=== PATIENT | female | born 1935 | race African-American/Black ===

== ENCOUNTER → 2016-09-21 | Outpatient (CLI) | payer OTHER ==
[~2016-09-21] MED LIST: ALUMSUS2 PO; APR25 PO; ASPEC81 PO; ASPI81TA28 PO; ATOR-22 PO; ATROVENT INH; CALC-354 PO; CALC500C50 PO; CARB1SOL OPB; CARB1SOL8; CLTP PO; CRAN500C2 PO; CRG125 PO; DIPH25CA37 PO; FLUT0.0529 NAE; FLUT0.15 NAE; FRS/40 PO; GENTEAL GEL OPB; GLC/500 PO; GLC500 PO; GLUC10007 PO; GLUCTAB7 PO; LEVO50TA6 PO; LEVO50TA60 PO; LOSA100T65 PO; LVQ500 PO; MDR4 PO; MONT1TAB5 PO; MULT-506 PO; NAPR220T40 PO; NIFE90TA27 PO; NZRCR TD; OMEGCAP2 PO; POTA-335 PO; PRCSR90 PO; PRLSR20 PO; REFRESH OPB; TERB1CRE TD; [UNRECOGNIZED DRUG - CODE] PO; [UNRECOGNIZED DRUG - CODE] TD
--- NOTE | 2016-09-22 05:50 | PAP/PSG TECHNICIAN REPORT ---
[facility] Industrial Pharmacist Polysomnogram Report Study name: None Report date: 09/22/2016 Study date: 09/21/2016 Referring Physician: DR.CHARLES LOPEZ Name: CANDIDA POWELL Interpreting Physician: Panfilo Drake M.D. Date of : 1935 Industrial Pharmacist: Antoinette Tim PSGT. Sex: Female Age: 81 StudyType: PSG Weight: 213 lbs Height: 81 years, Height 5' 6" Neck Circum:15.5 inches BMI: 34.38 Medications: SEE LIST OF 29 MEDICATIONS IN CHART. Patient History 81 YR. OLD FEMALE PRESENTS TO THE SLEEP LAB FOR A SPIT NIGHT STUDY.PT. STATES THAT SHE HAS INSOMNIA, SHE SNORES AND NAPS DURING THE DAY.PT. HAS A COMPLEX MEDICAL HISTORY INCLUDING PULMONARY HYPERTESION.ESS= 7, NECK = 15.5 INCHES Parameters Monitored NPSG: E1-M2, E2-M1, Fp1-M2, Fp2-M1, F3-M2, F4-M2, F4-M1, C3-M2, C4-M2, C4-M1, O1-M2, O2-M2, O2-M1, T3-M2, T4-M1, P3-M2, P4-M1, CHIN1, CHIN2, HR, EKG, Legs, PFLOW, SNOR, FLOW, CFLOW, Tidal Volume, THOR, ABDO, SpO2, PLTH, CPRESS, ETCO2 Wave, ETCO2, pH Sleep Architecture Sleep Stages Time at Lights Off 11:03:43 PM STAGES Time (min.) TST (%) Time at Lights On 5:09:13 AM Wake 117.0 -- Total Recording Time (TRT) 367.00 min. N1 12.5 5 Total Sleep Period (TSP) 312.0 min. N2 216.5 87 Total Sleep Time (TST) 248.0min. N3 0.0 0 Awake Time 119.0 min. REM 19.0 8 Wake after Sleep Onset 68.0 min. Sleep Efficiency (SE) 68 % Sleep Onset Latency (LATRICE) 49.5 min. Number of Stage 1 Shifts None Awakenings 8 Stage Changes 29 Number of REM periods 1 REM 19.0 8 REM Latency 254.5 min. NREM 229.0 92 Body Position Analysis Supine Right Left Side Prone Vertical Total Sleep Time (min.) 365.0 0.0 0.0 0.00 0.0 0.0 Total Sleep Time (%) 100% 0% 0% 0 0% N/A% Total Sleep Time REM (min.) 19.0 0.0 0.0 None 0.0 0.0 Total Sleep Time NREM (min.) 229.0 0.0 0.0 None 0.0 0.0 Intermittent Wake (min.) 117.0 0.0 0.0 None 0.0 0.0 Total Sleep Period (%) 100% None None None None None Arousals Myoclonus (PLM) * Events Count Index Events Count Index Spontaneous 33 8 Events Awake (PLMW) 2 1.0 Respiratory 15 3.6 Events Asleep w/ Arousal (PLMA) 0 0.0 PLM 0 0 Events Asleep w/o Arousal (PLMS) 18 4.4 Snoring 0 0 Total Asleep 18 4.4 Total 48 12 Total 20 3 Respiratory Analysis * CA OA MA CH H RERA Total Count 0 8 0 0 180 49 188 Index 0.0 1.9 0.0 0 43.5 12 56.6 Mean Duration 0.0 17.3 0.0 0.00 17.5 14.1 16.9 Longest Duration 0.0 21.0 0.0 0.00 0.0 32.1 46.4 Respiratory Event Summary Total Supine ~Supine Right Left Prone REM NREM Apneas Count 8 8 N/A N/A N/A N/A 0 8 Index 1.9 2 N/A N/A N/A N/A 0 2 Hypopneas (4% Desat) Count 180 180 N/A N/A N/A N/A 19 161 Index 43.5 43.5 N/A N/A N/A N/A 60.0 42.2 Apneas & All Hypopneas Count 188 188 N/A N/A N/A N/A 19 169 Index 45.5 45 N/A N/A N/A N/A 60.0 44.3 Respiratory Events (Exterior Work Helper+All Hyp+RERA) Count 188 234 N/A N/A N/A N/A 19 169 Index 56.6 57 N/A N/A N/A N/A 78.9 54.8 Respiratory Related Arousal Count 15 234 N/A N/A N/A N/A 2 13 Index 3.6 4 N/A N/A N/A N/A 6 3 Snoring Analysis Supine Right Left Prone REM NREM Total Snore duration 0.1 min Snores count 7 N/A N/A N/A 0 7 7 Snore mean duration 0.8 Sec Snores index 2 N/A N/A N/A 0.0 1.8 1.7 TST with snoring (%) 0.0% SpO2 Analysis Total REM NREM Awake <50% 0.0 min. 0.0 min. 0.0 min. 0.0 min. 51 - 60% 0.0 min. 0.0 min. 0.0 min. 0.0 min. 61 - 70% 0.0 min. 0.0 min. 0.0 min. 0.0 min. 71 - 80% 4.4 min. 3.8 min. 0.5 min. 0.1 min. 81 - 90% 318.0 min. 14.5 min. 218.3 min. 85.2 min. 91 - 100% 40.2 min. 0.8 min. 10.2 min. 29.3 min. Average 87 84 86 89 Minimum SpO2 74 74 79 80 Desaturation Event Index 37.0 75.8 52.4 1.0 # Desat. Events below 89% 222 24 198 0 Time(%) with Saturation below 89% 76.1 4.7 53.9 17.4 Time(min.) with Saturation below 89% 275.9 17.2 195.5 63.2 Heart Rate Analysis End Tidal CO2 Analysis Min (bpm) Max (bpm) Average (bpm) TSP (mins) % of TSP Awake 59 81 74 Above 55 mmHg 0.0 0.0 NREM 57 78 69 50-55 mmHg 0.0 0.0 REM 59 72 66 45-50 mmHg 0.0 0.0 Overall 57 78 68 40-45 mmHg 1.4 0.6 35-40 mmHg 73.9 29.8 30-35 mmHg 45.1 18.2 Average ETCO2 0.1 Supplemental O2 Values Minimum O2 level: None Value Start Time End Time Industrial Pharmacist Comments PSG Study MS. Powell slept in the supine positions. Cardiac arrhythmia displayed, PLM's noted. No bruxism noted. Snoring was noted and scored as a 1 on a scale of 1 through 5. (0=no snoring, 5=snoring loud enough to be heard through a closed door or down the bhatti way) Ms. Powell awoke to use the restroom one time during the night. Ms. Powell stated, I did not sleep well, I had a lot of leg and hip pain. The final report will be interpreted and signed by a sleep physician. The completed physician report will then be placed in the patient medical record. Pt. had hypoxemia and respiratory events throughout the study. Mild snoring was displayed. Pt. also displayed some PVC'S during the test. See print outs in the chart Therapy (cm H2O) 0 TIB (min.) 365.0 TST (min.) 248.0 Sleep Onset (min.) 49.5 REM Onset From Sleep (min.) 254.5 Sleep Efficiency % 68 Wakefulness (%) 32 Wakefulness (min.) 119.0 NREM 1 (%) 5 NREM 1 (min.) 12.5 NREM 2 (%) 87 NREM 2 (min.) 216.5 NREM 3 (%) 0 NREM 3 (min.) 0.0 REM (%) 8 REM (min.) 19.0 # Arousals 48 Arousal Index 12 # Snore 7 Snore Index 1.7 AHI 45.5 AHI Supine 45 AHI Non-Supine N/A NREM AHI 44.3 REM AHI 60.0 RDI 56.6 # Obstructive Apnea 8 # Central Apnea 0 # Mixed Apnea 0 # Hypopneas 180 RERAs 49 Total Respiratory Events 235 Time Below SpO2 89% (min.) 212.7 Mean NREM SpO2 (%) 86 Mean REM SpO2 (%) 84 Mean Sleep SpO2 (%) 86 Min NREM SpO2 (%) 79 Min REM SpO2 (%) 74 Position Supine (min.) 365.0 Position Non-supine (min.) 0.0 LM Index Sleep 4.4 LM Index NREM 3.9 LM Index REM 9.5 Mean Heart Rate (bpm) 68 Min Heart Rate (bpm) 57
--- NOTE | 2016-09-28 13:58 | POLYSOMNOGRAPH REPORT ---
REFERRING PERSON: Dr. Angelica Drake. VACCINE SPECIALIST: Veronica Tim. Ms. Mora is an 81-year-old female sent for a possible split night sleep study. Her main complaint is insomnia. She does snore and nap during the day. She has a complex medical history including pulmonary hypertension. Her [place] Sleepiness Scale score on the evening of this study is 7. BMI is 34.38. Following the technical and digital specifications of the [place] [employer] (AASM) a standard diagnostic polysomnogram was performed monitoring EEG, EOG, EMG (chin and leg deviations), oxygen saturation, body position, digital video, respiratory effort and airflow.? The sleep Stage and event scoring was based on the AASM Manual for the Scoring of Sleep and Associated Events 2007 edition.? Apneas are defined as a drop in the peak thermal sensor excursion by >90% of baseline for at least 10 seconds.? Hypopneas were scored using the 4% oxygen desaturation rule (4A-Medicare) and a decrease in the nasal pressure excursions by >30% of baseline for at least 10 seconds.? Respiratory effort-related arousal (RERA's) is defined as a sequence of breaths lasting at least 10 seconds characterized by increasing respiratory effort or flattening of the nasal pressure waveform leading to an arousal from sleep when the sequence of breaths does not meet criteria for an apnea or hypopnea.? Apnea Hypopnea index (AHI) is defined as the number of apneas and hypopneas occurring in an hour of sleep.? Respiratory disturbance index (RDI) is defined as the number of apneas, hypopneas, and RERA's occurring in an hour of sleep. Ms. Mora's total sleep period time was 312 minutes. Total sleep time was 248 minutes. Sleep efficiency was 68%. Latency to sleep onset was 49.5 minutes with wake after sleep onset of 68 minutes. Total non-REM sleep time was 229 minutes. She spent 5% of that time in N1 sleep and 87% in N2 sleep. There was no N3 sleep on this test. REM latency was prolonged at 254.5 minutes. Total REM sleep time was 19 minutes or 8% of total sleep time. There were 48 cortical arousals from sleep. Thirty three of these arousals were spontaneous, 15 were due to respiratory events, and there was no time spent. There were 18 periodic limb movements. Limb movement index was 4.4. Limb movement with arousal index was 0. There were no central, 8 obstructive, and no mixed apneas. There were 180 hypopnea and 49 RERA. Apnea-hypopnea index was 45.5, RDI was 56.6. This is consistent with severe sleep apnea. Seven snoring events were recorded. Total sleep time with snoring was negligible. Mean saturation during sleep was low at 87% with desaturations with a respiratory event of 74%. Saturations were less than 89% for 275.9 minutes of recorded time. There was no cardiac ectopy noted on this test. During sleep, this patient's heart rates ranged from a low of 57 beats per minute to a high of 78 beats per minute. IMPRESSION AND PLAN: An 81-year-old female with evidence of severe sleep apnea and significant nocturnal hypoxemia on this study. 1. This patient would benefit from positive airway pressure therapy. She should return to sleep lab for a full night titration and based on those results be started on equipment at home. A download from her machine can be reviewed in 1 month both to check compliance as well as AHI and further pressure adjustments can occur at that time. This patient may need supplemental oxygen as well given the degree of her hypoxemia on this test.
== END | disposition home or self-care (01) ==
LOC: C.NEUR 20:00
PROVIDERS: ATTEND Family Medicine
DX: F51.11 Primary hypersomnia (principal); F51.04 Psychophysiologic insomnia; E66.9 Obesity, unspecified; I10 Essential (primary) hypertension; I27.2 Other secondary pulmonary hypertension

== ENCOUNTER 2016-10-15 05:58 | Observation (INO) | payer OTHER ==
[2016-10-15] VITALS (9 sets, daily range): BP systolic 137–178; BP diastolic 77–98; PULSE 60–70; TEMP 36.4–36.8; O2SAT 94–98; Ht 167.6 cm; Wt 99.4 kg
[~2016-10-15] VITALS: Ht 167.6 cm; Wt 99.4 kg
[~2016-10-15 05:58] MED LIST changes: -ASPI81TA28 PO; -ATROVENT INH; -CALC-354 PO; -CARB1SOL OPB; -FLUT0.15 NAE; -GLC/500 PO; -GLUC10007 PO; -LEVO50TA6 PO; -MONT1TAB5 PO; -NIFE90TA27 PO; -TERB1CRE TD; -[UNRECOGNIZED DRUG - CODE] TD
[2016-10-15] MEDS ORDERED: NITROGLYCERIN 0.4 MG SL PER TAB CHARGE SL STA (06:21)
[2016-10-15] MEDS ORDERED: LEVO50TA6 PO (06:27)
[2016-10-15] MEDS ORDERED: GLC/500 PO (06:28)
[2016-10-15] MEDS ORDERED: FLUT0.15 NAE (06:29)
[2016-10-15] MEDS ORDERED: GLUC10007 PO (06:41)
[2016-10-15] MEDS ORDERED: MONT1TAB5 PO (06:44)
[2016-10-15] MEDS ORDERED: APR25 PO (06:45)
[2016-10-15] MEDS ORDERED: TERB1CRE TD (06:47)
[2016-10-15] MEDS ORDERED: [UNRECOGNIZED DRUG - CODE] TD (06:49)
--- NOTE | 2016-10-15 06:49 | EMERGENCY ROOM VISIT NOTE ---
History Report prepared by Claudio: Pari Tracy Under the Supervision of: Dr. Joan Liu D.O. First contact with patient: 06:04 Chief Complaint: HEADACHE Stated Complaint: HEACACHE History of Present Illness The patient is an 81 year old female who presents to the Emergency Room with complaints of a persistent headache that began last evening but worsened this morning. She currently rates her discomfort as a 7/10 in severity. The patient states that for the past several months she has been experiencing headaches, nausea, and aches in her extremities. She notes that she has been undergoing evaluation sleep studies for her sleep apnea. The patient states that today she woke to go to urinate and after she went she developed diffuse body aches. She states that she had a headache, leg aches, left arm aches, abdominal gas, nausea, and neck pain that radiates into her chest and back. The patient states that she continued to feel weak today so she called EMS. The patient states that she was out a few times yesterday and her daughter reports that she appeared slower and more achy than usual. The patient states that Tuesday she had an EKG done that had an abnormality. She states that she was referred to a security professional on Tuesday, but states she was told that if she developed pain before then to come to the ED. The patient states that she has a history of a pericardial effusion in 2013 noting that she was transferred to [facility]. She states that she was unsure why the effusion developed. The patient denies any history of a previous MT or heart catheterization. Source of History: patient, family (daughter) Onset: last evening Position: head Symptom Intensity: 7/10 Quality: ache Timing: worsening, other (persistent) Associated Symptoms: + chest pain, + nausea, + back pain, + weakness Note: Associated Symptoms: aches in her extremities, abdominal gas Review of Systems See HPI for pertinent positives & negatives. A total of 10 systems reviewed and were otherwise negative. 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 (11) HTN (hypertension) (12) Hypothyroid (13) Osteoarthritis (14) Osteopenia (15) Sicca syndrome Surgical Problems: (1) History of cataract surgery (2) History of hysterectomy (3) History of rotator cuff surgery (4) Hx of excision of lamina of cervical vertebra for decompression of spinal cord (5) Status post pericardiocentesis Family History FH: cancer FH: diabetes mellitus Social History Smoking Status: Never Smoker Alcohol Use: occasionally Drug Use: none Marital Status: Occupation Status: retired Current/Historical Medications Scheduled Aluminum/Magnesium/Simeth (Maalox Max Susp), 1 DOSE PO DIRECTED PRN Aspirin (Aspirin Ec), 81 MG PO DAILY Atorvastatin (Lipitor), 20 MG PO DAILY Calcium Carbonate (Antacid) (Tums), 1,000 MG PO prn Calcium Carbonate-Cholecalcife (Caltrate 600+D), 1 TAB PO BID Carbamide Peroxide (Otic) (Debrox), UD Carboxymethylcellulose Sodium (Refresh), 2 DROP OPB UD Carvedilol (Carvedilol), 12.5 MG PO BID Cranberry (Vaccinium Macrocarp (Cranberry), 1,000 MG PO DAILY Fluticasone Propionate (Nasal) (Flonase Allergy Relief), 2 SPRAY HUONG BID Furosemide (Lasix), 40 MG PO DAILY Glucosamine Sulfate (Glucosamine), 1,000 MG PO BID Hydralazine Hcl (Apresoline), 25 MG PO BID Levothyroxine Sodium (Levothyroxine Sodium), 50 MCG PO DAILY Losartan Potassium (Cozaar), 100 MG PO DAILY Metformin Hcl (Glucophage), 500 MG PO BIDM Montelukast Sodium (Montelukast Sodium), 10 MG PO DAILY Multivitamin (Multivitamin), 1 TAB PO DAILY Nifedipine (Nifedipine Er), 90 MG PO DAILY [place]-3 Fatty Acids (Fish Oil), 1,000 MG PO BID Omeprazole (Prilosec), 20 MG PO QAM Potassium Chloride (Micro-K Ext Rel), 20 MEQ PO DAILY Terbinafine HCl (Topical) (Cvs Athletes Foot), 1 APPLN TD BID Urea (Aqua Care), 1 APPLN TD PRN/UD Scheduled PRN Diphenhydramine Hcl (Benadryl), 25 MG PO Q4 PRN for ALLERGIC REACTION Naproxen Sodium (Aleve), 220 MG PO BID PRN for Pain [Atrovent Hfa 17MCG], 2 PUFFS INH TID PRN for Wheezing Allergies Coded Allergies: Simvastatin (Unverified Allergy, Intermediate, muscle cramps, 02/27/13) Codeine (Unverified Allergy, Mild, HYPERTENSION, 02/27/13) Atropine (Verified Allergy, Unknown, ITCHING, 05/26/14) Doxycycline (Verified Allergy, Unknown, NAUSEA/VOMITING., 05/26/14) Hyoscyamine (Verified Allergy, Unknown, ITCHING, 05/26/14) Lactose (Verified Allergy, Unknown, UNKNOWN, 05/26/14) Minocycline (Verified Allergy, Unknown, NAUSEA AND VOMITING, 05/26/14) Morphine and Related (Verified Allergy, Unknown, UNKNOWN, 05/26/14) Phenobarbital (Verified Allergy, Unknown, RASH, 05/26/14) Scopolamine (Verified Allergy, Unknown, RASH, 05/26/14) Physical Exam Vital Signs Date Time Temp Pulse Resp B/P (MAP) Pulse Ox O2 Delivery O2 Flow Rate FiO2 10/15/16 07:14 68 20 121/71 94 Room Air 10/15/16 06:59 72 20 147/91 94 Room Air 10/15/16 06:50 70 10/15/16 06:39 95 Room Air 10/15/16 06:07 36.7 86 18 173/95 97 Room Air Physical Exam HEENT: Head - normocephalic and atraumatic Pupils are equal, round, and reactive to light. Extraocular eye muscles are intact, and sclera are anicteric. Nose - moist nasal mucosa without discharge. Mouth - moist buccal mucosa. Oropharynx is nonerythematous and there is no tonsillar exudate or edema noted. Neck: Supple; no JVD, nuchal rigidity, cervical lymphadenopathy, or auscultated bruits. Heart: Regular rate and rhythm. There is a normal S1 and S2 with no murmurs, clicks, or gallops appreciated. Lungs: Clear to auscultation bilaterally with no wheezes, rales, or rhonchi. Abdomen: Soft, completely nontender, nondistended, with good bowel sounds. There are no palpable pulsatile masses or hepatosplenomegaly. There is no guarding, rigidity, or rebound noted. Extremities: 2+ pitting edema to the legs. No evidence of cyanosis or clubbing. There are easily palpable peripheral pulses. Skin: warm and dry with good turgor and no rashes. Medical Decision & Procedures ER Provider Diagnostic Interpretation: X-ray results as stated below per interpretation by me and the radiologist: CHEST ONE VIEW PORTABLE CLINICAL HISTORY: chest pain pain COMPARISON STUDY: 05/30/2014 FINDINGS: The bones soft tissues and hemidiaphragms are normal. The cardiomediastinal silhouette is normal. The lungs are clear. The pulmonary vasculature is normal. IMPRESSION: Negative chest. Electronically signed by: Jn Jordan M.D. 10/15/2016 6:58 AM Dictated Date/Time: 10/15/2016 6:58 AM Laboratory Results 10/15/16 06:30 10/15/16 06:30 Test 10/15/16 06:30 Red Blood Count 5.03 M/uL (4.2-5.4) Mean Corpuscular Volume 89.9 fL (80-100) Mean Corpuscular Hemoglobin 29.6 pg (25-34) Mean Corpuscular Hemoglobin Concent 33.0 g/dl (32-36) RDW Standard Deviation 50.1 fL (36.4-46.3) RDW Coefficient of Variation 15.1 % (11.5-14.5) Mean Platelet Volume 9.9 fL (7.4-10.4) Anion Gap 7.0 mmol/L (3-11) Est Creatinine Clear Calc Drug Dose 56.8 ml/min Estimated GFR () 67.2 Estimated GFR (Non- 58.0 BUN/Creatinine Ratio 18.6 (10-20) Calcium Level 9.8 mg/dl (8.5-10.1) Total Bilirubin 0.5 mg/dl (0.2-1) Aspartate Amino Transf (AST/SGOT) 17 U/L (15-37) Alanine Aminotransferase (ALT/SGPT) 22 U/L (12-78) Alkaline Phosphatase 50 U/L (45-117) Total Creatine Kinase 167 U/L (26-192) Creatine Kinase MB 1.2 ng/ml (0.5-3.6) Creatine Kinase MB Ratio 0.7 (0-3.0) Troponin I < 0.015 ng/ml (0-0.045) Total Protein 7.7 gm/dl (6.4-8.2) Albumin 3.9 gm/dl (3.4-5.0) Globulin 3.8 gm/dl (2.5-4.0) Albumin/Globulin Ratio 1.0 (0.9-2) Laboratory results per my review. Medications Administered Medications (Trade) Dose Ordered Sig/Nelly Route Start Time Stop Time Status Last Admin Dose Admin Nitroglycerin (Nitrostat Tab) 0.4 mg Q5M STAT SL 10/15/16 06:21 10/15/16 06:22 DC 10/15/16 06:32 0.4 MG Procedure Medications Administered: Nitroglycerin 0.4 mg SL. ECG Indication: chest pain Rate (beats per minute): 79 Rhythm: normal sinus Findings: PVC, T-wave inversion (lead 1 and AVL) Comparison ECG Date: 10/12/16, 05/27/14 Change: When compared to EKG done on 05/27/14, T wave inversions are new. When compared to EKG done on 10/12/16, it is unchanged. ED Course 0607: Past medical records reviewed. The patient was evaluated in room B7. A complete history and physical exam was performed. A twelve-lead EKG was obtained as described above. A portable chest x-ray was obtained 0621: Ordered Nitroglycerin 0.4 mg SL. 0630: In review of the patient's EMR her echocardiogram interpretation summary is as follows: Normal LV chamber size and wall thickness. Normal LV systolic function without regional wall motion abnormality. Calculated LV ejection Fraction = 60% (bi-plane method of discs). Grade I diastolic dysfunction. Mild mitral regurgitation. Mild tricuspid regurgitation. Pulmonary hypertension is present. 0658: I reevaluated the patient and she states that her pain in her chest, neck , back, and left arm went from a 7/10 to a 2/10 with the nitroglycerin. She will receive another dose of Nitroglycerin. 0715: Per nursing staff, the patient went down to a 1/10 in severity after the second nitro. I discussed the patient's case with Yumiko Crabtree. She is going to evaluate the patient for further treatment. Medical Decision The patient is an 81 year old female who presents to the ED with headache, upper chest discomfort that radiates to the left side of her neck and left shoulder. Differential diagnosis includes NSTEMI, angina, GERD, CHF. I attest that I have personally reviewed the patient's current medication list. Patient was found to have an elevated blood pressure and was referred to their primary doctor for recheck and further treatment. Lab interpretation: normal white count, stable H&H, glucose 131, normal renal function. The patient had a recent EKG which was noted to be abnormal. She was referred to cardiology next week. However, the patient developed some upper chest discomfort that radiated to her left neck and left shoulder this morning. There is no evidence of ST segment elevation to suggest an acute MT. Troponin was negative. However, I am concerned about the patient's upper chest pain that radiates to the left shoulder and neck. This pain was also relieved with nitroglycerin. The patient's blood pressure was initially elevated but came down nicely after 2 sublingual nitros. I discussed the case with the [facility] Hospitalist and they will evaluate for further management. Consults Time Called: 7:36 Consulting Physician: Dr. Clive Calderon Returned Call: 7:37 I discussed the patient's case with Yumiko Crabtree. She is going to evaluate the patient for further treatment. Impression Primary Impression: Radiating chest pain Scribe Attestation The scribe's documentation has been prepared under my direction and personally reviewed by me in its entirety. I confirm that the note above accurately reflects all work, treatment, procedures, and medical decision making performed by me. Departure Information Dispostion Being Evaluated By Hospitalist Referrals Collins Delatorre D.O. (PCP)
[2016-10-15] MEDS ORDERED: NIFE90TA27 PO (06:52)
[2016-10-15] MEDS ORDERED: CALC-354 PO (06:59)
[2016-10-15] MEDS ORDERED: ASPI81TA28 PO (07:00)
--- NOTE | 2016-10-15 07:00 | DIAGNOSTIC IMAGING REPORT ---
CHEST ONE VIEW PORTABLE CLINICAL HISTORY: chest pain pain COMPARISON STUDY: 05/30/2014 FINDINGS: The bones soft tissues and hemidiaphragms are normal. The cardiomediastinal silhouette is normal. The lungs are clear. The pulmonary vasculature is normal. IMPRESSION: Negative chest. Electronically signed by: Jn Jordan M.D. 10/15/2016 6:58 AM Dictated Date/Time: 10/15/2016 6:58 AM
[2016-10-15] MEDS ORDERED: CARB1SOL OPB (07:02)
[2016-10-15 07:03] LABS: HEMATOCRIT 45.2 % (37-47); MEAN CELL VOLUME 89.9 fL (80-100); MEAN CORPUSCULAR HEMOGLOBIN 29.6 pg (25-34); MEAN PLATELET VOLUME 9.9 fL (7.4-10.4); PLATELET COUNT 280 K/uL (130-400); RED BLOOD COUNT 5.03 M/uL (4.2-5.4); WHITE BLOOD COUNT 6.78 K/uL (4.8-10.8)
[2016-10-15] MEDS ORDERED: ALUMSUS2 PO (07:05)
[2016-10-15] MEDS ORDERED: ATROVENT INH (07:12)
[2016-10-15 07:25] LABS: ALT/SGPT 22 U/L (12-78); AST/SGOT 17 U/L (15-37); BLOOD UREA NITROGEN 17 mg/dl (7-18); BUN/CREATININE RATIO 18.6 (10-20); CARBON DIOXIDE 26 mmol/L (21-32); CHLORIDE 106 mmol/L (98-107); CREATININE 0.92 mg/dl (0.60-1.20); GLUCOSE 131 mg/dl (70-99); SODIUM 139 mmol/L (136-145)
[2016-10-15 07:27] LABS: CALCIUM 9.8 mg/dl (8.5-10.1)
[2016-10-15 07:30] LABS: ALKALINE PHOSPHATASE 50 U/L (45-117); CKMB/CK RATIO 0.7 (0-3.0)
[2016-10-15] MEDS ORDERED: ONDANSETRON INJ 2 MG/ML 2 ML VIAL IV PRN (08:30)
[2016-10-15] MEDS ORDERED: IPRATROPIUM BROMIDE HFA INHALER INH PRN (08:30)
[2016-10-15] MEDS ORDERED: NITROGLYCERIN 0.4 MG SL PER TAB CHARGE SL PRN (08:30)
[2016-10-15] MEDS ORDERED: ALUMINUM/MAGNESIUM/SIMETH (MAALOX MAX) 30 ML UDC PO PRN (08:30)
[2016-10-15] MEDS ORDERED: CALCIUM CARBONATE 500 MG CHEWABLE PO PRN (08:30)
--- NOTE | 2016-10-15 08:43 | Progress Note ---
Progress Note Date of Service Oct 15, 2016. Progress Note Generalized aches and pain for the last 2 weeks with fwver,chills,nausea , vomiting and or any urinary symptoms. Worse this morning,Has had left upper chest pain with some chest tightness.No other associated symptoms .Received nitrox2 with relief fo the pain. The patient had a recent EKG which was noted to be abnormal by the PCP . She was referred to cardiology next week. However, the patient developed some upper chest discomfort that radiated to her left neck and left shoulder this morning. There is no evidence of ST segment elevation to suggest an acute NE. Troponin was negative. However, I am concerned about the patient's upper chest pain that radiates to the left shoulder and neck. This pain was also relieved with nitroglycerin. The patient's blood pressure was initially elevated but came down nicely after 2 sublingual nitros. A/P Atypical Chest pain-Non specific T wave changes with low Voltage,H/O pericardial effusion Possible viral syndrome DM -type 2 Telemetry unit,R/O ACS,Cardiology consult Full H&P to follow. Dr Micheline Barbosa
[2016-10-15] MEDS ORDERED: CRANBERRY PO SCH (09:00)
[2016-10-15] MEDS ORDERED: GLUCOSE 10 TABS/TUBE PO PRN (09:45)
[2016-10-15] MEDS ORDERED: GLUCOSE 40% GEL 15 GM TUBE PO PRN (09:45)
[2016-10-15] MEDS ORDERED: GLUCAGON FOR INJ 1 MG VIAL SQ PRN (09:45)
[2016-10-15] MEDS ORDERED: DEXTROSE 50% 50 ML SYR IV PRN (09:45)
[2016-10-15] MEDS ORDERED: NSS + 20MEQ KCL 1000ML 1,000 ML IV SCH (10:00)
[2016-10-15 10:15] LABS: PROTHROMBIN TIME (PATIENT) 10.7 SECONDS (9.0-12.0)
[2016-10-15] MEDS ORDERED: IV FLUIDS COMPLETED PRN (10:30)
--- NOTE | 2016-10-15 10:30 | Cardiology Consultation ---
Cardiology Consultation History of Present Illness Patient is a 81 year old female presented with complaint of chest discomfort. Patient states that she had a meal with significant amount of garlic in it. Approx 1-2 hours later developed chest discomfort. Described it as a burning sensation similar to the sensation of needing to belch but being unable to do so. Her son gave her some otc anti-gas meds and within 30 minutes symptoms resolved. Denied associated sob, diaphoresis or palpitations. Has had similar episodes in the past. History Family History: Mother with pneumonia at 32. Father at 60 from hemorrhage. Brother with an [place] at 61. Sister with colon cancer at 42 Social History: Nonsmoker. No alcohol. No illegal drug use. , May 2015. Son lives with her. Daughter lives five minutes away. 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 Past Medical/Surgical History Problem List: Medical Problems: (1) Adrenal mass (2) Allergic rhinitis (3) Atypical chest pain (4) Degenerative arthritis of cervical spine (5) DM type 2 (diabetes mellitus, type 2) (6) Dyslipidemia (7) History of alopecia areata (8) History of breast cancer (9) History of migraine headaches (10) History of pericardial effusion (11) History of positive PPD (12) HTN (hypertension) (13) Hypothyroid (14) Osteoarthritis (15) Osteopenia (16) Sicca syndrome Surgical Problems: (1) History of cataract surgery (2) History of hysterectomy (3) History of rotator cuff surgery (4) Hx of excision of lamina of cervical vertebra for decompression of spinal cord (5) Status post pericardiocentesis Review Of Systems General: The patient denies weight change, night sweats, fever, chills. Head: The patient denies headache and prior head trauma. Cardiovascular: The patient denies chest pain or chest discomfort, dyspnea on exertion, palpitations, PND, orthopnea, edema, spontaneous shortness of breath, syncope and near syncope. Pulmonary: The patient denies cough, wheeze, pleurisy, hemoptysis, sputum, and excessive snoring. Gastrointestinal: The patient denies nausea, vomiting, diarrhea, constipation, bloating, hematemesis, hematochezia, and abdominal pain. Skin: The patient denies diaphoresis and rash. Musculoskeletal: The patient denies joint pain, joint swelling, myalgia, back pain, neck pain and prior injuries. Neurological: The patient denies prior stroke and seizures Allergies Coded Allergies: Simvastatin (Unverified Allergy, Intermediate, muscle cramps, 02/27/13) Codeine (Unverified Allergy, Mild, HYPERTENSION, 02/27/13) Atropine (Verified Allergy, Unknown, ITCHING, 05/26/14) Doxycycline (Verified Allergy, Unknown, NAUSEA/VOMITING., 05/26/14) Hyoscyamine (Verified Allergy, Unknown, ITCHING, 05/26/14) Lactose (Verified Allergy, Unknown, UNKNOWN, 05/26/14) Minocycline (Verified Allergy, Unknown, NAUSEA AND VOMITING, 05/26/14) Morphine and Related (Verified Allergy, Unknown, UNKNOWN, 05/26/14) Phenobarbital (Verified Allergy, Unknown, RASH, 05/26/14) Pork (Verified Allergy, Unknown, spiritual preference, 10/15/16) Scopolamine (Verified Allergy, Unknown, RASH, 05/26/14) Shellfish (Verified Allergy, Unknown, spiritual preference, 10/15/16) Medications Reported Home Medications Medications Dose Route/Sig Max Daily Dose Days Date Category Dose Instructions [Atrovent a 17MCG] 2 Puffs INH TID PRN 10/15/16 Reported Refresh (Carboxymethylcellulose Sodium) 1 % Manuel 2 Drop OPB UD 10/15/16 Reported Aspirin Ec (Aspirin) 81 Mg Tab 81 Mg PO DAILY 10/15/16 Reported Caltrate 600+D (Calcium Carbonate-Cholecalcife) 1 Tab Tab 1 Tab PO BID 10/15/16 Reported Nifedipine Er (Nifedipine) 90 Mg Tab 90 Mg PO DAILY 10/15/16 Reported Aqua Care (Urea) 10 % Cre 1 Appln TD PRN/UD 10/15/16 Reported [facility] Athletes Foot (Terbinafine HCl (Topical)) 1 % Cre 1 Appln TD BID 10/15/16 Reported Apresoline (Hydralazine Hcl) 25 Mg Tab 25 Mg PO BID 10/15/16 Reported Montelukast Sodium 10 Mg Tab 10 Mg PO DAILY 10/15/16 Reported Glucosamine (Glucosamine Sulfate) 1,000 Mg Tab 1,000 Mg PO BID 10/15/16 Reported Flonase Allergy Relief (Fluticasone Propionate (Nasal)) 50 Mcg/Act Spr 2 Closplint HUONG BID 10/15/16 Reported Glucophage (Metformin Hcl) 500 Mg Tab 500 Mg PO BIDM 10/15/16 Reported Levothyroxine Sodium 50 Mcg Tab 50 Mcg PO DAILY 10/15/16 Reported Debrox (Carbamide Peroxide (Otic)) 6.5 % Matilda UD 05/26/14 Reported Fill ear canal and insert cotton plug. Remove plug after 15 to 30 minutes. Benadryl (Diphenhydramine Hcl) 25 Mg Cap 25 Mg PO Q4 PRN 05/26/14 Reported Tums (Calcium Carbonate (Antacid)) 500 Mg Chw 1,000 Mg PO PRN 05/26/14 Reported Fish Oil ([place]-3 Fatty Acids) 1 Cap Cap 1,000 Mg PO BID 05/26/14 Reported Cranberry (Cranberry (Vaccinium Macrocarp) 500 Mg Cap 1,000 Mg PO DAILY 05/26/14 Reported Aleve (Naproxen Sodium) 220 Mg Tab 220 Mg PO BID PRN 05/26/14 Reported Carvedilol 12.5 Mg Tab 12.5 Mg PO BID 05/26/14 Reported Cozaar (Losartan Potassium) 100 Mg Tab 100 Mg PO DAILY 05/26/14 Reported Prilosec (Omeprazole) 20 Mg Capcr 20 Mg PO QAM 03/28/13 Reported Lipitor (Atorvastatin Calcium) 20 Mg Tab 20 Mg PO DAILY 03/28/13 Reported Maalox Max Susp (Al Hydrox/Mg Hydrox/Simethicone) Susp 1 Dose PO DIRECTED PRN 09/28/10 Reported Micro-K Ext Rel (Potassium Chloride) 20 Meq Cap 20 Meq PO DAILY 09/28/10 Reported Multivitamin (Multivitamins) Tab 1 Tab PO DAILY 09/28/10 Reported Lasix (Furosemide) 40 Mg Tab 40 Mg PO DAILY 08/26/06 Reported Physical Exam Vital Signs (Last 8hrs): Last 8 Hrs Date Time Temp Pulse Resp B/P (MAP) Pulse Ox O2 Delivery O2 Flow Rate FiO2 10/15/16 09:00 74 20 153/82 97 10/15/16 08:25 97 Room Air 10/15/16 08:03 62 22 146/79 97 Room Air 10/15/16 07:14 68 20 121/71 94 Room Air 10/15/16 06:59 72 20 147/91 94 Room Air 10/15/16 06:50 70 10/15/16 06:39 95 Room Air 10/15/16 06:07 36.7 86 18 173/95 97 Room Air General Appearance: Alert and Oriented x3. NAD. Head: Normocephalic Atraumatic. Eyes: PERRLA, EOMI, conjunctiva and sclera clear Neck: Supple. No carotid bruits noted. No JVD. No HJD. Respiratory: Breath sounds clear to auscultation bilaterally. No w/r/r. Cardiovascular: Reg rate and rhythm. S1 and S2 noted. No murmurs, rubs, gallops. PMI non displace. Abdomen: Normal bowel sounds, soft nontender. no abdominal bruits. Extremities: No edema, no clubbing or cyanosis. distal pulses 2/4 bilaterally. Neuro: No focal deficits. Psychiatric: Normal affect. Data Last 24 Hours Test 10/15/16 06:30 White Blood Count 6.78 K/uL Red Blood Count 5.03 M/uL Hemoglobin 14.9 g/dL Hematocrit 45.2 % Mean Corpuscular Volume 89.9 fL Mean Corpuscular Hemoglobin 29.6 pg Mean Corpuscular Hemoglobin Concent 33.0 g/dl RDW Standard Deviation 50.1 fL RDW Coefficient of Variation 15.1 % Platelet Count 280 K/uL Mean Platelet Volume 9.9 fL Prothrombin Time 10.7 SECONDS Prothromb Time International Ratio 1.0 Sodium Level 139 mmol/L Potassium Level 4.0 mmol/L Chloride Level 106 mmol/L Carbon Dioxide Level 26 mmol/L Anion Gap 7.0 mmol/L Blood Urea Nitrogen 17 mg/dl Creatinine 0.92 mg/dl Est Creatinine Clear Calc Drug Dose 56.8 ml/min Estimated GFR () 67.2 Estimated GFR (Non- 58.0 BUN/Creatinine Ratio 18.6 Random Glucose 131 mg/dl Calcium Level 9.8 mg/dl Total Bilirubin 0.5 mg/dl Aspartate Amino Transf (AST/SGOT) 17 U/L Alanine Aminotransferase (ALT/SGPT) 22 U/L Alkaline Phosphatase 50 U/L Total Creatine Kinase 167 U/L Creatine Kinase MB 1.2 ng/ml Creatine Kinase MB Ratio 0.7 Troponin I < 0.015 ng/ml Total Protein 7.7 gm/dl Albumin 3.9 gm/dl Globulin 3.8 gm/dl Albumin/Globulin Ratio 1.0 Imaging: EKG: sinus without ischemic changes Telemetry reviewed: sinus rhythm without arrhythmia or significant ectopy. Assessment & Plan 1. chest discomfort resolved with anti-gas medication occurred after eating large amount of garlic ekg nonischemic trend cardiac enzymes, so far unremarkable repeat echo will start prn simethicone
[2016-10-15] MEDS: ATORVASTATIN 20 MG TAB PO SCH (10:33)
[2016-10-15] MEDS: LOSARTAN POTASSIUM 50 MG TAB PO SCH (10:34)
[2016-10-15] MEDS: MULTIVITAMIN TAB PO SCH (10:35)
[2016-10-15] MEDS: MONTELUKAST SOD 10 MG TAB PO SCH (10:35)
[2016-10-15] MEDS: GLUCOSAMINE SULFATE 500 MG CAP PO SCH ×2 (10:35→20:22)
[2016-10-15] MEDS: PANTOprazole SOD 40 MG TAB PO SCH (10:36)
[2016-10-15] MEDS: LEVOTHYROXINE 50 MCG TAB PO SCH (10:38)
[2016-10-15] MEDS: CALCIUM 600MG + VIT D 400 IU TAB PO SCH ×2 (10:38→16:00)
[2016-10-15] MEDS: ASPIRIN 81 MG ECTAB PO SCH (10:39)
[2016-10-15] MEDS: CARVEDILOL 12.5 MG TAB PO SCH ×2 (10:39→20:22)
[2016-10-15] MEDS: TERBINAFINE CR 30 GM TUBE EXT SCH ×2 (10:40→20:21)
[2016-10-15] MEDS: FLUTICASONE PROPIONATE NA SPR 16 GM BTL NAE SCH ×2 (10:41→20:21)
[2016-10-15] MEDS: NIFEdipine 30 MG CR TAB PO SCH (11:12)
[2016-10-15] MEDS: INSULIN ASPART 100 UNITS/ML 3 ML PEN SC SCH ×3 (12:59→20:22)
[2016-10-15] MEDS: HEPARIN SOD 5000 UNIT/0.5 ML CARP SQ SCH ×2 (13:34→20:25)
--- NOTE | 2016-10-15 13:49 | History and Physical ---
History & Physical Date & Time of Service: Oct 15, 2016 at 13:39 Chief Complaint: Atypical Chest Pain Primary Care Physician: Collins Delatorre D.O. History of Present Illness Source: patient, family Generalized aches and pain for the last 2 weeks with fwver,chills,nausea , vomiting and or any urinary symptoms. Worse this morning,Has had left upper chest pain with some chest tightness.No other associated symptoms .Received nitrox2 with relief fo the pain. The patient had a recent EKG which was noted to be abnormal by the PCP . She was referred to cardiology next week. However, the patient developed some upper chest discomfort that radiated to her left neck and left shoulder this morning. There is no evidence of ST segment elevation to suggest an acute NC. Troponin was negative. However, I am concerned about the patient's upper chest pain that radiates to the left shoulder and neck. This pain was also relieved with nitroglycerin. The patient's blood pressure was initially elevated but came down nicely after 2 sublingual nitros. 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 (11) HTN (hypertension) Status: Chronic (12) Hypothyroid Status: Chronic (13) Osteoarthritis Status: Chronic (14) Osteopenia Status: Chronic (15) Sicca syndrome Status: Chronic Surgical Problems: (1) History of cataract surgery Status: Chronic (2) History of hysterectomy Status: Chronic (3) History of rotator cuff surgery Status: Chronic (4) Hx of excision of lamina of cervical vertebra for decompression of spinal cord Status: Chronic (5) Status post pericardiocentesis Permanent Comment: 2010 [facility] Status: Chronic Family History FH: cancer FH: diabetes mellitus Social History Smoking Status: Never Smoker Drug Use: none Marital Status: Housing status: lives with significant other Occupational Status: retired Immunizations History of Influenza Vaccine: Yes History of Tetanus Vaccine?: Yes History of Pneumococcal: Yes Pneumococcal Date: Jan 22, 2012 History of Hepatitis B Vaccine: No Multi-Drug Resistant Organisms History of MDRO: No Allergies Coded Allergies: Simvastatin (Unverified Allergy, Intermediate, muscle cramps, 02/27/13) Codeine (Unverified Allergy, Mild, HYPERTENSION, 02/27/13) Atropine (Verified Allergy, Unknown, ITCHING, 05/26/14) Doxycycline (Verified Allergy, Unknown, NAUSEA/VOMITING., 05/26/14) Hyoscyamine (Verified Allergy, Unknown, ITCHING, 05/26/14) Lactose (Verified Allergy, Unknown, UNKNOWN, 05/26/14) Minocycline (Verified Allergy, Unknown, NAUSEA AND VOMITING, 05/26/14) Morphine and Related (Verified Allergy, Unknown, UNKNOWN, 05/26/14) Phenobarbital (Verified Allergy, Unknown, RASH, 05/26/14) Pork (Verified Allergy, Unknown, spiritual preference, 10/15/16) Scopolamine (Verified Allergy, Unknown, RASH, 05/26/14) Shellfish (Verified Allergy, Unknown, spiritual preference, 10/15/16) Home Medications Scheduled Aluminum/Magnesium/Simeth (Maalox Max Susp), 1 DOSE PO DIRECTED PRN Aspirin (Aspirin Ec), 81 MG PO DAILY Atorvastatin (Lipitor), 20 MG PO DAILY Calcium Carbonate (Antacid) (Tums), 1,000 MG PO prn Calcium Carbonate-Cholecalcife (Caltrate 600+D), 1 TAB PO BID Carbamide Peroxide (Otic) (Debrox), UD Carboxymethylcellulose Sodium (Refresh), 2 DROP OPB UD Carvedilol (Carvedilol), 12.5 MG PO BID Cranberry (Vaccinium Macrocarp (Cranberry), 1,000 MG PO DAILY Fluticasone Propionate (Nasal) (Flonase Allergy Relief), 2 SPRAY HUONG BID Furosemide (Lasix), 40 MG PO DAILY Glucosamine Sulfate (Glucosamine), 1,000 MG PO BID Hydralazine Hcl (Apresoline), 25 MG PO BID Levothyroxine Sodium (Levothyroxine Sodium), 50 MCG PO DAILY Losartan Potassium (Cozaar), 100 MG PO DAILY Metformin Hcl (Glucophage), 500 MG PO BIDM Montelukast Sodium (Montelukast Sodium), 10 MG PO DAILY Multivitamin (Multivitamin), 1 TAB PO DAILY Nifedipine (Nifedipine Er), 90 MG PO DAILY [place]-3 Fatty Acids (Fish Oil), 1,000 MG PO BID Omeprazole (Prilosec), 20 MG PO QAM Potassium Chloride (Micro-K Ext Rel), 20 MEQ PO DAILY Terbinafine HCl (Topical) ([facility]vs Athletes Foot), 1 APPLN TD BID Urea (Aqua Care), 1 APPLN TD PRN/UD Scheduled PRN Diphenhydramine Hcl (Benadryl), 25 MG PO Q4 PRN for ALLERGIC REACTION Naproxen Sodium (Aleve), 220 MG PO BID PRN for Pain [Atrovent Hfa 17MCG], 2 PUFFS INH TID PRN for Wheezing Review of Systems Cardiovascular: + chest pain (Atypical ) Musculoskeletal: + muscle pain (Generalized) Physical Exam Vital Signs Date Time Temp Pulse Resp B/P (MAP) Pulse Ox O2 Delivery O2 Flow Rate FiO2 10/15/16 12:00 98 Room Air 10/15/16 12:00 98 Room Air 10/15/16 11:25 36.5 65 18 157/77 (103) 97 Nasal Cannula 2.0 10/15/16 10:00 66 16 168/77 (107) 98 Room Air 10/15/16 09:30 36.8 70 18 178/98 (124) 98 Room Air 10/15/16 09:00 74 20 153/82 97 10/15/16 08:25 97 Room Air 10/15/16 08:03 62 22 146/79 97 Room Air 10/15/16 07:14 68 20 121/71 94 Room Air 10/15/16 06:59 72 20 147/91 94 Room Air 10/15/16 06:50 70 10/15/16 06:39 95 Room Air 10/15/16 06:07 36.7 86 18 173/95 97 Room Air General Appearance: no apparent distress Head: normocephalic Eyes: normal inspection ENT: normal ENT inspection Neck: supple Respiratory/Chest: chest non-tender, lungs clear, normal breath sounds Cardiovascular: regular rate, rhythm Abdomen/GI: normal bowel sounds, non tender Back: normal inspection Neurologic/Psych: no motor/sensory deficits Skin: normal color Lymphatic: no adenopathy Diagnostics Laboratory Results Results Past 24 Hours Test 10/15/16 06:30 10/15/16 11:18 Range/Units White Blood Count 6.78 4.8-10.8 K/uL Red Blood Count 5.03 4.2-5.4 M/uL Hemoglobin 14.9 12.0-16.0 g/dL Hematocrit 45.2 37-47 % Mean Corpuscular Volume 89.9 80-100 fL Mean Corpuscular Hemoglobin 29.6 25-34 pg Mean Corpuscular Hemoglobin Concent 33.0 32-36 g/dl RDW Standard Deviation 50.1 36.4-46.3 fL RDW Coefficient of Variation 15.1 11.5-14.5 % Platelet Count 280 130-400 K/uL Mean Platelet Volume 9.9 7.4-10.4 fL Prothrombin Time 10.7 9.0-12.0 SECONDS Prothromb Time International Ratio 1.0 0.9-1.1 Sodium Level 139 136-145 mmol/L Potassium Level 4.0 3.5-5.1 mmol/L Chloride Level 106 98-107 mmol/L Carbon Dioxide Level 26 21-32 mmol/L Anion Gap 7.0 3-11 mmol/L Blood Urea Nitrogen 17 7-18 mg/dl Creatinine 0.92 0.60-1.20 mg/dl Est Creatinine Clear Calc Drug Dose 56.8 ml/min Estimated GFR () 67.2 Estimated GFR (Non- 58.0 BUN/Creatinine Ratio 18.6 10-20 Random Glucose 131 70-99 mg/dl Calcium Level 9.8 8.5-10.1 mg/dl Total Bilirubin 0.5 0.2-1 mg/dl Aspartate Amino Transf (AST/SGOT) 17 15-37 U/L Alanine Aminotransferase (ALT/SGPT) 22 12-78 U/L Alkaline Phosphatase 50 45-117 U/L Total Creatine Kinase 167 26-192 U/L Creatine Kinase MB 1.2 0.5-3.6 ng/ml Creatine Kinase MB Ratio 0.7 0-3.0 Troponin I < 0.015 0-0.045 ng/ml Total Protein 7.7 6.4-8.2 gm/dl Albumin 3.9 3.4-5.0 gm/dl Globulin 3.8 2.5-4.0 gm/dl Albumin/Globulin Ratio 1.0 0.9-2 Bedside Glucose 133 70-90 mg/dl CXR normal other (Non specific t wave changes) Impression Assessment and Plan Atypical Chest Pain Resolved with Nitrox2-with headache H/O Pericardial Effusion Minor T wave changes recently and was referred to cardiology as an OP Serial Aubrey Cardiology evaluation Generalized Aches and Pain May have Viral syndrome Cautious IVF for dehydration Monitor PRP Diabetes Type 2 Hold Metformin SSI Blood sugar ACHS Hypertension Continue current medications Hypothyroidism Continue replacement Sleep Apnea May use her own CPAP GI prophylaxis PPI DVT prophylaxis SQ Heparin Code Status Full In my clinical judgement the beneficiary meets the criteria of [address] in hospital. Dr Micheline Barbosa Level of Care Telemetry Advanced Directives Existing Living Will: No Existing Power of Tobacco Conditioner: No Resuscitation Status FULL RESUSCITATION VTE Prophylaxis VTE Risk Assessment Done? Y/N: Yes Risk Level: Moderate Given or contraindicated: Unfractionated heparin SQ
[2016-10-15] MEDS ORDERED: SIMETHICONE 80 MG CHEW PO ONE (15:17)
[2016-10-15] MEDS ORDERED: SIMETHICONE 80 MG CHEW PO PRN (15:30)
[2016-10-15 15:46] LABS: CKMB/CK RATIO 0.5 (0-3.0)
[2016-10-15 20:50] LABS: CKMB/CK RATIO 0.8 (0-3.0)
[2016-10-16] VITALS (7 sets, daily range): BP systolic 115–175; BP diastolic 61–96; PULSE 52–68; TEMP 36.5–36.6; O2SAT 94–97
[2016-10-16 03:20] LABS: CKMB/CK RATIO 1.1 (0-3.0)
[2016-10-16] MEDS: ACETAMINOPHEN 325 MG TAB PO PRN ×2 (04:06→20:48)
[2016-10-16] MEDS: LEVOTHYROXINE 50 MCG TAB PO SCH (05:36)
[2016-10-16] MEDS: HEPARIN SOD 5000 UNIT/0.5 ML CARP SQ SCH ×3 (05:37→23:08)
[2016-10-16 05:48] LABS: CHOLESTEROL/HDL RATIO 2.5
[2016-10-16] MEDS: ASPIRIN 81 MG ECTAB PO SCH (07:51)
[2016-10-16] MEDS: PANTOprazole SOD 40 MG TAB PO SCH (07:51)
[2016-10-16] MEDS: MULTIVITAMIN TAB PO SCH (07:51)
[2016-10-16] MEDS: INSULIN ASPART 100 UNITS/ML 3 ML PEN SC SCH ×4 (07:51→20:53)
[2016-10-16] MEDS: MONTELUKAST SOD 10 MG TAB PO SCH (07:51)
[2016-10-16] MEDS: CALCIUM 600MG + VIT D 400 IU TAB PO SCH ×2 (07:52→17:32)
[2016-10-16] MEDS: ATORVASTATIN 20 MG TAB PO SCH (07:52)
[2016-10-16] MEDS: GLUCOSAMINE SULFATE 500 MG CAP PO SCH ×2 (07:53→20:52)
[2016-10-16] MEDS: CARVEDILOL 12.5 MG TAB PO SCH ×2 (07:53→20:52)
[2016-10-16] MEDS: NIFEdipine 30 MG CR TAB PO SCH (07:53)
[2016-10-16] MEDS: LOSARTAN POTASSIUM 50 MG TAB PO SCH (07:54)
[2016-10-16] MEDS: TERBINAFINE CR 30 GM TUBE EXT SCH ×2 (07:55→20:51)
[2016-10-16] MEDS: FLUTICASONE PROPIONATE NA SPR 16 GM BTL NAE SCH ×2 (07:55→20:51)
[2016-10-16 09:39] LABS: CKMB/CK RATIO 0.9 (0-3.0)
--- NOTE | 2016-10-16 10:29 | Progress Note ---
Internal Med Progress Note Date of Service: Oct 16, 2016. Provider Documentation: SUBJECTIVE: The patient was seen and examined No more chest pain Complains of headache and Some generalized body ache OBJECTIVE: Vital Signs-as noted below Exam: General-No distress at rest Eyes-normal ENT-normal Neck-supple Lungs-clear to auscultate bilaterally Heart-Regular,no murmur Abdomen-Benign,no masses,bowel sound present Extremities-No edema Neuro-AAOx3 No focal neuro deficit Lab data as noted below. ASSESSMENT & PLAN: Atypical Chest Pain Resolved with Nitrox2-with headache H/O Pericardial Effusion Minor T wave changes recently and was referred to cardiology as an OP Serial Aubrey negative for any ACS Cardiology evaluation-appreciate input ECHO-pending Pain may be from Dyspepsia Simethicone added Clinically better Generalized Aches and Pain May have Viral syndrome Cautious IVF for dehydration Monitor PRP A little better today PT/OT Diabetes Type 2 Hold Metformin SSI Blood sugar ACHS Hypertension Continue current medications Hypothyroidism Continue replacement Sleep Apnea May use her own CPAP GI prophylaxis PPI DVT prophylaxis SQ Heparin Code Status Full likely discharge today following ECHO and PT Vital Signs: Date Time Temp Pulse Resp B/P (MAP) Pulse Ox O2 Delivery O2 Flow Rate FiO2 10/16/16 07:11 36.6 56 17 144/76 (98) 95 Room Air 10/16/16 04:09 Room Air 10/16/16 03:53 36.5 53 18 115/61 (79) 95 Room Air 10/16/16 00:00 Room Air 10/15/16 23:20 36.6 64 18 137/78 (97) 95 Room Air 10/15/16 20:05 36.4 69 20 149/78 (101) 94 Room Air 10/15/16 20:00 Room Air 10/15/16 15:21 36.5 60 16 144/81 (102) 98 Room Air 10/15/16 15:12 97 Room Air 10/15/16 12:00 98 Room Air 10/15/16 12:00 98 Room Air 10/15/16 11:25 36.5 65 18 157/77 (103) 97 Nasal Cannula 2.0 Lab Results: Results Past 24 Hours Test 10/15/16 11:18 10/15/16 14:11 10/15/16 16:37 10/15/16 20:12 Range/Units Bedside Glucose 133 98 107 70-90 mg/dl Total Creatine Kinase 151 26-192 U/L Creatine Kinase MB 0.8 0.5-3.6 ng/ml Creatine Kinase MB Ratio 0.5 0-3.0 Troponin I < 0.015 0-0.045 ng/ml Chemistry Specimen Hemolysis Test 10/15/16 20:20 10/16/16 02:30 10/16/16 04:57 10/16/16 06:38 Range/Units Total Creatine Kinase 159 123 26-192 U/L Creatine Kinase MB 1.2 1.4 0.5-3.6 ng/ml Creatine Kinase MB Ratio 0.8 1.1 0-3.0 Troponin I < 0.015 < 0.015 0-0.045 ng/ml Triglycerides Level 166 0-150 mg/dl Cholesterol Level 163 0-200 mg/dl HDL Cholesterol 66 mg/dl LDL Cholesterol, Calculated 64 mg/dl VLDL Cholesterol, Calculated 33 mg/dl Cholesterol/HDL Ratio 2.5 Bedside Glucose 99 70-90 mg/dl Test 10/16/16 08:38 10/16/16 10:19 Range/Units Total Creatine Kinase 127 26-192 U/L Creatine Kinase MB 1.1 0.5-3.6 ng/ml Creatine Kinase MB Ratio 0.9 0-3.0 Troponin I < 0.015 0-0.045 ng/ml
[2016-10-16 10:49] LABS: HEMATOCRIT 43.7 % (37-47); MEAN CELL VOLUME 90.7 fL (80-100); MEAN CORPUSCULAR HEMOGLOBIN 30.1 pg (25-34); MEAN CORPUSCULAR HGB CONC 33.2 g/dl (32-36); MEAN PLATELET VOLUME 9.4 fL (7.4-10.4); PLATELET COUNT 299 K/uL (130-400); RED BLOOD COUNT 4.82 M/uL (4.2-5.4); WHITE BLOOD COUNT 6.04 K/uL (4.8-10.8)
[2016-10-16] MEDS ORDERED: NURSING VERBAL MED ORDER ONE (11:00)
[2016-10-16 11:18] LABS: BUN/CREATININE RATIO 14.8 (10-20); CALCIUM 9.5 mg/dl (8.5-10.1); CREATININE 0.93 mg/dl (0.60-1.20); MAGNESIUM 2.4 mg/dl (1.8-2.4); POTASSIUM 3.9 mmol/L (3.5-5.1)
[2016-10-16] MEDS ORDERED: PERFLUTREN LIPID MICROSPHERE (DEFINITY) IV ONE (15:24)
[2016-10-16] MEDS ORDERED: ATORVASTATIN 20 MG TAB PO SCH (21:00)
[2016-10-17 03:05] VITALS: BP 134/82; PULSE 56; TEMP 36.5; O2SAT 96
[2016-10-17] MEDS: LEVOTHYROXINE 50 MCG TAB PO SCH (05:34)
[2016-10-17] MEDS: HEPARIN SOD 5000 UNIT/0.5 ML CARP SQ SCH ×2 (05:41→13:32)
[2016-10-17 07:29] VITALS: BP 136/80; PULSE 58; TEMP 36.5; O2SAT 96
[2016-10-17] MEDS: INSULIN ASPART 100 UNITS/ML 3 ML PEN SC SCH ×2 (07:54→12:15)
[2016-10-17] MEDS: ASPIRIN 81 MG ECTAB PO SCH (07:55)
[2016-10-17] MEDS: FLUTICASONE PROPIONATE NA SPR 16 GM BTL NAE SCH (07:55)
[2016-10-17] MEDS: PANTOprazole SOD 40 MG TAB PO SCH (07:55)
[2016-10-17] MEDS: CALCIUM 600MG + VIT D 400 IU TAB PO SCH (07:55)
[2016-10-17] MEDS: MULTIVITAMIN TAB PO SCH (07:55)
[2016-10-17] MEDS: MONTELUKAST SOD 10 MG TAB PO SCH (07:56)
[2016-10-17] MEDS: CARVEDILOL 12.5 MG TAB PO SCH (07:56)
[2016-10-17] MEDS: GLUCOSAMINE SULFATE 500 MG CAP PO SCH (07:56)
[2016-10-17] MEDS: LOSARTAN POTASSIUM 50 MG TAB PO SCH (07:57)
[2016-10-17] MEDS: TERBINAFINE CR 30 GM TUBE EXT SCH (07:57)
[2016-10-17] MEDS: NIFEdipine 30 MG CR TAB PO SCH (07:57)
--- NOTE | 2016-10-17 09:02 | ECHOCARDIOGRAM REPORT ---
*NOTICE TO RECEIVING [employer]Y This information is strictly Confidential and protected under [place] law. [place] law prohibits you from making any further disclosure of this information unless further disclosure is expressly permitted by the written consent of the person to whom it pertains or is authorized by law. A general authorization for the release of medical or other information is not sufficient for this purpose. Hospital accepts no responsibility if the information is made available to any other person, INCLUDING THE PATIENT. Interpretation Summary * Name: CANDIDA POWELL Study Date: 10/16/2016 03:06 PM BP: 157/77 mmHg * Patient Location: C.2T\S\S230\S\2 HR: 76 * : 1935 (M/d/yyyy) Gender: Female Height: 66 in * Age: 81 yrs Ethnicity: AA Weight: 224 lb * Ordering Physician: Natalia Barbosa * Referring Physician: Self, Referred * Performed By: Dnenis Marie RDCS * * Reason For Study: Chest pain * BSA: 2.1 m2 * The study was technically limited. * Grossly normal valvular structure and function. * -- Conclusions -- * The study was technically limited. * There is moderate concentric left ventricular hypertrophy. * The left ventricular ejection fraction is grossly normal. * Ejection Fraction = 55-60%. * The right ventricular systolic function is normal. * Grossly normal valvular structure and function. Procedure Details * A complete two-dimensional transthoracic echocardiogram was performed (2D, M-mode, Doppler and color flow Doppler). * The study was technically difficult. * There were technical limitations due to patient'sbody habitus * A contrast injection of Definity was performed to improve assessment of LV function. * Contrast was injected into an intravenous site in the left arm. * One vial of Definity ultrasound contrast was diluted in normal saline to a total volume of 10 ml. A total of '3' ml of solution was administered during imaging. * Lot # [id number] of Definity utilized for procedure. * Expiration date . * The attending nurse who injected the contrast agent was JASEN Mcgrath. Left Ventricle * The left ventricle is grossly normal size. * There is moderate concentric left ventricular hypertrophy. * The left ventricular ejection fraction is grossly normal. * Ejection Fraction = 55-60%. Right Ventricle * The right ventricle is grossly normal size. * The right ventricular systolic function is normal. Atria * The left atrium is not well visualized. * Right atrium not well visualized. Mitral Valve * The mitral valve is grossly normal. * Significant mitral regurgitation is absent. Tricuspid Valve * The tricuspid valve is not well visualized, but is grossly normal. * Significant tricuspid regurgitation is absent. Aortic Valve * The aortic valve is normal in structure and function. Great Vessels * The aortic root and proximal ascending aorta are normal sized. MMode 2D Measurements and Calculations IVSd 0.91 cm IVSs 1.5 cm LVIDd 4.5 cm LVIDs 2.7 cm LVPWd 0.85 cm LVPWs 1.6 cm IVS/LVPW 1.1 FS 40.6 % EDV(Teich) 91.4 ml ESV(Teich) 26.1 ml EF(Teich) 71.5 % EDV(cubed) 89.8 ml ESV(cubed) 18.8 ml EF(cubed) 79.0 % % IVS thick 60.3 % % LVPW thick 93.5 % LV mass(C)d 128.1 grams LV mass(C)dI 61.0 grams/m\S\2 LV mass(C)s 144.6 grams LV mass(C)sI 68.9 grams/m\S\2 SV(Teich) 65.3 ml SI(Teich) 31.1 ml/m\S\2 SV(cubed) 71.0 ml SI(cubed) 33.8 ml/m\S\2 Ao root diam 3.0 cm Ao root area 6.9 cm\S\2 ACS 2.1 cm LA dimension 4.2 cm asc Aorta Diam 3.4 cm LA/Ao 1.4 LVOT diam 1.9 cm LVOT area 2.8 cm\S\2 LVAd ap4 28.6 cm\S\2 LVLd ap4 7.8 cm EDV(MOD-sp4) 85.0 ml LVAs ap4 16.5 cm\S\2 LVLs ap4 6.5 cm ESV(MOD-sp4) 34.0 ml EF(MOD-sp4) 60.0 % LVAd ap2 22.7 cm\S\2 LVLd ap2 7.5 cm EDV(MOD-sp2) 59.0 ml LVAs ap2 12.5 cm\S\2 LVLs ap2 5.7 cm ESV(MOD-sp2) 25.0 ml EF(MOD-sp2) 57.6 % SV(MOD-sp4) 51.0 ml SI(MOD-sp4) 24.3 ml/m\S\2 SV(MOD-sp2) 34.0 ml SI(MOD-sp2) 16.2 ml/m\S\2 Doppler Measurements and Calculations MV E max dillon 124.5 cm/sec MV A max dillon 89.9 cm/sec MV E/A 1.4 MV dec time 0.17 sec Ao V2 max 105.9 cm/sec Ao max PG 4.5 mmHg Ao max PG (full) 2.1 mmHg SHELLY(V,A) 2.0 cm\S\2 SHELLY(V,D) 2.0 cm\S\2 LV V1 max PG 2.4 mmHg LV V1 max 76.8 cm/sec PA V2 max 68.0 cm/sec PA max PG 1.9 mmHg PA acc slope 533.0 cm/sec\S\2 PA acc time 0.13 sec TR max dillon 357.8 cm/sec PA pr(Accel) 22.0 mmHg
--- NOTE | 2016-10-17 11:43 | Progress Note ---
Internal Med Progress Note Date of Service: Oct 17, 2016. Provider Documentation: SUBJECTIVE: The patient was seen and examined No more chest pain Complains of headache and Some generalized body ache -improve now Ambulating well and wants to go home OBJECTIVE: Vital Signs-as noted below Exam: General-No distress at rest Eyes-normal ENT-normal Neck-supple Lungs-clear to auscultate bilaterally Heart-Regular,no murmur Abdomen-Benign,no masses,bowel sound present Extremities-No edema Neuro-AAOx3 No focal neuro deficit Lab data as noted below. ASSESSMENT & PLAN: Atypical Chest Pain-resolved Resolved with Nitrox2-with headache H/O Pericardial Effusion Minor T wave changes recently and was referred to cardiology as an OP Serial Aubrey negative for any ACS Cardiology evaluation-appreciate input ECHO:: * The study was technically limited. * There is moderate concentric left ventricular hypertrophy. * The left ventricular ejection fraction is grossly normal. * Ejection Fraction = 55-60%. * The right ventricular systolic function is normal. * Grossly normal valvular structure and function. Pain may be from Dyspepsia Simethicone added Clinically much better Will discharge today Generalized Aches and Pain May have Viral syndrome Cautious IVF for dehydration Monitor PRP Much better today PT/OT-ambulating well without any difficulty Diabetes Type 2 Hold Metformin SSI Blood sugar ACHS Hypertension Continue current medications Hypothyroidism Continue replacement Sleep Apnea May use her own CPAP GI prophylaxis PPI DVT prophylaxis SQ Heparin Code Status Full Discharge today Vital Signs: Date Time Temp Pulse Resp B/P (MAP) Pulse Ox O2 Delivery O2 Flow Rate FiO2 10/17/16 08:00 Room Air 10/17/16 07:29 36.5 58 18 136/80 (98) 96 Room Air 10/17/16 04:00 Room Air 10/17/16 03:05 36.5 56 18 134/82 (99) 96 Room Air 10/16/16 23:59 Room Air 10/16/16 23:23 36.5 62 20 131/75 (93) 94 Room Air 10/16/16 20:20 36.5 62 18 154/80 (104) 97 Room Air 10/16/16 20:00 Room Air 10/16/16 16:00 94 Room Air 10/16/16 15:51 36.6 68 18 175/96 (122) 94 Room Air 10/16/16 12:00 Room Air Lab Results: Results Past 24 Hours Test 10/16/16 16:18 10/16/16 20:47 10/17/16 06:44 10/17/16 11:19 Range/Units Bedside Glucose 105 109 92 111 70-90 mg/dl
[2016-10-17 11:47] VITALS: BP 135/80; PULSE 55; TEMP 36.5; O2SAT 97
--- NOTE | 2016-10-17 13:05 | Discharge Instructions ---
Discharge Instructions Date of Service Oct 17, 2016. Admission Reason for Admission: Atypical Chest Pain Discharge Discharge Diagnosis / Problem: Atypical Chest pain,Generalised weakness Discharge Goals Goal(s): Prevent Disease Progression Activity Recommendations Activity Limitations: resume your previous activity . Instructions / Follow-Up Instructions / Follow-Up Dr Delatorre on 10/27/16 at 11:05 AM Current Hospital Diet Patient's current hospital diet: Diabetes Type 2 Diet, Low Sodium Diet (2gm Na) Discharge Diet Recommended Diet: AHA Diet (Heart Healthy), Low Sodium Diet (2gm Na), Diabetes Type 2 Diet Pending Studies Studies pending at discharge: no Laboratory Results Lipid Panel Test 10/16/16 04:57 Range/Units Triglycerides Level 166 H 0-150 mg/dl Cholesterol Level 163 0-200 mg/dl HDL Cholesterol 66 mg/dl Cholesterol/HDL Ratio 2.5 LDL Cholesterol, Calculated 64 mg/dl Medical Emergencies . Who to Call and When: Medical Emergencies: If at any time you feel your situation is an emergency, please call 911 immediately. . Non-Emergent Contact Non-Emergency issues call your: Primary Care Provider . Past History Medical & Surgical History: (1) Atypical chest pain (2) Hypothyroid (3) Weakness (4) History of pericardial effusion (5) HTN (hypertension) (6) History of hysterectomy (7) Hx of excision of lamina of cervical vertebra for decompression of spinal cord (8) History of rotator cuff surgery (9) History of cataract surgery (10) Status post pericardiocentesis . "Provider Documentation" section prepared by Natalia Barbosa. . VTE Core Measure Inpt VTE Proph given/why not?: Unfractionated heparin SQ
[2016-10-17 13:39] VITALS: BP 135/80; PULSE 55; TEMP 36.5; O2SAT 97
--- NOTE | 2016-10-18 07:25 | Discharge Summary ---
Discharge Summary Date of Service Oct 18, 2016. Discharge Summary Admission Date: Oct 15, 2016 at 09:36 Discharge Date: Oct 17, 2016 Discharge Disposition: Home Principal Diagnosis: Atypical Chest pain,Generalized weakness Secondary Diagnoses/Problems: PLease see H&P and Hospital Progress note Consultations: Cardiology Medication Reconciliation Continued Medications: Aluminum/Magnesium/Simeth (Maalox Max Susp) Susp 1 DOSE PO DIRECTED PRN Aspirin (Aspirin Ec) 81 Mg Tab 81 MG PO DAILY Atorvastatin (Lipitor) 20 Mg Tab 20 MG PO DAILY, TAB Calcium Carbonate (Antacid) (Tums) 500 Mg Chw 1000 MG PO prn Calcium Carbonate-Cholecalcife (Caltrate 600+D) 1 Tab Tab 1 TAB PO BID Carbamide Peroxide (Otic) (Debrox) 6.5 % Matilda UD Fill ear canal and insert cotton plug. Remove plug after 15 to 30 minutes. Carboxymethylcellulose Sodium (Refresh) 1 % Manuel 2 DROP OPB UD Carvedilol (Carvedilol) 12.5 Mg Tab 12.5 MG PO BID Cranberry (Vaccinium Macrocarp (Cranberry) 500 Mg Cap 1000 MG PO DAILY Diphenhydramine Hcl (Benadryl) 25 Mg Cap 25 MG PO Q4 PRN for ALLERGIC REACTION Fluticasone Propionate (Nasal) (Flonase Allergy Relief) 50 Mcg/Act Spr 2 SPRAY HUONG BID Furosemide (Lasix) 40 Mg Tab 40 MG PO DAILY, 0 Refills Glucosamine Sulfate (Glucosamine) 1,000 Mg Tab 1000 MG PO BID, TAB Hydralazine Hcl (Apresoline) 25 Mg Tab 25 MG PO BID, TAB Levothyroxine Sodium (Levothyroxine Sodium) 50 Mcg Tab 50 MCG PO DAILY, TAB Losartan Potassium (Cozaar) 100 Mg Tab 100 MG PO DAILY Metformin Hcl (Glucophage) 500 Mg Tab 500 MG PO BIDM, TAB Montelukast Sodium (Montelukast Sodium) 10 Mg Tab 10 MG PO DAILY, TAB Multivitamin (Multivitamin) Tab 1 TAB PO DAILY, 0 Refills Naproxen Sodium (Aleve) 220 Mg Tab 220 MG PO BID PRN for Pain, TAB Nifedipine (Nifedipine Er) 90 Mg Tab 90 MG PO DAILY Milo-3 Fatty Acids (Fish Oil) 1 Cap Cap 1000 MG PO BID Omeprazole (Prilosec) 20 Mg Capcr 20 MG PO QAM, CAP Potassium Chloride (Micro-K Ext Rel) 20 Meq Cap 20 MEQ PO DAILY, 0 Refills Terbinafine HCl (Topical) (Cvs Athletes Foot) 1 % Cre 1 APPLN TD BID Urea (Aqua Care) 10 % Cre 1 APPLN TD PRN/UD [Atrovent Hfa 17MCG] () 2 PUFFS INH TID PRN for Wheezing Admission Information HPI (per Admitting provider): Generalized aches and pain for the last 2 weeks with fwver,chills,nausea , vomiting and or any urinary symptoms. Worse this morning,Has had left upper chest pain with some chest tightness.No other associated symptoms .Received nitrox2 with relief fo the pain. The patient had a recent EKG which was noted to be abnormal by the PCP . She was referred to cardiology next week. However, the patient developed some upper chest discomfort that radiated to her left neck and left shoulder this morning. There is no evidence of ST segment elevation to suggest an acute IL. Troponin was negative. However, I am concerned about the patient's upper chest pain that radiates to the left shoulder and neck. This pain was also relieved with nitroglycerin. The patient's blood pressure was initially elevated but came down nicely after 2 sublingual nitros. 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 (11) HTN (hypertension) Status: Chronic (12) Hypothyroid Status: Chronic (13) Osteoarthritis Status: Chronic (14) Osteopenia Status: Chronic (15) Sicca syndrome Status: Chronic Surgical Problems: (1) History of cataract surgery Status: Chronic (2) History of hysterectomy Status: Chronic (3) History of rotator cuff surgery Status: Chronic (4) Hx of excision of lamina of cervical vertebra for decompression of spinal cord Status: Chronic (5) Status post pericardiocentesis [place] Comment[place] [facility] [place]: [place] Family History FH: cancer FH: diabetes mellitus Social History Smoking Status: Never Smoker Drug Use: none Marital Status: Housing status: lives with significant other Occupational Status: retired Immunizations History of Influenza Vaccine: Yes History of Tetanus Vaccine?: Yes History of Pneumococcal: Yes Pneumococcal Date: Jan 22, 2012 History of Hepatitis B Vaccine: No Multi-Drug Resistant Organisms History of MDRO: No Allergies Coded Allergies: Simvastatin (Unverified Allergy, Intermediate, muscle cramps, 02/27/13) Codeine (Unverified Allergy, Mild, HYPERTENSION, 02/27/13) Atropine (Verified Allergy, Unknown, ITCHING, 05/26/14) Doxycycline (Verified Allergy, Unknown, NAUSEA/VOMITING., 05/26/14) Hyoscyamine (Verified Allergy, Unknown, ITCHING, 05/26/14) Lactose (Verified Allergy, Unknown, UNKNOWN, 05/26/14) Minocycline (Verified Allergy, Unknown, NAUSEA AND VOMITING, 05/26/14) Morphine and Related (Verified Allergy, Unknown, UNKNOWN, 05/26/14) Phenobarbital (Verified Allergy, Unknown, RASH, 05/26/14) Pork (Verified Allergy, Unknown, spiritual preference, 10/15/16) Scopolamine (Verified Allergy, Unknown, RASH, 05/26/14) Shellfish (Verified Allergy, Unknown, spiritual preference, 10/15/16) Home Medications Scheduled Aluminum/Magnesium/Simeth (Maalox Max Susp), 1 DOSE PO DIRECTED PRN Aspirin (Aspirin Ec), 81 MG PO DAILY Atorvastatin (Lipitor), 20 MG PO DAILY Calcium Carbonate (Antacid) (Tums), 1,000 MG PO prn Calcium Carbonate-Cholecalcife (Caltrate 600+D), 1 TAB PO BID Carbamide Peroxide (Otic) (Debrox), UD Carboxymethylcellulose Sodium (Refresh), 2 DROP OPB UD Carvedilol (Carvedilol), 12.5 MG PO BID Cranberry (Vaccinium Macrocarp (Cranberry), 1,000 MG PO DAILY Fluticasone Propionate (Nasal) (Flonase Allergy Relief), 2 SPRAY HUONG BID Furosemide (Lasix), 40 MG PO DAILY Glucosamine Sulfate (Glucosamine), 1,000 MG PO BID Hydralazine Hcl (Apresoline), 25 MG PO BID Levothyroxine Sodium (Levothyroxine Sodium), 50 MCG PO DAILY Losartan Potassium (Cozaar), 100 MG PO DAILY Metformin Hcl (Glucophage), 500 MG PO BIDM Montelukast Sodium (Montelukast Sodium), 10 MG PO DAILY Multivitamin (Multivitamin), 1 TAB PO DAILY Nifedipine (Nifedipine Er), 90 MG PO DAILY Milo-3 Fatty Acids (Fish Oil), 1,000 MG PO BID Omeprazole (Prilosec), 20 MG PO QAM Potassium Chloride (Micro-K Ext Rel), 20 MEQ PO DAILY Terbinafine HCl (Topical) (Cvs Athletes Foot), 1 APPLN TD BID Urea (Aqua Care), 1 APPLN TD PRN/UD Scheduled PRN Diphenhydramine Hcl (Benadryl), 25 MG PO Q4 PRN for ALLERGIC REACTION Naproxen Sodium (Aleve), 220 MG PO BID PRN for Pain [Atrovent Hfa 17MCG], 2 PUFFS INH TID PRN for Wheezing Review of Systems Cardiovascular: + chest pain (Atypical ) Musculoskeletal: + muscle pain (Generalized) Physical Ex - H&P Physical Exam Vital Signs Date Time Temp Pulse Resp B/P (MAP) Pulse Ox O2 Delivery O2 Flow Rate FiO2 10/15/16 12:00 98 Room Air 10/15/16 12:00 98 Room Air 10/15/16 11:25 36.5 65 18 157/77 (103) 97 Nasal Cannula 2.0 10/15/16 10:00 66 16 168/77 (107) 98 Room Air 10/15/16 09:30 36.8 70 18 178/98 (124) 98 Room Air 10/15/16 09:00 74 20 153/82 97 10/15/16 08:25 97 Room Air 10/15/16 08:03 62 22 146/79 97 Room Air 10/15/16 07:14 68 20 121/71 94 Room Air 10/15/16 06:59 72 20 147/91 94 Room Air 10/15/16 06:50 70 10/15/16 06:39 95 Room Air 10/15/16 06:07 36.7 86 18 173/95 97 Room Air General Appearance: no apparent distress Head: normocephalic Eyes: normal inspection ENT: normal ENT inspection Neck: supple Respiratory/Chest: chest non-tender, lungs clear, normal breath sounds Cardiovascular: regular rate, rhythm Abdomen/GI: normal bowel sounds, non tender Back: normal inspection Neurologic/Psych: no motor/sensory deficits Skin: normal color Lymphatic: no adenopathy Diagnostics - H&P Diagnostics Laboratory Results Results Past 24 Hours Test 10/15/16 06:30 10/15/16 11:18 Range/Units White Blood Count 6.78 4.8-10.8 K/uL Red Blood Count 5.03 4.2-5.4 M/uL Hemoglobin 14.9 12.0-16.0 g/dL Hematocrit 45.2 37-47 % Mean Corpuscular Volume 89.9 80-100 fL Mean Corpuscular Hemoglobin 29.6 25-34 pg Mean Corpuscular Hemoglobin Concent 33.0 32-36 g/dl RDW Standard Deviation 50.1 36.4-46.3 fL RDW Coefficient of Variation 15.1 11.5-14.5 % Platelet Count 280 130-400 K/uL Mean Platelet Volume 9.9 7.4-10.4 fL Prothrombin Time 10.7 9.0-12.0 SECONDS Prothromb Time International Ratio 1.0 0.9-1.1 Sodium Level 139 136-145 mmol/L Potassium Level 4.0 3.5-5.1 mmol/L Chloride Level 106 98-107 mmol/L Carbon Dioxide Level 26 21-32 mmol/L Anion Gap 7.0 3-11 mmol/L Blood Urea Nitrogen 17 7-18 mg/dl Creatinine 0.92 0.60-1.20 mg/dl Est Creatinine Clear Calc Drug Dose 56.8 ml/min Estimated GFR () 67.2 Estimated GFR (Non- 58.0 BUN/Creatinine Ratio 18.6 10-20 Random Glucose 131 70-99 mg/dl Calcium Level 9.8 8.5-10.1 mg/dl Total Bilirubin 0.5 0.2-1 mg/dl Aspartate Amino Transf (AST/SGOT) 17 15-37 U/L Alanine Aminotransferase (ALT/SGPT) 22 12-78 U/L Alkaline Phosphatase 50 45-117 U/L Total Creatine Kinase 167 26-192 U/L Creatine Kinase MB 1.2 0.5-3.6 ng/ml Creatine Kinase MB Ratio 0.7 0-3.0 Troponin I < 0.015 0-0.045 ng/ml Total Protein 7.7 6.4-8.2 gm/dl Albumin 3.9 3.4-5.0 gm/dl Globulin 3.8 2.5-4.0 gm/dl Albumin/Globulin Ratio 1.0 0.9-2 Bedside Glucose 133 70-90 mg/dl CXR normal other (Non specific t wave changes) Impression - H&P Impression Assessment and Plan Atypical Chest Pain Resolved with Nitrox2-with headache H/O Pericardial Effusion Minor T wave changes recently and was referred to cardiology as an OP Serial Aubrey Cardiology evaluation Generalized Aches and Pain May have Viral syndrome Cautious IVF for dehydration Monitor PRP Diabetes Type 2 Hold Metformin SSI Blood sugar ACHS Hypertension Continue current medications Hypothyroidism Continue replacement Sleep Apnea May use her own CPAP GI prophylaxis PPI DVT prophylaxis SQ Heparin Code Status Full In my clinical judgement the beneficiary meets the criteria of 2 Mid[address] in hospital. Dr Micheline Barbosa Level of Care Telemetry Advanced Directives Existing Living Will: No Existing Power of Calendar Control Clerk Blood Bank: No Resuscitation Status FULL RESUSCITATION VTE Prophylaxis VTE Risk Assessment Done? Y/N: Yes Risk Level: Moderate Given or contraindicated: Unfractionated heparin SQ Physical Exam (per Admitting): General Appearance: no apparent distress Head: normocephalic Eyes: normal inspection ENT: normal ENT inspection Neck: supple Respiratory/Chest: chest non-tender, lungs clear, normal breath sounds Cardiovascular: regular rate, rhythm Abdomen/GI: normal bowel sounds, non tender Back: normal inspection Neurologic/Psych: no motor/sensory deficits Skin: normal color Lymphatic: no adenopathy Hospital Course Atypical Chest Pain-resolved Resolved with Nitrox2-with headache H/O Pericardial Effusion Minor T wave changes recently and was referred to cardiology as an OP Serial Aubrey negative for any ACS Cardiology evaluation-appreciate input ECHO:: * The study was technically limited. * There is moderate concentric left ventricular hypertrophy. * The left ventricular ejection fraction is grossly normal. * Ejection Fraction = 55-60%. * The right ventricular systolic function is normal. * Grossly normal valvular structure and function. Pain may be from Dyspepsia Simethicone added Clinically much better Will discharge today Generalized Aches and Pain May have Viral syndrome Cautious IVF for dehydration Monitor PRP Much better today PT/OT-ambulating well without any difficulty Diabetes Type 2 Hold Metformin SSI Blood sugar ACHS Hypertension Continue current medications Hypothyroidism Continue replacement Sleep Apnea May use her own CPAP GI prophylaxis PPI DVT prophylaxis SQ Heparin Code Status Full Discharge today Total time spent on discharge = 35 minutes This includes examination of the patient, discharge planning, medication reconciliation, and communication with other providers. Discharge Instructions Date of Service Oct 17, 2016. Admission Reason for Admission: Atypical Chest Pain Discharge Discharge Diagnosis / Problem: Atypical Chest pain,Generalised weakness Discharge Goals Goal(s): Prevent Disease Progression Activity Recommendations Activity Limitations: resume your previous activity . Instructions / Follow-Up Instructions / Follow-Up Dr Delatorre on 10/27/16 at 11:05 AM Current Hospital Diet Patient's current hospital diet: Diabetes Type 2 Diet, Low Sodium Diet (2gm Na) Discharge Diet Recommended Diet: AHA Diet (Heart Healthy), Low Sodium Diet (2gm Na), Diabetes Type 2 Diet Pending Studies Studies pending at discharge: no Laboratory Results Lipid Panel Test 10/16/16 04:57 Range/Units Triglycerides Level 166 H 0-150 mg/dl Cholesterol Level 163 0-200 mg/dl HDL Cholesterol 66 mg/dl Cholesterol/HDL Ratio 2.5 LDL Cholesterol, Calculated 64 mg/dl Medical Emergencies . Who to Call and When: Medical Emergencies: If at any time you feel your situation is an emergency, please call 911 immediately. . Non-Emergent Contact Non-Emergency issues call your: Primary Care Provider . Past History Medical & Surgical History: (1) Atypical chest pain (2) Hypothyroid (3) Weakness (4) History of pericardial effusion (5) HTN (hypertension) (6) History of hysterectomy (7) Hx of excision of lamina of cervical vertebra for decompression of spinal cord (8) History of rotator cuff surgery (9) History of cataract surgery (10) Status post pericardiocentesis . "Provider Documentation" section prepared by Natalia Barbosa. . VTE Core Measure Inpt VTE Proph given/why not?: Unfractionated heparin SQ <Electronically signed by Natalia Barbosa M.D.> Signed: 10/17/16 [id number] Signed: Additional Copies To Collins Delatorre D.O.
== END 2016-10-17 14:20 | disposition home or self-care (01) ==
LOC: EDBD 05:58 → C.EDB 05:58 → ENRESERV 08:44 → CANRESERV 08:44 → ENRESERV 08:47 → C.2T 09:36
PROVIDERS: ADMIT Internal Medicine; ATTEND Internal Medicine
DX: R07.89 Other chest pain (principal); R53.1 Weakness; I10 Essential (primary) hypertension; E78.5 Hyperlipidemia, unspecified; E11.9 Type 2 diabetes mellitus without complications; E27.9 Disorder of adrenal gland, unspecified; E03.9 Hypothyroidism, unspecified; G47.30 Sleep apnea, unspecified; G43.909 Migraine, unspecified, not intractable, without status migrainosus; M35.00 Sjogren syndrome, unspecified; M47.812 Spondylosis without myelopathy or radiculopathy, cervical region; M85.80 Other specified disorders of bone density and structure, unspecified site; J30.9 Allergic rhinitis, unspecified; Z85.3 Personal history of malignant neoplasm of breast; Z79.82 Long term (current) use of aspirin; Z79.84 Long term (current) use of oral hypoglycemic drugs; Z79.899 Other long term (current) drug therapy; Z82.49 Family history of ischemic heart disease and other diseases of the circulatory system

== ENCOUNTER → 2016-11-06 | Outpatient (CLI) | payer OTHER ==
[~2016-11-06] MED LIST changes: -ASPEC81 PO; +ASPI81TA28 PO; +ATROVENT INH; +CALC-354 PO; +CARB1SOL OPB; -CLTP PO; -FLUT0.0529 NAE; +FLUT0.15 NAE; -GENTEAL GEL OPB; +GLC/500 PO; -GLC500 PO; +GLUC10007 PO; -GLUCTAB7 PO; +LEVO50TA6 PO; -LEVO50TA60 PO; -LVQ500 PO; -MDR4 PO; +MONT1TAB5 PO; +NIFE90TA27 PO; -NZRCR TD; -PRCSR90 PO; -REFRESH OPB; +TERB1CRE TD; -[UNRECOGNIZED DRUG - CODE] PO; +[UNRECOGNIZED DRUG - CODE] TD
--- NOTE | 2016-11-07 06:31 | PAP/PSG TECHNICIAN REPORT ---
[facility] Counterintelligence Agent Polysomnogram Report Study name: None Report date: 11/07/2016 Study date: 11/06/2016 Referring Physician: Junito DRAKE M.D. Name: CANDIDA POWELL Interpreting Physician: Panfilo Drake M.D. Date of : 1935 Counterintelligence Agent: Haydee Mattson RPSGT. Sex: Female Age: 81 Study Type: PSG PAP Weight: 213 lbs 15.5 in Height: 81 years, Height 5' 6" Neck Circum: BMI: 34.38 Medications: GLUCOSAMINE 1000 MG, FUROSEMIDE 40 MG, LOSARTAN 100 MG, LEVOTHYROXINE 50 MCG, CARVEDILOL 12.5 MG, MONTELUKAST 10 MG, HYDRALAZINE 25 MG, LAMISIL 1& CREAM, UREA 10% CREAM, ATORVASTATIN 20 MG, POTASSIUM CHLORIDE 20 MEQ, NIFEDIPINE OSMOTIC RELEASE 90 MG, METFORMIN 500 MG, TUSSIN DM 10-100 MG/5 ML, ATROVENT HFA 17 MCG/ACT, OMEPRAZOLE 20 MG, FLONASE, BENTYL 10 MG, DEBROX 6.5% OT SOLN, CALCIUM+D 600-200 MG-UNIT, ALEVE 220 MG, ASPIRIN 81 MG, CRANBERRY 500 MG, FISH OIL, Patient History 81 yr-old female here for a new CPAP treatment study. She was found to be positive for SARAN with an AHI of 46. Her diagnostic study was on 09/21/16. She chose a Mirage FX Soft edge nasal mask size wide from [employer]. She has the head of the bed slightly elevated. This is how she sleeps at home as well. The test was started on room air and 4 CMH2O. She could not get used to CPAP or breathe comfortably on it. She was then switched to BiPAP at 8/4 CMH2O. Room 7 Parameters Monitored NPSG: E1-M2, E2-M1, Fp1-M2, Fp2-M1, F3-M2, F4-M2, F4-M1, C3-M2, C4-M2, C4-M1, O1-M2, O2-M2, O2-M1, T3-M2, T4-M1, P3-M2, P4-M1, CHIN1, CHIN2, HR, EKG, Legs, PFLOW, SNOR, FLOW, CFLOW, Tidal Volume, THOR, ABDO, SpO2, PLTH, CPRESS, ETCO2 Wave, ETCO2, pH Sleep Architecture Sleep Stages Time at Lights Off 11:15:24 PM STAGES Time (min.) TST (%) Time at Lights On 5:58:54 AM Wake 58.5 -- Total Recording Time (TRT) 403.50 min. N1 26.0 8 Total Sleep Period (TSP) 365.5 min. N2 230.0 67 Total Sleep Time (TST) 345.0min. N3 0.0 0 Awake Time 58.5 min. REM 89.0 26 Wake after Sleep Onset 38.0 min. Sleep Efficiency (SE) 86 % Sleep Onset Latency (LATRICE) 20.5 min. Number of Stage 1 Shifts None Awakenings 16 Stage Changes 80 Number of REM periods 6 REM 89.0 26 REM Latency 66.5 min. NREM 256.0 74 Body Position Analysis Supine Right Left Side Prone Vertical Total Sleep Time (min.) 403.5 0.0 0.0 0.00 0.0 0.0 Total Sleep Time (%) 100% 0% 0% 0 0% N/A% Total Sleep Time REM (min.) 89.0 0.0 0.0 None 0.0 0.0 Total Sleep Time NREM (min.) 256.0 0.0 0.0 None 0.0 0.0 Intermittent Wake (min.) 58.5 0.0 0.0 None 0.0 0.0 Total Sleep Period (%) 100% None None None None None Arousals Myoclonus (PLM) * Events Count Index Events Count Index Spontaneous 29 5 Events Awake (PLMW) 26 26.7 Respiratory 3 0.5 Events Asleep w/ Arousal (PLMA) 7 1.2 PLM 7 1 Events Asleep w/o Arousal (PLMS) 126 21.9 Snoring 1 0 Total Asleep 133 23.1 Total 40 7 Total 159 24 Respiratory Analysis * CA OA MA CH H RERA Total Count 1 0 0 0 29 1 30 Index 0.2 0.0 0.0 0 5.0 0 5.4 Mean Duration 11.9 0.0 0.0 0.00 17.4 16.4 17.2 Longest Duration 11.9 0.0 0.0 0.00 0.0 16.4 23.0 Respiratory Event Summary Total Supine ~Supine Right Left Prone REM NREM Apneas Count 1 1 N/A N/A N/A N/A 0 1 Index 0.2 0 N/A N/A N/A N/A 0 0 Hypopneas (4% Desat) Count 29 29 N/A N/A N/A N/A 11 18 Index 5.0 5.0 N/A N/A N/A N/A 7.4 4.2 Apneas & All Hypopneas Count 30 30 N/A N/A N/A N/A 11 19 Index 5.2 5 N/A N/A N/A N/A 7.4 4.5 Respiratory Events (Transportation Supervisor+All Hyp+RERA) Count 30 31 N/A N/A N/A N/A 11 19 Index 5.4 5 N/A N/A N/A N/A 8.1 4.5 Respiratory Related Arousal Count 3 31 N/A N/A N/A N/A 1 2 Index 0.5 1 N/A N/A N/A N/A 1 0 Snoring Analysis Supine Right Left Prone REM NREM Total Snore duration 0.6 min Snores count 36 N/A N/A N/A 8 28 36 Snore mean duration 1.0 Sec Snores index 6 N/A N/A N/A 5.4 6.6 6.3 TST with snoring (%) 0.2% Desaturation Event Summary: Minimum %SpO2 Event Count Mean/Min/Max Duration(sec.) Desaturation Index % Time In Bed > 90 55 22.9 / 11.3 / 56.0 85.1 10.0 86 - 90 54 23.9 / 11.3 / 58.3 10.2 82.3 81 - 85 5 24.5 / 4.5 / 39.5 10.1 7.6 76 - 80 0 N/A 0.0 0.0 71 - 75 0 N/A 0.0 0.0 66 - 70 0 N/A 0.0 0.0 61 - 65 0 N/A 0.0 0.0 56 - 60 0 N/A 0.0 0.0 51 - 55 0 N/A 0.0 0.0 < 50 0 N/A 0.0 0.0 Total REM NREM Awake <50% 0.0 min. 0.0 min. 0.0 min. 0.0 min. 51 - 60% 0.0 min. 0.0 min. 0.0 min. 0.0 min. 61 - 70% 0.0 min. 0.0 min. 0.0 min. 0.0 min. 71 - 80% 0.1 min. 0.1 min. 0.0 min. 0.0 min. 81 - 90% 348.7 min. 86.4 min. 243.1 min. 19.2 min. 91 - 100% 38.8 min. 2.4 min. 12.9 min. 23.4 min. Average 88 87 88 91 Minimum SpO2 80 80 85 84 Desaturation Event Index 11.7 16.2 10.3 12.3 # Desat. Events below 89% 70 23 40 7 Time(%) with Saturation below 89% 75.9 20.1 53.5 2.3 Time(min.) with Saturation below 89% 294.1 77.8 207.5 8.7 Time (mins) REM (mins) NREM (mins) % of TST SpO2 Below 90% 67 24 N43 91.3 SpO2 Below 88% 24 0 0 59 Heart Rate Analysis Min (bpm) Max (bpm) Average (bpm) Awake 54 77 64 NREM 54 69 58 REM 53 67 57 Overall 53 69 58 Supplemental O2 Values Minimum O2 level: None Value Start Time End Time Counterintelligence Agent Comments Ms. Powell slept only in the supine position with the head of the bed slightly elevated. No cardiac arrhythmias were noted. PLMs were noted. No bruxism noted. CPAP was initiated at +4 CMH2O. She was uncomfortable with CPAP from the beginning. She was then switched to BiPAP due to discomfort from CPAP. BiPAP was started at +8/4 CMH2O and up-titrated to a level of +12/5 CMH2O BiFlex 3. A Mirage FX Soft edge nasal mask size wide from [employer] was used during titration. She did not wake up to use the restroom during the night. Ms. Powell stated that she slept a little better than usual. The final report will be interpreted and signed by a sleep physician. The completed physician report will then be placed in the patient medical record. Therapy Event: Therapy (cm H20) 4 8/4 9/4 10/4 /03/22 Total Time at Pressure (min.) 0.3 119.0 60.0 86.0 84.9 53.3 TST at Pressure (min.) 0.0 93.8 58.0 79.5 79.4 34.3 # Periods 1 1 1 1 1 1 Sleep Onset (min.) N/A 20.2 0.0 0.0 0.0 0.0 REM Onset (min.) N/A 86.7 0.0 28.1 79.7 0.0 Sleep Efficiency % 0 78 96 92 93 64 Wakefulness (%) 100.0 21.2 3.3 7.6 6.5 35.7 Wakefulness (min.) 0.3 25.2 2.0 6.5 5.5 19.0 NREM 1 (%) 0.0 4.6 4.2 3.5 13.0 7.5 NREM 1 (min.) 0.0 5.5 2.5 3.0 11.0 4.0 NREM 2 (%) 0.0 61.3 86.4 41.8 74.4 11.3 NREM 2 (min.) 0.0 73.0 51.9 36.0 63.2 6.0 NREM 3 (%) 0.0 0.0 0.0 0.0 0.0 0.0 NREM 3 (min.) 0.0 0.0 0.0 0.0 0.0 0.0 REM (%) 0.0 12.9 6.1 47.1 6.1 45.6 REM (min.) 0.0 15.3 3.7 40.5 5.2 24.3 # Arousals N/A 6 5 9 16 4 Arousal Index N/A 3.8 5.2 6.8 12.1 7.0 # Snore N/A 0 0 1 28 7 Snore Index N/A 0.0 0.0 0.8 21.2 12.3 AHI N/A 5.1 5.2 5.3 6.0 3.5 AHI Supine N/A 5.1 5.2 5.3 6.0 3.5 AHI Non-Supine N/A N/A N/A N/A N/A N/A NREM AHI N/A 3.1 4.4 6.2 4.9 6.0 REM AHI N/A 15.7 16.3 4.4 23.0 2.5 RDI N/A 5.1 5.2 5.3 6.0 5.3 # Obstructive N/A 0 0 0 0 0 # Central Ap N/A 0 0 0 1 0 # Mixed N/A 0 0 0 0 0 # Hypopneas N/A 8 5 7 7 2 RERAS N/A 0 0 0 0 1 Total Respiratory Events N/A 8 5 7 8 3 Time Below SpO2 89.00% (min.) 0.0 79.7 46.9 74.2 55.5 29.0 Mean NREM SpO2 (%) N/A 88 88 87 88 88 Mean REM SpO2 (%) N/A 87 90 86 88 87 Mean Sleep SpO2 (%) N/A 88 88 86 88 87 Min NREM SpO2 (%) N/A 86 86 85 85 85 Min REM SpO2 (%) N/A 83 85 80 84 84 Position Supine (min.) 0.0 93.8 58.0 79.5 79.4 34.3 Position Non-supine (min.) 0.0 0.0 0.0 0.0 0.0 0.0 LM Index Sleep N/A 3.8 80.6 32.5 2.3 5.3 LM Index NREM N/A 0.8 85.0 53.9 0.8 0.0 LM Index REM N/A 19.6 16.3 11.9 23.0 7.4 Mean Heart Rate (bpm) N/A 62 57 56 56 58 Min Heart Rate (bpm) N/A 55 55 53 54 54 CPAP REPORT Therapy Detail Time / Page # Comment CPAP 4 cm H2O Nasal Mask Flex Pressure Relief Humidifier on 11:13:37 PM / pg. 262 BiLevel 8/4 cm H2O Nasal Mask Flex Pressure Relief Humidifier on 11:15:41 PM / pg. 266 AFTER TRYING CPAP FOR AWHILE BEFORE BED, SHE COULD NOT GET USED TO BREATHING WITH IT. BIPAP WAS INTRODUCED, AND SHE STATED THAT IT WAS BETTER THAN CPAP. CHANGING PRESSURE OVER TO BIPAP FOR CPAP DISCOMFORT BiLevel 9/4 cm H2O Nasal Mask Flex Pressure Relief Humidifier on 1:14:43 AM / pg. 504 INCREASED IPAP FOR SOME HYPOPNEAS BiLevel 10/4 cm H2O Nasal Mask Flex Pressure Relief Humidifier on 2:14:46 AM / pg. 624 INCREASED IPAP FOR MORE HYPOPNEAS BiLevel 11/5 cm H2O Nasal Mask Flex Pressure Relief Humidifier on 3:40:44 AM / pg. 796 INCREASED IPAP FOR MORE HYPOPNEAS IN REM AND INCREASED EPAP TO KEEP THE PRESSURE DIFFERENTIAL AT 6 BiLevel 12/5 cm H2O Nasal Mask Flex Pressure Relief Humidifier on 5:05:37 AM / pg. 966 INCREASED IPAP FOR YET MORE HYPOPNEAS
--- NOTE | 2016-11-23 17:06 | POLYSOMNOGRAPH REPORT ---
REFERRING PERSON: Dr. Angelica Drake. SMALL BUSINESS CONSULTANT: Haydee Mattson. Ms. Mora is an 81-year-old female sent for a CPAP titration study. She recently had a baseline sleep study, which showed an AHI of 46. She has chosen wide Mirage FX nasal mask for her titration. Gilman sleepiness scale score on the evening of this study was not recorded. BMI is 34.38. Following the technical and digital specifications of the [employer] [employer] (AASM) a standard diagnostic polysomnogram was performed monitoring EEG, EOG, EMG (chin and leg deviations), oxygen saturation, body position, digital video, respiratory effort and airflow. The sleep Stage and event scoring was based on the AASM Manual for the Scoring of Sleep and Associated Events 2007 edition. Apneas are defined as a drop in the peak thermal sensor excursion by >90% of baseline for at least 10 seconds. Hypopneas were scored using the 4% oxygen desaturation rule ([employer]A-[employer]) and a decrease in the nasal pressure excursions by >30% of baseline for at least 10 seconds. Respiratory effort-related arousal (RERA's) is defined as a sequence of breaths lasting at least 10 seconds characterized by increasing respiratory effort or flattening of the nasal pressure waveform leading to an arousal from sleep when the sequence of breaths does not meet criteria for an apnea or hypopnea. Apnea Hypopnea index (AHI) is defined as the number of apneas and hypopneas occurring in an hour of sleep. Respiratory disturbance index (RDI) is defined as the number of apneas, hypopneas, and RERA's occurring in an hour of sleep. Ms. Mora's total sleep period time was 365.5 minutes. Total sleep time was 345 minutes. Sleep efficiency was 86%. Latency to sleep onset was 20.5 minutes. Wake after sleep onset was 38 minutes. Total non-REM sleep time was 256 minutes. She spent 8% of that time in N1 sleep, 67% in N2 sleep and no time in N3 sleep. REM latency was 66.5 minutes. Total REM sleep time was 89 minutes or 26% of total sleep time. There were 40 cortical arousals from sleep. 29 of these arousals were spontaneous, 3 were due to respiratory events, 7 due to periodic limb movements of sleep and 1 was due to snoring. There were 133 periodic limb movements noted on this test. Limb movement index was 23.1; however, limb movement with arousal index was 1.2. There was 1 central, no obstructive, and no mixed apneas on this test. There were 29 hypopneas and 1 RERA. Apnea-hypopnea index was marginally elevated at 5.2 on this titration. Thirty-six snoring events were recorded. Total sleep time with snoring was 0.2%. Mean saturation was low at 88% with desaturations to 80%. Saturations remained below 89% for 294.1 minutes of recorded time on this titration. There was no cardiac ectopy noted on this study. Heart rates ranged from a low of 53 beats per minute to a high of 69 beats per minute. As stated above, this was a titration study. She was started on CPAP at 4, but could not tolerate this and was quickly changed to bilevel therapy. She was titrated on bilevel therapy from 8/4 to 12/5 over the remainder of the night. Increasing pressures were needed to prevent apneas, hypopneas as well as arousals. She was observed on a pressure of 12/4 for 34.3 minutes of recorded time. She did have some 24.3 minutes of supine REM sleep on this pressure. AHI on this pressure was 3.5 with an RDI of 5.3. However, her saturations remained low with saturations less than 89 for 29 minutes of recorded time on this pressure. IMPRESSION AND PLAN: Suboptimal titration in this patient with known severe sleep apnea. It appears that she does fairly well on bilevel therapy at 12/5; however, she continues to have nocturnal hypoxemia. I would recommend, if her insurance allow, that she be started on bilevel therapy and 1 liter of oxygen. An NPO can then be performed to ensure her hypoxemia resolves with oxygen therapy. Should her insurance not allow this, she may require another titration of oxygen in the sleep lab. SOHAIL
== END | disposition home or self-care (01) ==
LOC: C.NEUR 21:00
PROVIDERS: ATTEND Family Medicine
DX: G47.33 Obstructive sleep apnea (adult) (pediatric) (principal); G47.34 Idiopathic sleep related nonobstructive alveolar hypoventilation; I27.2 Other secondary pulmonary hypertension

== ENCOUNTER 2022-03-31 16:54 | Inpatient (IN) ==
[2022-03-31] MEDS ORDERED: SODIUM CHLORIDE 0.9% 500 ML IV ONE (17:09)
--- NOTE | 2022-03-31 17:14 | Emergency Department Note ---
Impression & Plan Acute pyelonephritis, HTN (hypertension), COVID-19, Fall ED Provider Note NAME: CANDIDA POWELL AGE: 86 SEX: F : 1935 ARRIVES VIA: Ambulance INFORMANT: Patient ED PROVIDER(S): Tuan Whitt DO CHIEF COMPLAINT: fall out of bed HPI: Patient is an 86-year-old female who presents the ER following falling out of bed. She believes it occurred somewhere around 11-12 o'clock this morning. She is nonambulatory. She notes she fell onto her arms and shoulder. She has no arm or shoulder pain. She has no head or neck pain. Denies any pain in the chest or belly from the fall. She admits to periumbilical abdominal pain which has been present for the past week. Denies any nausea or vomiting. No dysuria, urgency, or frequency. She does have some diarrhea which started today. No neck pain. She does admit to a cough and congestion which has been present for the past week. ROS: See above HPI for pertinent positives & negatives. A total of 10 systems reviewed and were otherwise negative. PAST MEDICAL HISTORY:See Below PAST SURGICAL HISTORY:See Below FAMILY HISTORY:See Below SOCIAL HISTORY:See Below HOME MEDICATIONS:See Below ALLERGIES:See Below VITALS:See Below PHYSICAL EXAMINATION: GENERAL: alert, well appearing, well nourished, no distress, non-toxic HEAD: normal cephalic, atraumatic EYE EXAM: normal conjunctiva, PERRL and EOM's grossly intact OROPHARYNX: no exudate, no erythema, lips, buccal mucosa, and tongue normal and mucous membranes are moist NECK: supple, no nuchal rigidity, no adenopathy, non-tender CHEST: stable to compression anteriorly and posteriorly LUNGS: clear to auscultation. Normal chest wall mechanics HEART: no murmurs, S1 normal and S2 normal ABDOMEN: abdomen soft, non-tender, normo-active bowel sounds, no masses, no rebound or guarding. PELVIS: stable to compression anteriorly and posteriorly BACK: Back is symmetrical on inspection and there is no deformity, no midline tenderness, no CVA tenderness. UPPER EXTREMITIES: full active and passive range of motion of all joints without tenderness to palpation LOWER EXTREMITIES: Bilateral legs are held in flexion without any tenderness on palpation bilateral femurs tib-fib's or feet. Mild pitting edema. NEURO EXAM: Normal sensorium, cranial nerves II-XII grossly intact, normal speech, no gross weakness of arms. GCS: 15. MEDICAL DECISION MAKING: Patient is a very pleasant 86-year-old female who presents ER for above-stated complaint. IV was established blood work was obtained. Labs show no significant leukocytosis or anemia. BMP along with LFTs bilirubin normal. Troponin was negative. UA did have nitrites although only 1-5 whites. Did have +4 bacteria but was contaminated with epithelial cells. She is COVID-positive with her upper respiratory symptoms. Chest x-ray was clean. CT head and cervical spine as well as abdomen pelvis was unremarkable with the exception of a questionable pyelonephritis. She was given IV Rocephin. She is updated bedside. She was discussed with the hospitalist with systolic pressures in the 200s and CT showing Joe with an indeterminate urine although in light of only 1-5 whites favor that this likely not infected. Discussed with Dr. Antonio carpenter for further evaluation Triage Nursing notes reviewed. Limited review of prior medical records performed Vital Signs: reviewed and remarkable for HTN Differential diagnosis: Differential diagnoses include major intracranial, cervical, spinal, thoracic, abdominal, pelvic and neurologic injury. Fracture, contusion, sprain, strain, laceration, abrasions included as well. ER treatment provided: See below Diagnostics interpreted by me: ECG: Sinus rhythm rate of 66 Poor baseline Normal axis QTC 417 Cardiac Monitoring: An order was placed for continuous cardiac monitoring. The monitor shows a rate of 70 with sinus rhythm. Laboratory studies: As stated above and show below. Imaging studies: See below Consultation(s): Discussed with Dr. Ray for further evaluation Procedures: none Critical Care: None Past Med/Surg History Social History Smoking Status: Never smoker Preferred Language: Bahamian Feels Safe at Home: Yes Allergies Allergies Allergy/AdvReac Type Severity Reaction Status Date / Time phenobarbital Allergy Intermediate ITCHY RASH Verified 03/31/22 21:32 scopolamine Allergy Intermediate RASH Verified 03/31/22 21:32 simvastatin Allergy Intermediate muscle Verified 03/31/22 21:32 cramps aspirin AdvReac Intermediate Abdominal Verified 03/31/22 21:32 Pain atropine AdvReac Intermediate ITCHING Verified 03/31/22 21:32 codeine AdvReac Intermediate HYPERTENSIO Verified 03/31/22 21:32 N doxycycline AdvReac Intermediate NAUSEA/VOMI Verified 03/31/22 21:32 TING. hyoscyamine AdvReac Intermediate ITCHING Verified 03/31/22 21:32 lactose AdvReac Intermediate Gastrointestinal Verified 03/31/22 21:32 Upset minocycline AdvReac Intermediate NAUSEA AND Verified 03/31/22 21:32 VOMITING morphine AdvReac Intermediate NAUSEA/VOMI Verified 03/31/22 21:32 TING shellfish derived AdvReac Unknown spiritual Verified 03/31/22 21:32 preference Pork AdvReac Unknown spiritual Uncoded 03/31/22 21:32 preference Home Meds Home Medications Medication Instructions Recorded Confirmed Collagen Ultra 1 cap PO DAILY 03/31/22 03/31/22 acetaminophen 500 mg tablet 500 mg PO TID 03/31/22 03/31/22 (Tylenol Extra Strength) aluminum-mag hydroxide-simethicone 15 ml PO DAILY PRN 03/31/22 03/31/22 400 mg-400 mg-40 mg/5 mL oral susp INDIGESTION/UPSET STOMACH ascorbic acid (vitamin C) 500 mg 500 mg PO DAILY 03/31/22 03/31/22 tablet (Vitamin C) aspirin 81 mg tablet,delayed 81 mg PO DAILY 03/31/22 03/31/22 release baclofen 5 mg tablet 5 mg PO BID PRN MUSCLE SPASMS 03/31/22 03/31/22 calcium carbonate 500 mg calcium 1,000 mg PO DIRECTED PRN 03/31/22 03/31/22 (1,250 mg) chewable tablet INDIGESTION/HEARTBURN/UPSET STOMACH carbamide peroxide 6.5 % ear drops 0 drp otic (ear) DIRECTED PRN 03/31/22 03/31/22 (Debrox) WAX BUILD UP carboxymethylcellulose sodium 1 % 2 drp ophthalmic (eye) DIRECTED 03/31/22 03/31/22 eye liquid gel drops (Refresh PRN Dry Eyes Liquigel) carvedilol 25 mg tablet 25 mg PO BID 03/31/22 03/31/22 cholecalciferol (vitamin D3) 25 25 mcg PO DAILY 03/31/22 03/31/22 mcg (1,000 unit) capsule (Vitamin D3) diphenhydramine HCl 25 mg capsule 25 mg PO BID PRN Itching 03/31/22 03/31/22 (Benadryl) duloxetine 20 mg capsule,delayed 40 mg PO QAM 03/31/22 03/31/22 release (Cymbalta) fluocinonide 0.05 % topical 1 applic topical BID PRN Skin 03/31/22 03/31/22 ointment Irritation fluticasone propionate 50 2 spray intranasal BID 03/31/22 03/31/22 mcg/actuation nasal spray,suspension furosemide 40 mg tablet (Lasix) 40 mg PO QAM 03/31/22 03/31/22 glucosamine sulfate 1,000 mg tablet 1,000 mg PO BID 03/31/22 03/31/22 ipratropium bromide 17 2 puff inhalation TID PRN Wheezing 03/31/22 03/31/22 mcg/actuation HFA aerosol inhaler (Atrovent HFA) levothyroxine 75 mcg tablet 75 mcg PO DAILYBB 03/31/22 03/31/22 lidocaine HCl 4 % topical liquid 1 ea topical TID PRN Pain 03/31/22 03/31/22 roll-on (Aspercreme (lidocaine HCl)) losartan 100 mg tablet 100 mg PO DAILY 03/31/22 03/31/22 magnesium oxide 500 mg tablet 500 mg PO DAILY 03/31/22 03/31/22 metformin 500 mg tablet 500 mg PO BID 03/31/22 03/31/22 multivitamin 1 tab PO DAILY 03/31/22 03/31/22 nifedipine 30 mg tablet,extended 30 mg PO DAILYBB 03/31/22 03/31/22 release 24 hr omega-3 fatty acids 1,000 mg 1,000 mg PO BID 03/31/22 03/31/22 capsule potassium chloride 20 mEq 20 meq PO DAILY 03/31/22 03/31/22 tablet,extended release(part/cryst) pumpkin seed extract-soy germ 300 1 cap PO BID 03/31/22 03/31/22 mg capsule (Azo Bladder Control) rosuvastatin 20 mg tablet 20 mg PO DAILY 03/31/22 03/31/22 vitamin E 268 mg (400 unit) capsule 536 mg PO DAILY 03/31/22 03/31/22 Results & Data (ED) Vital Signs Vital Signs - 24 hr 03/31/22 16:54 03/31/22 18:17 03/31/22 17:09 Temperature 36.4 C L Temperature Source Oral Pulse Rate 66 73 Pulse Rate from SpO2 Sensor Respiratory Rate 18 18 Respiratory Effort / Characteristics Non-Labored Respiratory Depth Normal Respiratory Pattern Regular Blood Pressure 161/71 H 189/84 H Blood Pressure Mean 101 119 Pulse Oximetry 96 95 95 Oxygen Delivery Method Room Air Room Air Room Air Sepsis Recent Fever Within 48 Hours No Sepsis New/Unexplained Change in Mental Status N/A Sepsis Action Taken by Nursing No Action Required 03/31/22 18:30 Temperature Temperature Source Pulse Rate 72 Pulse Rate from SpO2 Sensor 73 Respiratory Rate 22 Respiratory Effort / Characteristics Respiratory Depth Respiratory Pattern Blood Pressure 193/86 H Blood Pressure Mean 121 Pulse Oximetry 95 Oxygen Delivery Method Sepsis Recent Fever Within 48 Hours Sepsis New/Unexplained Change in Mental Status Sepsis Action Taken by Nursing Laboratory Data Result diagrams: 03/31/22 17:40 03/31/22 18:39 Lab Results 03/31/22 03/31/22 03/31/22 Range/Units 17:30 17:40 17:40 WBC 7.86 (4.8-10.8) K/ul RBC 4.28 (3.93-5.22) M/uL Hgb 12.4 (12.0-16.0) g/dl Hct 38.3 (34.1-44.9) % MCV 89.5 (80.0-100.0) fL MCH 29.0 (25.0-34.0) pg MCHC 32.4 (32.0-36.0) g/dL RDW Std Deviation 50.8 H (36.4-46.3) fL RDW Coeff of Sergio 15.6 H (11.5-14.5) % Plt Count 374 (130-400) K/uL MPV 9.4 (9.4-12.3) fL Immature Gran % (Auto) 0.5 % Neut % (Auto) 62.5 % Lymph % (Auto) 23.0 % Larue % (Auto) 12.5 % Eos % (Auto) 0.5 % Baso % (Auto) 1.0 % Neut # (Auto) 4.91 (1.4-6.5) K/uL Lymph # (Auto) 1.81 (1.2-3.4) K/uL Larue # (Auto) 0.98 H (0.24-0.82) K/uL Eos # (Auto) 0.04 (0-0.50) K/uL Baso # (Auto) 0.08 (0-0.2) K/uL Immature Gran # (Auto) 0.04 H (0.00-0.02) K/uL Sodium 134 L (136-145) mmol/L Potassium TNP Chloride 98 (98-107) mmol/L Carbon Dioxide 25 (21-32) mmol/L Anion Gap 11 (3-11) BUN 19 (6-23) mg/dl Creatinine 0.90 (0.6-1.2) mg/dl Est Cr Clr Drug Dosing 53.3 ml/min Est GFR ( Amer) 66.6 ml/min Est GFR (Non-Af Amer) 57.5 ml/min BUN/Creatinine Ratio 21.1 H (10-20) Glucose 129 H (70-99(Fasting)) mg/dl Calcium 9.4 (8.5-10.1) mg/dl Total Bilirubin 0.5 (0.2-1.0) mg/dl AST TNP ALT 14 (7-52) U/L Alkaline Phosphatase 44 (34-104) U/L Total Creatine Kinase 166 (26-192) U/L Troponin I High Sens 7.6 (0-14) pg/ml Total Protein 7.6 (6.0-8.3) gm/dl Albumin 4.2 (3.4-5.0) gm/dl Globulin 3.4 (2.5-4.0) gm/dl Albumin/Globulin Ratio 1.2 (0.9-2) Urine Color Urine Appearance (Clear) Urine pH (4.5-7.5) Ur Specific [place] (1.000-1.030) Urine Protein (Negative) Urine Glucose (UA) (Negative) Urine Ketones (Negative) Urine Blood (Negative) Urine Nitrite (Negative) Urine Bilirubin (Negative) Urine Urobilinogen (Negative) Ur Leukocyte Esterase (Negative) Urine WBC (Auto) (0-5) /hpf Urine RBC (Auto) (0-4) /hpf U Hyaline Cast (Auto) (0-5) /lpf U Epithel Cells (Auto) (0-5) /lpf Urine Bacteria (Auto) (Negative) SARS-CoV-2 (PCR) POSITIVE A* (Negative) Influenza Type A (PCR) Negative (Neg) Influenza Type B (PCR) Negative (Neg) RSV (RT-PCR) Negative (Neg) 03/31/22 03/31/22 Range/Units 18:39 18:45 WBC (4.8-10.8) K/ul RBC (3.93-5.22) M/uL Hgb (12.0-16.0) g/dl Hct (34.1-44.9) % MCV (80.0-100.0) fL MCH (25.0-34.0) pg MCHC (32.0-36.0) g/dL RDW Std Deviation (36.4-46.3) fL RDW Coeff of Sergio (11.5-14.5) % Plt Count (130-400) K/uL MPV (9.4-12.3) fL Immature Gran % (Auto) % Neut % (Auto) % Lymph % (Auto) % Larue % (Auto) % Eos % (Auto) % Baso % (Auto) % Neut # (Auto) (1.4-6.5) K/uL Lymph # (Auto) (1.2-3.4) K/uL Larue # (Auto) (0.24-0.82) K/uL Eos # (Auto) (0-0.50) K/uL Baso # (Auto) (0-0.2) K/uL Immature Gran # (Auto) (0.00-0.02) K/uL Sodium (136-145) mmol/L Potassium 4.4 Chloride (98-107) mmol/L Carbon Dioxide (21-32) mmol/L Anion Gap (3-11) BUN (6-23) mg/dl Creatinine (0.6-1.2) mg/dl Est Cr Clr Drug Dosing ml/min Est GFR ( Amer) ml/min Est GFR (Non-Af Amer) ml/min BUN/Creatinine Ratio (10-20) Glucose (70-99(Fasting)) mg/dl Calcium (8.5-10.1) mg/dl Total Bilirubin (0.2-1.0) mg/dl AST 22 ALT (7-52) U/L Alkaline Phosphatase (34-104) U/L Total Creatine Kinase (26-192) U/L Troponin I High Sens (0-14) pg/ml Total Protein (6.0-8.3) gm/dl Albumin (3.4-5.0) gm/dl Globulin (2.5-4.0) gm/dl Albumin/Globulin Ratio (0.9-2) Urine Color Yellow Urine Appearance Clear (Clear) Urine pH 6.0 (4.5-7.5) Ur Specific [place] 1.009 (1.000-1.030) Urine Protein Trace H (Negative) Urine Glucose (UA) Negative (Negative) Urine Ketones Negative (Negative) Urine Blood Trace H (Negative) Urine Nitrite Positive A (Negative) Urine Bilirubin Negative (Negative) Urine Urobilinogen Negative (Negative) Ur Leukocyte Esterase Trace H (Negative) Urine WBC (Auto) 1-5 (0-5) /hpf Urine RBC (Auto) 0-4 (0-4) /hpf U Hyaline Cast (Auto) 5-10 H (0-5) /lpf U Epithel Cells (Auto) 10-20 H (0-5) /lpf Urine Bacteria (Auto) 4+ H (Negative) SARS-CoV-2 (PCR) (Negative) Influenza Type A (PCR) (Neg) Influenza Type B (PCR) (Neg) RSV (RT-PCR) (Neg) Administered Medications Discontinued Medications Hydralazine HCl (Hydralazine Hcl 25 Mg Tab) 25 mg PO NOW STA Stop: 03/31/22 21:19 Last Admin: 03/31/22 21:34 Dose: 25 mg Documented By: PHILOMENA Hydromorphone HCl (Hydromorphone Inj 0.5 Mg/0.5 Ml Syr) 0.25 mg IV NOW STA Stop: 03/31/22 19:22 Last Admin: 03/31/22 19:59 Dose: 0.25 mg Documented By: TALIA Sodium Chloride (Nss) 500 mls @ 999 mls/hr IV .Q31M ONE Stop: 03/31/22 17:39 Last Infusion: 03/31/22 21:52 Dose: 0 mls/hr Documented By: Admin: 03/31/22 17:47 Dose: 999 mls/hr Documented By: [place]ON Ceftriaxone Sodium (Rocephin) 2,000 mg in 70 mls @ 140 mls/hr IV NOW STA Stop: 03/31/22 21:47 Last Infusion: 03/31/22 21:52 Dose: 0 mls/hr Documented By: Admin: 03/31/22 21:34 Dose: 140 mls/hr Documented By: PHILOMENA Ioversol (Optiray 350 100ml) 85 ml IV ONCE ONE Stop: 03/31/22 19:41 Last Admin: 03/31/22 19:40 Dose: 85 ml Documented By: EMORY Ondansetron HCl (Ondansetron Inj 2 Mg/Ml 2 Ml Vial) 4 mg IV NOW STA Stop: 03/31/22 19:22 Last Admin: 03/31/22 19:59 Dose: 4 mg Documented By: [facility] Imaging Data Radiologist's Impression: Chest X-Ray 03/31/22 17:09 XR chest 1V portable HISTORY: cough COMPARISON: Chest 05/12/2021. FINDINGS: No pneumothorax. No pleural effusions. There are low lung volumes. The cardiac silhouette remains borderline enlarged. There is mild interstitial thickening, unchanged. No new focal lung consolidations to suggest a pneumonia. No evidence for pulmonary edema. IMPRESSION: No significant change compared to the prior study. No acute process. ACT 112: Negative or not required by law. Electronically signed by: Michael Ireland M.D. 03/31/2022 9:01 PM Femur X-Ray 03/31/22 17:09 XR femur RT 2V routine CLINICAL HISTORY: Right hip pain. Fall. COMPARISON STUDY: None. FINDINGS: Severe osteoarthritis within the right hip with [id number] articulation. No fracture or dislocation within the right femur. The visualized pelvic bones are intact. Soft tissues are unremarkable. Advanced degenerative changes also noted within the right knee. No significant knee effusion. IMPRESSION: 1. No acute fracture or dislocation within the right femur. 2. Severe degenerative changes within the right hip and right knee. ACT 112: Negative or not required by law. Electronically signed by: Michael Ireland M.D. 03/31/2022 8:57 PM Abdomen/Pelvis CT 03/31/22 17:[address] WITH IV CONTRAST CT DOSE: 2665.14 mGy.cm HISTORY: Trauma TECHNIQUE: Multiaxial CT images of the abdomen and pelvis were performed following the use of intravenous contrast. A dose lowering technique was utilized adhering to the principles of ALARA. COMPARISON STUDY: Abdomen and pelvis CT 12/16/2008. FINDINGS: The lung bases are clear. No pneumoperitoneum. No pneumatosis. Severe right and moderate left hip osteoarthritis. No acute fractures identified. There is a small hiatus hernia. The liver, gallbladder, pancreas, spleen, and right adrenal gland are unremarkable. There is a 1 cm left adrenal gland nodule, unchanged. This favors a benign adenoma. Normal left kidney. A 1 cm cyst within the upper pole the right kidney. A small fat-containing lesion within the lower pole of the right kidney consistent with a small angiomyolipoma. Subtle het erogeneous enhancement within the right kidney. This could be chronic or represent a mild chronic nephritis. No associated perinephric fat stranding. Normal caliber abdominal aorta with moderate calcified plaque. No retroperitoneal lymphadenopathy. No pelvic lymphadenopathy. Mild pelvic floor collapse. The bladder is unremarkable. Prior hysterectomy. Trace pelvic free fluid. No bowel wall thickening or obstruction. Colonic diverticulosis. No evidence for acute diverticulitis. Nondilated fluid-filled large bowel. This suggests a diarrheal illness. Normal appendix. IMPRESSION: 1. Nondilated fluid-filled colon suggestive of a diarrheal illness. 2. Mild heterogeneous enhancement within the right kidney. This could be chronic or represent a mild pyelonephritis. Recommend correlation with urinalysis. 3. No evidence for bowel obstruction. 4. Colonic diverticulosis. No evidence for acute diverticulitis. 5. Normal appendix. 6. Additional findings as described above. ACT 112: Negative or not required by law. Electronically signed by: Michael Ireland M.D. 03/31/2022 8:[address] 03/31/22 17:[address] DOSE: HISTORY: Trauma TECHNIQUE: Multiaxial CT images of the cervical spine were performed and reformatted in the sagittal and coronal plane without the use of contrast. A dose lowering technique was utilized adhering to the principles of ALARA. COMPARISON: Cervical spine CT 05/12/2021. FINDINGS: No fractures. No subluxation. Prevertebral soft tissues and the C1-C2 interval are intact. No pneumothorax. Degenerative changes again noted. The C5- C6 vertebral bodies are fused. IMPRESSION: No fractures within the cervical spine. ACT 112: Negative or not required by law. Electronically signed by: Michael Ireland M.D. 03/31/2022 8:[address] 03/31/22 17:[address] DOSE: HISTORY: Trauma TECHNIQUE: Multiaxial CT images of the head were performed without the use of intravenous contrast. Automated exposure control was utilized for this study. A dose lowering technique was utilized adhering to the principles of ALARA. Comparison: Head CT 05/12/2021. Findings: Hyperdense secretions within the left maxillary sinus, unchanged. The mastoid air cells are clear. The calvarium and skull base are intact. There is no mass, hematoma, midline shift, acute infarct. White matter hypodensity is nonspecific but suggestive of microvascular ischemic change. The ventricles and sulci demonstrate mild age-related involutional changes. Questionable small right frontal extra-axial hyperdensity on image 17 is likely artifact. Impression: No significant change compared to the prior study. No acute intracranial abnormality. ACT 112: Negative or not required by law. Electronically signed by: Michael Ireland M.D. 03/31/2022 8:08 PM Discharge Plan Visit Data Chief Complaint: Fall Stated Complaint: FALL ED Provider: Tuan Whitt Discharge Problem: Acute pyelonephritis, HTN (hypertension), COVID-19, Fall Forms Stand Alone Forms: [facility] Prescriptions Prescriptions: No Action multivitamin Tablet 1 tab PO DAILY nifedipine 30 mg Tablet Extended Release 24hr 30 mg PO DAILYBB furosemide [Lasix] 40 mg Tablet 40 mg PO QAM metformin 500 mg Tablet 500 mg PO BID carvedilol 25 mg Tablet 25 mg PO BID Rx Instructions: must administer with a meal/food omega-3 fatty acids 1,000 mg Capsule 1,000 mg PO BID fluocinonide 0.05 % Ointment 1 applic TOPICAL BID PRN (Reason: Skin Irritation) aspirin 81 mg Tablet,Delayed Release (Dr/Ec) 81 mg PO DAILY acetaminophen [Tylenol Extra Strength] 500 mg Tablet 500 mg PO TID levothyroxine 75 mcg Tablet 75 mcg PO DAILYBB potassium chloride 20 mEq Tablet,Er Particles/Crystals 20 meq PO DAILY ascorbic acid (vitamin C) [Vitamin C] 500 mg Tablet 500 mg PO DAILY diphenhydramine HCl [Benadryl] 25 mg Capsule 25 mg PO BID PRN (Reason: Itching) magnesium oxide 500 mg Tablet 500 mg PO DAILY Debrox 6.5 % Drops 0 drp otic (ear) DIRECTED PRN (Reason: WAX BUILD UP) Rx Instructions: FILL EAR CANAL, PLUG WITH COTTON BALL, REMOVE AFTER 15-20 MINS. calcium carbonate [Tums 500] 500 mg calcium (1,250 mg) Tablet,Chewable 1,000 mg PO DIRECTED PRN (Reason: INDIGESTION/HEARTBURN/UPSET STOMACH) losartan 100 mg Tablet 100 mg PO DAILY fluticasone propionate [Flonase] 50 mcg/actuation Central,Suspension 2 spray INTRANASAL BID Rx Instructions: administer into each nostril vitamin E 268 mg (400 unit) Capsule 536 mg PO DAILY alum-mag hydroxide-simeth [Maalox Plus Extra Strength] 400-400-40 mg/5 mL Suspension 15 ml PO DAILY PRN (Reason: INDIGESTION/UPSET STOMACH) carboxymethylcellulose sodium [Refresh Liquigel] 1 % Drops, Liquid Gel 2 drp OPHTHALMIC (EYE) DIRECTED PRN (Reason: Dry Eyes) cholecalciferol (vitamin D3) [Vitamin D3] 25 mcg (1,000 unit) Capsule 25 mcg PO DAILY rosuvastatin 20 mg Tablet 20 mg PO DAILY duloxetine [Cymbalta] 20 mg Capsule,Delayed Release(Dr/Ec) 40 mg PO QAM Atrovent HFA 17 mcg/actuation Hfa Aerosol Inhaler 2 puff INHALATION TID PRN (Reason: Wheezing) Azo Bladder Control 300 mg Capsule 1 cap PO BID baclofen 5 mg Tablet 5 mg PO BID PRN (Reason: MUSCLE SPASMS) Aspercreme (lidocaine HCl) 4 % Liquid Roll-On 1 ea TOPICAL TID PRN (Reason: Pain) glucosamine sulfate 1,000 mg Tablet 1,000 mg PO BID Rx Instructions: administer with meals Collagen Ultra 1 cap PO DAILY Referrals Referrals: Collins Delatorre DO [Primary Care Provider] -
[2022-03-31 18:03] LABS: Basophils # (auto) 0.08 K/uL (0-0.2); Eosinophils # (auto) 0.04 K/uL (0-0.50); Eosinophils % (auto) 0.5 %; Hematocrit (blood only) 38.3 % (34.1-44.9); Hemoglobin 12.4 g/dl (12.0-16.0); Immature Granulocytes # (auto) 0.04 K/uL (0.00-0.02); Immature Granulocytes % (auto) 0.5 %; Lymphocytes # (auto) 1.81 K/uL (1.2-3.4); Mean Corpuscular Hgb Conc 32.4 g/dL (32.0-36.0); Mean Corpuscular Volume 89.5 fL (80.0-100.0); Mean Platelet Volume 9.4 fL (9.4-12.3); Monocytes # (auto) 0.98 K/uL (0.24-0.82); Monocytes % (auto) 12.5 %; Neutrophils # (auto) 4.91 K/uL (1.4-6.5); Neutrophils % (auto) 62.5 %; Platelet Count 374 K/uL (130-400); RDW Coefficient of Variation 15.6 % (11.5-14.5); RDW Standard Deviation 50.8 fL (36.4-46.3); Red Blood Count 4.28 M/uL (3.93-5.22); White Blood Count 7.86 K/ul (4.8-10.8)
[2022-03-31 18:16] LABS: Influenza A virus by PCR Negative (Neg); Influenza B virus by PCR Negative (Neg); RSV by PCR Negative (Neg)
[2022-03-31 18:21] LABS: SARS CoV2 RNA(COVID-19) Ceph POSITIVE (Negative)
[2022-03-31 18:32] LABS: Alanine Aminotransferase 14 U/L (7-52); Albumin Globulin Ratio 1.2 (0.9-2); Albumin Level 4.2 gm/dl (3.4-5.0); Alkaline Phosphatase 44 U/L (34-104); Anion Gap 11 (3-11); BUN Creatinine Ratio 21.1 (10-20); Bilirubin,Total 0.5 mg/dl (0.2-1.0); Blood Urea Nitrogen 19 mg/dl (6-23); Calcium 9.4 mg/dl (8.5-10.1); Carbon Dioxide 25 mmol/L (21-32); Chloride 98 mmol/L (98-107); Creatine Kinase 166 U/L (26-192); Creatinine Clr Calc Pharmacy 53.3 ml/min; Est GFR (African American) 66.6 ml/min; Est GFR (Non-African American) 57.5 ml/min; Globulin 3.4 gm/dl (2.5-4.0); Glucose 129 mg/dl (70-99(Fasting)); Sodium 134 mmol/L (136-145); Total Protein 7.6 gm/dl (6.0-8.3); Troponin I High Sensitivity 7.6 pg/ml (0-14)
[2022-03-31 19:17] LABS: Potassium 4.4 mmol/L (3.5-5.1)
[2022-03-31] MEDS ORDERED: HYDROmorphone INJ 0.5 MG/0.5 ML SYR IV STA (19:21)
[2022-03-31] MEDS ORDERED: ONDANSETRON INJ 2 MG/ML 2 ML VIAL IV STA (19:21)
[2022-03-31 19:25] LABS: Appearance Urine Clear (Clear); Bacteria Urine Automated 4+ (Negative); Bilirubin Urine Negative (Negative); Blood Urine Trace (Negative); Color Urine Yellow; Glucose Urine UA Negative (Negative); Ketones Urine Negative (Negative); Leukocyte Esterase Urine Trace (Negative); Nitrite Urine Positive (Negative); Protein Urine Trace (Negative); RBC Urine Automated 0-4 /hpf (0-4); Specific Gravity Urine 1.009 (1.000-1.030); Urobilinogen Urine Negative (Negative)
[2022-03-31] MEDS ORDERED: OPTIRAY 350 100ml IV ONE (19:40)
--- NOTE | 2022-03-31 20:10 | CT Scan Report ---
HEAD CT NONCONTRAST CT DOSE: HISTORY: Trauma TECHNIQUE: Multiaxial CT images of the head were performed without the use of intravenous contrast. A utomated exposure control was utilized for this study. A dose lowering technique was utilized adheri ng to the principles of ALARA. Comparison: Head CT 05/12/2021. Findings: Hyperdense secretions within the left maxillary sinus, unchanged. The mastoid air cells are clear. The calvarium and skull base are intact. There is no mass, hematoma, midline shift, acute inf arct. White matter hypodensity is nonspecific but suggestive of microvascular ischemic change. The ve ntricles and sulci demonstrate mild age-related involutional changes. Questionable small right fronta l extra-axial hyperdensity on image 17 is likely artifact. Impression: No significant change compared to the prior study. No acute intracranial abnormality. ACT 112: Negative or not required by law. Electronically signed by: Michael Ireland M.D. 03/31/2022 8:08 PM
--- NOTE | 2022-03-31 20:16 | CT Scan Report ---
CERVICAL SPINE CT CT DOSE: HISTORY: Trauma TECHNIQUE: Multiaxial CT images of the cervical spine were performed and reformatted in the sagittal and coronal plane without the use of contrast. A dose lowering technique was utilized adhering to th e principles of ALARA. COMPARISON: Cervical spine CT 05/12/2021. FINDINGS: No fractures. No subluxation. Prevertebral soft tissues and the C1-C2 interval are intact. No pneumothorax. Degenerative changes again noted. The C5-C6 vertebral bodies are fused. IMPRESSION: No fractures within the cervical spine. ACT 112: Negative or not required by law. Electronically signed by: Michael Ireland M.D. 03/31/2022 8:13 PM
--- NOTE | 2022-03-31 20:28 | CT Scan Report ---
ABDOMEN AND PELVIS CT WITH IV CONTRAST CT DOSE: 2665.14 mGy.cm HISTORY: Trauma TECHNIQUE: Multiaxial CT images of the abdomen and pelvis were performed following the use of intrave nous contrast. A dose lowering technique was utilized adhering to the principles of ALARA. COMPARISON STUDY: Abdomen and pelvis CT 12/16/2008. FINDINGS: The lung bases are clear. No pneumoperitoneum. No pneumatosis. Severe right and moderate le ft hip osteoarthritis. No acute fractures identified. There is a small hiatus hernia. The liver, gall bladder, pancreas, spleen, and right adrenal gland are unremarkable. There is a 1 cm left adrenal gla nd nodule, unchanged. This favors a benign adenoma. Normal left kidney. A 1 cm cyst within the upper pole the right kidney. A small fat-containing lesion within the lower pole of the right kidney consis tent with a small angiomyolipoma. Subtle heterogeneous enhancement within the right kidney. This coul d be chronic or represent a mild chronic nephritis. No associated perinephric fat stranding. Normal c aliber abdominal aorta with moderate calcified plaque. No retroperitoneal lymphadenopathy. No pelvic lymphadenopathy. Mild pelvic floor collapse. The bladder is unremarkable. Prior hysterectomy. Trace p elvic free fluid. No bowel wall thickening or obstruction. Colonic diverticulosis. No evidence for ac mendez diverticulitis. Nondilated fluid-filled large bowel. This suggests a diarrheal illness. Normal ap pendix. IMPRESSION: 1. Nondilated fluid-filled colon suggestive of a diarrheal illness. 2. Mild heterogeneous enhancement within the right kidney. This could be chronic or represent a mild pyelonephritis. Recommend correlation with urinalysis. 3. No evidence for bowel obstruction. 4. Colonic diverticulosis. No evidence for acute diverticulitis. 5. Normal appendix. 6. Additional findings as described above. ACT 112: Negative or not required by law. Electronically signed by: Michael Ireland M.D. 03/31/2022 8:26 PM
--- NOTE | 2022-03-31 20:58 | XRay Report ---
XR femur RT 2V routine CLINICAL HISTORY: Right hip pain. Fall. COMPARISON STUDY: None. FINDINGS: Severe osteoarthritis within the right hip with [id number] articulation. No fracture or d islocation within the right femur. The visualized pelvic bones are intact. Soft tissues are unremarka ble. Advanced degenerative changes also noted within the right knee. No significant knee effusion. IMPRESSION: 1. No acute fracture or dislocation within the right femur. 2. Severe degenerative changes within the right hip and right knee. ACT 112: Negative or not required by law. Electronically signed by: Michael Ireland M.D. 03/31/2022 8:57 PM
--- NOTE | 2022-03-31 21:03 | XRay Report ---
XR chest 1V portable HISTORY: cough COMPARISON: Chest 05/12/2021. FINDINGS: No pneumothorax. No pleural effusions. There are low lung volumes. The cardiac silhouette r emains borderline enlarged. There is mild interstitial thickening, unchanged. No new focal lung conso lidations to suggest a pneumonia. No evidence for pulmonary edema. IMPRESSION: No significant change compared to the prior study. No acute process. ACT 112: Negative or not required by law. Electronically signed by: Michael Ireland M.D. 03/31/2022 9:01 PM
[2022-03-31] MEDS ORDERED: hydrALAZINE HCL 25 MG TAB PO STA (21:18)
[2022-03-31] MEDS ORDERED: cefTRIAXone SODIUM 2,000 MG/70 ML BAG IV STA (21:18)
--- NOTE | 2022-04-01 02:54 | History and Physical Report ---
DATE OF ADMISSION: 03/31/2022 CHIEF COMPLAINT: Fall. HISTORY OF PRESENT ILLNESS: This is an 86-year-old female with past medical history significant for type 2 diabetes, hypothyroidism, hyperlipidemia, obstructive sleep apnea, pulmonary hypertension, chronic diastolic CHF, venous insufficiency, diverticulosis of colon, sicca syndrome, lichen planus, spasm of the muscle , leg swelling, migraines, history of breast cancer, physical deconditioning, currently nonambulatory status since April. She lives with her son. She says she was sleeping in the afternoon when she fell oj her oxygen tank. She uses CPAP with oxygen. When she rolled over, she fell on her oxygen tank and she could not get up. This is the reason she was brought to the hospital. Since last 1 week, she is also having cough. Today, while she was sleeping, she vomited once, and she had one episode of diarrhea. Denies any fevers. No shortness of breath, no chest pain. She is having severe headache. No blurred visions, no earache, no runny nose. She has some sore throat. She has no difficulty swallowing. Appetite is okay. Some abdominal discomfort. Complains of tenderness in the lower extremities. ALLERGIES: PHENOBARBITAL, SCOPOLAMINE, SIMVASTATIN, ASPIRIN, ATROPINE, CODEINE, DOXYCYCLINE, HYOSCYAMINE, LACTOSE, MINOCYCLINE, MORPHINE, AND SHELLFISH. PAST MEDICAL HISTORY: As mentioned above. PAST SURGICAL HISTORY: Colonoscopy, EGD, injection to lumbosacral spine, cataract surgery, cervical laminectomy, rotator cuff repair, total abdominal hysterectomy with removal of tubes. MEDICATIONS: The patient is on Tylenol 500 mg p.o. t.i.d., Maalox 15 mL p.o. p.r.n., vitamin C 500 mg p.o. daily, aspirin 81 mg p.o. daily, baclofen 5 mg p.o. b.i.d. p.r.n., calcium carbonate 1000 mg p.o.vitamin d 25mcg daily,, Coreg 25 mg p.o. b.i.d., vitamin D 25 mcg p.o. daily, Benadryl 25 mg p.o. b.i.d. p.r.n., Cymbalta 40 mg p.o. a.m., fluocinonide topical b.i.d. p.r.n., Flonase 2 sprays intranasal b.i.d., Lasix 40 mg p.o. daily, glucosamine 1000 mg p.o. b.i.d., Atrovent HFA 2 puffs inhalation t.i.d. p.r.n., levothyroxine 75 mcg p.o. daily, losartan 100 mg p.o. daily, magnesium oxide 500 mg p.o. daily, metformin 500 mg p.o. b.i.d., multivitamin 1 tablet p.o. daily, nifedipine 30 mg p.o. daily, fish oil 1000 mg p.o. b.i.d., potassium chloride 20 mEq p.o. daily, lovastatin 20 mg p.o. daily. FAMILY HISTORY: Significant for sister has allergies, asthma, colon cancer, diabetes, hypertension, lung cancer. Brother has diabetes, heart disorder. Father has hypertension. Mother has pneumonia. SOCIAL HISTORY: , currently lives with her son. No smoking, no alcohol, no drug use. REVIEW OF SYSTEMS: As per HPI. Rest of the review of systems is negative. PHYSICAL EXAMINATION: GENERAL: The patient is of moderate build, not in acute distress. VITAL SIGNS: Temperature 36.4, pulse 76, respiratory rate 24, blood pressure 119/85, oxygen 94% on room air. HEENT: Pupils equal, round and reactive to light. Oral mucosa moist. NECK: No JVD, no neck masses. CARDIOVASCULAR: S1 and S2 heard. Regular rate and rhythm. No murmur, no gallop. RESPIRATORY SYSTEM: Normal AP diameter. No accessory muscle use. No wheezing, no crackles. ABDOMEN: Soft, bowel sounds present. Mild discomfort. No guarding, no rigidity. CENTRAL NERVOUS SYSTEM: Alert and oriented. Speech is clear. No facial droop. Obeys simple commands. Moves extremities. EXTREMITIES: Bilateral lower extremity chronic skin changes and edema. Some mild erythematous changes in the left lower extremity around the foot and trujillo region, tender to palpation on both lower extremities. LABORATORY DATA: WBC 7.8, hemoglobin 12.4, hematocrit 38.3, platelets 374. Sodium 134, potassium 4.4, chloride 98, bicarbonate 25, BUN 19, creatinine 0.9, serum glucose 129, calcium 9.4, total bilirubin 0.5, AST 22, ALT 14, alkaline phosphatase 44, total creatine kinase is 166. Troponin I high sensitivity 7.6. Urinalysis: Urine nitrite positive, leukocyte esterase positive, urine bacteria +4. SARS-CoV-2 PCR positive. Influenza A and B PCR are negative. RSV PCR negative. IMAGING DATA: CT of the head without contrast, no acute findings. Cervical spine CT, no fractures within the cervical spine. CT abdomen and pelvis with IV contrast, nondilated fluid-filled colon suggestive of diarrheal illness. Mild heterogeneous enhancement within the right kidney. This could be chronic or represented a mild pyelonephritis. No evidence of bowel obstruction, colonic diverticulosis, no evidence of acute diverticulitis. Normal appendix. Right femur x-ray, no fractures. Chest x-ray, no acute process. EKG: Normal sinus rhythm at a rate of 66, no significant change was found. ASSESSMENT AND PLAN: This is an 86-year-old female, who lives with her son, who is bedbound, presents with a fall while turning over on her oxygen cylinder and CPAP machine and brought in here and found to be COVID positive and having pyelonephritis and urinary tract infection. 1. Fall. The patient is mostly nonambulatory. She fell from the bed. We will monitor. 2. COVID. The patient is COVID vaccinated and boosted but did not take her recent booster. She is saturating okay on room air. Chest x-ray looks okay. We will monitor. 3. Right pyelonephritis and urinary tract infection. Received Rocephin in the ER. We will follow the cultures. Continue Rocephin. Monitor the response. 4. Hypertension: Blood pressure is elevated. Continue home medications of nifedipine, losartan, Coreg. We will place her on IV hydralazine p.r.n. Monitor the blood pressure. 5. Type 2 diabetes. Metformin will be hold. Placed on sliding scale insulin. Will follow the blood sugars. 6. History of obstructive sleep apnea, on CPAP at bedtime with oxygen. 7. Hypothyroidism. On Synthroid. 8. Depression. On Cymbalta. 9. Hyperlipidemia. On statin. 10. Deep venous thrombosis prophylaxis: Lovenox. DISPOSITION: Closely monitor in the med tele. PT/OT prior to discharge. Social service to help with discharge planning. Job ID: [id number] [facility]
[2022-04-01] MEDS ORDERED: BACLOFEN 10 MG TAB PO PRN (03:19)
[2022-04-01] MEDS ORDERED: DEXTROSE 50% 50 ML SYRINGE IV PRN (03:19)
[2022-04-01] MEDS ORDERED: NITROGLYCERIN SL 0.4 MG/TAB TAB SL PRN (03:19)
[2022-04-01] MEDS ORDERED: FLUOCINONIDE 0.05% OINT 15 GM TUBE EXT PRN (03:19)
[2022-04-01] MEDS ORDERED: hydrALAZINE HCL 20 MG/ML VIAL IV PRN (03:19)
[2022-04-01] MEDS ORDERED: diphenhydrAMINE Capsule 25 MG CAP PO PRN (03:19)
[2022-04-01] MEDS ORDERED: GLUCAGON FOR INJ 1 MG VIAL SQ PRN (03:19)
[2022-04-01] MEDS ORDERED: GLUCOSE 10 TAB/TUBE PO PRN (03:19)
[2022-04-01] MEDS ORDERED: CARBOHYDRATES FOR HYPOGLYCEMIA PO PRN (03:19)
[2022-04-01] MEDS ORDERED: GLUCOSE 40% GEL 15 GM TUBE PO PRN (03:19)
[2022-04-01] MEDS ORDERED: ONDANSETRON INJ 2 MG/ML 2 ML VIAL IV PRN (03:19)
[2022-04-01] MEDS ORDERED: IPRATROPIUM BROMIDE HFA INHALER INH PRN (03:19)
[2022-04-01] MEDS ORDERED: [UNRECOGNIZED DRUG - OTHER] TOP PRN (03:19)
[2022-04-01] MEDS ORDERED: LIDOCAINE HCL TOP PRN (03:19)
[2022-04-01] MEDS ORDERED: ALUMINUM/MAGNESIUM/SIMETH (MAALOX MAX) 30 ML UDC PO PRN (03:19)
[2022-04-01] MEDS ORDERED: CALCIUM CARBONATE 500 MG CHEWABLE TAB PO PRN (03:46)
[2022-04-01] MEDS ORDERED: ARTIFICIAL TEARS OP PRN (03:48)
[2022-04-01] MEDS: ACETAMINOPHEN 325 MG TAB PO PRN (04:45)
[2022-04-01] MEDS: LEVOTHYROXINE SODIUM 75 MCG TABLET PO SCH (04:47)
[2022-04-01] MEDS: carvediloL 25 MG TAB PO SCH ×3 (04:48→20:16)
[2022-04-01] MEDS ORDERED: NIFEdipine EXTENDED REL 30 MG TABCR PO SCH ×2 (06:30→07:45)
--- NOTE | 2022-04-01 06:33 | Ultrasound Report ---
ULTRASOUND BILATERAL LOWER EXTREMITY VENOUS CLINICAL HISTORY: Lower extremity edema. Covid. COMPARISON STUDY: Right lower extremity venous ultrasound dated 10/27/2017. TECHNIQUE: Portable real-time, grayscale, and color Doppler sonography of the deep veins of the right and left lower extremity was performed from the inguinal crease to the calf. Compression and augment ation were utilized. FINDINGS: There is no sonographic evidence of deep venous thrombosis identified in the right or left lower extremity. The common femoral, superficial femoral, and popliteal veins are patent and normally compressible bilaterally. The greater saphenous vein and the profunda femoris vein at the junction w ith the common femoral vein are clear in both legs. The visualized calf veins are patent bilaterally. IMPRESSION: There is no sonographic evidence of deep venous thrombosis identified in the right or lef t lower extremity. ACT 112: Negative or not required by law. Electronically signed by: Jose Enrique Cates M.D. 04/01/2022 6:32 AM
[2022-04-01 06:59] LABS: Basophils # (auto) 0.05 K/uL (0-0.2); Basophils % (auto) 0.9 %; Eosinophils # (auto) 0.01 K/uL (0-0.50); Eosinophils % (auto) 0.2 %; Hematocrit (blood only) 33.8 % (34.1-44.9); Hemoglobin 10.8 g/dl (12.0-16.0); Immature Granulocytes # (auto) 0.01 K/uL (0.00-0.02); Immature Granulocytes % (auto) 0.2 %; Lymphocytes # (auto) 1.65 K/uL (1.2-3.4); Lymphocytes % (auto) 29.4 %; Mean Corpuscular Hemoglobin 28.3 pg (25.0-34.0); Mean Corpuscular Volume 88.5 fL (80.0-100.0); Mean Platelet Volume 9.1 fL (9.4-12.3); Monocytes # (auto) 0.98 K/uL (0.24-0.82); Monocytes % (auto) 17.4 %; Neutrophils # (auto) 2.92 K/uL (1.4-6.5); Neutrophils % (auto) 51.9 %; Platelet Count 326 K/uL (130-400); RDW Coefficient of Variation 15.2 % (11.5-14.5); RDW Standard Deviation 48.9 fL (36.4-46.3); Red Blood Count 3.82 M/uL (3.93-5.22); White Blood Count 5.62 K/ul (4.8-10.8)
[2022-04-01 07:18] LABS: Estimated Average Glucose 163 mg/dl; Hemoglobin A1C 7.3 % (4.5-5.6)
[2022-04-01 07:32] LABS: BUN Creatinine Ratio 22.1 (10-20); Calcium 8.5 mg/dl (8.5-10.1); Creatinine Clr Calc Pharmacy 60.4 ml/min; Est GFR (African American) 80.5 ml/min; Est GFR (Non-African American) 69.4 ml/min; Magnesium 1.8 mg/dl (1.7-2.4); Potassium 3.7 mmol/L (3.5-5.1)
[2022-04-01] MEDS ORDERED: NIFEdipine EXTENDED REL 30 MG TABCR PO ONE (07:45)
[2022-04-01] MEDS: INSULIN ASPART PER UNIT SC SCH ×4 (09:07→20:20)
[2022-04-01] MEDS: MAGNESIUM OXIDE 400 MG TAB PO SCH (09:09)
[2022-04-01] MEDS: LOSARTAN POTASSIUM 50 MG TAB PO SCH (09:09)
[2022-04-01] MEDS: ACETAMINOPHEN 500 MG TAB PO SCH ×3 (09:09→20:17)
[2022-04-01] MEDS: ROSUVASTATIN CALCIUM 20 MG TAB PO SCH (09:09)
[2022-04-01] MEDS: FUROSEMIDE 40 MG TAB PO SCH (09:09)
[2022-04-01] MEDS: MULTIVITAMIN TAB PO SCH (09:09)
[2022-04-01] MEDS: ASCORBIC ACID 500 MG TAB PO SCH (09:10)
[2022-04-01] MEDS: GLUCOSAMINE SULFATE 500 MG CAP PO SCH ×2 (09:10→20:17)
[2022-04-01] MEDS: POTASSIUM CHLORIDE CRTAB 20 MEQ TABCR PO SCH (09:10)
[2022-04-01] MEDS: ASPIRIN 81 MG ECTAB PO SCH (09:10)
[2022-04-01] MEDS: CHOLECALCIFEROL 1,000 UNITS 25 MCG TAB PO SCH (09:11)
[2022-04-01] MEDS: DULoxetine HCL 20 MG CAP PO SCH (09:11)
[2022-04-01] MEDS: ENOXAPARIN INJ 40 MG/0.4 ML SYR SQ SCH (09:11)
[2022-04-01] MEDS: FLUTICASONE PROPIONATE NA SPR 16 GM BTL SCH ×2 (09:12→20:15)
--- NOTE | 2022-04-01 10:21 | Hospitalist Progress Note ---
Date of Service April 01, 2022 Assessment & Plan (1) Fall: (2) COVID-19: Plan: Patient had a mechanical fall at home. She fell down from her bed while turning over to her oxygen cylinder. Patient reports that she has been bedbound since April due to bilateral lower extremity weakness ( more on right side) Reports receiving physical therapy in the past but did not make progress. Found to have COVID-19 infection; vaccinated in the state. Saturating well on room air Chest x-rayno pneumonia Monitor for hypoxia for now; dexamethasone and remdesivir not indicated at the moment. (3) Urinary tract infection: Plan: Urinalysis shows signs of infection. CT abdomen concerning for right-sided pyelonephritis. Patient denies any pain or discomfort in suprapubic region or in the back. Urine culture positive for gram-negative bacilli Continue on ceftriaxone for now (4) HTN (hypertension): Plan: Hypertensive on presentation. At home Coreg 25 mg twice daily, Lasix 40 mg once daily and nifedipine 30 mg once daily. Nifedipine increased to 60 mg once daily. Will monitor blood pressure. (5) DM type 2 (diabetes mellitus, type 2): Plan: HbA1c7.3% HOld home metformin Continue on insulin sliding scale (6) SARAN (obstructive sleep apnea): Plan: On CPAP (7) Hypothyroid: Plan: Continue on home dose of Synthyroid (8) Depression: Plan: On Cymbalta (9) Dyslipidemia: Plan: Continue home dose of statin Plan Full code DVT Lovenox DispositionPT OT evaluation. Patient lives at home with her son. She is interested in placement in [facility]. Admission and Anticipated Discharge Date Admission Date: March 31, 2022 Subjective Patient seen and examined at bedside. She is lying in the bed comfortably; not in distress. She is alert, oriented x3. She denies any fever, chills, chest pain or shortness of breath. Review of Systems Review of Systems: All systems reviewed & are unremarkable except as noted in Subjective Physical Exam Physical Exam: Constitutional: Awake, alert orient x3. Lying in the bed; not in any distress. Respiratory: normal respiratory effort, lungs clear to auscultation, no wheeze, rales, rhonchi. Normal insp/exp effort, no accessory muscle use Cardiovascular: RRR, no murmur, no edema Vessels: no JVD or carotid bruit Chest: normal inspection of chest Abdomen: normal bowel sounds, soft, nontender, no hepatosplenomegaly Musculoskeletal: no cyanosis or clubbing, extremities motor strength 5/5 Skin: Both feet show chronic ischemic changes with erythema and edema. Neurologic: PERRLA, cranial nerve II to XII intact, strength in bilateral lower 3/5 which is chronic. Psychiatric: A+Ox3, euthymic affect Lymphatic: no cervical or axillary lymphadenopathy : deferred Results & Data Results & Data ([facility]) Vital Signs (Past 12 Hours) Vital Signs Temp Pulse Pulse Resp BP BP Pulse Ox 04/01/22 08:18 36.6 C 79 20 118/65 95 04/01/22 03:00 04/01/22 03:00 36.9 C 79 18 187/92 H 95 04/01/22 03:10 82 04/01/22 02:57 78 22 175/83 H 96 03/31/22 23:30 76 24 03/31/22 23:30 192/85 H 03/31/22 23:00 87 22 94 03/31/22 23:00 178/82 H 03/31/22 22:50 74 20 93 03/31/22 22:40 78 18 95 03/31/22 22:30 80 16 93 03/31/22 22:30 198/85 H 03/31/22 22:20 70 15 93 03/31/22 22:10 78 24 96 O2 Del Method 04/01/22 08:18 Room Air 04/01/22 03:00 Room Air 04/01/22 03:00 Room Air 04/01/22 03:10 04/01/22 02:57 Room Air 03/31/22 23:30 03/31/22 23:30 03/31/22 23:00 03/31/22 23:00 03/31/22 22:50 03/31/22 22:40 03/31/22 22:30 03/31/22 22:30 03/31/22 22:20 03/31/22 22:10 Laboratory Results Laboratory Results WBC 5.62 K/ul (4.8-10.8) 04/01/22 06:37 RBC 3.82 M/uL (3.93-5.22) L 04/01/22 06:37 Hgb 10.8 g/dl (12.0-16.0) L 04/01/22 06:37 Hct 33.8 % (34.1-44.9) L 04/01/22 06:37 MCV 88.5 fL (80.0-100.0) 04/01/22 06:37 MCH 28.3 pg (25.0-34.0) 04/01/22 06:37 MCHC 32.0 g/dL (32.0-36.0) 04/01/22 06:37 RDW Std Deviation 48.9 fL (36.4-46.3) H 04/01/22 06:37 RDW Coeff of Sergio 15.2 % (11.5-14.5) H 04/01/22 06:37 Plt Count 326 K/uL (130-400) 04/01/22 06:37 MPV 9.1 fL (9.4-12.3) L 04/01/22 06:37 Immature Gran % (Auto) 0.2 % 04/01/22 06:37 Neut % (Auto) 51.9 % 04/01/22 06:37 Lymph % (Auto) 29.4 % 04/01/22 06:37 Merrick % (Auto) 17.4 % 04/01/22 06:37 Eos % (Auto) 0.2 % 04/01/22 06:37 Baso % (Auto) 0.9 % 04/01/22 06:37 Neut # (Auto) 2.92 K/uL (1.4-6.5) 04/01/22 06:37 Lymph # (Auto) 1.65 K/uL (1.2-3.4) 04/01/22 06:37 Merrick # (Auto) 0.98 K/uL (0.24-0.82) H 04/01/22 06:37 Eos # (Auto) 0.01 K/uL (0-0.50) 04/01/22 06:37 Baso # (Auto) 0.05 K/uL (0-0.2) 04/01/22 06:37 Immature Gran # (Auto) 0.01 K/uL (0.00-0.02) 04/01/22 06:37 Sodium 136 mmol/L (136-145) 04/01/22 06:37 Potassium 3.7 mmol/L (3.5-5.1) 04/01/22 06:37 Chloride 100 mmol/L (98-107) 04/01/22 06:37 Carbon Dioxide 26 mmol/L (21-32) 04/01/22 06:37 Anion Gap 10 (3-11) 04/01/22 06:37 BUN 17 mg/dl (6-23) 04/01/22 06:37 Creatinine 0.77 mg/dl (0.6-1.2) 04/01/22 06:37 Est Cr Clr Drug Dosing 60.4 ml/min 04/01/22 06:37 Est GFR ( Amer) 80.5 ml/min 04/01/22 06:37 Est GFR (Non-Af Amer) 69.4 ml/min 04/01/22 06:37 BUN/Creatinine Ratio 22.1 (10-20) H 04/01/22 06:37 Glucose 96 mg/dl (70-99(Fasting)) 04/01/22 06:37 POC Glucose 95 mg/dl (70-99) 04/01/22 08:14 Estimat Average Glucose 163 mg/dl 04/01/22 06:37 Hemoglobin A1c 7.3 % (4.5-5.6) H 04/01/22 06:37 Calcium 8.5 mg/dl (8.5-10.1) 04/01/22 06:37 Magnesium 1.8 mg/dl (1.7-2.4) 04/01/22 06:37 Total Bilirubin 0.5 mg/dl (0.2-1.0) 03/31/22 17:40 AST 22 U/L (13-39) 03/31/22 18:39 ALT 14 U/L (7-52) 03/31/22 17:40 Alkaline Phosphatase 44 U/L (34-104) 03/31/22 17:40 Total Creatine Kinase 166 U/L (26-192) 03/31/22 17:40 Troponin I High Sens 7.6 pg/ml (0-14) 03/31/22 17:40 Total Protein 7.6 gm/dl (6.0-8.3) 03/31/22 17:40 Albumin 4.2 gm/dl (3.4-5.0) 03/31/22 17:40 Globulin 3.4 gm/dl (2.5-4.0) 03/31/22 17:40 Albumin/Globulin Ratio 1.2 (0.9-2) 03/31/22 17:40 Urine Color Yellow 03/31/22 18:45 Urine Appearance Clear (Clear) 03/31/22 18:45 Urine pH 6.0 (4.5-7.5) 03/31/22 18:45 Ur Specific [place] 1.009 (1.000-1.030) 03/31/22 18:45 Urine Protein Trace (Negative) H 03/31/22 18:45 Urine Glucose (UA) Negative (Negative) 03/31/22 18:45 Urine Ketones Negative (Negative) 03/31/22 18:45 Urine Blood Trace (Negative) H 03/31/22 18:45 Urine Nitrite Positive (Negative) A 03/31/22 18:45 Urine Bilirubin Negative (Negative) 03/31/22 18:45 Urine Urobilinogen Negative (Negative) 03/31/22 18:45 Ur Leukocyte Esterase Trace (Negative) H 03/31/22 18:45 Urine WBC (Auto) 1-5 /hpf (0-5) 03/31/22 18:45 Urine RBC (Auto) 0-4 /hpf (0-4) 03/31/22 18:45 U Hyaline Cast (Auto) 5-10 /lpf (0-5) H 03/31/22 18:45 U Epithel Cells (Auto) 10-20 /lpf (0-5) H 03/31/22 18:45 Urine Bacteria (Auto) 4+ (Negative) H 03/31/22 18:45 SARS-CoV-2 (PCR) POSITIVE (Negative) A* 03/31/22 17:30 Influenza Type A (PCR) Negative (Neg) 03/31/22 17:30 Influenza Type B (PCR) Negative (Neg) 03/31/22 17:30 RSV (RT-PCR) Negative (Neg) 03/31/22 17:30 Impressions Chest X-Ray 03/31/22 17:09 XR chest 1V portable HISTORY: cough COMPARISON: Chest 05/12/2021. FINDINGS: No pneumothorax. No pleural effusions. There are low lung volumes. The cardiac silhouette remains borderline enlarged. There is mild interstitial thickening, unchanged. No new focal lung consolidations to suggest a pneumonia. No evidence for pulmonary edema. IMPRESSION: No significant change compared to the prior study. No acute process. ACT 112: Negative or not required by law. Electronically signed by: Michael Ireland M.D. 03/31/2022 9:01 PM Femur X-Ray 03/31/22 17:09 XR femur RT 2V routine CLINICAL HISTORY: Right hip pain. Fall. COMPARISON STUDY: None. FINDINGS: Severe osteoarthritis within the right hip with [id number] articulation. No fracture or dislocation within the right femur. The visualized pelvic bones are intact. Soft tissues are unremarkable. Advanced degenerative changes also noted within the right knee. No significant knee effusion. IMPRESSION: 1. No acute fracture or dislocation within the right femur. 2. Severe degenerative changes within the right hip and right knee. ACT 112: Negative or not required by law. Electronically signed by: Michael Ireland M.D. 03/31/2022 8:57 PM Abdomen/Pelvis CT 03/31/22 17:[address] WITH IV CONTRAST CT DOSE: 2665.14 mGy.cm HISTORY: Trauma TECHNIQUE: Multiaxial CT images of the abdomen and pelvis were performed following the use of intravenous contrast. A dose lowering technique was utilized adhering to the principles of ALARA. COMPARISON STUDY: Abdomen and pelvis CT 12/16/2008. FINDINGS: The lung bases are clear. No pneumoperitoneum. No pneumatosis. Severe right and moderate left hip osteoarthritis. No acute fractures identified. There is a small hiatus hernia. The liver, gallbladder, pancreas, spleen, and right adrenal gland are unremarkable. There is a 1 cm left adrenal gland nodule, unchanged. This favors a benign adenoma. Normal left kidney. A 1 cm cyst within the upper pole the right kidney. A small fat-containing lesion within the lower pole of the right kidney consistent with a small angiomyolipoma. Subtle heterogeneous enhancement within the right kidney. This could be chronic or represent a mild chronic nephritis. No associated perinephric fat stranding. Normal caliber abdominal aorta with moderate calcified plaque. No retroperitoneal lymphadenopathy. No pelvic lymphadenopathy. Mild pelvic floor collapse. The bladder is unremarkable. Prior hysterectomy. Trace pelvic free fluid. No bowel wall thickening or obstruction. Colonic diverticulosis. No evidence for acute diverticulitis. Nondilated fluid-filled large bowel. This suggests a diarrheal illness. Normal appendix. IMPRESSION: 1. Nondilated fluid-filled colon suggestive of a diarrheal illness. 2. Mild heterogeneous enhancement within the right kidney. This could be chronic or represent a mild pyelonephritis. Recommend correlation with urinalysis. 3. No evidence for bowel obstruction. 4. Colonic diverticulosis. No evidence for acute diverticulitis. 5. Normal appendix. 6. Additional findings as described above. ACT 112: Negative or not required by law. Electronically signed by: Michael Ireland M.D. 03/31/2022 8:[address] 03/31/22 17:[address] DOSE: HISTORY: Trauma TECHNIQUE: Multiaxial CT images of the cervical spine were performed and reformatted in the sagittal and coronal plane without the use of contrast. A dose lowering technique was utilized adhering to the principles of ALARA. COMPARISON: Cervical spine CT 05/12/2021. FINDINGS: No fractures. No subluxation. Prevertebral soft tissues and the C1-C2 interval are intact. No pneumothorax. Degenerative changes again noted. The C5- C6 vertebral bodies are fused. IMPRESSION: No fractures within the cervical spine. ACT 112: Negative or not required by law. Electronically signed by: Michael Ireland M.D. 03/31/2022 8:[address] 03/31/22 17:[address] DOSE: HISTORY: Trauma TECHNIQUE: Multiaxial CT images of the head were performed without the use of intravenous contrast. Automated exposure control was utilized for this study. A dose lowering technique was utilized adhering to the principles of ALARA. Comparison: Head CT 05/12/2021. Findings: Hyperdense secretions within the left maxillary sinus, unchanged. The mastoid air cells are clear. The calvarium and skull base are intact. There is no mass, hematoma, midline shift, acute infarct. White matter hypodensity is nonspecific but suggestive of microvascular ischemic change. The ventricles and sulci demonstrate mild age-related involutional changes. Questionable small right frontal extra-axial hyperdensity on image 17 is likely artifact. Impression: No significant change compared to the prior study. No acute intracranial abnormality. ACT 112: Negative or not required by law. Electronically signed by: Michael Ireland M.D. 03/31/2022 8:08 PM Venous Doppler Study 04/01/22 03:19 ULTRASOUND BILATERAL LOWER EXTREMITY VENOUS CLINICAL HISTORY: Lower extremity edema. Covid. COMPARISON STUDY: Right lower extremity venous ultrasound dated 10/27/2017. TECHNIQUE: Portable real-time, grayscale, and color Doppler sonography of the deep veins of the right and left lower extremity was performed from the inguinal crease to the calf. Compression and augmentation were utilized. FINDINGS: There is no sonographic evidence of deep venous thrombosis identified in the right or left lower extremity. The common femoral, superficial femoral, and popliteal veins are patent and normally compressible bilaterally. The greater saphenous vein and the profunda femoris vein at the junction with the common femoral vein are clear in both legs. The visualized calf veins are patent bilaterally. IMPRESSION: There is no sonographic evidence of deep venous thrombosis ident ified in the right or left lower extremity. ACT 112: Negative or not required by law. Electronically signed by: Jose Enrique Cates M.D. 04/01/2022 6:32 AM
--- NOTE | 2022-04-01 13:26 | XRay Report ---
RIGHT KNEE 2 VIEWS CLINICAL HISTORY: Right knee pain. FINDINGS: AP and crosstable lateral views of the right knee are obtained. No prior studies are availa ble for comparison at the time of dictation. The skeletal structures are osteopenic. There is advance d tricompartmental degenerative joint space narrowing with ventriculostomy lateral joint spaces. Ther e is bony sclerosis and a subchondral irregularity along the articular surfaces. There are large christianne inal osteophytes. There is bony overgrowth around the distal femur and the proximal tibia. A small chase int effusion is noted. The overlying soft tissues are within normal limits. There is atherosclerotic calcification of the distal femoral/popliteal artery. IMPRESSION: 1. Small joint effusion with no acute bony abnormality identified. 2. Osteopenia and advanced arthritic change as above. Electronically signed by: Jose Enrique Cates M.D. 04/01/2022 1:24 PM
--- NOTE | 2022-04-01 15:03 | Electrocardiogram Report ---
Test Reason : Blood Pressure : / mmHG Vent. Rate : 066 BPM Atrial Rate : 066 BPM P-R Int : 144 ms QRS Dur : 070 ms QT Int : 398 ms P-R-T Axes : 033 -02 099 degrees QTc Int : 417 ms Poor data quality, interpretation may be adversely affected Normal sinus rhythm Minimal voltage criteria for LVH, may be normal variant Poor R wave progression, consider anterior [place] vs. lead placement vs. LVH Abnormal ECG When compared with ECG of 12-MAY-2021 13:34, No significant change was found Confirmed by Elvis Taveras ([id number]) on 04/01/2022 3:03:00 PM Referred By: REFERRED SELF Confirmed By:Elvis Taveras
[2022-04-01] MEDS: HYDROCODONE/ACETAMOPHEN 5/325MG TAB PO PRN (18:15)
[2022-04-01] MEDS: cefTRIAXone SODIUM 2,000 MG in DEXTROSE 5% 50 ML IV SCH (20:17)
[2022-04-02] MEDS: DICLOFENAC SOD 1% GEL 100 GM TUBE EXT PRN ×2 (00:12→08:49)
[2022-04-02] MEDS: HYDROCODONE/ACETAMOPHEN 5/325MG TAB PO PRN ×3 (03:34→21:55)
[2022-04-02] MEDS: LEVOTHYROXINE SODIUM 75 MCG TABLET PO SCH (05:33)
[2022-04-02] MEDS: NIFEdipine EXTENDED REL 30 MG TABCR PO SCH ×2 (05:33→08:37)
[2022-04-02 08:03] LABS: Basophils # (auto) 0.05 K/uL (0-0.2); Eosinophils # (auto) 0.03 K/uL (0-0.50); Eosinophils % (auto) 0.6 %; Hematocrit (blood only) 32.4 % (34.1-44.9); Hemoglobin 10.5 g/dl (12.0-16.0); Lymphocytes # (auto) 2.19 K/uL (1.2-3.4); Lymphocytes % (auto) 43.3 %; Mean Corpuscular Hemoglobin 28.2 pg (25.0-34.0); Mean Corpuscular Hgb Conc 32.4 g/dL (32.0-36.0); Mean Corpuscular Volume 86.9 fL (80.0-100.0); Mean Platelet Volume 9.5 fL (9.4-12.3); Monocytes # (auto) 0.64 K/uL (0.24-0.82); Monocytes % (auto) 12.6 %; Neutrophils # (auto) 2.15 K/uL (1.4-6.5); Neutrophils % (auto) 42.5 %; Platelet Count 340 K/uL (130-400); RDW Standard Deviation 48.2 fL (36.4-46.3); Red Blood Count 3.73 M/uL (3.93-5.22); White Blood Count 5.06 K/ul (4.8-10.8)
[2022-04-02 08:30] LABS: BUN Creatinine Ratio 22.7 (10-20); Calcium 8.1 mg/dl (8.5-10.1); Creatinine Clr Calc Pharmacy 62.4 ml/min; Est GFR (African American) 83.1 ml/min; Est GFR (Non-African American) 71.7 ml/min
[2022-04-02] MEDS: ACETAMINOPHEN 500 MG TAB PO SCH ×3 (08:35→21:46)
[2022-04-02] MEDS: MULTIVITAMIN TAB PO SCH (08:37)
[2022-04-02] MEDS: MAGNESIUM OXIDE 400 MG TAB PO SCH (08:39)
[2022-04-02] MEDS: POTASSIUM CHLORIDE CRTAB 20 MEQ TABCR PO SCH (08:39)
[2022-04-02] MEDS: CHOLECALCIFEROL 1,000 UNITS 25 MCG TAB PO SCH (08:39)
[2022-04-02] MEDS: ASCORBIC ACID 500 MG TAB PO SCH (08:40)
[2022-04-02] MEDS: LOSARTAN POTASSIUM 50 MG TAB PO SCH (08:41)
[2022-04-02] MEDS: DULoxetine HCL 20 MG CAP PO SCH (08:41)
[2022-04-02] MEDS: FUROSEMIDE 40 MG TAB PO SCH (08:42)
[2022-04-02] MEDS: ASPIRIN 81 MG ECTAB PO SCH (08:42)
[2022-04-02] MEDS: GLUCOSAMINE SULFATE 500 MG CAP PO SCH ×2 (08:43→21:45)
[2022-04-02] MEDS: carvediloL 25 MG TAB PO SCH ×2 (08:43→21:46)
[2022-04-02] MEDS: ENOXAPARIN INJ 40 MG/0.4 ML SYR SQ SCH (08:44)
[2022-04-02] MEDS: FLUTICASONE PROPIONATE NA SPR 16 GM BTL SCH ×2 (08:44→21:57)
[2022-04-02] MEDS: ROSUVASTATIN CALCIUM 20 MG TAB PO SCH (08:46)
[2022-04-02] MEDS: INSULIN ASPART PER UNIT SC SCH ×4 (09:44→21:48)
--- NOTE | 2022-04-02 14:03 | Hospitalist Progress Note ---
Date of Service April 02, 2022 Assessment & Plan (1) Fall: Plan: Presented after sustaining a mechanical fall home. Patient has been bedbound since April due to bilateral lower extremity weakness R> L Fall precautions PT/OT (2) COVID-19: Plan: COVID-19 infection Vaccinated for COVID -CXR:No significant change compared to the prior study. No acute process. Saturating well on room air Nebs PRN Conservative management (3) Urinary tract infection: Plan: Acute pyelonephritis --CT ABD:Nondilated fluid-filled colon suggestive of a diarrheal illness. Mild heterogeneous enhancement within the right kidney. This could be chronic or represent a mild pyelonephritis. Recommend correlation with urinalysis. No evidence for bowel obstruction. Colonic diverticulosis. No evidence for acute diverticulitis. Normal appendix. -- Urine culture growing pansensitive E. coli -- Continue Rocephin (4) HTN (hypertension): Plan: Continue losartan, nifedipine, Coreg Nifedipine increased to 60 mg daily Monitor BP (5) DM type 2 (diabetes mellitus, type 2): Plan: HbA1c7.3% Hold home metformin Continue on insulin sliding scale per protocol (6) SARAN (obstructive sleep apnea): Plan: On CPAP (7) Hypothyroid: Plan: Continue levothyroxine (8) Depression: Plan: On Cymbalta (9) Dyslipidemia: Plan: Continue statin Plan DVT Px Lovenox SQ CODE STATUS Full code Admission and Anticipated Discharge Date Admission Date: March 31, 2022 Subjective Patient is seen and examined at bedside States having cough with intermittent expectoration Also reports bilateral leg pain Denies any chest pain, dyspnea, dizziness, nausea, abdominal pain Offers no other complaints Review of Systems Review of Systems: All systems reviewed & are unremarkable except as noted in Subjective Physical Exam Physical Exam: Physical Exam: Vitals signs as noted above General Appearance:Obese, no apparent distress Head: normocephalic, Atraumatic Eyes: normal inspection, EOMI Neck: supple, Trachea midline Respiratory/Chest: Normal breath sounds, CTA, No accessory muscle use Cardiovascular: S1, S2, No murmur Abdomen/GI:Soft, Non tender, Bowel sounds present Extremities/Musculoskeletal:normal inspection, Chronic venous stasis Neurologic/Psych:AAOX3, grossly no focal neurological deficits Skin: normal color, warm Results & Data Results & Data ([facility]) Vital Signs (Past 12 Hours) Vital Signs Temp Pulse Resp BP Pulse Ox O2 Del Method 04/02/22 11:23 36.4 C L 69 18 108/62 95 Room Air 04/02/22 07:49 36.6 C 66 20 115/63 92 Room Air 04/02/22 03:10 36.7 C 67 16 148/70 H 95 Laboratory Results Short CBC 04/02/22 Range/Units 07:27 WBC 5.06 (4.8-10.8) K/ul Hgb 10.5 L (12.0-16.0) g/dl Hct 32.4 L (34.1-44.9) % Plt Count 340 (130-400) K/uL BMP 04/02/22 07:27 Sodium 136 Potassium 4.0 Chloride 101 Carbon Dioxide 26 BUN 17 Creatinine 0.75 Glucose 101 H Calcium 8.1 L
[2022-04-02] MEDS: cefTRIAXone SODIUM 2,000 MG in DEXTROSE 5% 50 ML IV SCH (21:49)
[2022-04-03] MEDS: ACETAMINOPHEN 325 MG TAB PO PRN (00:31)
[2022-04-03] MEDS: DICLOFENAC SOD 1% GEL 100 GM TUBE EXT PRN ×3 (00:32→22:53)
[2022-04-03] MEDS: LEVOTHYROXINE SODIUM 75 MCG TABLET PO SCH (05:32)
[2022-04-03] MEDS: INSULIN ASPART PER UNIT SC SCH ×4 (08:53→20:05)
[2022-04-03] MEDS: HYDROCODONE/ACETAMOPHEN 5/325MG TAB PO PRN ×2 (09:04→17:32)
[2022-04-03] MEDS: NIFEdipine EXTENDED REL 30 MG TABCR PO SCH (09:05)
[2022-04-03] MEDS: carvediloL 25 MG TAB PO SCH ×2 (09:05→20:04)
[2022-04-03] MEDS: MULTIVITAMIN TAB PO SCH (09:06)
[2022-04-03] MEDS: GLUCOSAMINE SULFATE 500 MG CAP PO SCH ×2 (09:06→20:05)
[2022-04-03] MEDS: ASCORBIC ACID 500 MG TAB PO SCH (09:06)
[2022-04-03] MEDS: ENOXAPARIN INJ 40 MG/0.4 ML SYR SQ SCH (09:06)
[2022-04-03] MEDS: FLUTICASONE PROPIONATE NA SPR 16 GM BTL SCH ×2 (09:08→20:05)
[2022-04-03] MEDS: CHOLECALCIFEROL 1,000 UNITS 25 MCG TAB PO SCH (09:08)
[2022-04-03] MEDS: FUROSEMIDE 40 MG TAB PO SCH (09:08)
[2022-04-03] MEDS: ACETAMINOPHEN 500 MG TAB PO SCH ×3 (09:08→20:04)
[2022-04-03] MEDS: DULoxetine HCL 20 MG CAP PO SCH (09:08)
[2022-04-03] MEDS: LOSARTAN POTASSIUM 50 MG TAB PO SCH (09:09)
[2022-04-03] MEDS: POTASSIUM CHLORIDE CRTAB 20 MEQ TABCR PO SCH (09:09)
[2022-04-03] MEDS: MAGNESIUM OXIDE 400 MG TAB PO SCH (09:09)
[2022-04-03] MEDS: ASPIRIN 81 MG ECTAB PO SCH (09:09)
[2022-04-03] MEDS: ROSUVASTATIN CALCIUM 20 MG TAB PO SCH (09:09)
--- NOTE | 2022-04-03 16:26 | Hospitalist Progress Note ---
Date of Service April 03, 2022 Assessment & Plan (1) Fall: Plan: Presented after sustaining a mechanical fall home. Patient has been bedbound since April due to bilateral lower extremity weakness R> L Fall precautions PT/OT (2) COVID-19: Plan: COVID-19 infection Vaccinated for COVID -CXR:No significant change compared to the prior study. No acute process. Nebs PRN Conservative management Saturating low 90s on room air (3) Urinary tract infection: Plan: Acute pyelonephritis --CT ABD:Nondilated fluid-filled colon suggestive of a diarrheal illness. Mild heterogeneous enhancement within the right kidney. This could be chronic or represent a mild pyelonephritis. Recommend correlation with urinalysis. No evidence for bowel obstruction. Colonic diverticulosis. No evidence for acute diverticulitis. Normal appendix. -- Urine culture growing pansensitive E. coli -- Continue Rocephin Plan to transition to p.o. antibiotics as able (4) HTN (hypertension): Plan: Continue losartan, nifedipine, Coreg Nifedipine increased to 60 mg daily Monitor BP (5) DM type 2 (diabetes mellitus, type 2): Plan: HbA1c7.3% Hold home metformin Continue on insulin sliding scale per protocol (6) SARAN (obstructive sleep apnea): Plan: On CPAP (7) Hypothyroid: Plan: Continue levothyroxine (8) Depression: Plan: On Cymbalta (9) Dyslipidemia: Plan: Continue statin Plan DVT Px Lovenox SQ CODE STATUS Full code Admission and Anticipated Discharge Date Admission Date: March 31, 2022 Subjective Patient is seen and examined at bedside Neck pain is better today Still has cough with expectoration No new complaints Denies any chest pain, dyspnea, dizziness, nausea, abdominal pain Review of Systems Review of Systems: All systems reviewed & are unremarkable except as noted in Subjective Physical Exam Physical Exam: Physical Exam: Vitals signs as noted above General Appearance:Obese, no apparent distress Head: normocephalic, Atraumatic Eyes: normal inspection, EOMI Neck: supple, Trachea midline Respiratory/Chest: Normal breath sounds, CTA, No accessory muscle use Cardiovascular: S1, S2, No murmur Abdomen/GI:Soft, Non tender, Bowel sounds present Extremities/Musculoskeletal:normal inspection, Chronic venous stasis Neurologic/Psych:AAOX3, grossly no focal neurological deficits Skin: normal color, warm Results & Data Results & Data ([facility]) Vital Signs (Past 12 Hours) Vital Signs Temp Pulse Pulse Resp BP Pulse Ox O2 Del Method 04/03/22 12:53 Room Air 04/03/22 07:37 36.5 C 64 18 122/60 91 Room Air 04/03/22 07:04 58 L
[2022-04-03] MEDS ORDERED: COUGH DROP (SUGAR FREE) LOZ 24 LOZ/1 BOX BUCCAL STA (19:53)
[2022-04-03] MEDS ORDERED: COUGH DROP (SUGAR FREE) LOZ 24 LOZ/1 BOX BUCCAL ONE (19:55)
[2022-04-03] MEDS: cefTRIAXone SODIUM 2,000 MG in DEXTROSE 5% 50 ML IV SCH (20:12)
[2022-04-04] MEDS: NIFEdipine EXTENDED REL 30 MG TABCR PO SCH (06:16)
[2022-04-04] MEDS: LEVOTHYROXINE SODIUM 75 MCG TABLET PO SCH (06:16)
[2022-04-04] MEDS: INSULIN ASPART PER UNIT SC SCH ×4 (08:17→20:18)
[2022-04-04 08:46] LABS: BUN Creatinine Ratio 25.4 (10-20); Calcium 8.8 mg/dl (8.5-10.1); Creatinine Clr Calc Pharmacy 69.6 ml/min; Est GFR (African American) 91.6 ml/min; Magnesium 2.1 mg/dl (1.7-2.4); Potassium 4.5 mmol/L (3.5-5.1)
[2022-04-04] MEDS: DICLOFENAC SOD 1% GEL 100 GM TUBE EXT PRN ×2 (08:56→21:06)
[2022-04-04] MEDS: HYDROCODONE/ACETAMOPHEN 5/325MG TAB PO PRN ×2 (08:56→21:00)
[2022-04-04] MEDS: MAGNESIUM OXIDE 400 MG TAB PO SCH (08:57)
[2022-04-04] MEDS: ROSUVASTATIN CALCIUM 20 MG TAB PO SCH (08:57)
[2022-04-04] MEDS: POTASSIUM CHLORIDE CRTAB 20 MEQ TABCR PO SCH (08:57)
[2022-04-04] MEDS: ASCORBIC ACID 500 MG TAB PO SCH (08:57)
[2022-04-04] MEDS: LOSARTAN POTASSIUM 50 MG TAB PO SCH (08:57)
[2022-04-04] MEDS: DULoxetine HCL 20 MG CAP PO SCH (08:57)
[2022-04-04] MEDS: ASPIRIN 81 MG ECTAB PO SCH (08:57)
[2022-04-04] MEDS: FUROSEMIDE 40 MG TAB PO SCH (08:57)
[2022-04-04] MEDS: MULTIVITAMIN TAB PO SCH (08:57)
[2022-04-04] MEDS: ENOXAPARIN INJ 40 MG/0.4 ML SYR SQ SCH (08:58)
[2022-04-04] MEDS: carvediloL 25 MG TAB PO SCH ×2 (08:58→20:51)
[2022-04-04] MEDS: FLUTICASONE PROPIONATE NA SPR 16 GM BTL SCH ×2 (08:58→21:02)
[2022-04-04] MEDS: ACETAMINOPHEN 500 MG TAB PO SCH ×3 (08:58→21:00)
[2022-04-04] MEDS: GLUCOSAMINE SULFATE 500 MG CAP PO SCH ×2 (08:58→21:00)
[2022-04-04] MEDS: CHOLECALCIFEROL 1,000 UNITS 25 MCG TAB PO SCH (08:58)
--- NOTE | 2022-04-04 15:29 | Hospitalist Progress Note ---
Date of Service April 04, 2022 Assessment & Plan (1) Fall: Plan: Presented after sustaining a mechanical fall at home. Patient has been bedbound since April due to bilateral lower extremity weakness R> L Fall precautions Continue PT/OT (2) COVID-19: Plan: COVID-19 infection Vaccinated for COVID -CXR:No significant change compared to the prior study. No acute process. Nebs PRN Saturating well on room air Continue conservative management (3) Urinary tract infection: Plan: Acute pyelonephritis --CT ABD:Nondilated fluid-filled colon suggestive of a diarrheal illness. Mild heterogeneous enhancement within the right kidney. This could be chronic or represent a mild pyelonephritis. Recommend correlation with urinalysis. No evidence for bowel obstruction. Colonic diverticulosis. No evidence for acute diverticulitis. Normal appendix. -- Urine culture growing pansensitive E. coli -- Continue Rocephin Plan to transition to p.o. antibiotics tomorrow (4) HTN (hypertension): Plan: Continue losartan, nifedipine, Coreg Monitor BP Adjust meds as needed (5) DM type 2 (diabetes mellitus, type 2): Plan: HbA1c7.3% Hold home metformin Continue on insulin sliding scale per protocol (6) SARAN (obstructive sleep apnea): Plan: On CPAP (7) Hypothyroid: Plan: Continue levothyroxine (8) Depression: Plan: On Cymbalta (9) Dyslipidemia: Plan: Continue statin Plan DVT Px Lovenox SQ CODE STATUS Full code Admission and Anticipated Discharge Date Admission Date: March 31, 2022 Subjective Patient is seen and examined at bedside Reports minimal cough States having some right knee pain/stiffness No new complaints Denies any chest pain, dyspnea, dizziness, nausea, abdominal pain Review of Systems Review of Systems: All systems reviewed & are unremarkable except as noted in Subjective Physical Exam Physical Exam: Physical Exam: Vitals signs as noted above General Appearance:Obese, no apparent distress Head: normocephalic, Atraumatic Eyes: normal inspection, EOMI Neck: supple, Trachea midline Respiratory/Chest: Normal breath sounds, CTA, No accessory muscle use Cardiovascular: S1, S2, No murmur Abdomen/GI:Soft, Non tender, Bowel sounds present Extremities/Musculoskeletal:normal inspection, Chronic venous stasis Neurologic/Psych:AAOX3, grossly no focal neurological deficits Skin: normal color, warm Results & Data Results & Data ([facility]) Vital Signs (Past 12 Hours) Vital Signs Temp Pulse Pulse Resp BP Pulse Ox O2 Del Method 04/04/22 15:22 46 L 04/04/22 12:21 36.3 C L 60 18 103/58 L 94 Room Air 04/04/22 11:03 Room Air 04/04/22 08:33 36.5 C 64 18 137/69 94 Room Air 04/04/22 06:47 60 04/04/22 04:00 36.4 C L 64 18 125/67 95 Room Air Laboratory Results [facility] 04/04/22 06:49 Sodium 137 Potassium 4.5 Chloride 101 Carbon Dioxide 29 BUN 17 Creatinine 0.67 Glucose 98 Calcium 8.8
[2022-04-04] MEDS: cefTRIAXone SODIUM 2,000 MG in DEXTROSE 5% 50 ML IV SCH (21:01)
[2022-04-05] MEDS: HYDROCODONE/ACETAMOPHEN 5/325MG TAB PO PRN ×4 (03:10→23:11)
[2022-04-05] MEDS: LEVOTHYROXINE SODIUM 75 MCG TABLET PO SCH (05:20)
[2022-04-05] MEDS: NIFEdipine EXTENDED REL 30 MG TABCR PO SCH ×2 (05:20→21:57)
[2022-04-05] MEDS: INSULIN ASPART PER UNIT SC SCH ×4 (08:06→20:31)
[2022-04-05] MEDS: carvediloL 25 MG TAB PO SCH (08:13)
[2022-04-05] MEDS: CEFDINIR 300 MG CAP PO SCH ×2 (09:49→19:54)
[2022-04-05] MEDS: FLUTICASONE PROPIONATE NA SPR 16 GM BTL SCH ×2 (09:50→19:54)
[2022-04-05] MEDS: GLUCOSAMINE SULFATE 500 MG CAP PO SCH ×2 (09:50→19:54)
[2022-04-05] MEDS: ACETAMINOPHEN 500 MG TAB PO SCH ×3 (09:51→19:53)
[2022-04-05] MEDS: DULoxetine HCL 20 MG CAP PO SCH (09:52)
[2022-04-05] MEDS: MAGNESIUM OXIDE 400 MG TAB PO SCH (09:52)
[2022-04-05] MEDS: ASCORBIC ACID 500 MG TAB PO SCH (09:53)
[2022-04-05] MEDS: POTASSIUM CHLORIDE CRTAB 20 MEQ TABCR PO SCH (09:53)
[2022-04-05] MEDS: FUROSEMIDE 40 MG TAB PO SCH (09:54)
[2022-04-05] MEDS: CHOLECALCIFEROL 1,000 UNITS 25 MCG TAB PO SCH (09:54)
[2022-04-05] MEDS: ASPIRIN 81 MG ECTAB PO SCH (09:54)
[2022-04-05] MEDS: ROSUVASTATIN CALCIUM 20 MG TAB PO SCH (09:55)
[2022-04-05] MEDS: LOSARTAN POTASSIUM 50 MG TAB PO SCH (09:55)
[2022-04-05] MEDS: MULTIVITAMIN TAB PO SCH (09:55)
[2022-04-05] MEDS: DICLOFENAC SOD 1% GEL 100 GM TUBE EXT PRN ×2 (09:56→20:30)
[2022-04-05] MEDS: ENOXAPARIN INJ 40 MG/0.4 ML SYR SQ SCH (09:57)
[2022-04-05] MEDS ORDERED: POLYETHYLENE (MIRALAX) 17 GM PACK PO PRN (12:00)
[2022-04-05] MEDS ORDERED: POLYETHYLENE (MIRALAX) 17 GM PACK PO ONE (12:01)
[2022-04-05] MEDS: DOCUSATE SODIUM 100 MG CAP PO SCH ×2 (12:39→19:54)
--- NOTE | 2022-04-05 13:52 | Hospitalist Progress Note ---
Date of Service April 05, 2022 Assessment & Plan (1) Fall: Plan: Presented after sustaining a mechanical fall at home. Patient has been bedbound since April due to bilateral lower extremity weakness R> L Fall precautions Continue PT/OT eval complete Right Knee Pain Likely due to arthritis, fall Minimal joint effusion on x-ray Started on low-dose prednisone (2) COVID-19: Plan: COVID-19 infection Vaccinated for COVID -CXR:No significant change compared to the prior study. No acute process. Nebs PRN Saturating well on room air Continue conservative management (3) Urinary tract infection: Plan: Acute pyelonephritis --CT ABD:Nondilated fluid-filled colon suggestive of a diarrheal illness. Mild heterogeneous enhancement within the right kidney. This could be chronic or represent a mild pyelonephritis. Recommend correlation with urinalysis. No evidence for bowel obstruction. Colonic diverticulosis. No evidence for acute diverticulitis. Normal appendix. -- Urine culture growing pansensitive E. coli -- Continue Rocephin>>transitioned to Cefdinir to complete the course (4) HTN (hypertension): Plan: Continue losartan, nifedipine, Coreg Monitor BP Adjust meds as needed Carvedilol dose decreased to 12.5 mg twice a day due to bradycardia (5) DM type 2 (diabetes mellitus, type 2): Plan: HbA1c7.3% Hold home metformin Continue on insulin sliding scale per protocol (6) SARAN (obstructive sleep apnea): Plan: On CPAP (7) Hypothyroid: Plan: Continue levothyroxine (8) Depression: Plan: On Cymbalta (9) Dyslipidemia: Plan: Continue statin Plan DVT Px Lovenox SQ CODE STATUS Full code Disposition Home with home health Admission and Anticipated Discharge Date Admission Date: March 31, 2022 Subjective Patient is seen and examined at bedside Doing well No new complaints Right knee pain is controlled Denies any chest pain, dyspnea, dizziness, nausea, abdominal pain Cough resolved Saturating well on room air Review of Systems Review of Systems: All systems reviewed & are unremarkable except as noted in Subjective Physical Exam Physical Exam: Physical Exam: Vitals signs as noted above General Appearance:Obese, no apparent distress Head: normocephalic, Atraumatic Eyes: normal inspection, EOMI Neck: supple, Trachea midline Respiratory/Chest: Normal breath sounds, CTA, No accessory muscle use Cardiovascular: S1, S2, No murmur Abdomen/GI:Soft, Non tender, Bowel sounds present Extremities/Musculoskeletal:normal inspection, Chronic venous stasis Neurologic/Psych:AAOX3, grossly no focal neurological deficits Skin: normal color, warm Results & Data Results & Data ([facility]) Vital Signs (Past 12 Hours) Vital Signs Temp Pulse Pulse Resp BP Pulse Ox O2 Del Method 04/05/22 10:00 Room Air 04/05/22 11:51 58 L 98 Room Air 04/05/22 11:50 36.4 C L 63 18 107/66 93 Room Air 04/05/22 07:56 36.5 C 57 L 18 139/74 98 Room Air 04/05/22 07:29 52 L 04/05/22 07:25 93 H 04/05/22 03:19 36.5 C 57 L 18 100/64 96 Room Air
--- NOTE | 2022-04-05 14:12 | Discharge Summary ---
Date of Service April 05, 2022 Admission HPI Per Admitting Provider CHIEF COMPLAINT: Fall. HISTORY OF PRESENT ILLNESS: This is an 86-year-old female with past medical history significant for type 2 diabetes, hypothyroidism, hyperlipidemia, obstructive sleep apnea, pulmonary hypertension, chronic diastolic CHF, venous insufficiency, diverticulosis of colon, sicca syndrome, lichen planus, spasm of the muscle , leg swelling, migraines, history of breast cancer, physical deconditioning, currently nonambulatory status since April. She lives with her son. She says she was sleeping in the afternoon when she fell oj her oxygen tank. She uses CPAP with oxygen. When she rolled over, she fell on her oxygen tank and she could not get up. This is the reason she was brought to the hospital. Since last 1 week, she is also having cough. Today, while she was sleeping, she vomited once, and she had one episode of diarrhea. Denies any fevers. No shortness of breath, no chest pain. She is having severe headache. No blurred visions, no earache, no runny nose. She has some sore throat. She has no difficulty swallowing. Appetite is okay. Some abdominal discomfort. Complains of tenderness in the lower extremities. Admission Exam Per Admitting Provider PHYSICAL EXAMINATION: GENERAL: The patient is of moderate build, not in acute distress. VITAL SIGNS: Temperature 36.4, pulse 76, respiratory rate 24, blood pressure 119/85, oxygen 94% on room air. HEENT: Pupils equal, round and reactive to light. Oral mucosa moist. NECK: No JVD, no neck masses. CARDIOVASCULAR: S1 and S2 heard. Regular rate and rhythm. No murmur, no gallop. RESPIRATORY SYSTEM: Normal AP diameter. No accessory muscle use. No wheezing, no crackles. ABDOMEN: Soft, bowel sounds present. Mild discomfort. No guarding, no rigidity. CENTRAL NERVOUS SYSTEM: Alert and oriented. Speech is clear. No facial droop. Obeys simple commands. Moves extremities. EXTREMITIES: Bilateral lower extremity chronic skin changes and edema. Some mild erythematous changes in the left lower extremity around the foot and trujillo region, tender to palpation on both lower extremities. Principal Diagnosis COVID-19 infection Urinary tract infection Mechanical fall Right Knee Arthritis Discharge Data Allergies Allergy/AdvReac Type Severity Reaction Status Date / Time phenobarbital Allergy Intermediate ITCHY RASH Verified 03/31/22 21:32 scopolamine Allergy Intermediate RASH Verified 03/31/22 21:32 simvastatin Allergy Intermediate muscle Verified 03/31/22 21:32 cramps aspirin AdvReac Intermediate Abdominal Verified 03/31/22 21:32 Pain atropine AdvReac Intermediate ITCHING Verified 03/31/22 21:32 codeine AdvReac Intermediate HYPERTENSIO Verified 03/31/22 21:32 N doxycycline AdvReac Intermediate NAUSEA/VOMI Verified 03/31/22 21:32 TING. hyoscyamine AdvReac Intermediate ITCHING Verified 03/31/22 21:32 lactose AdvReac Intermediate Gastrointestinal Verified 03/31/22 21:32 Upset minocycline AdvReac Intermediate NAUSEA AND Verified 03/31/22 21:32 VOMITING morphine AdvReac Intermediate NAUSEA/VOMI Verified 03/31/22 21:32 TING Pork/Porcine Containing AdvReac Unknown spiritual Verified 04/01/22 04:49 Products preference shellfish derived AdvReac Unknown spiritual Verified 03/31/22 21:32 preference Consultations 03/31/22 21:29 ED Decision to Admit Stat Procedures Performed Laboratory Results WBC 5.06 K/ul (4.8-10.8) 04/02/22 07:27 RBC 3.73 M/uL (3.93-5.22) L 04/02/22 07:27 Hgb 10.5 g/dl (12.0-16.0) L 04/02/22 07:27 Hct 32.4 % (34.1-44.9) L 04/02/22 07:27 MCV 86.9 fL (80.0-100.0) 04/02/22 07:27 MCH 28.2 pg (25.0-34.0) 04/02/22 07:27 MCHC 32.4 g/dL (32.0-36.0) 04/02/22 07:27 RDW Std Deviation 48.2 fL (36.4-46.3) H 04/02/22 07:27 RDW Coeff of Sergio 15.0 % (11.5-14.5) H 04/02/22 07:27 Plt Count 340 K/uL (130-400) 04/02/22 07:27 MPV 9.5 fL (9.4-12.3) 04/02/22 07:27 Immature Gran % (Auto) 0.0 % 04/02/22 07:27 Neut % (Auto) 42.5 % 04/02/22 07:27 Lymph % (Auto) 43.3 % 04/02/22 07:27 [place]cal[place] % (Auto) 12.6 % 04/02/22 07:27 Eos % (Auto) 0.6 % 04/02/22 07:27 Baso % (Auto) 1.0 % 04/02/22 07:27 Neut # (Auto) 2.15 K/uL (1.4-6.5) 04/02/22 07:27 Lymph # (Auto) 2.19 K/uL (1.2-3.4) 04/02/22 07:27 [place]calfe # (Auto) 0.64 K/uL (0.24-0.82) 04/02/22 07:27 Eos # (Auto) 0.03 K/uL (0-0.50) 04/02/22 07:27 Baso # (Auto) 0.05 K/uL (0-0.2) 04/02/22 07:27 Immature Gran # (Auto) 0.00 K/uL (0.00-0.02) 04/02/22 07:27 Sodium 137 mmol/L (136-145) 04/04/22 06:49 Potassium 4.5 mmol/L (3.5-5.1) 04/04/22 06:49 Chloride 101 mmol/L (98-107) 04/04/22 06:49 Carbon Dioxide 29 mmol/L (21-32) 04/04/22 06:49 Anion Gap 7 (3-11) 04/04/22 06:49 BUN 17 mg/dl (6-23) 04/04/22 06:49 Creatinine 0.67 mg/dl (0.6-1.2) 04/04/22 06:49 Est Cr Clr Drug Dosing 69.6 ml/min 04/04/22 06:49 Est GFR ( Amer) 91.6 ml/min 04/04/22 06:49 Est GFR (Non-Af Amer) 79.0 ml/min 04/04/22 06:49 BUN/Creatinine Ratio 25.4 (10-20) H 04/04/22 06:49 Glucose 98 mg/dl (70-99(Fasting)) 04/04/22 06:49 POC Glucose 109 mg/dl (70-99) H 04/05/22 11:53 Estimat Average Glucose 163 mg/dl 04/01/22 06:37 Hemoglobin A1c 7.3 % (4.5-5.6) H 04/01/22 06:37 Calcium 8.8 mg/dl (8.5-10.1) 04/04/22 06:49 Magnesium 2.1 mg/dl (1.7-2.4) 04/04/22 06:49 Total Bilirubin 0.5 mg/dl (0.2-1.0) 03/31/22 17:40 AST 22 U/L (13-39) 03/31/22 18:39 ALT 14 U/L (7-52) 03/31/22 17:40 Alkaline Phosphatase 44 U/L (34-104) 03/31/22 17:40 Total Creatine Kinase 166 U/L (26-192) 03/31/22 17:40 Troponin I High Sens 7.6 pg/ml (0-14) 03/31/22 17:40 Total Protein 7.6 gm/dl (6.0-8.3) 03/31/22 17:40 Albumin 4.2 gm/dl (3.4-5.0) 03/31/22 17:40 Globulin 3.4 gm/dl (2.5-4.0) 03/31/22 17:40 Albumin/Globulin Ratio 1.2 (0.9-2) 03/31/22 17:40 Urine Color Yellow 03/31/22 18:45 Urine Appearance Clear (Clear) 03/31/22 18:45 Urine pH 6.0 (4.5-7.5) 03/31/22 18:45 Ur Specific [place] 1.009 (1.000-1.030) 03/31/22 18:45 Urine Protein Trace (Negative) H 03/31/22 18:45 Urine Glucose (UA) Negative (Negative) 03/31/22 18:45 Urine Ketones Negative (Negative) 03/31/22 18:45 Urine Blood Trace (Negative) H 03/31/22 18:45 Urine Nitrite Positive (Negative) A 03/31/22 18:45 Urine Bilirubin Negative (Negative) 03/31/22 18:45 Urine Urobilinogen Negative (Negative) 03/31/22 18:45 Ur Leukocyte Esterase Trace (Negative) H 03/31/22 18:45 Urine WBC (Auto) 1-5 /hpf (0-5) 03/31/22 18:45 Urine RBC (Auto) 0-4 /hpf (0-4) 03/31/22 18:45 U Hyaline Cast (Auto) 5-10 /lpf (0-5) H 03/31/22 18:45 U Epithel Cells (Auto) 10-20 /lpf (0-5) H 03/31/22 18:45 Urine Bacteria (Auto) 4+ (Negative) H 03/31/22 18:45 SARS-CoV-2 (PCR) POSITIVE (Negative) A* 03/31/22 17:30 Influenza Type A (PCR) Negative (Neg) 03/31/22 17:30 Influenza Type B (PCR) Negative (Neg) 03/31/22 17:30 RSV (RT-PCR) Negative (Neg) 03/31/22 17:30 Impressions Chest X-Ray 03/31/22 17:09 XR chest 1V portable HISTORY: cough COMPARISON: Chest 05/12/2021. FINDINGS: No pneumothorax. No pleural effusions. There are low lung volumes. The cardiac silhouette remains borderline enlarged. There is mild interstitial thickening, unchanged. No new focal lung consolidations to suggest a pneumonia. No evidence for pulmonary edema. IMPRESSION: No significant change compared to the prior study. No acute process. ACT 112: Negative or not required by law. Electronically signed by: Michael Ireland M.D. 03/31/2022 9:01 PM Femur X-Ray 03/31/22 17:09 XR femur RT 2V routine CLINICAL HISTORY: Right hip pain. Fall. COMPARISON STUDY: None. FINDINGS: Severe osteoarthritis within the right hip with [id number] articulation. No fracture or dislocation within the right femur. The visualized pelvic bones are intact. Soft tissues are unremarkable. Advanced degenerative changes also noted within the right knee. No significant knee effusion. IMPRESSION: 1. No acute fracture or dislocation within the right femur. 2. Severe degenerative changes within the right hip and right knee. ACT 112: Negative or not required by law. Electronically signed by: Michael Ireland M.D. 03/31/2022 8:57 PM Abdomen/Pelvis CT 03/31/22 17:[address] WITH IV CONTRAST CT DOSE: 2665.14 mGy.cm HISTORY: Trauma TECHNIQUE: Multiaxial CT images of the abdomen and pelvis were performed following the use of intravenous contrast. A dose lowering technique was utilized adhering to the principles of ALARA. COMPARISON STUDY: Abdomen and pelvis CT 12/16/2008. FINDINGS: The lung bases are clear. No pneumoperitoneum. No pneumatosis. Severe right and moderate left hip osteoarthritis. No acute fractures identified. There is a small hiatus hernia. The liver, gallbladder, pancreas, spleen, and right adrenal gland are unremarkable. There is a 1 cm left adrenal gland nodule, unchanged. This favors a benign adenoma. Normal left kidney. A 1 cm cyst within the upper pole the right kidney. A small fat-containing lesion within the lower pole of the right kidney consistent with a small angiomyolipoma. Subtle heterogeneous enhancement within the right kidney. This could be chronic or represent a mild chronic nephritis. No associated perinephric fat stranding. Normal caliber abdominal aorta with moderate calcified plaque. No retroperitoneal lymphadenopathy. No pelvic lymphadenopathy. Mild pelvic floor collapse. The bladder is unremarkable. Prior hysterectomy. Trace pelvic free fluid. No bowel wall thickening or obstruction. Colonic diverticulosis. No evidence for acute diverticulitis. Nondilated fluid-filled large bowel. This suggests a diarrheal illness. Normal appendix. IMPRESSION: 1. Nondilated fluid-filled colon suggestive of a diarrheal illness. 2. Mild heterogeneous enhancement within the right kidney. This could be chronic or represent a mild pyelonephritis. Recommend correlation with urinalysis. 3. No evidence for bowel obstruction. 4. Colonic diverticulosis. No evidence for acute diverticulitis. 5. Normal appendix. 6. Additional findings as described above. ACT 112: Negative or not required by law. Electronically signed by: Michael Ireland M.D. 03/31/2022 8:[address] 03/31/22 17:[address] DOSE: HISTORY: Trauma TECHNIQUE: Multiaxial CT images of the cervical spine were performed and reformatted in the sagittal and coronal plane without the use of contrast. A dose lowering technique was utilized adhering to the principles of ALARA. COMPARISON: Cervical spine CT 05/12/2021. FINDINGS: No fractures. No subluxation. Prevertebral soft tissues and the C1-C2 interval are intact. No pneumothorax. Degenerative changes again noted. The C5- C6 vertebral bodies are fused. IMPRESSION: No fractures within the cervical spine. ACT 112: Negative or not required by law. Electronically signed by: Michael Ireland M.D. 03/31/2022 8:[address] 03/31/22 17:[address] DOSE: HISTORY: Trauma TECHNIQUE: Multiaxial CT images of the head were performed without the use of intravenous contrast. Automated exposure control was utilized for this study. A dose lowering technique was utilized adhering to the principles of ALARA. Comparison: Head CT 05/12/2021. Findings: Hyperdense secretions within the left maxillary sinus, unchanged. The mastoid air cells are clear. The calvarium and skull base are intact. There is no mass, hematoma, midline shift, acute infarct. White matter hypodensity is nonspecific but suggestive of microvascular ischemic change. The ventricles and sulci demonstrate mild age-related involutional changes. Questionable small right frontal extra-axial hyperdensity on image 17 is likely artifact. Impression: No significant change compared to the prior study. No acute intracranial abnormality. ACT 112: Negative or not required by law. Electronically signed by: Michael Ireland M.D. 03/31/2022 8:08 PM Venous Doppler Study 04/01/22 03:19 ULTRASOUND BILATERAL LOWER EXTREMITY VENOUS CLINICAL HISTORY: Lower extremity edema. Covid. COMPARISON STUDY: Right lower extremity venous ultrasound dated 10/27/2017. TECHNIQUE: Portable real-time, grayscale, and color Doppler sonography of the deep veins of the right and left lower extremity was performed from the inguinal crease to the calf. Compression and augmentation were utilized. FINDINGS: There is no sonographic evidence of deep venous thrombosis identified in the right or left lower extremity. The common femoral, superficial femoral, and popliteal veins are patent and normally compressible bilaterally. The greater saphenous vein and the profunda femoris vein at the junction with the common femoral vein are clear in both legs. The visualized calf veins are patent bilaterally. IMPRESSION: There is no sonographic evidence of deep venous thrombosis identified in the right or left lower extremity. ACT 112: Negative or not required by law. Electronically signed by: Jose Enrique Cates M.D. 04/01/2022 6:32 AM Knee X-Ray 04/01/22 12:50 RIGHT KNEE 2 VIEWS CLINICAL HISTORY: Right knee pain. FINDINGS: AP and crosstable lateral views of the right knee are obtained. No prior studies are available for comparison at the time of dictation. The skeletal structures are osteopenic. There is advanced tricompartmental degenerative joint space narrowing with ventriculostomy lateral joint spaces. There is bony sclerosis and a subchondral irregularity along the articular surfaces. There are large marginal osteophytes. There is bony overgrowth around the distal femur and the proximal tibia. A small joint effusion is noted. The overlying soft tissues are within normal limits. There is atherosclerotic calcification of the distal femoral/popliteal artery. IMPRESSION: 1. Small joint effusion with no acute bony abnormality identified. 2. Osteopenia and advanced arthritic change as above. Electronically signed by: Jose Enrique Cates M.D. 04/01/2022 1:24 PM Ordered Studies 03/31/22 17:10 CT abd pelvis IV con only Stat CT cervical spine wo con Stat CT head/brain wo con Stat 04/01/22 03:19 US venous doppler [facility] Urgent Hospital Course (1) Fall: Presented after sustaining a mechanical fall at home. Patient has been bedbound since April due to bilateral lower extremity weakness R> L Fall precautions Continue PT/OT eval complete Right Knee Pain Likely due to arthritis, fall Minimal joint effusion on x-ray Started on low-dose prednisone (2) COVID-19: COVID-19 infection Vaccinated for COVID -CXR:No significant change compared to the prior study. No acute process. Nebs PRN Saturating well on room air Continue conservative management (3) Urinary tract infection: Acute pyelonephritis --CT ABD:Nondilated fluid-filled colon suggestive of a diarrheal illness. Mild heterogeneous enhancement within the right kidney. This could be chronic or represent a mild pyelonephritis. Recommend correlation with urinalysis. No evidence for bowel obstruction. Colonic diverticulosis. No evidence for acute diverticulitis. Normal appendix. -- Urine culture growing pansensitive E. coli -- Continue Rocephin>>transitioned to Cefdinir to complete the course (4) HTN (hypertension): Continue losartan, nifedipine, Coreg Monitor BP Adjust meds as needed Carvedilol dose decreased to 12.5 mg twice a day due to bradycardia (5) DM type 2 (diabetes mellitus, type 2): HbA1c7.3% Hold home metformin Continue on insulin sliding scale per protocol (6) SARAN (obstructive sleep apnea): On CPAP (7) Hypothyroid: Continue levothyroxine (8) Depression: On Cymbalta (9) Dyslipidemia: Continue statin Plan DVT Px Lovenox SQ CODE STATUS Full code Disposition Home with home health Total Time Total Time Spent Total Time Spent (In Minutes): 50 minutes Discharge Plan Discharge Items Patient Disposition: Home - Home Health Services Reason For Visit: FALL, COVID Discharge Diagnosis: COVID-19 infection Urinary tract infection Mechanical fall Right Knee Arthritis Activity: Per Instructions section Exercise/Sports: Gradually increase as tolerated Non-emergency contact: Primary Care Provider Call non-emergency contact if: you have any medication questions, your symptoms worsen and your pain is concerning for you Follow-up/Referrals: Collins Delatorre DO [Primary Care Provider] - (Date & Time 04/08/2022 10:00 AM Provider Collins Delatorre DO Department Family Practice [address], [place] ) Diet: Carb Consistent or DM2 and Heart Healthy Addtl Attending Provider Instructions: Follow-up with your primary care physician on 04/08/2022 10:00 AM Medication Changes: 1)--Complete antibiotic course-cefdinir 300 mg twice a day as prescribed for urinary tract infection. 2)-- Complete the prednisone course 5mg daily as prescribed for right knee pain. 3)--Your Carvedilol dose is decreased to 12.5 mg twice a day as you are noted to have low heart rate while you are hospitalized. Follow-up with your physician for further recommendations to adjust medications as needed. 4)Can use Colace, MiraLAX as needed for constipation. Seek immediate medical attention if your symptoms reoccur or worsen Please take all medications as instructed on discharge list below. Please call if you have any questions or problems. You can reach a [facility] hospitalist on duty at [facility] 24 hours a day by calling [phone] Pending Studies at Discharge: No Stand-Alone Forms: My [facility], Smoking Cessation Medications and DC Order Prescriptions: New cefdinir 300 mg Capsule 300 mg PO BID Qty: 9 0RF diclofenac sodium [Voltaren Arthritis Pain] 1 % Gel 2 g EXT QID PRN (Reason: pain) Qty: 100 0RF hydrocodone-acetaminophen 5-325 mg Tablet 1 tab PO Q12H PRN (Reason: pain) Qty: 10 0RF docusate sodium 100 mg Capsule 100 mg PO BID PRN (Reason: constipation) Qty: 30 0RF polyethylene glycol 3350 [Miralax] 17 gram Powder In Packet 17 g PO DAILY PRN (Reason: constipation) Qty: 30 0RF prednisone 5 mg Tablet 5 mg PO DAILY Qty: 6 0RF Continued multivitamin Tablet 1 tab PO DAILY nifedipine 30 mg Tablet Extended Release 24hr 30 mg PO DAILYBB furosemide [Lasix] 40 mg Tablet 40 mg PO QAM metformin 500 mg Tablet 500 mg PO BID omega-3 fatty acids 1,000 mg Capsule 1,000 mg PO BID fluocinonide 0.05 % Ointment 1 applic TOPICAL BID PRN (Reason: Skin Irritation) aspirin 81 mg Tablet,Delayed Release (Dr/Ec) 81 mg PO DAILY acetaminophen [Tylenol Extra Strength] 500 mg Tablet 500 mg PO TID levothyroxine 75 mcg Tablet 75 mcg PO DAILYBB potassium chloride 20 mEq Tablet,Er Particles/Crystals 20 meq PO DAILY ascorbic acid (vitamin C) [Vitamin C] 500 mg Tablet 500 mg PO DAILY diphenhydramine HCl [Benadryl] 25 mg Capsule 25 mg PO BID PRN (Reason: Itching) magnesium oxide 500 mg Tablet 500 mg PO DAILY Debrox 6.5 % Drops 0 drp otic (ear) DIRECTED PRN (Reason: WAX BUILD UP) Rx Instructions: FILL EAR CANAL, PLUG WITH COTTON BALL, REMOVE AFTER 15-20 MINS. calcium carbonate [Tums 500] 500 mg calcium (1,250 mg) Tablet,Chewable 1,000 mg PO DIRECTED PRN (Reason: INDIGESTION/HEARTBURN/UPSET STOMACH) losartan 100 mg Tablet 100 mg PO DAILY fluticasone propionate [Flonase] 50 mcg/actuation [place],Suspension 2 spray INTRANASAL BID Rx Instructions: administer into each nostril vitamin E 268 mg (400 unit) Capsule 536 mg PO DAILY alum-mag hydroxide-simeth [Maalox Plus Extra Strength] 400-400-40 mg/5 mL Suspension 15 ml PO DAILY PRN (Reason: INDIGESTION/UPSET STOMACH) carboxymethylcellulose sodium [Refresh Liquigel] 1 % Drops, Liquid Gel 2 drp OPHTHALMIC (EYE) DIRECTED PRN (Reason: Dry Eyes) cholecalciferol (vitamin D3) [Vitamin D3] 25 mcg (1,000 unit) Capsule 25 mcg PO DAILY rosuvastatin 20 mg Tablet 20 mg PO DAILY duloxetine [Cymbalta] 20 mg Capsule,Delayed Release(Dr/Ec) 40 mg PO QAM Atrovent HFA 17 mcg/actuation Hfa Aerosol Inhaler 2 puff INHALATION TID PRN (Reason: Wheezing) Azo Bladder Control 300 mg Capsule 1 cap PO BID baclofen 5 mg Tablet 5 mg PO BID PRN (Reason: MUSCLE SPASMS) Aspercreme (lidocaine HCl) 4 % Liquid Roll-On 1 ea TOPICAL TID PRN (Reason: Pain) glucosamine sulfate 1,000 mg Tablet 1,000 mg PO BID Rx Instructions: administer with meals Collagen Ultra 1 cap PO DAILY Changed carvedilol 25 mg Tablet 12.5 mg PO BID Qty: 30 0RF Rx Instructions: must administer with a meal/food Discharge Orders: Discharge Order (Routine); Ordered 04/05/22 Ordered By: Luke Kang/Other Patient Handouts: Managing Type 2 Diabetes, Special Foot Care for Diabetes Admission Data Admit Date/Time: 03/31/22 23:58 Attending Provider: Luke Parra Admit Provider: Narayan White Primary Care Provider: Collins Delatorre Other Providers: Narayan White ; [facility] ; [facility]
[2022-04-05] MEDS: predniSONE 5 MG TAB PO SCH (15:30)
[2022-04-05] MEDS ORDERED: SODIUM CHLORIDE 0.9% 1000ML 500 ML IV ONE (18:22)
[2022-04-05] MEDS ORDERED: carvediloL 12.5 MG TAB PO SCH (21:00)
[2022-04-06] MEDS: LEVOTHYROXINE SODIUM 75 MCG TABLET PO SCH (05:46)
[2022-04-06] MEDS: CHOLECALCIFEROL 1,000 UNITS 25 MCG TAB PO SCH (08:16)
[2022-04-06] MEDS: predniSONE 5 MG TAB PO SCH (08:16)
[2022-04-06] MEDS: MAGNESIUM OXIDE 400 MG TAB PO SCH (08:16)
[2022-04-06] MEDS: FUROSEMIDE 40 MG TAB PO SCH (08:17)
[2022-04-06] MEDS: DULoxetine HCL 20 MG CAP PO SCH (08:17)
[2022-04-06] MEDS: ASCORBIC ACID 500 MG TAB PO SCH (08:17)
[2022-04-06] MEDS: ASPIRIN 81 MG ECTAB PO SCH (08:17)
[2022-04-06] MEDS: MULTIVITAMIN TAB PO SCH (08:17)
[2022-04-06] MEDS: ROSUVASTATIN CALCIUM 20 MG TAB PO SCH (08:17)
[2022-04-06] MEDS: POTASSIUM CHLORIDE CRTAB 20 MEQ TABCR PO SCH (08:18)
[2022-04-06] MEDS: INSULIN ASPART PER UNIT SC SCH ×4 (08:19→20:57)
[2022-04-06] MEDS: ACETAMINOPHEN 500 MG TAB PO SCH ×3 (08:19→21:13)
[2022-04-06] MEDS: DOCUSATE SODIUM 100 MG CAP PO SCH ×2 (08:20→21:13)
[2022-04-06] MEDS: FLUTICASONE PROPIONATE NA SPR 16 GM BTL SCH ×2 (08:20→21:14)
[2022-04-06] MEDS: CEFDINIR 300 MG CAP PO SCH ×2 (08:20→21:13)
[2022-04-06] MEDS: GLUCOSAMINE SULFATE 500 MG CAP PO SCH ×2 (08:21→21:13)
[2022-04-06] MEDS: ENOXAPARIN INJ 40 MG/0.4 ML SYR SQ SCH (08:22)
[2022-04-06] MEDS: DICLOFENAC SOD 1% GEL 100 GM TUBE EXT PRN (08:23)
[2022-04-06 08:30] LABS: BUN Creatinine Ratio 24.2 (10-20); Calcium 8.3 mg/dl (8.5-10.1); Creatinine Clr Calc Pharmacy 75.2 ml/min; Est GFR (Non-African American) 81.1 ml/min; Potassium 4.5 mmol/L (3.5-5.1)
--- NOTE | 2022-04-06 08:38 | XRay Report ---
XR chest 1V portable CLINICAL HISTORY: Covid. COMPARISON STUDY: Chest radiograph March 31, 2022. FINDINGS: Low lung volumes with elevation the right hemidiaphragm remains unchanged. There is no pneu mothorax or pleural effusion. The cardiomediastinal silhouette is stable. There is no evidence for pu lmonary edema. No consolidation to suggest pneumonia. IMPRESSION: No acute cardiopulmonary findings. No change in appearance of the chest. ACT 112: Negative or not required by law. Electronically signed by: Shaheen Duque M.D. 04/06/2022 8:36 AM
[2022-04-06 08:49] LABS: Basophils # (auto) 0.02 K/uL (0-0.2); Basophils % (auto) 0.4 %; Eosinophils # (auto) 0.09 K/uL (0-0.50); Hematocrit (blood only) 35.8 % (34.1-44.9); Hemoglobin 11.1 g/dl (12.0-16.0); Immature Granulocytes # (auto) 0.01 K/uL (0.00-0.02); Immature Granulocytes % (auto) 0.2 %; Lymphocytes # (auto) 1.66 K/uL (1.2-3.4); Lymphocytes % (auto) 36.6 %; Mean Corpuscular Hemoglobin 27.4 pg (25.0-34.0); Mean Corpuscular Volume 88.4 fL (80.0-100.0); Mean Platelet Volume 9.5 fL (9.4-12.3); Monocytes # (auto) 0.43 K/uL (0.24-0.82); Monocytes % (auto) 9.5 %; Neutrophils # (auto) 2.33 K/uL (1.4-6.5); Neutrophils % (auto) 51.3 %; Platelet Count 348 K/uL (130-400); RDW Coefficient of Variation 15.2 % (11.5-14.5); RDW Standard Deviation 49.1 fL (36.4-46.3); Red Blood Count 4.05 M/uL (3.93-5.22); White Blood Count 4.54 K/ul (4.8-10.8)
--- NOTE | 2022-04-06 11:29 | XRay Report ---
XR knee RT 1 or 2V routine CLINICAL HISTORY: Right knee pain. COMPARISON: Right knee radiographs April 01, 2022. Right knee radiographs May 02, 2006. FINDINGS: Exam is compromised patient's inability to extend the right knee. A moderate joint effusion has developed. No fracture is identified. Marked osteoarthritis of the right knee is noted with nathen re tricompartmental joint space narrowing and osteophytosis. No fracture is identified. IMPRESSION: 1. Severe right knee osteoarthritis. 2. No acute fracture identified. 3. Interval development of a moderate right knee joint effusion. ACT 112: Negative or not required by law. Electronically signed by: Shaheen Duque M.D. 04/06/2022 11:28 AM
--- NOTE | 2022-04-06 11:47 | Hospitalist Progress Note ---
Date of Service April 06, 2022 Assessment & Plan (1) Fall: Plan: Presented after sustaining a mechanical fall at home. Patient has been bedbound since April due to bilateral lower extremity weakness R> L Fall precautions Continue PT/OT eval complete Right Knee Pain Likely due to arthritis, fall Minimal joint effusion on x-ray Started on low-dose prednisone (2) COVID-19: Plan: COVID-19 infection Vaccinated for COVID -CXR:No significant change compared to the prior study. No acute process. Nebs PRN Saturating well on room air Continue conservative management (3) Urinary tract infection: Plan: Acute pyelonephritis --CT ABD:Nondilated fluid-filled colon suggestive of a diarrheal illness. Mild heterogeneous enhancement within the right kidney. This could be chronic or represent a mild pyelonephritis. Recommend correlation with urinalysis. No evidence for bowel obstruction. Colonic diverticulosis. No evidence for acute diverticulitis. Normal appendix. -- Urine culture growing pansensitive E. coli -- Continue Rocephin>>transitioned to Cefdinir to complete the course (4) HTN (hypertension): Plan: Continue losartan, nifedipine, Coreg Monitor BP Adjust meds as needed Carvedilol dose decreased to 12.5 mg twice a day due to bradycardia (5) DM type 2 (diabetes mellitus, type 2): Plan: HbA1c7.3% Hold home metformin Continue on insulin sliding scale per protocol (6) SARAN (obstructive sleep apnea): Plan: On CPAP (7) Hypothyroid: Plan: Continue levothyroxine (8) Depression: Plan: On Cymbalta (9) Dyslipidemia: Plan: Continue statin Plan DVT Px Lovenox SQ CODE STATUS Full code Disposition Home with home health Admission and Anticipated Discharge Date Admission Date: March 31, 2022 Physical Exam Physical Exam: Physical Exam: Vitals signs as noted above General Appearance:Obese, no apparent distress Head: normocephalic, Atraumatic Eyes: normal inspection, EOMI Neck: supple, Trachea midline Respiratory/Chest: Normal breath sounds, CTA, No accessory muscle use Cardiovascular: S1, S2, No murmur Abdomen/GI:Soft, Non tender, Bowel sounds present Extremities/Musculoskeletal:normal inspection, Chronic venous stasis Neurologic/Psych:AAOX3, grossly no focal neurological deficits Skin: normal color, warm Results & Data Results & Data ([facility]) Vital Signs (Past 12 Hours) Vital Signs Temp Pulse Pulse Resp BP Pulse Ox O2 Del Method 04/06/22 11:09 Room Air 04/06/22 08:00 53 L 04/06/22 08:20 36.4 C L 60 18 110/64 97 Room Air 04/06/22 04:22 36.3 C L 57 L 18 92/55 L 99 Room Air
--- NOTE | 2022-04-06 14:02 | Orthopedic Consultation ---
Date of Consultation April 06, 2022 Assessment & Plan (1) Right knee DJD: Patient was evaluated in her room. Appropriate COVID PPE precautions, including full gown and face shield, were used. She is afebrile. There is no white count. She has no warmth or redness to the knee. While there is any effusion, it is not worse than any knee effusion she has had in the past, according to the patient. It is close to her baseline. Her overall leg pain has increased over the last several days, but is not limited to her knee. It does follow in L4 and L5 distribution. Patient does have a known history of chronic back pain. Exacerbation of her chronic back condition may contribute to her current symptom s. She is also gone 12 months since her last orthopedic evaluation. Possibility that viscosupplementation injection may improve her symptoms was also discussed with her. Given her diabetes, she does not an ideal candidate for intra-articular cortisone injection. She is not an ambulator, and surgical invention for her hip or knee is not something that she wants to consider. She may continue with oral pain medication management for her symptoms, using Tylenol, low-dose oral prednisone, Coker 2 NSAIDs, or additional viscosupplementation. She may follow-up with her orthopedist at [facility] upon discharge. She may also contact our office for further evaluation on an outpatient basis if she desires. I would be happy to see her in follow-up if she chooses. Care plan was discussed with Dr. Rodríguez. Dr. Parra was informed of the knee findings by [facility] [employer]. Supervising Physician Co-Signing Physician Notes I, Dr. Rodríguez, saw and examined the patient and discussed the management with my PA. I reviewed my PAs note and agree with the documented findings and the plan of care I developed. History of Present Illness Reason for Consultation: Right knee and hip pain Attending Physician: Luke Parra MD History of Present Illness This 86-year-old female with a history of depression, sleep apnea, pyelonephritis, hypertension, hypothyroidism, bronchitis, breast cancer, osteoarthritis, elevated lipids, alopecia, type 2 diabetes, migraine headaches, sicca syndrome, pneumonia, and current COVID-19 infection, is seen today in consultation for right hip and knee pain. She states they are longstanding issue. She has had pain in both for years. She previously saw [facility] for her knee and hip pain. She states she has not seen them since April. She previously had a series of 3 injections roughly every 6 months which helped her pain. She is not sure what they were for. They do sound like viscosupplementation to the knee. She states she has not had cortisone injections as far as she is aware, due to her diabetes. She is currently using Tylenol without improvement. She has also used extensive topical creams including Aspercreme, Bengay, Voltaren gel, and Salonpas with intermittent relief. She does not think that she use lidocaine patches in the past. She does not think her knee is more swollen than it has been in the past. She notes that the pain is along the groin, lateral hip, medial and lateral knee, and lateral lower leg. She states she does not ambulate, and only does transfers from bed to bedside toilet. She has been this way since April. She denies any fevers or chills. She denies any redness at the knee. No other complaints. Allergies Allergy/AdvReac Type Severity Reaction Status Date / Time phenobarbital Allergy Intermediate ITCHY RASH Verified 03/31/22 21:32 scopolamine Allergy Intermediate RASH Verified 03/31/22 21:32 simvastatin Allergy Intermediate muscle Verified 03/31/22 21:32 cramps aspirin AdvReac Intermediate Abdominal Verified 03/31/22 21:32 Pain atropine AdvReac Intermediate ITCHING Verified 03/31/22 21:32 codeine AdvReac Intermediate HYPERTENSIO Verified 03/31/22 21:32 N doxycycline AdvReac Intermediate NAUSEA/VOMI Verified 03/31/22 21:32 TING. hyoscyamine AdvReac Intermediate ITCHING Verified 03/31/22 21:32 lactose AdvReac Intermediate Gastrointestinal Verified 03/31/22 21:32 Upset minocycline AdvReac Intermediate NAUSEA AND Verified 03/31/22 21:32 VOMITING morphine AdvReac Intermediate NAUSEA/VOMI Verified 03/31/22 21:32 TING Pork/Porcine Containing AdvReac Unknown spiritual Verified 04/01/22 04:49 Products preference shellfish derived AdvReac Unknown spiritual Verified 03/31/22 21:32 preference Home Medications Medication Instructions Recorded Confirmed Type Collagen Ultra 1 cap PO DAILY 03/31/22 03/31/22 History acetaminophen 500 mg tablet 500 mg PO TID 03/31/22 03/31/22 History (Tylenol Extra Strength) aluminum-mag hydroxide-simethicone 15 ml PO DAILY PRN 03/31/22 03/31/22 History 400 mg-400 mg-40 mg/5 mL oral susp INDIGESTION/UPSET STOMACH ascorbic acid (vitamin C) 500 mg 500 mg PO DAILY 03/31/22 03/31/22 History tablet (Vitamin C) aspirin 81 mg tablet,delayed 81 mg PO DAILY 03/31/22 03/31/22 History release baclofen 5 mg tablet 5 mg PO BID PRN MUSCLE SPASMS 03/31/22 03/31/22 History calcium carbonate 500 mg calcium 1,000 mg PO DIRECTED PRN 03/31/22 03/31/22 History (1,250 mg) chewable tablet INDIGESTION/HEARTBURN/UPSET STOMACH carbamide peroxide 6.5 % ear drops 0 drp otic (ear) DIRECTED PRN 03/31/22 03/31/22 History (Debrox) WAX BUILD UP carboxymethylcellulose sodium 1 % 2 drp ophthalmic (eye) DIRECTED 03/31/22 03/31/22 History eye liquid gel drops (Refresh PRN Dry Eyes Liquigel) cholecalciferol (vitamin D3) 25 25 mcg PO DAILY 03/31/22 03/31/22 History mcg (1,000 unit) capsule (Vitamin D3) diphenhydramine HCl 25 mg capsule 25 mg PO BID PRN Itching 03/31/22 03/31/22 History (Benadryl) duloxetine 20 mg capsule,delayed 40 mg PO QAM 03/31/22 03/31/22 History release (Cymbalta) fluocinonide 0.05 % topical 1 applic topical BID PRN Skin 03/31/22 03/31/22 History ointment Irritation fluticasone propionate 50 2 spray intranasal BID 03/31/22 03/31/22 History mcg/actuation nasal spray,suspension furosemide 40 mg tablet (Lasix) 40 mg PO QAM 03/31/22 03/31/22 History glucosamine sulfate 1,000 mg tablet 1,000 mg PO BID 03/31/22 03/31/22 History ipratropium bromide 17 2 puff inhalation TID PRN Wheezing 03/31/22 03/31/22 History mcg/actuation HFA aerosol inhaler (Atrovent HFA) levothyroxine 75 mcg tablet 75 mcg PO DAILYBB 03/31/22 03/31/22 History lidocaine HCl 4 % topical liquid 1 ea topical TID PRN Pain 03/31/22 03/31/22 History roll-on (Aspercreme (lidocaine HCl)) losartan 100 mg tablet 100 mg PO DAILY 03/31/22 03/31/22 History magnesium oxide 500 mg tablet 500 mg PO DAILY 03/31/22 03/31/22 History metformin 500 mg tablet 500 mg PO BID 03/31/22 03/31/22 History multivitamin 1 tab PO DAILY 03/31/22 03/31/22 History nifedipine 30 mg tablet,extended 30 mg PO DAILYBB 03/31/22 03/31/22 History release 24 hr omega-3 fatty acids 1,000 mg 1,000 mg PO BID 03/31/22 03/31/22 History capsule potassium chloride 20 mEq 20 meq PO DAILY 03/31/22 03/31/22 History tablet,extended release(part/cryst) pumpkin seed extract-soy germ 300 1 cap PO BID 03/31/22 03/31/22 History mg capsule (Azo Bladder Control) rosuvastatin 20 mg tablet 20 mg PO DAILY 03/31/22 03/31/22 History vitamin E 268 mg (400 unit) capsule 536 mg PO DAILY 03/31/22 03/31/22 History carvedilol 25 mg tablet 12.5 mg PO BID #30 tabs 04/05/22 03/31/22 Rx cefdinir 300 mg capsule 300 mg PO BID #9 caps 04/05/22 Rx diclofenac sodium 1 % topical gel 2 g EXT QID PRN pain #100 grams 04/05/22 Rx (Voltaren Arthritis Pain) docusate sodium 100 mg capsule 100 mg PO BID PRN constipation #30 04/05/22 Rx caps hydrocodone 5 mg-acetaminophen 325 1 tab PO Q12H PRN pain #10 tabs 04/05/22 Rx mg tablet polyethylene glycol 3350 17 gram 17 g PO DAILY PRN constipation #30 04/05/22 Rx oral powder packet (Miralax) ea prednisone 5 mg tablet 5 mg PO DAILY #6 tabs 04/05/22 Rx Patient History Medical History (Updated 04/06/22 @ 17:18 by Guy Poon PA-C) Breast cancer Depression Diabetes mellitus Hypertension Hypothyroidism Migraine headache Sleep apnea Surgical History (Updated 04/06/22 @ 17:12 by Guy Poon PA-C) H/O rotator cuff surgery H/O: hysterectomy History of lumpectomy of left breast Hx of cataract surgery Family History (Updated 04/06/22 @ 14:01 by Guy Poon PA-C) Other No pertinent family history Social History Smoking Status: Never smoker Hx Alcohol Use: No Hx Substance Use: No Preferred Language: Trinidadian [employer] Required: No Beliefs That Will Affect Care: Catholic Current Living Situation: Family Other Information That Helps Us Care for You: No Feels Safe at Home: Yes Safety Concerns: Feels Safe At This Time Assistive Devices: CPAP and Oxygen - at Night Review of Systems Review of Systems: All systems reviewed & are unremarkable except as noted in HPI & below A total of 10 systems were reviewed. Physical Exam Physical Exam: General: Well-developed, well-nourished, elderly female, in no acute distress. Laying in bed. Alert and conversive. Skin: Warm and dry with fair turgor. No rashes. No ecchymosis or erythema. There is no warmth at the right knee. She does have a mild to moderate intra-articular effusion. Venous stasis changes are present on her lower extremities. There is no skin breakdown. Musculoskeletal: Patient has intact passive and active motion at her right hip, though motion is limited secondary to pain. Hip flexion to around 80 degrees, contracture is noted and extension is lacking by about 20 degrees. She has groin pain with internal and external rotation. She is able to AB duct and adductor. There is focal discomfort palpation of the anterior flexion crease. There is also pain over her greater trochanter and IT band. Right knee evaluation reveals the above-stated effusion. She has flexion to 90 degrees and lacks about 30 degrees of extension. Range of motion between 45 and 80 is supple and relatively pain-free. She does have crepitus palpable with motion. Stable collateral ligaments. No defect in the patellar tendon or quadriceps tendon. There is no warmth to the knee and I do not suspect septic joint. Right ankle evaluation reveals intact active and passive motion. She has no discomfort with palpation over the forefoot or midfoot. There is pain with palpation over her calcaneus, worst on the plantar pad. No sign of skin breakdown. Left leg evaluation reveals supple motion of her left hip. She has improved motion of the knee with flexion to around 100 degrees and a lack of about 20 degrees of extension. She also has intact active and passive motion at the ankle. There is also heel sensitivity over the plantar pad. No pain over the midfoot or forefoot. Neurologic: Gross sensation is intact across both lower extremities by soft to uch. Peripheral pulses are 1+. Results & Data ([facility]) Vital Signs (Past 12 Hours) Vital Signs Temp Pulse Pulse Resp BP Pulse Ox O2 Del Method 04/06/22 11:09 Room Air 04/06/22 08:00 53 L 04/06/22 08:20 36.4 C L 60 18 110/64 97 Room Air 04/06/22 04:22 36.3 C L 57 L 18 92/55 L 99 Room Air Diagnostic Findings Radiographic imaging previously obtained of the knee and hip was reviewed by me and read by radiology. Knee films show severe right knee osteoarthritis. She is [id number] in all 3 compartments. Periarticular osteophytes and subchondral sclerosis are evident. There is subsidence of the medial tibial plateau. She does have tibial subluxation present. No evidence of fracture. Right hip films obtained today show severe osteoarthritis within the femoral acetabular joint. She has [id number] articulation. No fracture or dislocation.
--- NOTE | 2022-04-06 16:04 | Hospitalist Progress Note ---
Date of Service April 06, 2022 Assessment & Plan (1) Fall: Plan: Presented after sustaining a mechanical fall at home. Patient has been bedbound since April due to bilateral lower extremity weakness R> L Fall precautions Continue PT/OT eval complete Right Knee Pain Likely due to arthritis, fall Repeat x-ray showed increased right knee joint effusion Continue low-dose prednisone Orthopedics consulted (2) COVID-19: Plan: COVID-19 infection Vaccinated for COVID -CXR:No significant change compared to the prior study. No acute process. Nebs PRN Saturating well on room air Continue conservative management (3) Urinary tract infection: Plan: Acute pyelonephritis --CT ABD:Nondilated fluid-filled colon suggestive of a diarrheal illness. Mild heterogeneous enhancement within the right kidney. This could be chronic or represent a mild pyelonephritis. Recommend correlation with urinalysis. No evidence for bowel obstruction. Colonic diverticulosis. No evidence for acute diverticulitis. Normal appendix. -- Urine culture growing pansensitive E. coli -- Continue Rocephin>>transitioned to Cefdinir to complete the course (4) HTN (hypertension): Plan: Currently hypotensive Held losartan, nifedipine, Coreg Monitor BP Normal lactate, procalcitonin Normal Cortisol level Blood cultures pending CXR today showed No acute cardiopulmonary findings. No change in appearance of the chest. (5) DM type 2 (diabetes mellitus, type 2): Plan: HbA1c7.3% Hold home metformin Continue on insulin sliding scale per protocol (6) SARAN (obstructive sleep apnea): Plan: On CPAP (7) Hypothyroid: Plan: Continue levothyroxine (8) Depression: Plan: On Cymbalta (9) Dyslipidemia: Plan: Continue statin Plan DVT Px Lovenox SQ CODE STATUS Full code Disposition Home with home health Admission and Anticipated Discharge Date Admission Date: March 31, 2022 Subjective Patient is seen and examined at bedside Patient relatively low despite holding antihypertensives Patient is asymptomatic with low BP Only has minimal intermittent cough Right knee pain is persistent Denies any chest pain, dyspnea, dizziness, nausea, abdominal pain Right knee x-ray shows increased Jt effusion Review of Systems Review of Systems: All systems reviewed & are unremarkable except as noted in Subjective Physical Exam Physical Exam: Physical Exam: Vitals signs as noted above General Appearance:Obese, no apparent distress Head: normocephalic, Atraumatic Eyes: normal inspection, EOMI Neck: supple, Trachea midline Respiratory/Chest: Normal breath sounds, CTA, No accessory muscle use Cardiovascular: S1, S2, No murmur Abdomen/GI:Soft, Non tender, Bowel sounds present Extremities/Musculoskeletal:normal inspection, Chronic venous stasis Neurologic/Psych:AAOX3, grossly no focal neurological deficits Skin: normal color, warm Results & Data Results & Data ([facility]) Vital Signs (Past 12 Hours) Vital Signs Temp Pulse Pulse Pulse Resp BP Pulse Ox 04/06/22 15:53 36.5 C 61 17 105/57 L 95 04/06/22 11:09 04/06/22 08:00 53 L 04/06/22 08:20 36.4 C L 60 18 110/64 97 04/06/22 04:22 36.3 C L 57 L 18 92/55 L 99 O2 Del Method 04/06/22 15:53 Room Air 04/06/22 11:09 Room Air 04/06/22 08:00 04/06/22 08:20 Room Air 04/06/22 04:22 Room Air Laboratory Results Short CBC 04/06/22 Range/Units 07:12 WBC 4.54 L (4.8-10.8) K/ul Hgb 11.1 L (12.0-16.0) g/dl Hct 35.8 (34.1-44.9) % Plt Count 348 (130-400) K/uL BMP 04/06/22 07:11 Sodium 136 Potassium 4.5 Chloride 103 Carbon Dioxide 25 BUN 15 Creatinine 0.62 Glucose 78 Calcium 8.3 L
[2022-04-07] MEDS: LEVOTHYROXINE SODIUM 75 MCG TABLET PO SCH (05:15)
[2022-04-07] MEDS: HYDROCODONE/ACETAMOPHEN 5/325MG TAB PO PRN (05:28)
[2022-04-07] MEDS: GLUCOSAMINE SULFATE 500 MG CAP PO SCH (08:34)
[2022-04-07] MEDS: POTASSIUM CHLORIDE CRTAB 20 MEQ TABCR PO SCH (08:34)
[2022-04-07] MEDS: DOCUSATE SODIUM 100 MG CAP PO SCH (08:34)
[2022-04-07] MEDS: ENOXAPARIN INJ 40 MG/0.4 ML SYR SQ SCH (08:34)
[2022-04-07] MEDS: CEFDINIR 300 MG CAP PO SCH (08:35)
[2022-04-07] MEDS: ASPIRIN 81 MG ECTAB PO SCH (08:35)
[2022-04-07] MEDS: ACETAMINOPHEN 500 MG TAB PO SCH (08:35)
[2022-04-07] MEDS: FUROSEMIDE 40 MG TAB PO SCH (08:35)
[2022-04-07] MEDS: MAGNESIUM OXIDE 400 MG TAB PO SCH (08:35)
[2022-04-07] MEDS: DULoxetine HCL 20 MG CAP PO SCH (08:36)
[2022-04-07] MEDS: ASCORBIC ACID 500 MG TAB PO SCH (08:36)
[2022-04-07] MEDS: MULTIVITAMIN TAB PO SCH (08:36)
[2022-04-07] MEDS: ROSUVASTATIN CALCIUM 20 MG TAB PO SCH (08:36)
[2022-04-07] MEDS: CHOLECALCIFEROL 1,000 UNITS 25 MCG TAB PO SCH (08:36)
[2022-04-07] MEDS: predniSONE 5 MG TAB PO SCH (08:36)
[2022-04-07] MEDS: FLUTICASONE PROPIONATE NA SPR 16 GM BTL SCH (08:45)
[2022-04-07] MEDS: DICLOFENAC SOD 1% GEL 100 GM TUBE EXT PRN (08:46)
[2022-04-07] MEDS: INSULIN ASPART PER UNIT SC SCH ×2 (08:54→12:31)
--- NOTE | 2022-04-07 12:37 | Hospitalist Progress Note ---
Date of Service April 07, 2022 Assessment & Plan (1) Fall: (2) COVID-19: (3) Urinary tract infection: (4) HTN (hypertension): (5) DM type 2 (diabetes mellitus, type 2): (6) SARAN (obstructive sleep apnea): (7) Hypothyroid: (8) Depression: (9) Dyslipidemia: Plan Fall: Presented after sustaining a mechanical fall at home. Patient has been bedbound since April due to bilateral lower extremity weakness R> L Fall precautions Continue PT/OT Right Knee Pain Likely due to arthritis, fall Repeat x-ray showed increased right knee joint effusion Continue low-dose prednisone [facility] Input COVID-19 infection Vaccinated for COVID -CXR:No significant change compared to the prior study. No acute process. Nebs PRN Saturating well on room air Continue conservative management Acute pyelonephritis --CT ABD:Nondilated fluid-filled colon suggestive of a diarrheal illness. Mild heterogeneous enhancement within the right kidney. This could be chronic or represent a mild pyelonephritis. Recommend correlation with urinalysis. No evidence for bowel obstruction. Colonic diverticulosis. No evidence for acute diverticulitis. Normal appendix. -- Urine culture growing pansensitive E. coli -- Continue Rocephin>>transitioned to Cefdinir to complete the course HTN (hypertension): Blood pressure has been variable during hospitalization Coreg decreased to 6.25 mg secondary to bradycardia Losartan dose decreased to 50 mg daily Continue nifedipine Advised to monitor blood pressure closely at home and discuss with physician for further adjustment of medications as needed DM type 2 (diabetes mellitus, type 2): HbA1c7.3% Hold home metformin Continue on insulin sliding scale per protocol SARAN (obstructive sleep apnea): On CPAP Hypothyroid: Continue levothyroxine Depression: On Cymbalta Dyslipidemia: Continue statin DVT Px Lovenox SQ CODE STATUS Full code Disposition Home with home health Admission and Anticipated Discharge Date Admission Date: March 31, 2022 Subjective Patient is seen and examined at bedside Has cough intermittently Knee pain is controlled BP better today Denies any chest pain, dyspnea, dizziness, nausea, abdominal pain Review of Systems Review of Systems: All systems reviewed & are unremarkable except as noted in Subjective Physical Exam Physical Exam: Physical Exam: Vitals signs as noted above General Appearance:Obese, no apparent distress Head: normocephalic, Atraumatic Eyes: normal inspection, EOMI Neck: supple, Trachea midline Respiratory/Chest: Normal breath sounds, CTA, No accessory muscle use Cardiovascular: S1, S2, No murmur Abdomen/GI:Soft, Non tender, Bowel sounds present Extremities/Musculoskeletal:normal inspection, Chronic venous stasis Neurologic/Psych:AAOX3, grossly no focal neurological deficits Skin: normal color, warm Results & Data Results & Data ([facility]) Vital Signs (Past 12 Hours) Vital Signs Temp Pulse Pulse Resp BP Pulse Ox O2 Del Method 04/07/22 11:19 36.7 C 67 18 158/75 H 100 Room Air 04/07/22 10:02 Room Air 04/07/22 08:00 58 L 04/07/22 07:00 36.6 C 61 20 123/65 95 Room Air
--- NOTE | 2022-04-07 12:50 | Discharge Summary ---
Date of Service April 07, 2022 Admission HPI Per Admitting Provider CHIEF COMPLAINT: Fall. HISTORY OF PRESENT ILLNESS: This is an 86-year-old female with past medical history significant for type 2 diabetes, hypothyroidism, hyperlipidemia, obstructive sleep apnea, pulmonary hypertension, chronic diastolic CHF, venous insufficiency, diverticulosis of colon, sicca syndrome, lichen planus, spasm of the muscle , leg swelling, migraines, history of breast cancer, physical deconditioning, currently nonambulatory status since April. She lives with her son. She says she was sleeping in the afternoon when she fell oj her oxygen tank. She uses CPAP with oxygen. When she rolled over, she fell on her oxygen tank and she could not get up. This is the reason she was brought to the hospital. Since last 1 week, she is also having cough. Today, while she was sleeping, she vomited once, and she had one episode of diarrhea. Denies any fevers. No shortness of breath, no chest pain. She is having severe headache. No blurred visions, no earache, no runny nose. She has some sore throat. She has no difficulty swallowing. Appetite is okay. Some abdominal discomfort. Complains of tenderness in the lower extremities. Admission Exam Per Admitting Provider PHYSICAL EXAMINATION: GENERAL: The patient is of moderate build, not in acute distress. VITAL SIGNS: Temperature 36.4, pulse 76, respiratory rate 24, blood pressure 119/85, oxygen 94% on room air. HEENT: Pupils equal, round and reactive to light. Oral mucosa moist. NECK: No JVD, no neck masses. CARDIOVASCULAR: S1 and S2 heard. Regular rate and rhythm. No murmur, no gallop. RESPIRATORY SYSTEM: Normal AP diameter. No accessory muscle use. No wheezing, no crackles. ABDOMEN: Soft, bowel sounds present. Mild discomfort. No guarding, no rigidity. CENTRAL NERVOUS SYSTEM: Alert and oriented. Speech is clear. No facial droop. Obeys simple commands. Moves extremities. EXTREMITIES: Bilateral lower extremity chronic skin changes and edema. Some mild erythematous changes in the left lower extremity around the foot and trujillo region, tender to palpation on both lower extremities. Principal Diagnosis COVID-19 infection Urinary tract infection Mechanical fall Right Knee Arthritis Discharge Data Allergies Allergy/AdvReac Type Severity Reaction Status Date / Time phenobarbital Allergy Intermediate ITCHY RASH Verified 03/31/22 21:32 scopolamine Allergy Intermediate RASH Verified 03/31/22 21:32 simvastatin Allergy Intermediate muscle Verified 03/31/22 21:32 cramps aspirin AdvReac Intermediate Abdominal Verified 03/31/22 21:32 Pain atropine AdvReac Intermediate ITCHING Verified 03/31/22 21:32 codeine AdvReac Intermediate HYPERTENSIO Verified 03/31/22 21:32 N doxycycline AdvReac Intermediate NAUSEA/VOMI Verified 03/31/22 21:32 TING. hyoscyamine AdvReac Intermediate ITCHING Verified 03/31/22 21:32 lactose AdvReac Intermediate Gastrointestinal Verified 03/31/22 21:32 Upset minocycline AdvReac Intermediate NAUSEA AND Verified 03/31/22 21:32 VOMITING morphine AdvReac Intermediate NAUSEA/VOMI Verified 03/31/22 21:32 TING Pork/Porcine Containing AdvReac Unknown spiritual Verified 04/01/22 04:49 Products preference shellfish derived AdvReac Unknown spiritual Verified 03/31/22 21:32 preference Consultations 03/31/22 21:29 ED Decision to Admit Stat 04/06/22 11:46 Consult Orthopedic Surgery Routine Procedures Performed Laboratory Results WBC 4.54 K/ul (4.8-10.8) L 04/06/22 07:12 RBC 4.05 M/uL (3.93-5.22) 04/06/22 07:12 Hgb 11.1 g/dl (12.0-16.0) L 04/06/22 07:12 Hct 35.8 % (34.1-44.9) 04/06/22 07:12 MCV 88.4 fL (80.0-100.0) 04/06/22 07:12 MCH 27.4 pg (25.0-34.0) 04/06/22 07:12 MCHC 31.0 g/dL (32.0-36.0) L 04/06/22 07:12 RDW Std Deviation 49.1 fL (36.4-46.3) H 04/06/22 07:12 RDW Coeff of Sergio 15.2 % (11.5-14.5) H 04/06/22 07:12 Plt Count 348 K/uL (130-400) 04/06/22 07:12 MPV 9.5 fL (9.4-12.3) 04/06/22 07:12 Immature Gran % (Auto) 0.2 % 04/06/22 07:12 Neut % (Auto) 51.3 % 04/06/22 07:12 Lymph % (Auto) 36.6 % 04/06/22 07:12 [place] % (Auto) 9.5 % 04/06/22 07:12 Eos % (Auto) 2.0 % 04/06/22 07:12 Baso % (Auto) 0.4 % 04/06/22 07:12 Neut # (Auto) 2.33 K/uL (1.4-6.5) 04/06/22 07:12 Lymph # (Auto) 1.66 K/uL (1.2-3.4) 04/06/22 07:12 [place] # (Auto) 0.43 K/uL (0.24-0.82) 04/06/22 07:12 Eos # (Auto) 0.09 K/uL (0-0.50) 04/06/22 07:12 Baso # (Auto) 0.02 K/uL (0-0.2) 04/06/22 07:12 Immature Gran # (Auto) 0.01 K/uL (0.00-0.02) 04/06/22 07:12 Sodium 136 mmol/L (136-145) 04/06/22 07:11 Potassium 4.5 mmol/L (3.5-5.1) 04/06/22 07:11 Chloride 103 mmol/L (98-107) 04/06/22 07:11 Carbon Dioxide 25 mmol/L (21-32) 04/06/22 07:11 Anion Gap 8 (3-11) 04/06/22 07:11 BUN 15 mg/dl (6-23) 04/06/22 07:11 Creatinine 0.62 mg/dl (0.6-1.2) 04/06/22 07:11 Est Cr Clr Drug Dosing 75.2 ml/min 04/06/22 07:11 Est GFR ( Amer) 94.0 ml/min 04/06/22 07:11 Est GFR (Non-Af Amer) 81.1 ml/min 04/06/22 07:11 BUN/Creatinine Ratio 24.2 (10-20) H 04/06/22 07:11 Glucose 78 mg/dl (70-99(Fasting)) 04/06/22 07:11 POC Glucose 112 mg/dl (70-99) H 04/07/22 11:41 Estimat Average Glucose 163 mg/dl 04/01/22 06:37 Hemoglobin A1c 7.3 % (4.5-5.6) H 04/01/22 06:37 Lactate 1.0 mmol/L (0.4-2.0) 04/06/22 08:47 Calcium 8.3 mg/dl (8.5-10.1) L 04/06/22 07:11 Magnesium 2.1 mg/dl (1.7-2.4) 04/04/22 06:49 Total Bilirubin 0.5 mg/dl (0.2-1.0) 03/31/22 17:40 AST 22 U/L (13-39) 03/31/22 18:39 ALT 14 U/L (7-52) 03/31/22 17:40 Alkaline Phosphatase 44 U/L (34-104) 03/31/22 17:40 Total Creatine Kinase 166 U/L (26-192) 03/31/22 17:40 Troponin I High Sens 7.6 pg/ml (0-14) 03/31/22 17:40 Total Protein 7.6 gm/dl (6.0-8.3) 03/31/22 17:40 Albumin 4.2 gm/dl (3.4-5.0) 03/31/22 17:40 Globulin 3.4 gm/dl (2.5-4.0) 03/31/22 17:40 Albumin/Globulin Ratio 1.2 (0.9-2) 03/31/22 17:40 Procalcitonin < 0.05 ng/ml (0-0.5) 04/06/22 08:59 Random Cortisol 15.62 mcg/dl 04/06/22 08:59 Urine Color Yellow 03/31/22 18:45 Urine Appearance Clear (Clear) 03/31/22 18:45 Urine pH 6.0 (4.5-7.5) 03/31/22 18:45 Ur Specific [place] 1.009 (1.000-1.030) 03/31/22 18:45 Urine Protein Trace (Negative) H 03/31/22 18:45 Urine Glucose (UA) Negative (Negative) 03/31/22 18:45 Urine Ketones Negative (Negative) 03/31/22 18:45 Urine Blood Trace (Negative) H 03/31/22 18:45 Urine Nitrite Positive (Negative) A 03/31/22 18:45 Urine Bilirubin Negative (Negative) 03/31/22 18:45 Urine Urobilinogen Negative (Negative) 03/31/22 18:45 Ur Leukocyte Esterase Trace (Negative) H 03/31/22 18:45 Urine WBC (Auto) 1-5 /hpf (0-5) 03/31/22 18:45 Urine RBC (Auto) 0-4 /hpf (0-4) 03/31/22 18:45 U Hyaline Cast (Auto) 5-10 /lpf (0-5) H 03/31/22 18:45 U Epithel Cells (Auto) 10-20 /lpf (0-5) H 03/31/22 18:45 Urine Bacteria (Auto) 4+ (Negative) H 03/31/22 18:45 SARS-CoV-2 (PCR) POSITIVE (Negative) A* 03/31/22 17:30 Influenza Type A (PCR) Negative (Neg) 03/31/22 17:30 Influenza Type B (PCR) Negative (Neg) 03/31/22 17:30 RSV (RT-PCR) Negative (Neg) 03/31/22 17:30 Impressions Femur X-Ray 03/31/22 17:09 XR femur RT 2V routine CLINICAL HISTORY: Right hip pain. Fall. COMPARISON STUDY: None. FINDINGS: Severe osteoarthritis within the right hip with [id number] articulation. No fracture or dislocation within the right femur. The visualized pelvic bones are intact. Soft tissues are unremarkable. Advanced degenerative changes also noted within the right knee. No significant knee effusion. IMPRESSION: 1. No acute fracture or dislocation within the right femur. 2. Severe degenerative changes within the right hip and right knee. ACT 112: Negative or not required by law. Electronically signed by: Michael Ireland M.D. 03/31/2022 8:57 PM Abdomen/Pelvis CT 03/31/22 17:[address] WITH IV CONTRAST CT DOSE: 2665.14 mGy.cm HISTORY: Trauma TECHNIQUE: Multiaxial CT images of the abdomen and pelvis were performed following the use of intravenous contrast. A dose lowering technique was utilized adhering to the principles of ALARA. COMPARISON STUDY: Abdomen and pelvis CT 12/16/2008. FINDINGS: The lung bases are clear. No pneumoperitoneum. No pneumatosis. Severe right and moderate left hip osteoarthritis. No acute fractures identified. There is a small hiatus hernia. The liver, gallbladder, pancreas, spleen, and right adrenal gland are unremarkable. There is a 1 cm left adrenal gland nodule, unchanged. This favors a benign adenoma. Normal left kidney. A 1 cm cyst within the upper pole the right kidney. A small fat-containing lesion within the lower pole of the right kidney consistent with a small angiomyolipoma. Subtle heterogeneous enhancement within the right kidney. This could be chronic or represent a mild chronic nephritis. No associated perinephric fat stranding. Normal caliber abdominal aorta with moderate calcified plaque. No retroperitoneal lymphadenopathy. No pelvic lymphadenopathy. Mild pelvic floor collapse. The bladder is unremarkable. Prior hysterectomy. Trace pelvic free fluid. No bowel wall thickening or obstruction. Colonic diverticulosis. No evidence for acute diverticulitis. Nondilated fluid-filled large bowel. This suggests a diarrheal illness. Normal appendix. IMPRESSION: 1. Nondilated fluid-filled colon suggestive of a diarrheal illness. 2. Mild heterogeneous enhancement within the right kidney. This could be chronic or represent a mild pyelonephritis. Recommend correlation with urinalysis. 3. No evidence for bowel obstruction. 4. Colonic diverticulosis. No evidence for acute diverticulitis. 5. Normal appendix. 6. Additional findings as described above. ACT 112: Negative or not required by law. Electronically signed by: Michael Ireland M.D. 03/31/2022 8:[address] 03/31/22 17:[address] DOSE: HISTORY: Trauma TECHNIQUE: Multiaxial CT images of the cervical spine were performed and reformatted in the sagittal and coronal plane without the use of contrast. A dose lowering technique was utilized adhering to the principles of ALARA. COMPARISON: Cervical spine CT 05/12/2021. FINDINGS: No fractures. No subluxation. Prevertebral soft tissues and the C1-C2 interval are intact. No pneumothorax. Degenerative changes again noted. The C5- C6 vertebral bodies are fused. IMPRESSION: No fractures within the cervical spine. ACT 112: Negative or not required by law. Electronically signed by: Michael Ireland M.D. 03/31/2022 8:[address] 03/31/22 17:[address] DOSE: HISTORY: Trauma TECHNIQUE: Multiaxial CT images of the head were performed without the use of intravenous contrast. Automated exposure control was utilized for this study. A dose lowering technique was utilized adhering to the principles of ALARA. Comparison: Head CT 05/12/2021. Findings: Hyperdense secretions within the left maxillary sinus, unchanged. The mastoid air cells are clear. The calvarium and skull base are intact. There is no mass, hematoma, midline shift, acute infarct. White matter hypodensity is nonspecific but suggestive of microvascular ischemic change. The ventricles and sulci demonstrate mild age-related involutional changes. Questionable small right frontal extra-axial hyperdensity on image 17 is likely artifact. Impression: No significant change compared to the prior study. No acute intracranial abnormality. ACT 112: Negative or not required by law. Electronically signed by: Michael Ireland M.D. 03/31/2022 8:08 PM Venous Doppler Study 04/01/22 03:19 ULTRASOUND BILATERAL LOWER EXTREMITY VENOUS CLINICAL HISTORY: Lower extremity edema. Covid. COMPARISON STUDY: Right lower extremity venous ultrasound dated 10/27/2017. TECHNIQUE: Portable real-time, grayscale, and color Doppler sonography of the deep veins of the right and left lower extremity was performed from the inguinal crease to the calf. Compression and augmentation were utilized. FINDINGS: There is no sonographic evidence of deep venous thrombosis identified in the right or left lower extremity. The common femoral, superficial femoral, and popliteal veins are patent and normally compressible bilaterally. The greater saphenous vein and the profunda femoris vein at the junction with the common femoral vein are clear in both legs. The visualized calf veins are patent bilaterally. IMPRESSION: There is no sonographic evidence of deep venous thrombosis identified in the right or left lower extremity. ACT 112: Negative or not required by law. Electronically signed by: Jose Enrique Cates M.D. 04/01/2022 6:32 AM Chest X-Ray 04/06/22 07:46 XR chest 1V portable CLINICAL HISTORY: Covid. COMPARISON STUDY: Chest radiograph March 31, 2022. FINDINGS: Low lung volumes with elevation the right hemidiaphragm remains unchanged. There is no pneumothorax or pleural effusion. The cardiomediastinal silhouette is stable. There is no evidence for pulmonary edema. No consolidation to suggest pneumonia. IMPRESSION: No acute cardiopulmonary findings. No change in appearance of the chest. ACT 112: Negative or not required by law. Electronically signed by: Shaheen Duque M.D. 04/06/2022 8:36 AM Knee X-Ray 04/06/22 07:46 XR knee RT 1 or 2V routine CLINICAL HISTORY: Right knee pain. COMPARISON: Right knee radiographs April 01, 2022. Right knee radiographs May 02, 2006. FINDINGS: Exam is compromised patient's inability to extend the right knee. A moderate joint effusion has developed. No fracture is identified. Marked osteoarthritis of the right knee is noted with severe tricompartmental joint space narrowing and osteophytosis. No fracture is identified. IMPRESSION: 1. Severe right knee osteoarthritis. 2. No acute fracture identified. 3. Interval development of a moderate right knee joint effusion. ACT 112: Negative or not required by law. Electronically signed by: Shaheen Duque M.D. 04/06/2022 11:28 AM Ordered Studies 03/31/22 17:10 CT abd pelvis IV con only Stat CT cervical spine wo con Stat CT head/brain wo con Stat 04/01/22 03:19 US venous doppler [facility] Urgent Hospital Course (1) Fall: (2) COVID-19: (3) Urinary tract infection: (4) HTN (hypertension): (5) DM type 2 (diabetes mellitus, type 2): (6) SARAN (obstructive sleep apnea): (7) Hypothyroid: (8) Depression: (9) Dyslipidemia: Plan Fall: Presented after sustaining a mechanical fall at home. Patient has been bedbound since April due to bilateral lower extremity weakness R> L Fall precautions Continue PT/OT Right Knee Pain Likely due to arthritis, fall Repeat x-ray showed increased right knee joint effusion Continue low-dose prednisone [facility] Input COVID-19 infection Vaccinated for COVID -CXR:No significant change compared to the prior study. No acute process. Nebs PRN Saturating well on room air Continue conservative management Acute pyelonephritis --CT ABD:Nondilated fluid-filled colon suggestive of a diarrheal illness. Mild heterogeneous enhancement within the right kidney. This could be chronic or represent a mild pyelonephritis. Recommend correlation with urinalysis. No evidence for bowel obstruction. Colonic diverticulosis. No evidence for acute diverticulitis. Normal appendix. -- Urine culture growing pansensitive E. coli -- Continue Rocephin>>transitioned to Cefdinir to complete the course HTN (hypertension): Blood pressure has been variable during hospitalization Coreg decreased to 6.25 mg secondary to bradycardia Losartan dose decreased to 50 mg daily Continue nifedipine Advised to monitor blood pressure closely at home and discuss with physician for further adjustment of medications as needed DM type 2 (diabetes mellitus, type 2): HbA1c7.3% Hold home metformin Continue on insulin sliding scale per protocol SARAN (obstructive sleep apnea): On CPAP Hypothyroid: Continue levothyroxine Depression: On Cymbalta Dyslipidemia: Continue statin DVT Px Lovenox SQ CODE STATUS Full code Disposition Home with home health Total Time Total Time Spent Total Time Spent (In Minutes): 50 minutes Discharge Plan Discharge Items Patient Disposition: Home - Home Health Services Reason For Visit: FALL, COVID Discharge Diagnosis: COVID-19 infection Urinary tract infection Mechanical fall Right Knee Arthritis Activity: Per Instructions section Exercise/Sports: Gradually increase as tolerated Non-emergency contact: Primary Care Provider Call non-emergency contact if: you have any medication questions, your symptoms worsen and your pain is concerning for you Follow-up/Referrals: Collins Delatorre DO [Primary Care Provider] - (Date & Time 04/08/2022 10:00 AM Provider Collins Delatorre DO Department Family Practice [address] [employer] ) Diet: Carb Consistent or DM2 and Heart Healthy Addtl Attending Provider Instructions: Follow-up with your primary care physician on 04/08/2022 10:00 AM Follow-up with your orthopedic surgeon if you have persistent knee pain as advised. Medication Changes: 1)--Complete antibiotic course-cefdinir 300 mg twice a day as prescribed for urinary tract infection. 2)-- Complete the prednisone course 5mg daily as prescribed for right knee pain. 3)--Your Carvedilol dose is decreased to 6.25 mg twice a day as you are noted to have low heart rate while you are hospitalized. -- Losartan was decreased to 50 mg daily as your blood pressure has been low intermittently Follow-up with your physician for further recommendations to adjust medications as needed. 4)Can use Colace, MiraLAX as needed for constipation. Seek immediate medical attention if your symptoms reoccur or worsen Please take all medications as instructed on discharge list below. Please call if you have any questions or problems. You can reach a [place] hospitalist on duty at [facility] 24 hours a day by calling [phone] Home Isolation COVID-19 Instructions The following information about Home Isolation is from the CDC Website: https://www.cdc.gov/coronavirus/2019-ncov/hcp/wgoxpaib-hlzkzbh-cullbi.html Stay home except to get medical care People who are mildly ill with COVID-19 are able to isolate at home during their illness. You should restrict activities outside your home, except for getting medical care. Do not go to work, school, or public areas. Avoid using public transportation, ride-sharing, or taxis. Separate yourself from other people and animals in your home People: As much as possible, you should stay in a specific room and away from other people in your home. Also, you should use a separate bathroom, if available. Animals: You should restrict contact with pets and other animals while you are sick with COVID-19, just like you would around other people. Although there have not been reports of pets or other animals becoming sick with COVID-19, it is still recommended that people sick with COVID-19 limit contact with animals until more information is known about the virus. When possible, have another member of your household care for your animals while you are sick. If you are sick with COVID-19, avoid contact with your pet, including petting, snuggling, being kissed or licked, and sharing food. If you must care for your pet or be around animals while you are sick, wash your hands before and after you interact with pets and wear a face mask. Call ahead before visiting your doctor If you have a medical appointment, call the healthcare provider and tell them that you have or may have COVID-19. This will help the healthcare providers office take steps to keep other people from getting infected or exposed. Wear a face mask You should wear a face mask when you are around other people (e.g., sharing a room or vehicle) or pets and before you enter a healthcare providers office. If you are not able to wear a face mask (for example, because it causes trouble breathing), then people who live with you should not stay in the same room with you, or they should wear a face mask if they enter your room. Cover your coughs and sneezes Cover your mouth and nose with a tissue when you cough or sneeze. Throw used tissues in a lined trash can. Immediately wash your hands with soap and water for at least 20 seconds or, if soap and water are not available, clean your hands with an alcohol-based hand hoisting laborer that contains at least 60% alcohol. Clean your hands often Wash your hands often with soap and water for at least 20 seconds, especially after blowing your nose, coughing, or sneezing; going to the bathroom; and before eating or preparing food. If soap and water are not readily available, use an alcohol-based hand hoisting laborer with at least 60% alcohol, covering all surfaces of your hands and rubbing them together until they feel dry. Soap and water are the best option if hands are visibly dirty. Avoid touching your eyes, nose, and mouth with unwashed hands. Avoid sharing personal household items You should not share dishes, drinking glasses, cups, eating utensils, towels, or bedding with other people or pets in your home. After using these items, they should be washed thoroughly with soap and water. Clean all high-touch surfaces everyday High touch surfaces include counters, tabletops, doorknobs, bathroom fixtures, toilets, phones, keyboards, tablets, and bedside tables. Also, clean any surfaces that may have blood, stool, or body fluids on them. Use a household cleaning spray or wipe, according to the label instructions. Labels contain instructions for safe and effective use of the cleaning product including precautions you should take when applying the product, such as wearing gloves and making sure you have good ventilation during use of the product. Monitor your symptoms Seek prompt medical attention if your illness is worsening (e.g., difficulty breathing).Beforeseeking care, call your healthcare provider and tell them that you have, or are being evaluated for, COVID-19. Put on a face mask before you enter the facility. These steps will help the healthcare providers office to keep other people in the office or waiting room from getting infected or exposed. Ask your healthcare provider to call the local or state health department. Persons who are placed under active monitoring or facilitated self- monitoring should follow instructions provided by their local health department or occupational health professionals, as appropriate. When working with your local health department check their available hours. If you have a medical emergency and need to call 911, notify the dispatch personnel that you have, or are being evaluated for COVID-19. If possible, put on a face mask before emergency medical services arrive. Discontinuing home isolation Patients with confirmed COVID-19 should remain under home isolation precautions until the risk of secondary transmission to others is thought to be low. The decision to discontinue home isolation precautions should be made on a auxm-ot-nnls basis, in consultation with healthcare providers and state and [facility] health departments. Coronavirus disease 2019 (COVID-19) is a virus that causes a respiratory illness. It is caused by a coronavirus called 2019 novel coronavirus (2019- nCoV). There are many types of coronavirus. Coronaviruses are a very common cause of bronchitis. They may sometimes cause lung infection(pneumonia). Symptoms can range from mild to severe respiratory illness. These viruses are also foundin some animals. COVID-19 was first found in people in [facility], in late 2019. In 2020, several cases of COVID-19 have been confirmed in the [place] Public health officials are working to find the source. How the virus spreads is not yet fully known. It may be spread through droplets of fluid that a person coughs or sneezes into the air. It may be spread if you touch a surface with virus on it, such as a handle or object, and then touch your mouth. What are the symptoms of COVID-19? Some people have no symptoms or mild symptoms. Symptoms may appear 2 to 14 days after contact with the virus. Symptoms can include: Fever Coughing Trouble breathing What are possible complications from COVID-19? In many cases, this virus can cause infection (pneumonia) in both lungs. In some cases, this can cause . How is COVID-19 diagnosed? Your healthcare provider will ask about your symptoms. He or she will also ask about your recent travel and contact with sick people. Testing for the virus is only done through the CDC. If yourhealthcare provider thinks you may have COVID- 19, he or she will work with your local health department and the CDC on testing. Follow all instructions from your healthcare provider. COVID-19 is diagnosed by: Nasal and throat swab. A cotton-tipped swab is wiped inside your nose or throat. This is done to check for viruses in your nasal mucus. Sputum culture. A small sample of mucus coughed from your lungs (sputum) is collected if you have a cough. It is checked for the virus. How is COVID-19 treated? There is currently no medicine to treat the virus. Treatment is done to help your body while it fights the virus. This is known as supportive care. Supportive care may include: Pain medicine. These include acetaminophen and ibuprofen. They are used to help ease pain and reduce fever. Bed rest. This helps your body fight the illness. For severe illness, you may need to stay in the hospital. Care during severe illness may include: IV (intravenous) fluids.These are given through a vein to help keep your body hydrated. Oxygen. Supplemental oxygen or ventilation with a breathing machine (ventilator) may be given. This is done to keep enough oxygen in your body. Are you at risk for COVID-19? If youve been to a place where people have been sick with this virus, you are at risk for infection. You are at risk if you: Recently traveled to an affected area Had contact with a sick person who recently traveled to this area Had contact with a person who was diagnosed with COVID-19 How can COVID-19 be prevented? There is no vaccine yet. The best prevention is to not have contact with the virus. The CDC advises that people should not travel to areas where there are COVID-19 outbreaks right now for any reason that is not urgent. To help prevent spreading the infection, wash your hands often, or use an alco hol-basedhand hoisting laborer. If you are in an area with COVID-19: Wash your hands often. Or use an alcohol-based hand hoisting laborer often. Only touch your eyes, nose, or mouth with clean hands. Dont have contact with people who are sick. Follow local instructions about being in public. For example, you may be told to not use public transport for a period of time. Stay away from markets that have live or animals. Wash your hands after touching any animals. Don't touch animals that may be sick. Dont share eating or drinking tools with sick people. Dont kiss someone who is sick. Clean surfaces often with disinfectant. If you were in an area with COVID-19 in the last 14 days: Call your healthcare provider. He or she can talk with local health staff to see what action may be needed. Follow all instructions from your provider. Take your temperature every morning and evening for at least 14 days. This is to check for fever. Keep a record of the readings. Keep watch for symptoms of the virus. Tell your provider right away if you have symptoms. If you were in an area with COVID-19 and have a fever or other symptoms: Dont panic. Keep in mind that other illnesses can cause similar symptoms. Stay away from work, school, and public places. Limit physical contact with family members. Don't kiss anyone or share eating or drinking utensils. Clean surfaces you touch with disinfectant. This is to help prevent the virus from spreading. Call your healthcare provider. Explain that you have been exposed to COVID-19 and have symptoms. Do this before going to any hospital. Wait for instructions. Keep in mind that healthcare staff may wear protective equipment such as masks, gowns, gloves, and eye protection. You may be put in a separate room. This is to prevent the possible virus from spreading. Tell the healthcare staff about recent travel. This includes local travel on public transport. Staff may need to find other people you have been in contact with. Follow all instructions the healthcare staff give you. If you have been diagnosed with COVID-19 Follow all instructions from your healthcare provider. Dont leave your home, except to get medical care. Call your healthcare providers office before going. They can prepare and give you instructions. This will help prevent the virus from spreading. Dont go to work, school, or public areas. Dont use public transport or taxis. Stay away from other people in your home. Have them wear face masks around you. Dont share household items or food. Wear a face mask if you can. This includes at home or in a medical facility. Cover your face with a tissue when you cough or sneeze. Throw the tissue away. Wash your hands. Wash your hands often. Caregivers should: Follow all instructions from healthcare staff. Wear a face mask and protective clothing as advised. Wash hands often. Keep track of the sick persons symptoms. Clean surfaces, fabrics, and laundry thoroughly. Keep other people away from the sick person. When to call your healthcare provider Call your healthcare provider: If youve recently traveled and have symptoms If you have been diagnosed with COVID-19 and your symptoms are worse To learn more To find out more about COVID-19, visit the CDC website at www.cdc.gov/coronavirus/2019-ncov/index.html. 7507[address] [employer] [place] [address]. All rights reserved. This information is not intended as a substitute for professional medical care. Always follow your healthcare professional's instructions. This information has been adapted from [employer] Pending Studies at Discharge: No Stand-Alone Forms: [employer] Wearables, Smoking Cessation Medications and DC Order Prescriptions: New cefdinir 300 mg Capsule 300 mg PO BID Qty: 9 0RF diclofenac sodium [Voltaren Arthritis Pain] 1 % Gel 2 g EXT QID PRN (Reason: pain) Qty: 100 0RF hydrocodone-acetaminophen 5-325 mg Tablet 1 tab PO Q12H PRN (Reason: pain) Qty: 10 0RF docusate sodium 100 mg Capsule 100 mg PO BID PRN (Reason: constipation) Qty: 30 0RF polyethylene glycol 3350 [Miralax] 17 gram Powder In Packet 17 g PO DAILY PRN (Reason: constipation) Qty: 30 0RF prednisone 5 mg Tablet 5 mg PO DAILY Qty: 6 0RF losartan 50 mg tablet 50 mg PO DAILY Qty: 30 0RF Continued multivitamin Tablet 1 tab PO DAILY nifedipine 30 mg Tablet Extended Release 24hr 30 mg PO DAILYBB furosemide [Lasix] 40 mg Tablet 40 mg PO QAM metformin 500 mg Tablet 500 mg PO BID omega-3 fatty acids 1,000 mg Capsule 1,000 mg PO BID fluocinonide 0.05 % Ointment 1 applic TOPICAL BID PRN (Reason: Skin Irritation) aspirin 81 mg Tablet,Delayed Release (Dr/Ec) 81 mg PO DAILY acetaminophen [Tylenol Extra Strength] 500 mg Tablet 500 mg PO TID levothyroxine 75 mcg Tablet 75 mcg PO DAILYBB potassium chloride 20 mEq Tablet,Er Particles/Crystals 20 meq PO DAILY ascorbic acid (vitamin C) [Vitamin C] 500 mg Tablet 500 mg PO DAILY diphenhydramine HCl [Benadryl] 25 mg Capsule 25 mg PO BID PRN (Reason: Itching) magnesium oxide 500 mg Tablet 500 mg PO DAILY Debrox 6.5 % Drops 0 drp otic (ear) DIRECTED PRN (Reason: WAX BUILD UP) Rx Instructions: FILL EAR CANAL, PLUG WITH COTTON BALL, REMOVE AFTER 15-20 MINS. calcium carbonate 500 mg calcium (1,250 mg) Tablet,Chewable 1,000 mg PO DIRECTED PRN (Reason: INDIGESTION/HEARTBURN/UPSET STOMACH) fluticasone propionate 50 mcg/actuation [place],Suspension 2 spray INTRANASAL BID Rx Instructions: administer into each nostril vitamin E 268 mg (400 unit) Capsule 536 mg PO DAILY alum-mag hydroxide-simeth 400-400-40 mg/5 mL Suspension 15 ml PO DAILY PRN (Reason: INDIGESTION/UPSET STOMACH) carboxymethylcellulose sodium [Refresh Liquigel] 1 % Drops, Liquid Gel 2 drp OPHTHALMIC (EYE) DIRECTED PRN (Reason: Dry Eyes) cholecalciferol (vitamin D3) [Vitamin D3] 25 mcg (1,000 unit) Capsule 25 mcg PO DAILY rosuvastatin 20 mg Tablet 20 mg PO DAILY duloxetine [Cymbalta] 20 mg Capsule,Delayed Release(Dr/Ec) 40 mg PO QAM Atrovent HFA 17 mcg/actuation Hfa Aerosol Inhaler 2 puff INHALATION TID PRN (Reason: Wheezing) Azo Bladder Control 300 mg Capsule 1 cap PO BID baclofen 5 mg Tablet 5 mg PO BID PRN (Reason: MUSCLE SPASMS) Aspercreme (lidocaine HCl) 4 % Liquid Roll-On 1 ea TOPICAL TID PRN (Reason: Pain) glucosamine sulfate 1,000 mg Tablet 1,000 mg PO BID Rx Instructions: administer with meals Collagen Ultra 1 cap PO DAILY Changed carvedilol 25 mg Tablet 6.25 mg PO BID Qty: 30 0RF Rx Instructions: must administer with a meal/food Discontinued losartan 100 mg Tablet 100 mg PO DAILY Discharge Orders: Discharge Order (Routine); Ordered 04/07/22 Ordered By: Luke Kang/Other Patient Handouts: Managing Type 2 Diabetes, [facility] for Diabetes Admission Data Admit Date/Time: 03/31/22 23:58 Attending Provider: Luke Parra Admit Provider: Narayan White Primary Care Provider: Collins Delatorre Other Providers: Narayan White ; [facility] ; [facility]erral [facility] ; Garry Salazar
== END 2022-04-07 13:24 | disposition home health service (06) | DRG 178 ==
LOC: ED 16:54 → 2N 23:58 → SUATTDRO 23:58 → 2N 04-01 02:57

== ENCOUNTER 2022-08-01 16:56 | Inpatient (IN) ==
[2022-08-01] MEDS ORDERED: fentaNYL citrate PF 100 MCG/2 ML VIAL IV STA (17:16)
--- NOTE | 2022-08-01 17:18 | Emergency Department Note ---
Impression & Plan Chronic pain of right hip, HTN (hypertension) ED Provider Note Provider: Harlan Coburn MD DATE OF SERVICE: 08/01/2022 CHIEF COMPLAINT: Right hip pain HISTORY OF PRESENT ILLNESS: Patient is a 87-year-old female past medical history including hypertension, type 2 diabetes, right knee arthritis presenting here today via ambulance from her home. Patient unfortunately predominantly bedbound occasionally transfers to bedside commode. Son lives with her and provides majority of her care. Patient evidently today has been experiencing increased pain in the right hip to thigh region. Has been present over the last 3 to 4 days she states. Today when trying to transfer the pain was bad enough that she was unable to assist and slid to the ground. Did not fall. Did not hit her head. Some spasms in the legs at times a little bit of swelling of the feet. Denies significant pain in the calves or knees at this point. Denies significant issue with the upper extremities. States occasionally a little bit of back discomfort. Denies significant chest pain or shortness of breath. Has been using Tylenol regularly by her report. Does report home nursing visits several times a month and did not last week that she seemed to have an irregular bradycardic heart rate. Patient again denies any chest pain. They instructed her to hold her carvedilol which she is has done. PAST MEDICAL HISTORY: As noted above MEDICATIONS: Reviewed home medication list SOCIAL HISTORY: Lives at home with son PHYSICAL EXAM: GENERAL: alert and oriented in no acute distress on stretcher Head: normocephalic and atraumatic EYES: No injection, discharge or icterus. NECK: Trachea midline. ENT: Mucous membranes pink and moist. LUNGS: Airway patent. No retractions. Breath sounds clear HEART: Regular rate and rhythm. ABDOMEN: Soft and non-tender, without guarding or rebound. BACK: No midline tenderness, no SI joint tenderness. SKIN: Acyanotic, warm, dry EXTREMITIES: Lower extremities with 1-2+ edema of the feet bilaterally with barely palpable bilateral DP pulses. Calves are not significantly swollen or tender. Mild swelling of the right knee with minimal tenderness. No significant tenderness of the right thigh. Pain of the right hip to right greater trochanteric area. NEUROLOGICAL: No focal deficits. No aphasia. No facial droop or slurred speech. EK bpm normal sinus rhythm. No PVC or PAC. No acute ST segment elevation or depression with a QTc of 436. CONTINUOUS CARDIAC MONITORING: was ordered and showed a heart rate of 70s bpm in normal sinus rhythm Patient's laboratory studies and imaging reviewed. Differential includes DVT, musculoskeletal, infection, joint effusion, trauma, lymphedema, idiopathic, CHF, cardiac arrhythmia, thyroid dysfunction as well as other pathologies. IMPRESSION/MEDICAL DECISION MAKING: Patient predominantly here due to right hip pain issues and transfer issues. Son cares for significantly at home. Did slide again today but no significant trauma. Pain for the last several days in the right hip region. Did previously have injections by Dr. Phipps by her report. Secondarily reports that she had a bradycardic irregular heart rate last week and that home nursing instructed her to stop her carvedilol. Not bradycardic here. Basic labs, TSH, troponin, and EKG obtained. X-ray of the right hip obtained. Given a small mount of fentanyl. Did review recent admission from April and seen by orthopedics that time were related to some swelling and arthritic changes in the right knee causing pain. Seems to have had some chronic nature to this but not worsening. No fevers or again significant trauma reported I doubt infectious nature. Benign abdomen otherwise. Blood work here with slight anemia 1.9 without significant leukocytosis. No significant electrolyte abnormality or signs of renal dysfunction. No evidence of hepatitis. Doubt given her symptoms and location of pain this represents pancreatitis. EKG completed without significant abnormality at this time for arrhythmia or bradycardia. Troponin normal. Again benign abdomen otherwise. Seems musculoskeletal or bony related. X-ray report and review of films show severe arthritic change. Given her continued pain a CT was completed to exclude any significant fluid collections. Again low suspicion for infection. Discussed with patient. Given some baclofen for muscle spasm component. Do not see any acute cardiac issue. Blood pressure is significantly elevated but in discussion with the patient she states she is too busy this morning and did not take her home blood pressure medicines. Given a dose of her home losartan. Given her age and pain complaints as well as difficulty with transferring at home discussed options at this point. Was home with a small amount of [place] after her last stay several months ago. Discussed with her options. She is concerned given her ability to transfer to [facility] to care for self at home. Discussed with the hospitalist further observation here for pain control and possible additional assistance at home. DIAGNOSIS: Right hip pain, hypertension DISPOSITION: Hospitalist will evaluate Patient was agreeable with this plan. Past Med/Surg History Medical History (Updated 08/01/22 @ 19:20 by Harlan oCburn M.D.) Breast cancer Depression Diabetes mellitus Hypertension Hypothyroidism Migraine headache Sleep apnea Surgical History (Updated 04/06/22 @ 17:12 by Guy Poon PA-C) H/O rotator cuff surgery H/O: hysterectomy History of lumpectomy of left breast Hx of cataract surgery Family History (Updated 04/06/22 @ 14:01 by Guy Poon PA-C) Other No pertinent family history Social History Smoking Status: Never smoker Hx Alcohol Use: No Hx Substance Use: No Preferred Language: Setswana [employer] Required: No Beliefs That Will Affect Care: Denominational Current Living Situation: Family Feels Safe at Home: Yes Assistive Devices: CPAP and Oxygen - at Night Allergies Allergies Allergy/AdvReac Type Severity Reaction Status Date / Time phenobarbital Allergy Intermediate ITCHY RASH Verified 03/31/22 21:32 scopolamine Allergy Intermediate RASH Verified 03/31/22 21:32 simvastatin Allergy Intermediate muscle Verified 03/31/22 21:32 cramps aspirin AdvReac Intermediate Abdominal Verified 03/31/22 21:32 Pain atropine AdvReac Intermediate ITCHING Verified 03/31/22 21:32 codeine AdvReac Intermediate HYPERTENSIO Verified 03/31/22 21:32 N doxycycline AdvReac Intermediate NAUSEA/VOMI Verified 03/31/22 21:32 TING. hyoscyamine AdvReac Intermediate ITCHING Verified 03/31/22 21:32 lactose AdvReac Intermediate Gastrointestinal Verified 03/31/22 21:32 Upset minocycline AdvReac Intermediate NAUSEA AND Verified 03/31/22 21:32 VOMITING morphine AdvReac Intermediate NAUSEA/VOMI Verified 03/31/22 21:32 TING Pork/Porcine Containing AdvReac Unknown spiritual Verified 04/01/22 04:49 Products preference shellfish derived AdvReac Unknown spiritual Verified 03/31/22 21:32 preference Home Meds Home Medications Medication Instructions Recorded Confirmed Collagen Ultra 1 cap PO DAILY 03/31/22 08/01/22 acetaminophen 500 mg tablet 500 mg PO TID 03/31/22 08/01/22 (Tylenol Extra Strength) aluminum-mag hydroxide-simethicone 15 ml PO DAILY PRN 03/31/22 08/01/22 400 mg-400 mg-40 mg/5 mL oral susp INDIGESTION/UPSET STOMACH ascorbic acid (vitamin C) 500 mg 500 mg PO DAILY 03/31/22 08/01/22 tablet (Vitamin C) aspirin 81 mg tablet,delayed 81 mg PO DAILY 03/31/22 08/01/22 release baclofen 5 mg tablet 5 mg PO BID PRN MUSCLE SPASMS 03/31/22 08/01/22 calcium carbonate 500 mg calcium 1,000 mg PO DIRECTED PRN 03/31/22 08/01/22 (1,250 mg) chewable tablet INDIGESTION/HEARTBURN/UPSET STOMACH carbamide peroxide 6.5 % ear drops 0 drp otic (ear) DIRECTED PRN 03/31/22 08/01/22 (Debrox) WAX BUILD UP carboxymethylcellulose sodium 1 % 2 drp ophthalmic (eye) DIRECTED 03/31/22 08/01/22 eye liquid gel drops (Refresh PRN Dry Eyes Liquigel) cholecalciferol (vitamin D3) 25 25 mcg PO DAILY 03/31/22 08/01/22 mcg (1,000 unit) capsule (Vitamin D3) duloxetine 20 mg capsule,delayed 40 mg PO QAM 03/31/22 08/01/22 release (Cymbalta) fluticasone propionate 50 2 spray intranasal BID 03/31/22 08/01/22 mcg/actuation nasal spray,suspension furosemide 40 mg tablet (Lasix) 40 mg PO QAM 03/31/22 08/01/22 glucosamine sulfate 1,000 mg tablet 1,000 mg PO BID 03/31/22 08/01/22 ipratropium bromide 17 2 puff inhalation TID PRN Wheezing 03/31/22 08/01/22 mcg/actuation HFA aerosol inhaler (Atrovent HFA) levothyroxine 75 mcg tablet 75 mcg PO DAILYBB 03/31/22 08/01/22 lidocaine HCl 4 % topical liquid 1 ea topical TID PRN Pain 03/31/22 08/01/22 roll-on (Aspercreme (lidocaine HCl)) magnesium oxide 500 mg tablet 500 mg PO BID 03/31/22 08/01/22 metformin 500 mg tablet 500 mg PO BID 03/31/22 08/01/22 multivitamin 1 tab PO DAILY 03/31/22 08/01/22 nifedipine 30 mg tablet,extended 30 mg PO DAILYBB 03/31/22 08/01/22 release 24 hr omega-3 fatty acids 1,000 mg 1,000 mg PO DAILY 03/31/22 08/01/22 capsule potassium chloride 20 mEq 20 meq PO DAILY 03/31/22 08/01/22 tablet,extended release(part/cryst) pumpkin seed extract-soy germ 300 1 cap PO BID 03/31/22 08/01/22 mg capsule (Azo Bladder Control) rosuvastatin 20 mg tablet 20 mg PO DAILY 03/31/22 08/01/22 vitamin E 268 mg (400 unit) capsule 536 mg PO DAILY 03/31/22 08/01/22 carvedilol 25 mg tablet 0 mg PO BID 08/01/22 08/01/22 Previous Rx's Medication Instructions Recorded losartan 50 mg tablet 50 mg PO DAILY #30 tabs 04/07/22 Results & Data (ED) Vital Signs Vital Signs - 24 hr 08/01/22 17:03 08/01/22 18:00 Temperature 36.7 C Temperature Source Oral Pulse Rate 70 Pulse Rate [Radial] 70 Pulse Rhythm Regular Pulse Rhythm [Radial] Regular Pulse Strength [Radial] Normal Respiratory Rate 20 20 Respiratory Effort / Characteristics Non-Labored Non-Labored Spontaneous Respiratory Depth Normal Normal Respiratory Pattern Regular Blood Pressure 174/74 H Blood Pressure [Left Arm] 181/89 H Blood Pressure Mean 107 Blood Pressure Mean [Left Arm] 119 Blood Pressure Position [Left Arm] Lying Pulse Oximetry 97 96 Oxygen Delivery Method Room Air Room Air Sepsis Recent Fever Within 48 Hours No Sepsis New/Unexplained Change in Mental Status N/A Sepsis Action Taken by Nursing No Action Required Laboratory Data 08/01/22 17:23 08/01/22 17:23 Lab Results 08/01/22 08/01/22 08/01/22 Range/Units 17:23 17:23 17: WBC 6.40 (4.8-10.8) K/ul RBC 4.33 (4.20-5.40) M/uL Hgb 11.9 L (12.0-16.0) g/dl Hct 38.4 (37.0-47.0) % MCV 88.7 (80.0-100.0) fL MCH 27.5 (25.0-34.0) pg MCHC 31.0 L (32.0-36.0) g/dL RDW Std Deviation 49.3 H (36.4-46.3) fL RDW Coeff of Sergio 15.1 H (11.5-14.5) % Plt Count 397 (130-400) K/uL MPV 9.1 L (9.4-12.4) fL Immature Gran % (Auto) 0.2 % Neut % (Auto) 56.8 % Lymph % (Auto) 28.8 % [place] % (Auto) 8.6 % Eos % (Auto) 4.5 % Baso % (Auto) 1.1 % Neut # (Auto) 3.64 (1.40-6.50) K/uL Lymph # (Auto) 1.84 (1.2-3.4) K/uL [place] # (Auto) 0.55 (0.11-0.59) K/uL Eos # (Auto) 0.29 (0-0.50) K/uL Baso # (Auto) 0.07 (0-0.2) K/uL Immature Gran # (Auto) 0.01 (0.01-0.20) K/uL Sodium 138 (136-145) mmol/L Potassium 4.1 (3.5-5.1) mmol/L Chloride 103 (98-107) mmol/L Carbon Dioxide 27 (21-32) mmol/L Anion Gap 8 (3-11) BUN 11 (6-23) mg/dl Creatinine 0.61 (0.6-1.2) mg/dl Est Cr Clr Drug Dosing 75.6 ml/min Est GFR ( Amer) 93.8 ml/min Est GFR (Non-Af Amer) 80.9 ml/min BUN/Creatinine Ratio 18.0 (10-20) Glucose 119 H (70-99(Fasting)) mg/dl Calcium 9.9 (8.6-10.3) mg/dl Magnesium 1.9 (1.7-2.4) mg/dl Total Bilirubin 0.5 (0.2-1.0) mg/dl AST 16 (13-39) U/L ALT 9 (7-52) U/L Alkaline Phosphatase 39 (34-104) U/L Troponin I High Sens 6.7 (0-14) pg/ml Total Protein 7.6 (6.0-8.3) gm/dl Albumin 4.0 (3.4-5.0) gm/dl Globulin 3.6 (2.5-4.0) gm/dl Albumin/Globulin Ratio 1.1 (0.9-2) TSH 6.026 H (0.300-4.500) uIu/ml Free T4 0.82 (0.61-1.60) ng/dl SARS-CoV-2, RNA, NAAT (NEGATIVE) 08/01/22 Range/Units 18:20 WBC (4.8-10.8) K/ul RBC (4.20-5.40) M/uL Hgb (12.0-16.0) g/dl Hct (37.0-47.0) % MCV (80.0-100.0) fL MCH (25.0-34.0) pg MCHC (32.0-36.0) g/dL RDW Std Deviation (36.4-46.3) fL RDW Coeff of Sergio (11.5-14.5) % Plt Count (130-400) K/uL MPV (9.4-12.4) fL Immature Gran % (Auto) % Neut % (Auto) % Lymph % (Auto) % [place] % (Auto) % Eos % (Auto) % Baso % (Auto) % Neut # (Auto) (1.40-6.50) K/uL Lymph # (Auto) (1.2-3.4) K/uL [place] # (Auto) (0.11-0.59) K/uL Eos # (Auto) (0-0.50) K/uL Baso # (Auto) (0-0.2) K/uL Immature Gran # (Auto) (0.01-0.20) K/uL Sodium (136-145) mmol/L Potassium (3.5-5.1) mmol/L Chloride (98-107) mmol/L Carbon Dioxide (21-32) mmol/L Anion Gap (3-11) BUN (6-23) mg/dl Creatinine (0.6-1.2) mg/dl Est Cr Clr Drug Dosing ml/min Est GFR ( Amer) ml/min Est GFR (Non-Af Amer) ml/min BUN/Creatinine Ratio (10-20) Glucose (70-99(Fasting)) mg/dl Calcium (8.6-10.3) mg/dl Magnesium (1.7-2.4) mg/dl Total Bilirubin (0.2-1.0) mg/dl AST (13-39) U/L ALT (7-52) U/L Alkaline Phosphatase (34-104) U/L Troponin I High Sens (0-14) pg/ml Total Protein (6.0-8.3) gm/dl Albumin (3.4-5.0) gm/dl Globulin (2.5-4.0) gm/dl Albumin/Globulin Ratio (0.9-2) TSH (0.300-4.500) uIu/ml Free T4 (0.61-1.60) ng/dl SARS-CoV-2, RNA, NAAT NEGATIVE (NEGATIVE) Administered Medications Discontinued Medications Fentanyl Citrate (Fentanyl Citrate Pf 100 Mcg/2 Ml Vial) 25 mcg IV NOW STA Stop: 08/01/22 17:17 Last Admin: 08/01/22 17:59 Dose: 25 mcg Documented By: BEZ Imaging Data Radiologist's Impression: Femur X-Ray 08/01/22 17:13 RIGHT FEMUR 2 VIEWS CLINICAL HISTORY: Right leg pain. FINDINGS: AP and crosstable lateral views of the right femur are compared to study dated 03/31/2022. The skeletal structures are osteopenic. There is no radiographic evidence of right femoral fracture. Severe arthritic changes again seen in the right hip with near-complete loss of the joint space, bony sclerosis, and subchondral cyst formation. The visualized right hemipelvis appears intact. The right knee joint is grossly maintained noting advanced arthritis. The overlying soft tissues are within normal limits. IMPRESSION: 1. There is no radiographic evidence of right femoral fracture. 2. Severe arthritic change of the right hip is similar to previous. Electronically signed by: Jose Enrique Cates M.D. 08/01/2022 6:28 PM Discharge Plan Visit Data Chief Complaint: Hip Pain Stated Complaint: LEG PAIN ED Provider: Harlan Coburn Discharge Problem: Chronic pain of right hip, HTN (hypertension) Patient Disposition: Being Evaluated by Hospitalist Forms Stand Alone Forms: [employer] Prescriptions Prescriptions: No Action carvedilol 25 mg tablet 0 mg PO BID Rx Instructions: pt hasn't taken in two weeks due to low heart rate; normal dose 6.25 mg bid multivitamin Tablet 1 tab PO DAILY nifedipine 30 mg Tablet Extended Release 24hr 30 mg PO DAILYBB furosemide [Lasix] 40 mg Tablet 40 mg PO QAM metformin 500 mg Tablet 500 mg PO BID omega-3 fatty acids 1,000 mg Capsule 1,000 mg PO DAILY aspirin 81 mg Tablet,Delayed Release (Dr/Ec) 81 mg PO DAILY acetaminophen [Tylenol Extra Strength] 500 mg Tablet 500 mg PO TID levothyroxine 75 mcg Tablet 75 mcg PO DAILYBB potassium chloride 20 mEq Tablet,Er Particles/Crystals 20 meq PO DAILY ascorbic acid (vitamin C) [Vitamin C] 500 mg Tablet 500 mg PO DAILY magnesium oxide 500 mg Tablet 500 mg PO BID Debrox 6.5 % Drops 0 drp otic (ear) DIRECTED PRN (Reason: WAX BUILD UP) Rx Instructions: FILL EAR CANAL, PLUG WITH COTTON BALL, REMOVE AFTER 15-20 MINS. calcium carbonate 500 mg calcium (1,250 mg) Tablet,Chewable 1,000 mg PO DIRECTED PRN (Reason: INDIGESTION/HEARTBURN/UPSET STOMACH) fluticasone propionate 50 mcg/actuation [place],Suspension 2 spray INTRANASAL BID Rx Instructions: administer into each nostril vitamin E 268 mg (400 unit) Capsule 536 mg PO DAILY alum-mag hydroxide-simeth 400-400-40 mg/5 mL Suspension 15 ml PO DAILY PRN (Reason: INDIGESTION/UPSET STOMACH) carboxymethylcellulose sodium [Refresh Liquigel] 1 % Drops, Liquid Gel 2 drp OPHTHALMIC (EYE) DIRECTED PRN (Reason: Dry Eyes) cholecalciferol (vitamin D3) [Vitamin D3] 25 mcg (1,000 unit) Capsule 25 mcg PO DAILY rosuvastatin 20 mg Tablet 20 mg PO DAILY duloxetine [Cymbalta] 20 mg Capsule,Delayed Release(Dr/Ec) 40 mg PO QAM Atrovent HFA 17 mcg/actuation Hfa Aerosol Inhaler 2 puff INHALATION TID PRN (Reason: Wheezing) Azo Bladder Control 300 mg Capsule 1 cap PO BID baclofen 5 mg Tablet 5 mg PO BID PRN (Reason: MUSCLE SPASMS) lidocaine HCl [Aspercreme (lidocaine HCl)] 4 % Liquid Roll-On 1 ea TOPICAL TID PRN (Reason: Pain) glucosamine sulfate 1,000 mg Tablet 1,000 mg PO BID Rx Instructions: administer with meals Collagen Ultra 1 cap PO DAILY losartan 50 mg tablet 50 mg PO DAILY Qty: 30 0RF Referrals Referrals: Collins Delatorre DO [Primary Care Provider] -
[2022-08-01 17:48] LABS: Basophils # (auto) 0.07 K/uL (0-0.2); Basophils % (auto) 1.1 %; Eosinophils # (auto) 0.29 K/uL (0-0.50); Eosinophils % (auto) 4.5 %; Hematocrit (blood only) 38.4 % (37.0-47.0); Hemoglobin 11.9 g/dl (12.0-16.0); Immature Granulocytes # (auto) 0.01 K/uL (0.01-0.20); Immature Granulocytes % (auto) 0.2 %; Lymphocytes # (auto) 1.84 K/uL (1.2-3.4); Lymphocytes % (auto) 28.8 %; Mean Corpuscular Hemoglobin 27.5 pg (25.0-34.0); Mean Corpuscular Volume 88.7 fL (80.0-100.0); Mean Platelet Volume 9.1 fL (9.4-12.4); Monocytes # (auto) 0.55 K/uL (0.11-0.59); Monocytes % (auto) 8.6 %; Neutrophils # (auto) 3.64 K/uL (1.40-6.50); Neutrophils % (auto) 56.8 %; Platelet Count 397 K/uL (130-400); RDW Coefficient of Variation 15.1 % (11.5-14.5); RDW Standard Deviation 49.3 fL (36.4-46.3); Red Blood Count 4.33 M/uL (4.20-5.40)
[2022-08-01 18:00] LABS: Albumin Globulin Ratio 1.1 (0.9-2); Bilirubin,Total 0.5 mg/dl (0.2-1.0); Calcium 9.9 mg/dl (8.6-10.3); Creatinine Clr Calc Pharmacy 75.6 ml/min; Est GFR (African American) 93.8 ml/min; Est GFR (Non-African American) 80.9 ml/min; Globulin 3.6 gm/dl (2.5-4.0); Magnesium 1.9 mg/dl (1.7-2.4); Potassium 4.1 mmol/L (3.5-5.1); Total Protein 7.6 gm/dl (6.0-8.3)
[2022-08-01 18:07] LABS: Troponin I High Sensitivity 6.7 pg/ml (0-14)
[2022-08-01 18:18] LABS: Thyroid Stimulating Hormone 6.026 uIu/ml (0.300-4.500)
--- NOTE | 2022-08-01 18:29 | XRay Report ---
RIGHT FEMUR 2 VIEWS CLINICAL HISTORY: Right leg pain. FINDINGS: AP and crosstable lateral views of the right femur are compared to study dated 03/31/2022. The skeletal structures are osteopenic. There is no radiographic evidence of right femoral fracture. Severe arthritic changes again seen in the right hip with near-complete loss of the joint space, bony sclerosis, and subchondral cyst formation. The visualized right hemipelvis appears intact. The right knee joint is grossly maintained noting advanced arthritis. The overlying soft tissues are within no rmal limits. IMPRESSION: 1. There is no radiographic evidence of right femoral fracture. 2. Severe arthritic change of the right hip is similar to previous. Electronically signed by: Jose Enrique Cates M.D. 08/01/2022 6:28 PM
[2022-08-01 19:01] LABS: T4 Free Thyroxine 0.82 ng/dl (0.61-1.60)
[2022-08-01] MEDS ORDERED: BACLOFEN 10 MG TAB PO ONE (19:09)
[2022-08-01] MEDS ORDERED: LOSARTAN POTASSIUM 50 MG TAB PO ONE (19:17)
--- NOTE | 2022-08-01 20:43 | CT Scan Report ---
CT SCAN OF THE RIGHT HIP WITHOUT IV CONTRAST CLINICAL HISTORY: Atraumatic right hip pain. COMPARISON STUDY: Pelvic CT dated 03/31/2022. Radiographs of the right femur dated 08/01/2022 and . TECHNIQUE: CT scan of the right hip is performed in the bony pelvis to the femoral shaft. Images are reviewed in the axial, sagittal, and coronal planes. IV contrast was not administered for this exami nation. A dose lowering technique was utilized adhering to the principles of ALARA. CT DOSE: 870.43 mGy.cm FINDINGS: The skeletal structures are osteopenic. There is no evidence of acute fracture involving th e right hip or the visualized right hemipelvis. Severe arthritic change an mild deformity is again se en in the right hip with a loss of joint space, bony sclerosis, subchondral cyst formation, and overg rowth/spurring. There is likely a small joint effusion of the right hip. Moderate arthritic change is noted in the partially imaged left hip. No lytic or blastic lesion is seen. 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 Degenerative change is noted in the sacroiliac joints. There i s generalized atrophy of the regional musculature. The bladder is distended but otherwise normal in a ppearance. The uterus is surgically absent. No adnexal lesion is seen. There is diverticulosis of lef t colon without CT evidence of acute diverticulitis. No right pelvic sidewall or inguinal lymphadenop athy seen. IMPRESSION: 1. There is no evidence of acute fracture involving the right hip or the visualized right hemipelvis. 2. Severe arthritic change of the right hip as above. This has not appreciably changed as compared to the 03/31/2022 examination. 3. Additional findings as above. ACT 112: Negative or not required by law. Electronically signed by: Jose Enrique Cates M.D. 08/01/2022 8:42 PM
--- NOTE | 2022-08-02 00:28 | History and Physical Report ---
DATE OF ADMISSION: 08/01/2022. CHIEF COMPLAINT: Severe right hip pain. HISTORY OF PRESENT ILLNESS: This is an 87-year-old female with past medical history significant for type 2 diabetes, hypothyroidism, hyperlipidemia, obstructive sleep apnea, on CPAP at bedtime with 2 liters oxygen, pulmonary hypertension, chronic diastolic congestive heart failure, venous insufficiency, hypertension, diverticulosis of colon, cervical spinal degenerative arthritis, lichen planus, spasm of the muscles, leg swelling, osteoarthritis of both knees, physical deconditioning, urinary frequency, history of breast cancer, status post right lumpectomy in 2012, sicca syndrome, migraine headaches. The patient lives with her son, mostly bed bound, can transfer to the commode and back to the bed. Comes with severe right hip pain. Son says that he was trying to clean her up, and when he was pulling her up, she had severe pain in the right hip and she slid down to the floor, that is the reason she was brought in here. Imaging studies showed arthritis, no fractures. Currently, after pain medications, she is feeling better. Denies any other complaints. She has some on and off runny nose, on and off cough, on and off sore throat. Denies any fevers, no headache, no blurred visions, no earaches, no chest pain, no shortness of breath. Appetite is okay. No nausea, no abdominal pain. Normal bowel and bladder movements. She says micturates a lot. Recently also her home health nurse noticed her heart rate was lowest in 30s. So they stopped the Coreg, which she was taking at 6.5 mg b.i.d. Next at home checked the EKG after stopping the Coreg, her EKG looked okay as per son. She is currently off of the Coreg. ALLERGIES: PHENOBARBITAL, SCOPOLAMINE, SIMVASTATIN, ASPIRIN, ATROPINE, CODEINE, DOXYCYCLINE, HYOSCYAMINE, LACTOSE, MINOCYCLINE, MORPHINE, PORK AND PROCRINE CONTAINING PRODUCTS, SHELLFISH DERIVED. PAST MEDICAL HISTORY: As mentioned above. PAST SURGICAL HISTORY: Colonoscopy, EGD, lumbosacral spinal injections, right partial mastectomy, pericardiocentesis, cataract surgery, cervical laminectomy, repair of right rotator cuff, total abdominal hysterectomy with removal of tubes. MEDICATIONS: The patient is currently on Tylenol Extra Strength 500 mg p.o. t.i.d., Maalox 15 mL p.o. q. 6 hours p.r.n., vitamin C 500 mg p.o. daily, aspirin 81 mg p.o. daily, Atrovent HFA 2 puffs inhalation t.i.d. p.r.n., baclofen 5 mg p.o. b.i.d. p.r.n., calcium carbonate 1000 mg p.o. p.r.n., Refresh 2 drops ophthalmic for dry eyes, vitamin D 25 mcg p.o. daily, duloxetine 40 mg p.o. a.m., Flonase 2 sprays intranasal b.i.d., Lasix 40 mg p.o. daily, glucosamine 1000 mg p.o. b.i.d., levothyroxine 75 mcg p.o. daily, losartan 50 mg p.o. daily, magnesium oxide 500 mg p.o. b.i.d., metformin 500 mg p.o. b.i.d., multivitamin 1 tablet p.o. daily, nifedipine 30 mg p.o. daily, omega fish oil 1 gram p.o. daily, potassium chloride 20 mEq p.o. daily, rosuvastatin 20 mg p.o. daily. FAMILY HISTORY: Significant for father has hypertension; mother has pneumonia; sister has arthritis, asthma, colon cancer; brother has diabetes; sister has lung cancer. SOCIAL HISTORY: . No smoking, no alcohol, no drug use. Lives with her son. REVIEW OF SYSTEMS: As per HPI. Rest of review of systems is negative. PHYSICAL EXAMINATION: GENERAL: The patient is of moderate build, not in acute distress. VITAL SIGNS: Temperature 36.7, pulse 86, respiratory rate 18, blood pressure 170/99, oxygen 97% on room air. HEENT: Pupils equal, round, and reactive to light. Oral mucosa moist. NECK: No JVD, no neck masses. CARDIOVASCULAR: S1 and S2 heard. Regular rate and rhythm. No murmur, no gallop. RESPIRATORY SYSTEM: Normal AP diameter. No accessory muscle use. No wheezing, no crackles. ABDOMEN: Soft, bowel sounds present, nontender, no distention. CENTRAL NERVOUS SYSTEM: Alert and oriented. Speech is clear. No facial droop. Obeys simple commands. Moves extremities. EXTREMITIES: No edema, no erythema seen. LABORATORY DATA: WBC 6.4, hemoglobin 11.9, hematocrit 38.4, platelets 397. Sodium 138, potassium 4.1, chloride 103, bicarbonate 27, BUN 11, creatinine 0.6, serum glucose 119, calcium 9.9, magnesium 1.9, total bilirubin 0.5, AST 16, ALT 9, alkaline phosphatase 39. TSH 6.026, free T4 of 0.8. SARS-CoV-2 rapid test negative. IMAGING DATA: CT of the right hip, no evidence of acute fracture involving the right hip or visualized right hemipelvis, severe arthritic change of the right hip. No appreciable change from previous examination. Femur x-ray of the right side, no acute findings. Severe arthritic change. ELECTROCARDIOGRAM: Normal sinus rhythm, rate of 77, no significant change was found. ASSESSMENT AND PLAN: This is an 87-year-old female who is bed bound, transfers to the [facility] and back, comes with severe right hip pain. 1. Severe right hip pain: Severe arthritic changes on the imaging studies. Pain control. PT, OT. Observe in the hospital. 2. Hypertension: Recently Coreg was stopped because of bradycardia at home, she is on nifedipine, losartan, and Lasix. We will place on IV hydralazine PRN and monitor the blood pressure. Monitor in med tele. If any concern, will consult cardiology. 3. History of sleep apnea and nocturnal hypoxia with CPAP at night with oxygen. 4. Diabetes: Hold metformin. Placed on insulin sliding scale. Will follow the blood sugar. 5. Hyperlipidemia: On statin. 6. Chronic diastolic congestive heart failure: Continue her home Lasix. 7. Hypothyroidism: On Synthroid. 8. Depression: On Cymbalta. 9. Deep venous thrombosis prophylaxis: Placed her on Lovenox. DISPOSITION: Closely monitor in the med tele. PT/OT prior to discharge. Social service to help with discharge planning. Level 1 full code as per my discussion with the son. Job ID: [id number] [facility]
[2022-08-02] MEDS ORDERED: ACETAMINOPHEN 325 MG TAB PO PRN (00:31)
[2022-08-02] MEDS ORDERED: ONDANSETRON INJ 2 MG/ML 2 ML VIAL IV PRN (00:31)
[2022-08-02] MEDS ORDERED: hydrALAZINE HCL 20 MG/ML VIAL IV PRN (00:31)
[2022-08-02] MEDS ORDERED: POLYETHYLENE (MIRALAX) 17 GM PACK PO PRN (00:31)
[2022-08-02] MEDS ORDERED: CARBOHYDRATES FOR HYPOGLYCEMIA PO PRN (00:31)
[2022-08-02] MEDS ORDERED: GLUCOSE 40% GEL 15 GM TUBE PO PRN (00:31)
[2022-08-02] MEDS ORDERED: DEXTROSE 50% 50 ML SYRINGE IV PRN (00:31)
[2022-08-02] MEDS ORDERED: ALUMINUM/MAGNESIUM/SIMETH (MAALOX MAX) 30 ML UDC PO PRN (00:31)
[2022-08-02] MEDS ORDERED: CARBAMIDE PEROXIDE 6.5% 15 ML BTL OT PRN (00:31)
[2022-08-02] MEDS ORDERED: IPRATROPIUM BROMIDE HFA INHALER INH PRN (00:31)
[2022-08-02] MEDS ORDERED: GLUCAGON FOR INJ 1 MG VIAL SQ PRN (00:31)
[2022-08-02] MEDS ORDERED: GLUCOSE 10 TAB/TUBE PO PRN (00:31)
[2022-08-02] MEDS ORDERED: HYDROmorphone INJ 0.5 MG/0.5 ML SYR IV PRN (00:31)
[2022-08-02] MEDS ORDERED: CALCIUM CARBONATE 500 MG CHEWABLE TAB PO PRN (01:01)
[2022-08-02] MEDS ORDERED: ARTIFICIAL TEARS OP PRN (01:11)
[2022-08-02] MEDS: oxyCODONE HCL IR 5 MG TAB (IMMEDIATE RELEASE) PO PRN ×3 (01:20→21:51)
[2022-08-02] MEDS: ENOXAPARIN INJ 40 MG/0.4 ML SYR SQ SCH ×2 (01:25→20:24)
[2022-08-02] MEDS: LIDOCAINE 4% CREAM 15 GM TUBE EXT PRN (01:27)
[2022-08-02 05:50] LABS: Basophils # (auto) 0.09 K/uL (0-0.2); Basophils % (auto) 1.3 %; Eosinophils # (auto) 0.37 K/uL (0-0.50); Eosinophils % (auto) 5.5 %; Hemoglobin 11.2 g/dl (12.0-16.0); Immature Granulocytes # (auto) 0.01 K/uL (0.01-0.20); Immature Granulocytes % (auto) 0.1 %; Lymphocytes # (auto) 1.99 K/uL (1.2-3.4); Lymphocytes % (auto) 29.7 %; Mean Corpuscular Hemoglobin 27.7 pg (25.0-34.0); Mean Corpuscular Hgb Conc 31.1 g/dL (32.0-36.0); Mean Corpuscular Volume 88.9 fL (80.0-100.0); Monocytes # (auto) 0.81 K/uL (0.11-0.59); Monocytes % (auto) 12.1 %; Neutrophils # (auto) 3.44 K/uL (1.40-6.50); Neutrophils % (auto) 51.3 %; Platelet Count 355 K/uL (130-400); RDW Coefficient of Variation 15.2 % (11.5-14.5); RDW Standard Deviation 49.2 fL (36.4-46.3); Red Blood Count 4.05 M/uL (4.20-5.40); White Blood Count 6.71 K/ul (4.8-10.8)
[2022-08-02] MEDS: LEVOTHYROXINE SODIUM 75 MCG TABLET PO SCH (05:56)
[2022-08-02] MEDS: NIFEdipine EXTENDED REL 30 MG TABCR PO SCH (05:56)
[2022-08-02 06:10] LABS: BUN Creatinine Ratio 16.9 (10-20); Calcium 9.2 mg/dl (8.6-10.3); Creatinine Clr Calc Pharmacy 69.1 ml/min; Est GFR (African American) 91.9 ml/min; Est GFR (Non-African American) 79.3 ml/min; Magnesium 1.8 mg/dl (1.7-2.4)
[2022-08-02 08:01] LABS: Estimated Average Glucose 143 mg/dl; Hemoglobin A1C 6.6 % (4.5-5.6)
[2022-08-02] MEDS ORDERED: NON-FORMULARY MEDICATION (Pumpkin Seed Extract-Soy Germ [Azo Bladder Control] 300 mg Capsu PO SCH (09:00)
[2022-08-02] MEDS ORDERED: COLLAGEN ULTRA PO SCH (09:00)
[2022-08-02] MEDS ORDERED: ACETAMINOPHEN 500 MG TAB PO SCH (09:00)
[2022-08-02] MEDS: INSULIN ASPART PER UNIT CHARGE SC SCH ×4 (09:49→20:31)
[2022-08-02] MEDS ORDERED: CYCLOBENZAPRINE HCL 5 MG TAB PO SCH (10:15)
[2022-08-02] MEDS: LIDOCAINE 5% 1 PATCH TD SCH (10:42)
[2022-08-02] MEDS: LOSARTAN POTASSIUM 50 MG TAB PO SCH (10:43)
[2022-08-02] MEDS: DULoxetine HCL 20 MG CAP PO SCH (10:43)
[2022-08-02] MEDS: ASCORBIC ACID 500 MG TAB PO SCH (10:43)
[2022-08-02] MEDS: FUROSEMIDE 40 MG TAB PO SCH (10:43)
[2022-08-02] MEDS: ASPIRIN 81 MG ECTAB PO SCH (10:43)
[2022-08-02] MEDS: FLUTICASONE PROPIONATE NA SPR 16 GM BTL SCH ×2 (10:44→20:24)
[2022-08-02] MEDS: MAGNESIUM OXIDE 400 MG TAB PO SCH ×2 (10:44→20:24)
[2022-08-02] MEDS: CHOLECALCIFEROL 1,000 UNITS 25 MCG TAB PO SCH (10:44)
[2022-08-02] MEDS: ROSUVASTATIN CALCIUM 20 MG TAB PO SCH (10:44)
[2022-08-02] MEDS: POTASSIUM CHLORIDE CRTAB 20 MEQ TABCR PO SCH (10:44)
[2022-08-02] MEDS: MULTIVITAMIN TAB PO SCH (10:44)
[2022-08-02] MEDS: GLUCOSAMINE SULFATE 500 MG CAP PO SCH ×2 (10:44→17:27)
--- NOTE | 2022-08-02 11:03 | Hospitalist Progress Note ---
Date of Service August 02, 2022 Assessment & Plan (1) Chronic pain of right hip: Plan: Hip hip CT femoral x-ray did not show any acute fractures but noted severe arthritic change of the right hip Optimize pain control Continue baclofen twice daily as needed Increase tylenol 975mg TID Lidocaine patch Continue duloxetin PT/OT Patient needs to follow up with her pain mgt dr outpatient. PCP to arrange for motorized wheel chair for her (2) HTN (hypertension): Plan: BP is controlled Continue losartan Per H/P, report of coreg discontinued due to bradycardia (3) SARAN (obstructive sleep apnea): Plan: Continue CPAP HS (4) DM type 2 (diabetes mellitus, type 2): Plan: HbA1c is 6.6 Hold metformin while inpatient ISS per protocol (5) Hypothyroid: Plan: Continue levothyroxine To follow up PCP for monitoring and management DVT ppx - lovenox sq I spent a total of 45 minutes coordinating, documenting and providing care for this patient excluding time spent in performance of separately billed services Admission and Anticipated Discharge Date Admission Date: August 01, 2022 Subjective Patient seen and examined Reports chronic low back and Lower extremity pain with spasms Had slid down yesterday while being cleaned by family and was brought in for worsening pain Reports occasional cough, sore throat and rhinorrhea Reports she is bedbound Reports chronic urinary incontinence for over 1 year. Denied dysuria, hematuria. Denied other symptoms on ROS Physical Exam Constitutional: + well hydrated; no acute distress Eyes: PERRL, conjunctivae normal, anicteric sclerae ENMT: external ear and nose normal, oropharynx normal Respiratory: normal respiratory effort, lungs clear to auscultation Cardiovascular: Rate/Rhythm: regular rate and regular rhythm S1 S2 Gastrointestinal (Abdomen): normal bowel sounds, soft, nontender, no hepatosplenomegaly Musculoskeletal: Patient had spasms in right quadriceps during exam Neurologic: PERRL, EOMI, accommodation nl, no face palsy, no dysarthria Psychiatric: A+Ox3, euthymic affect Results & Data Results & Data Vital Signs (Past 12 Hours) Vital Signs Temp Pulse Pulse Resp BP BP Pulse Ox 08/02/22 07:45 36.8 C 68 18 152/60 H 100 08/02/22 07:29 65 08/02/22 02:51 36.8 C 71 20 171/72 H 97 08/02/22 00:30 78 08/02/22 00:34 36.9 C 81 18 193/81 H 95 08/02/22 00:03 36.9 C 81 18 193/81 H 95 O2 Del Method O2 Flow Rate 08/02/22 07:45 Nasal Cannula 2 08/02/22 07:29 08/02/22 02:51 Nasal Cannula 2 08/02/22 00:30 08/02/22 00:34 Room Air 08/02/22 00:03 Room Air Laboratory Results Abnormal lab results 08/01/22 08/01/22 08/01/22 Range/Units 17:23 17:23 17:23 RBC (4.20-5.40) M/uL Hgb 11.9 L (12.0-16.0) g/dl Hct (37.0-47.0) % MCHC 31.0 L (32.0-36.0) g/dL RDW Std Deviation 49.3 H (36.4-46.3) fL RDW Coeff of Sergio 15.1 H (11.5-14.5) % MPV 9.1 L (9.4-12.4) fL [place] # (Auto) (0.11-0.59) K/uL Glucose 119 H (70-99(Fasting)) mg/dl POC Glucose (70-99) mg/dl Hemoglobin A1c (4.5-5.6) % TSH 6.026 H (0.300-4.500) uIu/ml 08/02/22 08/02/22 08/02/22 Range/Units 00:11 05:20 05:20 RBC 4.05 L (4.20-5.40) M/uL Hgb 11.2 L (12.0-16.0) g/dl Hct 36.0 L (37.0-47.0) % MCHC 31.1 L (32.0-36.0) g/dL RDW Std Deviation 49.2 H (36.4-46.3) fL RDW Coeff of Sergio 15.2 H (11.5-14.5) % MPV 9.0 L (9.4-12.4) fL [place] # (Auto) 0.81 H (0.11-0.59) K/uL Glucose (70-99(Fasting)) mg/dl POC Glucose 119 H (70-99) mg/dl Hemoglobin A1c 6.6 H (4.5-5.6) % TSH (0.300-4.500) uIu/ml
[2022-08-02] MEDS: ACETAMINOPHEN 325 MG TAB PO SCH ×2 (13:52→20:23)
--- NOTE | 2022-08-02 17:38 | Electrocardiogram Report ---
Test Reason : Blood Pressure : / mmHG Vent. Rate : 077 BPM Atrial Rate : 077 BPM P-R Int : 140 ms QRS Dur : 068 ms QT Int : 386 ms P-R-T Axes : 045 003 080 degrees QTc Int : 436 ms Poor data quality, interpretation may be adversely affected Normal sinus rhythm Nonspecific ST abnormality When compared with ECG of 31-MAR-2022 17:19, No significant change was found Confirmed by Codey Carballo ([id number]) on 08/02/2022 5:38:22 PM Referred By: REFERRED SELF Confirmed By:Georgi Carballo
[2022-08-03] MEDS: NIFEdipine EXTENDED REL 30 MG TABCR PO SCH (06:17)
[2022-08-03] MEDS: LEVOTHYROXINE SODIUM 75 MCG TABLET PO SCH (06:17)
[2022-08-03 06:23] LABS: Hemoglobin 11.1 g/dl (12.0-16.0); Mean Corpuscular Hemoglobin 27.9 pg (25.0-34.0); Mean Corpuscular Hgb Conc 31.7 g/dL (32.0-36.0); Mean Corpuscular Volume 87.9 fL (80.0-100.0); Mean Platelet Volume 9.2 fL (9.4-12.4); Platelet Count 352 K/uL (130-400); RDW Coefficient of Variation 14.8 % (11.5-14.5); RDW Standard Deviation 47.8 fL (36.4-46.3); Red Blood Count 3.98 M/uL (4.20-5.40)
[2022-08-03 06:41] LABS: BUN Creatinine Ratio 17.9 (10-20); Calcium 9.1 mg/dl (8.6-10.3); Creatinine Clr Calc Pharmacy 81.9 ml/min; Est GFR (African American) 96.5 ml/min; Est GFR (Non-African American) 83.2 ml/min; Magnesium 1.9 mg/dl (1.7-2.4); Phosphorus 3.6 mg/dl (2.5-4.9)
[2022-08-03] MEDS: INSULIN ASPART PER UNIT CHARGE SC SCH ×4 (08:37→20:57)
[2022-08-03] MEDS: DULoxetine HCL 20 MG CAP PO SCH (08:38)
[2022-08-03] MEDS: FLUTICASONE PROPIONATE NA SPR 16 GM BTL SCH ×2 (08:38→22:01)
[2022-08-03] MEDS: ASPIRIN 81 MG ECTAB PO SCH (08:38)
[2022-08-03] MEDS: MAGNESIUM OXIDE 400 MG TAB PO SCH ×2 (08:38→22:04)
[2022-08-03] MEDS: POTASSIUM CHLORIDE CRTAB 20 MEQ TABCR PO SCH (08:38)
[2022-08-03] MEDS: FUROSEMIDE 40 MG TAB PO SCH (08:38)
[2022-08-03] MEDS: LOSARTAN POTASSIUM 50 MG TAB PO SCH (08:38)
[2022-08-03] MEDS: CHOLECALCIFEROL 1,000 UNITS 25 MCG TAB PO SCH (08:38)
[2022-08-03] MEDS: MULTIVITAMIN TAB PO SCH (08:38)
[2022-08-03] MEDS: ROSUVASTATIN CALCIUM 20 MG TAB PO SCH (08:39)
[2022-08-03] MEDS: LIDOCAINE 5% 1 PATCH TD SCH (08:39)
[2022-08-03] MEDS: ASCORBIC ACID 500 MG TAB PO SCH (08:39)
[2022-08-03] MEDS: ACETAMINOPHEN 325 MG TAB PO SCH ×3 (08:39→22:02)
[2022-08-03] MEDS: GLUCOSAMINE SULFATE 500 MG CAP PO SCH ×2 (08:39→17:19)
--- NOTE | 2022-08-03 11:24 | Hospitalist Progress Note ---
Date of Service August 03, 2022 Assessment & Plan (1) Chronic pain of right hip: Plan: Hip hip CT femoral x-ray did not show any acute fractures but noted severe arthritic change of the right hip Optimize pain control Continue baclofen twice daily as needed Continue tylenol 975mg TID Lidocaine patch Continue duloxetin PT/OT eval PCP to arrange for motorized wheel chair for her Pain management consult placed per [facility] recs CM will follow up for possible placement (2) HTN (hypertension): Plan: BP is controlled Continue losartan Per H/P, report of coreg discontinued due to bradycardia (3) SARAN (obstructive sleep apnea): Plan: Continue CPAP HS (4) DM type 2 (diabetes mellitus, type 2): Plan: HbA1c is 6.6 Hold metformin while inpatient ISS per protocol (5) Hypothyroid: Plan: TSH is 6.026 Will continue current dose of levothyroxine at this time. Patient stated her spasms got worse when it was increased last year To follow up PCP for monitoring and management DVT ppx - lovenox sq I called son and updated him I spent a total of 50 minutes coordinating, documenting and providing care for this patient excluding time spent in performance of separately billed services Admission and Anticipated Discharge Date Admission Date: August 01, 2022 Subjective Patient seen and examined Reports chronic low back and Lower extremity pain with spasms Reports chronic urinary incontinence for over 1 year. Denied dysuria, hematuria. Reports occasional intermittent cough which is chronic Denied other symptoms on ROS Our coordinator spoke with [facility] RN who recommended getting patient to a SNF and some unhealthy home situation. Patient follows with Dr Phipps for her pain but they have been having difficulty getting her to appointment at this time and ask that Pain mgt evaluate inpatient Physical Exam Constitutional: + well hydrated; no acute distress Eyes: PERRL, conjunctivae normal, anicteric sclerae ENMT: external ear and nose normal, oropharynx normal Respiratory: normal respiratory effort, lungs clear to auscultation Cardiovascular: Rate/Rhythm: regular rate and regular rhythm S1 S2 Gastrointestinal (Abdomen): normal bowel sounds, soft, nontender, no hepatosplenomegaly Musculoskeletal: No pedal edema. Reports pain with passive ROM of right hip Neurologic: PERRL, EOMI, accommodation nl, no face palsy, no dysarthria Psychiatric: A+Ox3, euthymic affect Results & Data Results & Data Vital Signs (Past 12 Hours) Vital Signs Temp Pulse Pulse Resp BP Pulse Ox O2 Del Method 08/03/22 08:45 Room Air 08/03/22 08:06 36.9 C 63 18 159/74 H 98 CPAP 08/03/22 07:40 67 08/03/22 04:06 67 34 H 100 08/03/22 03:37 36.4 C L 65 18 135/67 99 Room Air 08/03/22 01:37 63 O2 Flow Rate 08/03/22 08:45 08/03/22 08:06 08/03/22 07:40 08/03/22 04:06 2 08/03/22 03:37 08/03/22 01:37 Laboratory Results Abnormal lab results 08/02/22 08/03/22 08/03/22 Range/Units 16:25 05:47 05:47 RBC 3.98 L (4.20-5.40) M/uL Hgb 11.1 L (12.0-16.0) g/dl Hct 35.0 L (37.0-47.0) % MCHC 31.7 L (32.0-36.0) g/dL RDW Std Deviation 47.8 H (36.4-46.3) fL RDW Coeff of Sergio 14.8 H (11.5-14.5) % MPV 9.2 L (9.4-12.4) fL Creatinine 0.56 L (0.6-1.2) mg/dl POC Glucose 107 H (70-99) mg/dl 08/03/22 08/03/22 Range/Units 07:38 11:30 RBC (4.20-5.40) M/uL Hgb (12.0-16.0) g/dl Hct (37.0-47.0) % MCHC (32.0-36.0) g/dL RDW Std Deviation (36.4-46.3) fL RDW Coeff of Sergio (11.5-14.5) % MPV (9.4-12.4) fL Creatinine (0.6-1.2) mg/dl POC Glucose 65 L* 126 H (70-99) mg/dl
[2022-08-03 15:56] LABS: Appearance Urine Clear (Clear); Bacteria Urine Automated 3+ (Negative); Bilirubin Urine Negative (Negative); Blood Urine Trace (Negative); Cast Urine Automated 0 /lpf (0-5); Color Urine Yellow; Epithelial Cell Urine Auto 0-5 /lpf (0-5); Glucose Urine UA Negative (Negative); Ketones Urine Trace (Negative); Leukocyte Esterase Urine Negative (Negative); Nitrite Urine Positive (Negative); Protein Urine Negative (Negative); RBC Urine Automated 0-4 /hpf (0-4); Specific Gravity Urine 1.008 (1.000-1.030); Urobilinogen Urine Negative (Negative)
[2022-08-03] MEDS: oxyCODONE HCL IR 5 MG TAB (IMMEDIATE RELEASE) PO PRN (20:07)
[2022-08-03] MEDS: ENOXAPARIN INJ 40 MG/0.4 ML SYR SQ SCH (22:02)
[2022-08-04] MEDS: oxyCODONE HCL IR 5 MG TAB (IMMEDIATE RELEASE) PO PRN ×2 (02:25→16:07)
[2022-08-04] MEDS: LEVOTHYROXINE SODIUM 75 MCG TABLET PO SCH (05:47)
[2022-08-04] MEDS: NIFEdipine EXTENDED REL 30 MG TABCR PO SCH (05:47)
--- NOTE | 2022-08-04 08:28 | Pain Management Consultation ---
Date of Consultation August 04, 2022 Assessment & Plan (1) Chronic pain of right hip: (2) Lumbar spinal stenosis: Plan The hip pain is the primary complaint rather than the back pain at this time. Patient has failed right intraarticular hip injections. Due to insurance coverage she is not a candidate for femoral articular and obturator nerve radiofrequency ablation. Nothing interventional to offer in regards to hip pain. She does have known severe stenosis at L4-5 from prior imaging which has responded to caudal epidural steroid injections by Dr. Phipps in the past. In the patient's current state I do not think she would be able to lay supine on a table for repeat injection due to inability to transfer and severe hip osteoarthritis with inability to extend hip and she is in agreement. She should work with physical therapy on right hip ROM and will remain on Oxycodone for pain relief. Thank you for the consultation. Will sign off on patient. Please contact with any questions or concerns. History of Present Illness Attending Physician: Betina Duffy, History of Present Illness This is an 87 year old female that has been admitted to the [facility] for right hip pain, low back pain, leg spasms, and possible assistance at home or placement. She does have know severe osteoarthritis of the right hip to which she has previously received intra-articular hip injections as well as viscosupplementation by [facility] orthopedics (Dr. Landa and Dr. Rios) which only provided short-term pain relief. She has previously received lumbar epidural injections for severe stenosis at L4-L5 by Dr. Phipps most recently in 2020 which have provided some pain relief. She is bedbound and requires a lift at home to transfer into a wheelchair. At home she has been taking Tylenol with little pain relief. She has Oxycodone 5mg ordered which she states does provide a few hours of pain relief and causes mild sleepiness. + chronic urinary incontinence. Case discussed with Dr. Grisel Desai Allergies Allergy/AdvReac Type Severity Reaction Status Date / Time phenobarbital Allergy Intermediate ITCHY RASH Verified 03/31/22 21:32 scopolamine Allergy Intermediate RASH Verified 03/31/22 21:32 simvastatin Allergy Intermediate muscle Verified 03/31/22 21:32 cramps aspirin AdvReac Intermediate Abdominal Verified 03/31/22 21:32 Pain atropine AdvReac Intermediate ITCHING Verified 03/31/22 21:32 codeine AdvReac Intermediate HYPERTENSIO Verified 03/31/22 21:32 N doxycycline AdvReac Intermediate NAUSEA/VOMI Verified 03/31/22 21:32 TING. hyoscyamine AdvReac Intermediate ITCHING Verified 03/31/22 21:32 lactose AdvReac Intermediate Gastrointestinal Verified 03/31/22 21:32 Upset minocycline AdvReac Intermediate NAUSEA AND Verified 03/31/22 21:32 VOMITING morphine AdvReac Intermediate NAUSEA/VOMI Verified 03/31/22 21:32 TING Pork/Porcine Containing AdvReac Unknown spiritual Verified 04/01/22 04:49 Products preference shellfish derived AdvReac Unknown spiritual Verified 03/31/22 21:32 preference Home Medications Medication Instructions Recorded Confirmed Type Collagen Ultra 1 cap PO DAILY 03/31/22 08/01/22 History acetaminophen 500 mg tablet 500 mg PO TID 03/31/22 08/01/22 History (Tylenol Extra Strength) aluminum-mag hydroxide-simethicone 15 ml PO DAILY PRN 03/31/22 08/01/22 History 400 mg-400 mg-40 mg/5 mL oral susp INDIGESTION/UPSET STOMACH ascorbic acid (vitamin C) 500 mg 500 mg PO DAILY 03/31/22 08/01/22 History tablet (Vitamin C) aspirin 81 mg tablet,delayed 81 mg PO DAILY 03/31/22 08/01/22 History release baclofen 5 mg tablet 5 mg PO BID PRN MUSCLE SPASMS 03/31/22 08/01/22 History calcium carbonate 500 mg calcium 1,000 mg PO DIRECTED PRN 03/31/22 08/01/22 History (1,250 mg) chewable tablet INDIGESTION/HEARTBURN/UPSET STOMACH carbamide peroxide 6.5 % ear drops 0 drp otic (ear) DIRECTED PRN 03/31/22 08/01/22 History (Debrox) WAX BUILD UP carboxymethylcellulose sodium 1 % 2 drp ophthalmic (eye) DIRECTED 03/31/22 08/01/22 History eye liquid gel drops (Refresh PRN Dry Eyes Liquigel) cholecalciferol (vitamin D3) 25 25 mcg PO DAILY 03/31/22 08/01/22 History mcg (1,000 unit) capsule (Vitamin D3) duloxetine 20 mg capsule,delayed 40 mg PO QAM 03/31/22 08/01/22 History release (Cymbalta) fluticasone propionate 50 2 spray intranasal BID 03/31/22 08/01/22 History mcg/actuation nasal spray,suspension furosemide 40 mg tablet (Lasix) 40 mg PO QAM 03/31/22 08/01/22 History glucosamine sulfate 1,000 mg tablet 1,000 mg PO BID 03/31/22 08/01/22 History ipratropium bromide 17 2 puff inhalation TID PRN Wheezing 03/31/22 08/01/22 History mcg/actuation HFA aerosol inhaler (Atrovent HFA) levothyroxine 75 mcg tablet 75 mcg PO DAILYBB 03/31/22 08/01/22 History lidocaine HCl 4 % topical liquid 1 ea topical TID PRN Pain 03/31/22 08/01/22 History roll-on (Aspercreme (lidocaine HCl)) magnesium oxide 500 mg tablet 500 mg PO BID 03/31/22 08/01/22 History metformin 500 mg tablet 500 mg PO BID 03/31/22 08/01/22 History multivitamin 1 tab PO DAILY 03/31/22 08/01/22 History nifedipine 30 mg tablet,extended 30 mg PO DAILYBB 03/31/22 08/01/22 History release 24 hr omega-3 fatty acids 1,000 mg 1,000 mg PO DAILY 03/31/22 08/01/22 History capsule potassium chloride 20 mEq 20 meq PO DAILY 03/31/22 08/01/22 History tablet,extended release(part/cryst) pumpkin seed extract-soy germ 300 1 cap PO BID 03/31/22 08/01/22 History mg capsule (Azo Bladder Control) rosuvastatin 20 mg tablet 20 mg PO DAILY 03/31/22 08/01/22 History vitamin E 268 mg (400 unit) capsule 536 mg PO DAILY 03/31/22 08/01/22 History losartan 50 mg tablet 50 mg PO DAILY #30 tabs 04/07/22 08/01/22 Rx carvedilol 25 mg tablet 0 mg PO BID 08/01/22 08/01/22 History Patient History Medical History Breast cancer Depression Diabetes mellitus Hypertension Hypothyroidism Migraine headache Sleep apnea Surgical History H/O rotator cuff surgery H/O: hysterectomy History of lumpectomy of left breast Hx of cataract surgery Family History Other No pertinent family history Social History Smoking Status: Never smoker Second Hand Exposure: No; Do You Dip or Chew Tobacco: No; Hx Alcohol Use: No Hx Substance Use: No Preferred Language: Turkish Communication Ability: Effective International Sourcing Manager Required: No Beliefs That Will Affect Care: Cultural Cultural Beliefs: no pork Current Living Situation: Family Current Living Situation Comment: Pt lives with son Other Information That Helps Us Care for You: No Feels Safe at Home: Yes Safety Concerns: Feels Safe At This Time Assistive Devices: Bedside Commode, CPAP, Oxygen - at Night and Wheelchair Assistive Devices Comment: reading glasses Physical Exam Physical Exam: GENERAL: This is an obese 87 year old female that is laying supine in hospital bed, in no acute distress. HEAD/FACE: Normocephalic and atraumatic. EYES: No drainage or conjunctival injection. ENT: Nose without bleeding or discharge. Oral mucosa moist. NECK: Full ROM without apparent pain. No swelling or masses noted. RESPIRATORY: Patient with unlabored breathing. No signs of respiratory distress. ABDOMEN/GI: No distension BACK: Mild diffuse lumbosacral tenderness. SKIN: [place], warm and dry. No rash noted. MS/EXTREMITY: Hips are flexed at rest. There is minimal ROM of the right hip - at rest hip is flexed at 60 degrees. Increased pain with any ROM. No tenderness of the greater trochanteric bursa. 4/5 strength of the legs. NEURO: Alert and appears oriented. Speech is fluent. Cranial Nerves are grossly intact. PSYCH: Alert, pleasant, affect is calm Results (Pain Clinic) Diagnostic Review MRI Findings: Lumbar MRI 2019 shows severe stenosis at L4-5 CT Findings: Right hip CT 08/01/22 shows severe arthritic changes of the hip
--- NOTE | 2022-08-04 09:08 | Hospitalist Progress Note ---
Date of Service August 04, 2022 Assessment & Plan (1) Chronic pain of right hip: Plan: Hip hip CT femoral x-ray did not show any acute fractures but noted severe arthritic change of the right hip Optimize pain control Continue baclofen twice daily as needed Continue tylenol 975mg TID Lidocaine patch-->will exchange for trolamine topical lotion. Continue duloxetine Cont PT/OT PCP to arrange for motorized wheel chair for her Per Pain specialist, cont oxy and baclofen With such limited ROM, we discussed the importance of movement, but this will be very difficult. Consult orthopedics for thoughts on therapeutic options. (2) HTN (hypertension): Plan: chronic, controlled. Continue losartan per home regimen. Per H/P, report of coreg discontinued due to bradycardia (3) Urinary tract infection: Plan: Rocephin started pending culture results. Kenny in place and she was encouraged to get this removed, but it is in place for comfort at the moment. (4) SARAN (obstructive sleep apnea): Plan: chronic, stable. Continue CPAP HS (5) DM type 2 (diabetes mellitus, type 2): Plan: HbA1c is 6.6 Hold metformin while inpatient ISS per protocol BSG currently at goal. (6) Hypothyroid: Plan: TSH is 6.026 Will continue current dose of levothyroxine at this time. Patient stated her spasms got worse when it was increased last year To follow up PCP for monitoring and management\ DVT ppx - lovenox sq Full Code Dispo-uncertain, need pain to be more controlled and for her to be closer to ambulating independently again. Son and daughter were at bedside this evening. Betina Duffy DO [facility]ist Admission and Anticipated Discharge Date Admission Date: August 03, 2022 Subjective 87 yo F presents with acute right hip/leg/back pain and associated spasms severe OA on hip CT Was able to work some with PT today oxycodone and baclofen are helping with pain but she is so stiff and painful that she is in a left lateral decub position and unable to move at all Difficulty even straightening her leg. Review of Systems Review of Systems: All other systems were reviewed and negative except as indicated on subjective above. Physical Exam Physical Exam: CONSTITUTIONAL: WNWD, vitals as above,NAD but appears uncomfortable with only slight movement. EYES: EOMI bilaterally, PERRL, normal conjuctivae, no scleral icterus, no fundoscopic abnormality ENT: external ear and nose normal, MMM NECK: trachea midline RESPIRATORY: clear to auscultation bilaterally, no crackles, rales or wheezes, normal respiratory effort CARDIOVASCULAR: regular rate and rhythm, S1 and 2 heard without murmurs, gallop s or rubs, no JVD, no peripheral edema CHEST: inspection of chest was normal GASTROINTESTINAL: soft, nontender, ND, no guarding MUSCULOSKELETAL: strength 5/5 throughout, head is normocephalic and atraumatic SKIN: warm and dry NEUROLOGIC: CN 2-12 grossly intact, no sensory deficit, normal cognition, normal speech, no tremor PSYCHIATRIC: alert cooperative and oriented to person, place and time. Euthymic mood, makes good eye contact, language grossly intact, recent and remote memory grossly intact. Results & Data Results & Data Vital Signs (Past 12 Hours) Vital Signs Temp Pulse Pulse Pulse Resp BP Pulse Ox 08/04/22 08:00 36.7 C 83 14 190/84 H 98 08/04/22 03:48 36.4 C L 73 18 139/68 91 08/04/22 00:00 81 08/03/22 23:01 36.3 C L 75 18 155/76 H 91 08/03/22 22:39 74 23 98 O2 Del Method FiO2 08/04/22 08:00 Room Air 08/04/22 03:48 Room Air 08/04/22 00:00 08/03/22 23:01 CPAP 08/03/22 22:39 21 Laboratory Results Urine 08/03/22 Range/Units 15:15 Urine Color Yellow Urine Appearance Clear (Clear) Urine pH 6.0 (4.5-7.5) Ur Specific [place] 1.008 (1.000-1.030) Urine Protein Negative (Negative) Urine Glucose (UA) Negative (Negative) Medications Administered Current Inpatient Medications Acetaminophen (Acetaminophen 325 Mg Tab) 975 mg PO TID [facility] Stop: 09/01/22 13:59 Last Admin: 08/03/22 22:02 Dose: 975 mg Al Hydrox/Mg Hydrox/Simethicone (Aluminum/Magnesium/Simeth (Maalox Max) 30 Ml Udc) 15 ml PO DAILY PRN PRN Reason: INDIGESTION/UPSET STOMACH Stop: 09/01/22 00:30 Artificial Tears (Artificial Tears) 2 drops OP PRN PRN PRN Reason: Dry Eyes Stop: 09/01/22 01:10 Ascorbic Acid (Ascorbic Acid 500 Mg Tab) 500 mg PO DAILY [facility] Stop: 09/01/22 08:59 Last Admin: 08/03/22 08:39 Dose: 500 mg Aspirin (Aspirin 81 Mg Ectab) 81 mg PO DAILY [facility] Stop: 09/01/22 08:59 Last Admin: 08/03/22 08:38 Dose: 81 mg Baclofen (Baclofen 10 Mg Tab) 5 mg PO BID PRN PRN Reason: MUSCLE SPASMS Stop: 09/01/22 00:30 Calcium Carbonate (Calcium Carbonate 500 Mg Chewable Tab) 1,000 mg PO DAILY PRN PRN Reason: INDIGESTION/HEARTBURN/UPSET STOMACH Stop: 09/01/22 01:00 Carbamide Peroxide (Carbamide Peroxide 6.5% 15 Ml Btl) 0 drops OT DAILY PRN PRN Reason: WAX BUILD UP Stop: 08/06/22 00:30 Dextrose (Dextrose 50% 50 Ml Syringe) 25 - 50 ml IV UD PRN; Protocol PRN Reason: Hypoglycemia Protocol Stop: 09/01/22 00:30 Duloxetine HCl (Duloxetine Hcl 20 Mg Cap) 40 mg PO QAM [facility] Stop: 09/01/22 08:59 Last Admin: 08/03/22 08:38 Dose: 40 mg Enoxaparin Sodium (Enoxaparin Inj 40 Mg/0.4 Ml Syr) 40 mg SQ HS [facility] Stop: 09/01/22 00:30 Last Admin: 08/03/22 22:02 Dose: 40 mg Fluticasone Propionate (Fluticasone Propionate Na Spr 16 Gm Btl) 2 sprays NA BID [facility] Stop: 09/01/22 08:59 Last Admin: 08/03/22 22:01 Dose: 2 sprays Furosemide (Furosemide 40 Mg Tab) 40 mg PO QAM [facility] Stop: 09/01/22 08:59 Last Admin: 08/03/22 08:38 Dose: 40 mg Glucagon (Glucagon For Inj 1 Mg Vial) 1 mg SQ UD PRN; Protocol PRN Reason: Hypoglycemia Protocol Stop: 09/01/22 00:30 Glucosamine Sulfate (Glucosamine Sulfate 500 Mg Cap) 1,000 mg PO BIDM [facility] Stop: 09/01/22 07:59 Last Admin: 08/03/22 17:19 Dose: 1,000 mg Glucose (Glucose 10 Tab/Tube) 4 - 8 tab PO UD PRN; Protocol PRN Reason: Hypoglycemia Treatment Stop: 09/01/22 00:30 Glucose (Glucose 40% Gel 15 Gm Tube) 15 - 30 gm PO UD PRN; Protocol PRN Reason: Hypoglycemia Protocol Stop: 09/01/22 00:30 Hydralazine HCl (Hydralazine Hcl 20 Mg/Ml Vial) 7.5 mg IV Q6H PRN PRN Reason: Hypertension Stop: 09/01/22 00:30 Insulin Aspart (Insulin Aspart Per Unit Charge) 0 units SC ACHS [facility] Stop: 09/01/22 07:29 Last Admin: 08/03/22 20:57 Dose: Not Given Ipratropium [place] (Ipratropium [place] Hfa Inhaler) 2 puffs INH TID PRN PRN Reason: Wheezing Stop: 09/01/22 00:30 Levothyroxine Sodium (Levothyroxine Sodium 75 Mcg Tablet) 75 mcg PO DAILYBB [facility] Stop: 09/01/22 06:29 Last Admin: 08/04/22 05:47 Dose: 75 mcg Lidocaine (Lidocaine 4% Cream 15 Gm Tube) 1 appln EXT TID PRN PRN Reason: Pain Stop: 09/01/22 01:10 Last Admin: 08/02/22 01:27 Dose: 1 appln Lidocaine (Lidocaine 5% 1 Patch) 1 patch TD QAM [facility] Stop: 09/01/22 10:14 Last Admin: 08/03/22 08:39 Dose: 1 patch Losartan Potassium (Losartan Potassium 50 Mg Tab) 50 mg PO DAILY [facility] Stop: 09/01/22 08:59 Last Admin: 08/03/22 08:38 Dose: 50 mg Magnesium Oxide (Magnesium Oxide 400 Mg Tab) 400 mg PO BID [facility] Stop: 09/01/22 08:59 Last Admin: 08/03/22 22:04 Dose: 400 mg Miscellaneous (Carbohydrates For Hypoglycemia ) 15 - 30 gm PO UD PRN PRN Reason: Hypoglycemia Protocol Stop: 09/01/22 00:30 Miscellaneous (Remove Lidoderm Patch) 1 each N/A DAILY@2100 [facility] Stop: 09/01/22 20:59 Last Admin: 08/03/22 22:05 Dose: 1 each Multivitamins (Multivitamin Tab) 1 tab PO DAILY [facility] Stop: 09/01/22 08:59 Last Admin: 08/03/22 08:38 Dose: 1 tab Nifedipine (Nifedipine Extended Rel 30 Mg Tabcr) 30 mg PO DAILYBB [facility] Stop: 09/01/22 06:29 Last Admin: 08/04/22 05:47 Dose: 30 mg Ondansetron HCl (Ondansetron Inj 2 Mg/Ml 2 Ml Vial) 4 mg IV Q6H PRN PRN Reason: Nausea Stop: 09/01/22 00:30 Oxycodone HCl (Oxycodone Hcl Ir 5 Mg Tab (Immediate Release)) 5 mg PO Q6H PRN PRN Reason: Moderate Pain (Scale 4, 5, 6) Stop: 08/16/22 00:30 Last Admin: 08/04/22 02:25 Dose: 5 mg Polyethylene Glycol (Polyethylene (Miralax) 17 Gm Pack) 17 gm PO DAILY PRN PRN Reason: Constipation Stop: 09/01/22 00:30 Polyethylene Glycol (Polyethylene (Miralax) 17 Gm Pack) 17 gm PO DAILY [facility] Stop: 09/03/22 09:14 Potassium Chloride (Potassium Chloride Crtab 20 Meq Tabcr) 20 meq PO DAILY [facility] Stop: 09/01/22 08:59 Last Admin: 08/03/22 08:38 Dose: 20 meq Rosuvastatin Calcium (Rosuvastatin Calcium 20 Mg Tab) 20 mg PO DAILY [facility] Stop: 09/01/22 08:59 Last Admin: 08/03/22 08:39 Dose: 20 mg Vitamin D (Cholecalciferol 1,000 Units 25 Mcg Tab) 1,000 units PO DAILY [facility] Stop: 09/01/22 08:59 Last Admin: 08/03/22 08:38 Dose: 1,000 units
[2022-08-04] MEDS ORDERED: POLYETHYLENE (MIRALAX) 17 GM PACK PO ONE (09:15)
[2022-08-04] MEDS: INSULIN ASPART PER UNIT CHARGE SC SCH ×4 (09:21→21:31)
[2022-08-04] MEDS: DULoxetine HCL 20 MG CAP PO SCH (09:21)
[2022-08-04] MEDS: ROSUVASTATIN CALCIUM 20 MG TAB PO SCH (09:21)
[2022-08-04] MEDS: FLUTICASONE PROPIONATE NA SPR 16 GM BTL SCH ×2 (09:21→20:21)
[2022-08-04] MEDS: MAGNESIUM OXIDE 400 MG TAB PO SCH ×2 (09:21→20:23)
[2022-08-04] MEDS: CHOLECALCIFEROL 1,000 UNITS 25 MCG TAB PO SCH (09:22)
[2022-08-04] MEDS: MULTIVITAMIN TAB PO SCH (09:22)
[2022-08-04] MEDS: GLUCOSAMINE SULFATE 500 MG CAP PO SCH ×2 (09:22→17:21)
[2022-08-04] MEDS: ASCORBIC ACID 500 MG TAB PO SCH (09:22)
[2022-08-04] MEDS: ACETAMINOPHEN 325 MG TAB PO SCH ×3 (09:22→20:20)
[2022-08-04] MEDS: LOSARTAN POTASSIUM 50 MG TAB PO SCH (09:22)
[2022-08-04] MEDS: ASPIRIN 81 MG ECTAB PO SCH (09:22)
[2022-08-04] MEDS: FUROSEMIDE 40 MG TAB PO SCH (09:22)
[2022-08-04] MEDS: POTASSIUM CHLORIDE CRTAB 20 MEQ TABCR PO SCH (09:22)
[2022-08-04] MEDS: LIDOCAINE 5% 1 PATCH TD SCH (09:58)
[2022-08-04] MEDS: BACLOFEN 10 MG TAB PO PRN (16:07)
[2022-08-04] MEDS: LIDOCAINE 4% CREAM 15 GM TUBE EXT PRN (16:12)
[2022-08-04] MEDS ORDERED: cefTRIAXone SODIUM 2,000 MG in DEXTROSE 5% 50 ML IV SCH (20:00)
[2022-08-04] MEDS: TROLAMINE SALICYLATE 10% CRM 255 APPLN/85 GM TUBE EXT SCH (20:17)
[2022-08-04] MEDS: ENOXAPARIN INJ 40 MG/0.4 ML SYR SQ SCH (20:17)
[2022-08-05] MEDS: NIFEdipine EXTENDED REL 30 MG TABCR PO SCH (05:57)
[2022-08-05] MEDS: LEVOTHYROXINE SODIUM 75 MCG TABLET PO SCH (05:57)
[2022-08-05] MEDS: INSULIN ASPART PER UNIT CHARGE SC SCH ×4 (08:11→20:34)
[2022-08-05] MEDS: ROSUVASTATIN CALCIUM 20 MG TAB PO SCH (08:13)
[2022-08-05] MEDS: FUROSEMIDE 40 MG TAB PO SCH (08:13)
[2022-08-05] MEDS: GLUCOSAMINE SULFATE 500 MG CAP PO SCH ×2 (08:13→17:41)
[2022-08-05] MEDS: POLYETHYLENE (MIRALAX) 17 GM PACK PO SCH (08:13)
[2022-08-05] MEDS: LOSARTAN POTASSIUM 50 MG TAB PO SCH (08:13)
[2022-08-05] MEDS: CHOLECALCIFEROL 1,000 UNITS 25 MCG TAB PO SCH (08:14)
[2022-08-05] MEDS: ACETAMINOPHEN 325 MG TAB PO SCH ×3 (08:14→21:30)
[2022-08-05] MEDS: DULoxetine HCL 20 MG CAP PO SCH (08:15)
[2022-08-05] MEDS: POTASSIUM CHLORIDE CRTAB 20 MEQ TABCR PO SCH (08:15)
[2022-08-05] MEDS: MULTIVITAMIN TAB PO SCH (08:15)
[2022-08-05] MEDS: ASCORBIC ACID 500 MG TAB PO SCH (08:15)
[2022-08-05] MEDS: ASPIRIN 81 MG ECTAB PO SCH (08:16)
[2022-08-05] MEDS: MAGNESIUM OXIDE 400 MG TAB PO SCH ×2 (08:16→21:33)
[2022-08-05] MEDS: FLUTICASONE PROPIONATE NA SPR 16 GM BTL SCH ×2 (08:16→21:30)
[2022-08-05] MEDS: TROLAMINE SALICYLATE 10% CRM 255 APPLN/85 GM TUBE EXT SCH ×3 (08:17→21:34)
--- NOTE | 2022-08-05 09:25 | Orthopedic Consultation ---
Date of Consultation August 05, 2022 Assessment & Plan (1) Osteoarthritis of right hip: She has chronic right hip, back, and knee pain. Her hip pain is obviously related to very severe arthritis. She is well-established with [facility] orthopedics, and has had numerous hip joint injections over the years with decreasing efficacy. She has declined previous offer of hip replacement surgery. No urgent orthopedic surgical intervention is required. This chronic issue is best managed on an outpatient basis. She may follow-up as an outpatient with either her established [facility] orthopedic physicians or [facility] if she prefers. Orthopedics will sign off. History of Present Illness Reason for Consultation: Right hip pain Requesting Physician: Dr. Duffy Attending Physician: Betina Duffy, DO History of Present Illness Ms. Mora is an 87-year-old female with chronic right hip, back, and knee pain. She reports that she has had right hip pain for at least the past 25 years. She thinks that it was related to a fall on some steps around that time. She is well-established with [facility] orthopedics, and states that she has had numerous right hip joint injections every few months for many years, although she thinks her last injection was about a year ago. These have become less effective with time. She has been unable to ambulate for about the past year due to this back, hip, and knee pain. She reports that she was offered a hip replacement many years ago, but declined. She was admitted due to this severe right chronic hip pain. She does report that the pain is slightly improved since admission. Allergies Allergy/AdvReac Type Severity Reaction Status Date / Time phenobarbital Allergy Intermediate ITCHY RASH Verified 03/31/22 21:32 scopolamine Allergy Intermediate RASH Verified 03/31/22 21:32 simvastatin Allergy Intermediate muscle Verified 03/31/22 21:32 cramps aspirin AdvReac Intermediate Abdominal Verified 03/31/22 21:32 Pain atropine AdvReac Intermediate ITCHING Verified 03/31/22 21:32 codeine AdvReac Intermediate HYPERTENSIO Verified 03/31/22 21:32 N doxycycline AdvReac Intermediate NAUSEA/VOMI Verified 03/31/22 21:32 TING. hyoscyamine AdvReac Intermediate ITCHING Verified 03/31/22 21:32 lactose AdvReac Intermediate Gastrointestinal Verified 03/31/22 21:32 Upset minocycline AdvReac Intermediate NAUSEA AND Verified 03/31/22 21:32 VOMITING morphine AdvReac Intermediate NAUSEA/VOMI Verified 03/31/22 21:32 TING Pork/Porcine Containing AdvReac Unknown spiritual Verified 04/01/22 04:49 Products preference shellfish derived AdvReac Unknown spiritual Verified 03/31/22 21:32 preference Home Medications Medication Instructions Recorded Confirmed Type Collagen Ultra 1 cap PO DAILY 03/31/22 08/01/22 History acetaminophen 500 mg tablet 500 mg PO TID 03/31/22 08/01/22 History (Tylenol Extra Strength) aluminum-mag hydroxide-simethicone 15 ml PO DAILY PRN 03/31/22 08/01/22 History 400 mg-400 mg-40 mg/5 mL oral susp INDIGESTION/UPSET STOMACH ascorbic acid (vitamin C) 500 mg 500 mg PO DAILY 03/31/22 08/01/22 History tablet (Vitamin C) aspirin 81 mg tablet,delayed 81 mg PO DAILY 03/31/22 08/01/22 History release baclofen 5 mg tablet 5 mg PO BID PRN MUSCLE SPASMS 03/31/22 08/01/22 History calcium carbonate 500 mg calcium 1,000 mg PO DIRECTED PRN 03/31/22 08/01/22 History (1,250 mg) chewable tablet INDIGESTION/HEARTBURN/UPSET STOMACH carbamide peroxide 6.5 % ear drops 0 drp otic (ear) DIRECTED PRN 03/31/22 08/01/22 History (Debrox) WAX BUILD UP carboxymethylcellulose sodium 1 % 2 drp ophthalmic (eye) DIRECTED 03/31/22 08/01/22 History eye liquid gel drops (Refresh PRN Dry Eyes Liquigel) cholecalciferol (vitamin D3) 25 25 mcg PO DAILY 03/31/22 08/01/22 History mcg (1,000 unit) capsule (Vitamin D3) duloxetine 20 mg capsule,delayed 40 mg PO QAM 03/31/22 08/01/22 History release (Cymbalta) fluticasone propionate 50 2 spray intranasal BID 03/31/22 08/01/22 History mcg/actuation nasal spray,suspension furosemide 40 mg tablet (Lasix) 40 mg PO QAM 03/31/22 08/01/22 History glucosamine sulfate 1,000 mg tablet 1,000 mg PO BID 03/31/22 08/01/22 History ipratropium bromide 17 2 puff inhalation TID PRN Wheezing 03/31/22 08/01/22 History mcg/actuation HFA aerosol inhaler (Atrovent HFA) levothyroxine 75 mcg tablet 75 mcg PO DAILYBB 03/31/22 08/01/22 History lidocaine HCl 4 % topical liquid 1 ea topical TID PRN Pain 03/31/22 08/01/22 History roll-on (Aspercreme (lidocaine HCl)) magnesium oxide 500 mg tablet 500 mg PO BID 03/31/22 08/01/22 History metformin 500 mg tablet 500 mg PO BID 03/31/22 08/01/22 History multivitamin 1 tab PO DAILY 03/31/22 08/01/22 History nifedipine 30 mg tablet,extended 30 mg PO DAILYBB 03/31/22 08/01/22 History release 24 hr omega-3 fatty acids 1,000 mg 1,000 mg PO DAILY 03/31/22 08/01/22 History capsule potassium chloride 20 mEq 20 meq PO DAILY 03/31/22 08/01/22 History tablet,extended release(part/cryst) pumpkin seed extract-soy germ 300 1 cap PO BID 03/31/22 08/01/22 History mg capsule (Azo Bladder Control) rosuvastatin 20 mg tablet 20 mg PO DAILY 03/31/22 08/01/22 History vitamin E 268 mg (400 unit) capsule 536 mg PO DAILY 03/31/22 08/01/22 History losartan 50 mg tablet 50 mg PO DAILY #30 tabs 04/07/22 08/01/22 Rx carvedilol 25 mg tablet 0 mg PO BID 08/01/22 08/01/22 History Patient History Medical History Breast cancer Depression Diabetes mellitus Hypertension Hypothyroidism Migraine headache Sleep apnea Surgical History H/O rotator cuff surgery H/O: hysterectomy History of lumpectomy of left breast Hx of cataract surgery Family History Other No pertinent family history Social History Smoking Status: Never smoker Second Hand Exposure: No; Do You Dip or Chew Tobacco: No; Hx Alcohol Use: No Hx Substance Use: No Preferred Language: Ukrainian Communication Ability: Effective Digital Business Analyst Required: No Beliefs That Will Affect Care: Cultural Cultural Beliefs: no pork Current Living Situation: Family Current Living Situation Comment: Pt lives with son Other Information That Helps Us Care for You: No Feels Safe at Home: Yes Safety Concerns: Feels Safe At This Time Assistive Devices: Bedside Commode, CPAP, Oxygen - at Night and Wheelchair Assistive Devices Comment: reading glasses Physical Exam Physical Exam: Examination of the right hip is difficult due to patient pain and positioning. She is holding her hip in hyperflexion and abduction. Very little hip motion. Any hip motion is very painful for her. It is unclear whether this is related to contractures due to nonambulatory status versus severe pain and limited hip motion due to severe arthritis. She is holding her knee in hyperflexion. Motor and sensory function is intact distally. Results & Data Vital Signs (Past 12 Hours) Vital Signs Temp Pulse Pulse Pulse Resp BP Pulse Ox 08/05/22 07:05 36.6 C 79 20 120/72 95 08/04/22 23:30 71 24 94 08/05/22 03:52 94 H 23 96 08/04/22 22:17 104 H 24 95 08/04/22 21:57 36.5 C 71 18 143/74 H 95 O2 Del Method FiO2 08/05/22 07:05 CPAP 08/04/22 23:30 21 08/05/22 03:52 21 08/04/22 22:17 21 08/04/22 21:57 Room Air Diagnostic Findings Right femur x-rays and right hip CT scan were reviewed. Hip and knee x-rays are suboptimal due to patient positioning and pain. They show obvious severe arthritis in both the hip and knee. No fractures are seen around the hip on CT scan.
[2022-08-05] MEDS: BACLOFEN 10 MG TAB PO PRN (10:31)
--- NOTE | 2022-08-05 11:48 | Hospitalist Progress Note ---
Date of Service August 05, 2022 Assessment & Plan (1) Osteoarthritis of right hip: Plan: 2/2 acute OA flare. Hip hip CT femoral x-ray did not show any acute fractures but noted severe arthritic change of the right hip Optimize pain control Continue baclofen twice daily as needed Continue tylenol 975mg TID Lidocaine patch-->will exchange for trolamine topical lotion.Trolamine not working well 08/05--Start trial Motrin 800mg TID scheduled and valium 2mg PO BID scheduled (for spasms) Hold oxycodone and baclofen at this time. Continue duloxetine Cont PT/OT PCP to arrange for motorized wheel chair for her Currently not able to sit up in bed or chair 2/2 severe pain. Interventions such as injections and/or surgery not desired by patient at this time. (2) HTN (hypertension): Plan: chronic, controlled. Continue losartan per home regimen. Per H/P, report of coreg discontinued due to bradycardia (3) Urinary tract infection: Plan: Rocephin started pending culture results. HAs an external catheter in place, not a rowland as previously stated on notes. Cefdinir continued at this time for ramos-sens E coli (4) Low urine output: Plan: 100cc out today. Good PO intake. BMP in am. Cont monitoring output with [place] in place. (5) SARAN (obstructive sleep apnea): Plan: chronic, stable. Continue CPAP HS (6) DM type 2 (diabetes mellitus, type 2): Plan: HbA1c is 6.6 Hold metformin while inpatient ISS per protocol BSG currently at goal. (7) Hypothyroid: Plan: TSH is 6.026 Will continue current dose of levothyroxine at this time. Patient stated her spasms got worse when it was increased last year To follow up PCP for monitoring and management DVT ppx - lovenox sq Full Code Dispo-uncertain, need pain to be more controlled and for her to be closer to ambulating independently again. Son was at bedside this evening. DO Cristo Bellamy Hospitalist Admission and Anticipated Discharge Date Admission Date: August 03, 2022 Subjective 87 yo F presents with acute right hip/leg/back pain and associated spasms unable to move at all today much unable to participate in PT 2/2 pain poor urine output today good PO intake, cont to monitor. Pain is not worse but no better either Ortho saw her and patient not wild about surgery at this time. Review of Systems Review of Systems: All other systems were reviewed and negative except as indicated on subjective above. Physical Exam Physical Exam: CONSTITUTIONAL: WNWD, vitals as above,NAD but appears uncomfortable with only slight movement. EYES: normal conjunctivae, no scleral icterus ENT: external ear and nose normal, MMM NECK: trachea midline RESPIRATORY: clear to auscultation bilaterally, no crackles, rales or wheezes, normal respiratory effort CARDIOVASCULAR: regular rate and rhythm, S1 and 2 heard without murmurs, gallops or rubs, no JVD, no peripheral edema CHEST: inspection of chest was normal GASTROINTESTINAL: soft, nontender, ND, no guarding MUSCULOSKELETAL: strength 5/5 throughout, head is normocephalic and atraumatic SKIN: warm and dry NEUROLOGIC: CN 2-12 grossly intact, no sensory deficit, normal cognition, normal speech, no tremor PSYCHIATRIC: alert cooperative and oriented to person, place and time. Euthymic mood, makes good eye contact, language grossly intact, recent and remote memory grossly intact. Results & Data Results & Data Vital Signs (Past 12 Hours) Vital Signs Temp Pulse Pulse Resp BP Pulse Ox O2 Del Method 08/05/22 10:17 Nasal Cannula 08/05/22 07:05 36.6 C 79 20 120/72 95 CPAP 08/05/22 03:52 94 H 23 96 FiO2 08/05/22 10:17 08/05/22 07:05 08/05/22 03:52 21 Medications Administered Current Inpatient Medications Acetaminophen (Acetaminophen 325 Mg Tab) 975 mg PO TID [facility] Stop: 09/01/22 13:59 Last Admin: 08/05/22 08:14 Dose: 975 mg Al Hydrox/Mg Hydrox/Simethicone (Aluminum/Magnesium/Simeth (Maalox Max) 30 Ml Udc) 15 ml PO DAILY PRN PRN Reason: INDIGESTION/UPSET STOMACH Stop: 09/01/22 00:30 Artificial Tears (Artificial Tears) 2 drops OP PRN PRN PRN Reason: Dry Eyes Stop: 09/01/22 01:10 Ascorbic Acid (Ascorbic Acid 500 Mg Tab) 500 mg PO DAILY [facility] Stop: 09/01/22 08:59 Last Admin: 08/05/22 08:15 Dose: 500 mg Aspirin (Aspirin 81 Mg Ectab) 81 mg PO DAILY [facility] Stop: 09/01/22 08:59 Last Admin: 08/05/22 08:16 Dose: 81 mg Baclofen (Baclofen 10 Mg Tab) 5 mg PO BID PRN PRN Reason: MUSCLE SPASMS Stop: 09/01/22 00:30 Last Admin: 08/05/22 10:31 Dose: 5 mg Calcium Carbonate (Calcium Carbonate 500 Mg Chewable Tab) 1,000 mg PO DAILY PRN PRN Reason: INDIGESTION/HEARTBURN/UPSET STOMACH Stop: 09/01/22 01:00 Carbamide Peroxide (Carbamide Peroxide 6.5% 15 Ml Btl) 0 drops OT DAILY PRN PRN Reason: WAX BUILD UP Stop: 08/06/22 00:30 Dextrose (Dextrose 50% 50 Ml Syringe) 25 - 50 ml IV UD PRN; Protocol PRN Reason: Hypoglycemia Protocol Stop: 09/01/22 00:30 Duloxetine HCl (Duloxetine Hcl 20 Mg Cap) [address] [facility] [place] [facility]: 09/01/22 08:59 Last Admin: 08/05/22 08:15 Dose: 40 mg Enoxaparin Sodium (Enoxaparin Inj 40 Mg/0.4 Ml Syr) 40 mg SQ HS [facility] Stop: 09/01/22 00:30 Last Admin: 08/04/22 20:17 Dose: 40 mg Fluticasone Propionate (Fluticasone Propionate Na Spr 16 Gm Btl) 2 sprays NA BID [facility] Stop: 09/01/22 08:59 Last Admin: 08/05/22 08:16 Dose: 2 sprays Furosemide (Furosemide 40 Mg Tab) 40 mg PO QAM [facility] Stop: 09/01/22 08:59 Last Admin: 08/05/22 08:13 Dose: 40 mg Glucagon (Glucagon For Inj 1 Mg Vial) 1 mg SQ UD PRN; Protocol PRN Reason: Hypoglycemia Protocol Stop: 09/01/22 00:30 Glucosamine Sulfate (Glucosamine Sulfate 500 Mg Cap) 1,000 mg PO BIDM [facility] Stop: 09/01/22 07:59 Last Admin: 08/05/22 08:13 Dose: 1,000 mg Glucose (Glucose 10 Tab/Tube) 4 - 8 tab PO UD PRN; Protocol PRN Reason: Hypoglycemia Treatment Stop: 09/01/22 00:30 Glucose (Glucose 40% Gel 15 Gm Tube) 15 - 30 gm PO UD PRN; Protocol PRN Reason: Hypoglycemia Protocol Stop: 09/01/22 00:30 Ceftriaxone Sodium 2,000 mg/ (Dextrose) 70 mls @ 100 mls/hr IV Q24H [facility]; Protocol Stop: 08/09/22 19:59 Last Infusion: 08/04/22 21:31 Dose: Infused Insulin Aspart (Insulin Aspart Per Unit Charge) 0 units SC ACHS [facility] Stop: 09/01/22 07:29 Last Admin: 08/05/22 08:11 Dose: Not Given Ipratropium [place] (Ipratropium [place] Hfa Inhaler) 2 puffs INH TID PRN PRN Reason: Wheezing Stop: 09/01/22 00:30 Levothyroxine Sodium (Levothyroxine Sodium 75 Mcg Tablet) 75 mcg PO DAILYBB [facility] Stop: 09/01/22 06:29 Last Admin: 08/05/22 05:57 Dose: 75 mcg Losartan Potassium (Losartan Potassium 50 Mg Tab) 50 mg PO DAILY [facility] Stop: 09/01/22 08:59 Last Admin: 08/05/22 08:13 Dose: 50 mg Magnesium Oxide (Magnesium Oxide 400 Mg Tab) 400 mg PO BID [facility] Stop: 09/01/22 08:59 Last Admin: 08/05/22 08:16 Dose: 400 mg Miscellaneous (Carbohydrates For Hypoglycemia ) 15 - 30 gm PO UD PRN PRN Reason: Hypoglycemia Protocol Stop: 09/01/22 00:30 Miscellaneous (Remove Lidoderm Patch) 1 each N/A DAILY@2100 [facility] Stop: 09/01/22 20:59 Last Admin: 08/04/22 20:19 Dose: 1 each Multivitamins (Multivitamin Tab) 1 tab PO DAILY [facility] Stop: 09/01/22 08:59 Last Admin: 08/05/22 08:15 Dose: 1 tab Nifedipine (Nifedipine Extended Rel 30 Mg Tabcr) 30 mg PO DAILYBB [facility] Stop: 09/01/22 06:29 Last Admin: 08/05/22 05:57 Dose: 30 mg Ondansetron HCl (Ondansetron Inj 2 Mg/Ml 2 Ml Vial) 4 mg IV Q6H PRN PRN Reason: Nausea Stop: 09/01/22 00:30 Oxycodone HCl (Oxycodone Hcl Ir 5 Mg Tab (Immediate Release)) 5 mg PO Q6H PRN PRN Reason: Moderate Pain (Scale 4, 5, 6) Stop: 08/16/22 00:30 Last Admin: 08/04/22 16:07 Dose: 5 mg Polyethylene Glycol (Polyethylene (Miralax) 17 Gm Pack) 17 gm PO DAILY PRN PRN Reason: Constipation Stop: 09/01/22 00:30 Polyethylene Glycol (Polyethylene (Miralax) 17 Gm Pack) 17 gm PO DAILY [facility] Stop: 09/04/22 08:59 Last Admin: 08/05/22 08:13 Dose: 17 gm Potassium Chloride (Potassium Chloride Crtab 20 Meq Tabcr) 20 meq PO DAILY [facility] Stop: 09/01/22 08:59 Last Admin: 08/05/22 08:15 Dose: 20 meq Rosuvastatin Calcium (Rosuvastatin Calcium 20 Mg Tab) 20 mg PO DAILY [facility] Stop: 09/01/22 08:59 Last Admin: 08/05/22 08:13 Dose: 20 mg Trolamine Salicylate (Trolamine Salicylate 10% Crm 255 Appln/85 Gm Tube) 1 appln EXT TID [facility] Stop: 08/07/22 20:59 Last Admin: 08/05/22 08:17 Dose: 1 appln Vitamin D (Cholecalciferol 1,000 Units 25 Mcg Tab) 1,000 units PO DAILY [facility] Stop: 09/01/22 08:59 Last Admin: 08/05/22 08:14 Dose: 1,000 units
[2022-08-05] MEDS: oxyCODONE HCL IR 5 MG TAB (IMMEDIATE RELEASE) PO PRN (12:07)
[2022-08-05] MEDS ORDERED: diazePAM 2 MG TABLET PO ONE (16:54)
[2022-08-05] MEDS: CEFDINIR 300 MG CAP PO SCH (21:32)
[2022-08-05] MEDS: IBUPROFEN 800 MG TAB PO SCH (21:32)
[2022-08-05] MEDS: ENOXAPARIN INJ 40 MG/0.4 ML SYR SQ SCH (21:32)
[2022-08-06] MEDS: NIFEdipine EXTENDED REL 30 MG TABCR PO SCH (05:29)
[2022-08-06] MEDS: LEVOTHYROXINE SODIUM 75 MCG TABLET PO SCH (05:29)
[2022-08-06 06:32] LABS: Hematocrit (blood only) 35.7 % (37.0-47.0); Hemoglobin 11.1 g/dl (12.0-16.0); Mean Corpuscular Hemoglobin 27.2 pg (25.0-34.0); Mean Corpuscular Hgb Conc 31.1 g/dL (32.0-36.0); Mean Corpuscular Volume 87.5 fL (80.0-100.0); Mean Platelet Volume 9.2 fL (9.4-12.4); Platelet Count 388 K/uL (130-400); RDW Standard Deviation 48.1 fL (36.4-46.3); Red Blood Count 4.08 M/uL (4.20-5.40); White Blood Count 9.49 K/ul (4.8-10.8)
[2022-08-06 06:35] LABS: BUN Creatinine Ratio 21.9 (10-20); Calcium 8.9 mg/dl (8.6-10.3); Creatinine Clr Calc Pharmacy 70.8 ml/min; Est GFR (African American) 92.3 ml/min; Est GFR (Non-African American) 79.7 ml/min; Potassium 4.2 mmol/L (3.5-5.1)
[2022-08-06] MEDS: IBUPROFEN 800 MG TAB PO SCH ×3 (08:40→21:52)
[2022-08-06] MEDS: GLUCOSAMINE SULFATE 500 MG CAP PO SCH ×2 (08:40→17:33)
[2022-08-06] MEDS: ACETAMINOPHEN 325 MG TAB PO SCH ×3 (08:41→21:53)
[2022-08-06] MEDS: LOSARTAN POTASSIUM 50 MG TAB PO SCH (08:41)
[2022-08-06] MEDS: ASPIRIN 81 MG ECTAB PO SCH (08:41)
[2022-08-06] MEDS: FUROSEMIDE 40 MG TAB PO SCH (08:42)
[2022-08-06] MEDS: MULTIVITAMIN TAB PO SCH (08:42)
[2022-08-06] MEDS: POTASSIUM CHLORIDE CRTAB 20 MEQ TABCR PO SCH (08:43)
[2022-08-06] MEDS: MAGNESIUM OXIDE 400 MG TAB PO SCH ×2 (08:43→21:53)
[2022-08-06] MEDS: CEFDINIR 300 MG CAP PO SCH ×2 (08:43→21:52)
[2022-08-06] MEDS: ROSUVASTATIN CALCIUM 20 MG TAB PO SCH (08:43)
[2022-08-06] MEDS: CHOLECALCIFEROL 1,000 UNITS 25 MCG TAB PO SCH (08:43)
[2022-08-06] MEDS: POLYETHYLENE (MIRALAX) 17 GM PACK PO SCH (08:44)
[2022-08-06] MEDS: TROLAMINE SALICYLATE 10% CRM 255 APPLN/85 GM TUBE EXT SCH ×3 (08:44→21:52)
[2022-08-06] MEDS: DULoxetine HCL 20 MG CAP PO SCH (08:45)
[2022-08-06] MEDS: ASCORBIC ACID 500 MG TAB PO SCH (08:45)
[2022-08-06] MEDS ORDERED: diazePAM 2 MG TABLET PO SCH (09:00)
[2022-08-06] MEDS: INSULIN ASPART PER UNIT CHARGE SC SCH ×4 (09:06→21:54)
--- NOTE | 2022-08-06 17:03 | Hospitalist Progress Note ---
Date of Service August 06, 2022 Assessment & Plan (1) Osteoarthritis of right hip: Plan: 2/2 acute OA flare. Hip hip CT femoral x-ray did not show any acute fractures but noted severe arthritic change of the right hip Optimize pain control Continue baclofen twice daily as needed Continue tylenol 975mg TID Lidocaine patch-->will exchange for trolamine topical lotion.Trolamine not working well 08/05--Start trial Motrin 800mg TID scheduled and valium 2mg PO BID scheduled (for spasms) Hold oxycodone and baclofen at this time. Continue duloxetine Cont PT/OT PCP to arrange for motorized wheel chair for her Currently not able to sit up in bed or chair 2/2 severe pain. Interventions such as injections and/or surgery not desired by patient at this time. 08/06 cont Motrin and valium with increase of benzo to 5mg now. Cont PT and efforts to mobilize. (2) HTN (hypertension): Plan: chronic, controlled. Continue losartan per home regimen. Per H/P, report of coreg discontinued due to bradycardia (3) Urinary tract infection: Plan: Rocephin started pending culture results. HAs an external catheter in place, not a rowland as previously stated on notes. Cefdinir continued at this time for ramos-sens E coli (4) Low urine output: Plan: Resolved. (5) SARAN (obstructive sleep apnea): Plan: chronic, stable. Continue CPAP HS (6) DM type 2 (diabetes mellitus, type 2): Plan: HbA1c is 6.6 Hold metformin while inpatient ISS per protocol [facility] currently at goal. (7) Hypothyroid: Plan: TSH is 6.026 Will continue current dose of levothyroxine at this time. Patient stated her spasms got worse when it was increased last year To follow up PCP for monitoring and management DVT ppx - lovenox sq Full Code Dispo-uncertain, need pain to be more controlled and for her to be closer to ambulating independently again. Son was at bedside this evening. All questions were answered and he was updated on the plan. Betina Duffy DO [facility] Hospitalist Admission and Anticipated Discharge Date Admission Date: August 03, 2022 Subjective 87 yo F presents with acute right hip/leg/back pain and associated spasms UOP improved today She is starting to move her right leg more and working with PT she feels she is getting better and is more comfortable on the current medication regimen We discussed increasing the dose of valium to support her needs. Requesting K pad Review of Systems Review of Systems: All other systems were reviewed and negative except as indicated on subjective above. Physical Exam Physical Exam: CONSTITUTIONAL: WNWD, vitals as above,NAD but appears uncomfortable with only slight movement. EYES: normal conjunctivae, no scleral icterus ENT: external ear and nose normal, MMM NECK: trachea midline RESPIRATORY: clear to auscultation bilaterally, no crackles, rales or wheezes, normal respiratory effort CARDIOVASCULAR: regular rate and rhythm, S1 and 2 heard without murmurs, gallops or rubs, no JVD, no peripheral edema CHEST: inspection of chest was normal GASTROINTESTINAL: soft, nontender, ND, no guarding MUSCULOSKELETAL: strength 5/5 throughout, very stiff with limited ROM in the right leg even when supine in bed, resistant 2/2 severe pain, head is normocephalic and atraumatic SKIN: warm and dry NEUROLOGIC: CN 2-12 grossly intact, no sensory deficit, normal cognition, normal speech, no tremor PSYCHIATRIC: alert cooperative and oriented to person, place and time. Euthymic mood, makes good eye contact, language grossly intact, recent and remote memory grossly intact. Results & Data Results & Data Vital Signs (Past 12 Hours) Vital Signs Temp Pulse Resp BP Pulse Ox O2 Del Method 08/06/22 15:50 36.5 C 64 18 109/60 94 Room Air 08/06/22 11:33 Room Air 08/06/22 08:02 36.9 C 79 18 144/78 H 98 CPAP Laboratory Results Short CBC 08/06/22 Range/Units 05:58 WBC 9.49 (4.8-10.8) K/ul Hgb 11.1 L (12.0-16.0) g/dl Hct 35.7 L (37.0-47.0) % Plt Count 388 (130-400) K/uL BMP 08/06/22 05:58 Sodium 135 L Potassium 4.2 Chloride 101 Carbon Dioxide 27 BUN 14 Creatinine 0.64 Glucose 110 H Calcium 8.9 Medications Administered Current Inpatient Medications Acetaminophen (Acetaminophen 325 Mg Tab) 975 mg PO TID [facility] Stop: 09/01/22 13:59 Last Admin: 08/06/22 14:28 Dose: 975 mg Al Hydrox/Mg Hydrox/Simethicone (Aluminum/Magnesium/Simeth (Maalox Max) 30 Ml Udc) 15 ml PO DAILY PRN PRN Reason: INDIGESTION/UPSET STOMACH Stop: 09/01/22 00:30 Artificial Tears (Artificial Tears) 2 drops OP PRN PRN PRN Reason: Dry Eyes Stop: 09/01/22 01:10 Ascorbic Acid (Ascorbic Acid 500 Mg Tab) 500 mg PO DAILY [facility] Stop: 09/01/22 08:59 Last Admin: 08/06/22 08:45 Dose: 500 mg Aspirin (Aspirin 81 Mg Ectab) 81 mg PO DAILY [facility] Stop: 09/01/22 08:59 Last Admin: 08/06/22 08:41 Dose: 81 mg Calcium Carbonate (Calcium Carbonate 500 Mg Chewable Tab) 1,000 mg PO DAILY PRN PRN Reason: INDIGESTION/HEARTBURN/UPSET STOMACH Stop: 09/01/22 01:00 Cefdinir (Cefdinir 300 Mg Cap) 300 mg PO BID [facility] Stop: 08/10/22 20:59 Last Admin: 08/06/22 08:43 Dose: 300 mg Dextrose (Dextrose 50% 50 Ml Syringe) 25 - 50 ml IV UD PRN; Protocol PRN Reason: Hypoglycemia Protocol Stop: 09/01/22 00:30 Diazepam (Diazepam 2 Mg Tablet) 2 mg PO BID [facility] Stop: 09/05/22 08:59 Last Admin: 08/06/22 09:59 Dose: 2 mg Duloxetine HCl (Duloxetine Hcl 20 Mg Cap) 40 mg PO QAM [facility] Stop: 09/01/22 08:59 Last Admin: 08/06/22 08:45 Dose: 40 mg Enoxaparin Sodium (Enoxaparin Inj 40 Mg/0.4 Ml Syr) 40 mg SQ HS [facility] Stop: 09/01/22 00:30 Last Admin: 08/05/22 21:32 Dose: 40 mg Furosemide (Furosemide 40 Mg Tab) 40 mg PO QAM [facility] Stop: 09/01/22 08:59 Last Admin: 08/06/22 08:42 Dose: 40 mg Glucagon (Glucagon For Inj 1 Mg Vial) 1 mg SQ UD PRN; Protocol PRN Reason: Hypoglycemia Protocol Stop: 09/01/22 00:30 Glucosamine Sulfate (Glucosamine Sulfate 500 Mg Cap) 1,000 mg PO BIDM [facility] Stop: 09/01/22 07:59 Last Admin: 08/06/22 08:40 Dose: 1,000 mg Glucose (Glucose 10 Tab/Tube) 4 - 8 tab PO UD PRN; Protocol PRN Reason: Hypoglycemia Treatment Stop: 09/01/22 00:30 Glucose (Glucose 40% Gel 15 Gm Tube) 15 - 30 gm PO UD PRN; Protocol PRN Reason: Hypoglycemia Protocol Stop: 09/01/22 00:30 Ibuprofen (Ibuprofen 800 Mg Tab) 800 mg PO TID [facility] Stop: 09/04/22 20:59 Last Admin: 08/06/22 13:07 Dose: 800 mg Insulin Aspart (Insulin Aspart Per Unit Charge) 0 units SC ACHS [facility] Stop: 09/01/22 07:29 Last Admin: 08/06/22 12:54 Dose: 2 units Ipratropium [place] (Ipratropium [place] Hfa Inhaler) 2 puffs INH TID PRN PRN Reason: Wheezing Stop: 09/01/22 00:30 Levothyroxine Sodium (Levothyroxine Sodium 75 Mcg Tablet) 75 mcg PO DAILYBB [facility] Stop: 09/01/22 06:29 Last Admin: 08/06/22 05:29 Dose: 75 mcg Losartan Potassium (Losartan Potassium 50 Mg Tab) 50 mg PO DAILY [facility] Stop: 09/01/22 08:59 Last Admin: 08/06/22 08:41 Dose: 50 mg Magnesium Oxide (Magnesium Oxide 400 Mg Tab) 400 mg PO BID [facility] Stop: 09/01/22 08:59 Last Admin: 08/06/22 08:43 Dose: 400 mg Miscellaneous (Carbohydrates For Hypoglycemia ) 15 - 30 gm PO UD PRN PRN Reason: Hypoglycemia Protocol Stop: 09/01/22 00:30 Miscellaneous (Remove Lidoderm Patch) 1 each N/A DAILY@2100 [facility] Stop: 09/01/22 20:59 Last Admin: 08/05/22 21:34 Dose: 1 each Multivitamins (Multivitamin Tab) 1 tab PO DAILY [facility] Stop: 09/01/22 08:59 Last Admin: 08/06/22 08:42 Dose: 1 tab Nifedipine (Nifedipine Extended Rel 30 Mg Tabcr) 30 mg PO DAILYBB [facility] Stop: 09/01/22 06:29 Last Admin: 08/06/22 05:29 Dose: 30 mg Ondansetron HCl (Ondansetron Inj 2 Mg/Ml 2 Ml Vial) 4 mg IV Q6H PRN PRN Reason: Nausea Stop: 09/01/22 00:30 Oxycodone HCl (Oxycodone Hcl Ir 5 Mg Tab (Immediate Release)) 5 mg PO Q6H PRN PRN Reason: Moderate Pain (Scale 4, 5, 6) Stop: 08/16/22 00:30 Last Admin: 08/05/22 12:07 Dose: 5 mg Polyethylene Glycol (Polyethylene (Miralax) 17 Gm Pack) 17 gm PO DAILY PRN PRN Reason: Constipation Stop: 09/01/22 00:30 Polyethylene Glycol (Polyethylene (Miralax) 17 Gm Pack) 17 gm PO DAILY [facility] Stop: 09/04/22 08:59 Last Admin: 08/06/22 08:44 Dose: 17 gm Potassium Chloride (Potassium Chloride Crtab 20 Meq Tabcr) 20 meq PO DAILY [facility] Stop: 09/01/22 08:59 Last Admin: 08/06/22 08:43 Dose: 20 meq Rosuvastatin Calcium (Rosuvastatin Calcium 20 Mg Tab) 20 mg PO DAILY [facility] Stop: 09/01/22 08:59 Last Admin: 08/06/22 08:43 Dose: 20 mg Trolamine Salicylate (Trolamine Salicylate 10% Crm 255 Appln/85 Gm Tube) 1 appln EXT TID [facility] Stop: 08/07/22 20:59 Last Admin: 08/06/22 13:07 Dose: 1 appln Vitamin D (Cholecalciferol 1,000 Units 25 Mcg Tab) 1,000 units PO DAILY [facility] Stop: 09/01/22 08:59 Last Admin: 08/06/22 08:43 Dose: 1,000 units
[2022-08-06] MEDS: diazePAM 5 MG TABLET PO SCH (20:07)
[2022-08-06] MEDS: ENOXAPARIN INJ 40 MG/0.4 ML SYR SQ SCH (21:53)
[2022-08-07] MEDS: LEVOTHYROXINE SODIUM 75 MCG TABLET PO SCH (06:18)
[2022-08-07] MEDS: NIFEdipine EXTENDED REL 30 MG TABCR PO SCH (06:18)
[2022-08-07] MEDS: INSULIN ASPART PER UNIT CHARGE SC SCH ×4 (09:10→21:09)
[2022-08-07] MEDS: MULTIVITAMIN TAB PO SCH (09:11)
[2022-08-07] MEDS: ROSUVASTATIN CALCIUM 20 MG TAB PO SCH (09:12)
[2022-08-07] MEDS: CHOLECALCIFEROL 1,000 UNITS 25 MCG TAB PO SCH (09:12)
[2022-08-07] MEDS: MAGNESIUM OXIDE 400 MG TAB PO SCH ×2 (09:12→21:13)
[2022-08-07] MEDS: CEFDINIR 300 MG CAP PO SCH ×2 (09:12→21:13)
[2022-08-07] MEDS: DULoxetine HCL 20 MG CAP PO SCH (09:13)
[2022-08-07] MEDS: POTASSIUM CHLORIDE CRTAB 20 MEQ TABCR PO SCH (09:13)
[2022-08-07] MEDS: LOSARTAN POTASSIUM 50 MG TAB PO SCH (09:13)
[2022-08-07] MEDS: ASPIRIN 81 MG ECTAB PO SCH (09:13)
[2022-08-07] MEDS: FUROSEMIDE 40 MG TAB PO SCH (09:14)
[2022-08-07] MEDS: IBUPROFEN 800 MG TAB PO SCH ×3 (09:14→21:13)
[2022-08-07] MEDS: POLYETHYLENE (MIRALAX) 17 GM PACK PO SCH (09:16)
[2022-08-07] MEDS: TROLAMINE SALICYLATE 10% CRM 255 APPLN/85 GM TUBE EXT SCH ×2 (09:16→13:01)
[2022-08-07] MEDS: ASCORBIC ACID 500 MG TAB PO SCH (09:16)
[2022-08-07] MEDS: diazePAM 5 MG TABLET PO SCH ×2 (09:25→21:13)
[2022-08-07] MEDS: ACETAMINOPHEN 325 MG TAB PO SCH ×3 (09:44→21:13)
[2022-08-07] MEDS: GLUCOSAMINE SULFATE 500 MG CAP PO SCH ×2 (09:44→17:45)
--- NOTE | 2022-08-07 15:34 | Hospitalist Progress Note ---
Date of Service August 07, 2022 Assessment & Plan (1) Osteoarthritis of right hip: Plan: 2/2 acute OA flare. Hip hip CT femoral x-ray did not show any acute fractures but noted severe arthritic change of the right hip Optimize pain control Continue baclofen twice daily as needed Continue tylenol 975mg TID Lidocaine patch-->will exchange for trolamine topical lotion.Trolamine not working well 08/05--Start trial Motrin 800mg TID scheduled and valium 2mg PO BID scheduled (for spasms) Hold oxycodone and baclofen at this time. Continue duloxetine Cont PT/OT PCP to arrange for motorized wheel chair for her Currently not able to sit up in bed or chair 2/2 severe pain. Interventions such as injections and/or surgery not desired by patient at this time. 08/06 cont Motrin and valium with increase of benzo to 5mg now. Cont PT and efforts to mobilize. 08/07-still very still and not able to flex/extend her left knee or hip-now with worsened muscle spasms. Tramadol added (2) HTN (hypertension): Plan: chronic, controlled. Continue losartan per home regimen. Per H/P, report of coreg discontinued due to bradycardia (3) Urinary tract infection: Plan: Rocephin started pending culture results. Has an external catheter in place, not a rowland as previously stated on notes. Cefdinir continued at this time for ramos-sens E coli (4) Low urine output: Plan: Resolved. (5) SARAN (obstructive sleep apnea): Plan: chronic, stable. Continue CPAP HS (6) DM type 2 (diabetes mellitus, type 2): Plan: HbA1c is 6.6 Hold metformin while inpatient ISS per protocol BSG currently at goal. (7) Hypothyroid: Plan: TSH is 6.026 Will continue current dose of levothyroxine at this time. Patient stated her spasms got worse when it was increased last year To follow up PCP for monitoring and management DVT ppx - lovenox sq Full Code Dispo-uncertain, need pain to be more controlled and for her to be closer to ambulating independently again. Son was at bedside this evening. All questions were answered and he was updated on the plan. Betina Duffy DO [facility] Hospitalist Admission and Anticipated Discharge Date Admission Date: August 03, 2022 Subjective 87 yo F presents with acute right hip/leg/back pain and associated spasms Pain is about the same today without much improvement Still not able to flex/extend her left knee and hip. We will add tramadol 100mg now and PRN as she reports pain and spasms all morning today. K pad in place She is tolerating PO and no other acute issues. Cont to encourage ambulation Review of Systems Review of Systems: All other systems were reviewed and negative except as indicated on subjective above. Physical Exam Physical Exam: CONSTITUTIONAL: WNWD, vitals as above,NAD but appears uncomfortable with only slight movement. EYES: normal conjunctivae, no scleral icterus ENT: external ear and nose normal, MMM NECK: trachea midline RESPIRATORY: clear to auscultation bilaterally, no crackles, rales or wheezes, normal respiratory effort CARDIOVASCULAR: regular rate and rhythm, S1 and 2 heard without murmurs, gallops or rubs, no JVD, no peripheral edema CHEST: inspection of chest was normal GASTROINTESTINAL: soft, nontender, ND, no guarding MUSCULOSKELETAL: strength 5/5 throughout, very stiff with limited ROM in the right leg even when supine in bed, resistant 2/2 severe pain, head is n ormocephalic and atraumatic SKIN: warm and dry NEUROLOGIC: CN 2-12 grossly intact, no sensory deficit, normal cognition, normal speech, no tremor PSYCHIATRIC: alert cooperative and oriented to person, place and time. Euthymic mood, makes good eye contact, language grossly intact, recent and remote memory grossly intact. Results & Data Results & Data Vital Signs (Past 12 Hours) Vital Signs Temp Pulse Pulse Resp BP Pulse Ox O2 Del Method 08/07/22 13:44 Room Air 08/07/22 11:14 36.6 C 69 18 155/67 H 94 Room Air 08/07/22 07:35 36.6 C 75 20 159/80 H 99 Room Air 08/07/22 04:00 36.4 C L 66 18 137/73 99 CPAP O2 Flow Rate 08/07/22 13:44 08/07/22 11:14 08/07/22 07:35 08/07/22 04:00 2 Medications Administered Current Inpatient Medications Acetaminophen (Acetaminophen 325 Mg Tab) 975 mg PO TID [facility] Stop: 09/01/22 13:59 Last Admin: 08/07/22 12:59 Dose: 975 mg Al Hydrox/Mg Hydrox/Simethicone (Aluminum/Magnesium/Simeth (Maalox Max) 30 Ml Udc) 15 ml PO DAILY PRN PRN Reason: INDIGESTION/UPSET STOMACH Stop: 09/01/22 00:30 Artificial Tears (Artificial Tears) 2 drops OP PRN PRN PRN Reason: Dry Eyes Stop: 09/01/22 01:10 Ascorbic Acid (Ascorbic Acid 500 Mg Tab) 500 mg PO DAILY [facility] Stop: 09/01/22 08:59 Last Admin: 08/07/22 09:16 Dose: 500 mg Aspirin (Aspirin 81 Mg Ectab) 81 mg PO DAILY [facility] Stop: 09/01/22 08:59 Last Admin: 08/07/22 09:13 Dose: 81 mg Calcium Carbonate (Calcium Carbonate 500 Mg Chewable Tab) 1,000 mg PO DAILY PRN PRN Reason: INDIGESTION/HEARTBURN/UPSET STOMACH Stop: 09/01/22 01:00 Cefdinir (Cefdinir 300 Mg Cap) 300 mg PO BID [facility] Stop: 08/10/22 20:59 Last Admin: 08/07/22 09:12 Dose: 300 mg Dextrose (Dextrose 50% 50 Ml Syringe) 25 - 50 ml IV UD PRN; Protocol PRN Reason: Hypoglycemia Protocol Stop: 09/01/22 00:30 Diazepam (Diazepam 5 Mg Tablet) 5 mg PO BID [facility] Stop: 09/05/22 20:59 Last Admin: 08/07/22 09:25 Dose: 5 mg Duloxetine HCl (Duloxetine Hcl 20 Mg Cap) 40 mg PO QAM [facility] Stop: 09/01/22 08:59 Last Admin: 08/07/22 09:13 Dose: 40 mg Enoxaparin Sodium (Enoxaparin Inj 40 Mg/0.4 Ml Syr) 40 mg SQ HS [facility] Stop: 09/01/22 00:30 Last Admin: 08/06/22 21:53 Dose: 40 mg Furosemide (Furosemide 40 Mg Tab) 40 mg PO QAM [facility] Stop: 09/01/22 08:59 Last Admin: 08/07/22 09:14 Dose: 40 mg Glucagon (Glucagon For Inj 1 Mg Vial) 1 mg SQ UD PRN; Protocol PRN Reason: Hypoglycemia Protocol Stop: 09/01/22 00:30 Glucosamine Sulfate (Glucosamine Sulfate 500 Mg Cap) 1,000 mg PO BIDM [facility] Stop: 09/01/22 07:59 Last Admin: 08/07/22 09:44 Dose: 1,000 mg Glucose (Glucose 10 Tab/Tube) 4 - 8 tab PO UD PRN; Protocol PRN Reason: Hypoglycemia Treatment Stop: 09/01/22 00:30 Glucose (Glucose 40% Gel 15 Gm Tube) 15 - 30 gm PO UD PRN; Protocol PRN Reason: Hypoglycemia Protocol Stop: 09/01/22 00:30 Ibuprofen (Ibuprofen 800 Mg Tab) 800 mg PO TID [facility] Stop: 09/04/22 20:59 Last Admin: 08/07/22 13:00 Dose: 800 mg Insulin Aspart (Insulin Aspart Per Unit Charge) 0 units SC ACHS [facility] Stop: 09/01/22 07:29 Last Admin: 08/07/22 12:59 Dose: 2 units Ipratropium [place] (Ipratropium [place] Hfa Inhaler) 2 puffs INH TID PRN PRN Reason: Wheezing Stop: 09/01/22 00:30 Levothyroxine Sodium (Levothyroxine Sodium 75 Mcg Tablet) 75 mcg PO DAILYBB [facility] Stop: 09/01/22 06:29 Last Admin: 08/07/22 06:18 Dose: 75 mcg Losartan Potassium (Losartan Potassium 50 Mg Tab) 50 mg PO DAILY [facility] Stop: 09/01/22 08:59 Last Admin: 08/07/22 09:13 Dose: 50 mg Magnesium Oxide (Magnesium Oxide 400 Mg Tab) 400 mg PO BID [facility] Stop: 09/01/22 08:59 Last Admin: 08/07/22 09:12 Dose: 400 mg Miscellaneous (Carbohydrates For Hypoglycemia ) 15 - 30 gm PO UD PRN PRN Reason: Hypoglycemia Protocol Stop: 09/01/22 00:30 Miscellaneous (Remove Lidoderm Patch) 1 each N/A DAILY@2100 [facility] Stop: 09/01/22 20:59 Last Admin: 08/06/22 21:54 Dose: 1 each Multivitamins (Multivitamin Tab) 1 tab PO DAILY [facility] Stop: 09/01/22 08:59 Last Admin: 08/07/22 09:11 Dose: 1 tab Nifedipine (Nifedipine Extended Rel 30 Mg Tabcr) 30 mg PO DAILYBB [facility] Stop: 09/01/22 06:29 Last Admin: 08/07/22 06:18 Dose: 30 mg Ondansetron HCl (Ondansetron Inj 2 Mg/Ml 2 Ml Vial) 4 mg IV Q6H PRN PRN Reason: Nausea Stop: 09/01/22 00:30 Polyethylene Glycol (Polyethylene (Miralax) 17 Gm Pack) 17 gm PO DAILY PRN PRN Reason: Constipation Stop: 09/01/22 00:30 Polyethylene Glycol (Polyethylene (Miralax) 17 Gm Pack) 17 gm PO DAILY [facility] Stop: 09/04/22 08:59 Last Admin: 08/07/22 09:16 Dose: 17 gm Potassium Chloride (Potassium Chloride Crtab 20 Meq Tabcr) 20 meq PO DAILY [facility] Stop: 09/01/22 08:59 Last Admin: 08/07/22 09:13 Dose: 20 meq Rosuvastatin Calcium (Rosuvastatin Calcium 20 Mg Tab) 20 mg PO DAILY [facility] Stop: 09/01/22 08:59 Last Admin: 08/07/22 09:12 Dose: 20 mg Tramadol HCl (Tramadol Hcl 50 Mg Tablet) 100 mg PO Q6H PRN PRN Reason: severe pain 6+ Stop: 09/06/22 15:44 Trolamine Salicylate (Trolamine Salicylate 10% Crm 255 Appln/85 Gm Tube) 1 appln EXT TID [facility] Stop: 08/07/22 20:59 Last Admin: 08/07/22 13:01 Dose: 1 appln Vitamin D (Cholecalciferol 1,000 Units 25 Mcg Tab) 1,000 units PO DAILY [facility] Stop: 09/01/22 08:59 Last Admin: 08/07/22 09:12 Dose: 1,000 units
[2022-08-07] MEDS: traMADol HCL 50 MG TABLET PO PRN (16:07)
[2022-08-07] MEDS: ENOXAPARIN INJ 40 MG/0.4 ML SYR SQ SCH (21:13)
[2022-08-08] MEDS: LEVOTHYROXINE SODIUM 75 MCG TABLET PO SCH (06:27)
[2022-08-08] MEDS: NIFEdipine EXTENDED REL 30 MG TABCR PO SCH (06:27)
[2022-08-08] MEDS: INSULIN ASPART PER UNIT CHARGE SC SCH ×4 (08:19→20:27)
[2022-08-08] MEDS: POLYETHYLENE (MIRALAX) 17 GM PACK PO SCH (08:37)
[2022-08-08] MEDS: GLUCOSAMINE SULFATE 500 MG CAP PO SCH ×2 (08:37→16:40)
[2022-08-08] MEDS: IBUPROFEN 800 MG TAB PO SCH ×3 (08:38→20:11)
[2022-08-08] MEDS: POTASSIUM CHLORIDE CRTAB 20 MEQ TABCR PO SCH (08:38)
[2022-08-08] MEDS: MULTIVITAMIN TAB PO SCH (08:39)
[2022-08-08] MEDS: ASPIRIN 81 MG ECTAB PO SCH (08:40)
[2022-08-08] MEDS: MAGNESIUM OXIDE 400 MG TAB PO SCH ×2 (08:40→20:11)
[2022-08-08] MEDS: CHOLECALCIFEROL 1,000 UNITS 25 MCG TAB PO SCH (08:40)
[2022-08-08] MEDS: CEFDINIR 300 MG CAP PO SCH ×2 (08:40→20:11)
[2022-08-08] MEDS: ROSUVASTATIN CALCIUM 20 MG TAB PO SCH (08:40)
[2022-08-08] MEDS: ASCORBIC ACID 500 MG TAB PO SCH (08:40)
[2022-08-08] MEDS: LOSARTAN POTASSIUM 50 MG TAB PO SCH (08:41)
[2022-08-08] MEDS: FUROSEMIDE 40 MG TAB PO SCH (08:41)
[2022-08-08] MEDS: diazePAM 5 MG TABLET PO SCH ×2 (08:48→20:12)
[2022-08-08] MEDS: DULoxetine HCL 20 MG CAP PO SCH (10:00)
[2022-08-08] MEDS: ACETAMINOPHEN 325 MG TAB PO SCH ×3 (10:00→20:11)
[2022-08-08] MEDS: traMADol HCL 50 MG TABLET PO PRN (13:15)
--- NOTE | 2022-08-08 16:11 | Hospitalist Progress Note ---
Date of Service August 08, 2022 Assessment & Plan (1) Osteoarthritis of right hip: Plan: 2/2 acute OA flare. Hip hip CT femoral x-ray did not show any acute fractures but noted severe arthritic change of the right hip Optimize pain control Continue baclofen twice daily as needed Continue tylenol 975mg TID Lidocaine patch-->will exchange for trolamine topical lotion.Trolamine not working well 08/05--Start trial Motrin 800mg TID scheduled and valium 2mg PO BID scheduled (for spasms) Hold oxycodone and baclofen at this time. Continue duloxetine Cont PT/OT PCP to arrange for motorized wheel chair for her Currently not able to sit up in bed or chair 2/2 severe pain. Interventions such as injections and/or surgery not desired by patient at this time. Clinically much better today and will continue current management Strongly advised to participate in physical therapy (2) HTN (hypertension): Plan: Chronic, controlled. Continue losartan per home regimen. Per H/P, report of coreg discontinued due to bradycardia (3) Urinary tract infection: Plan: Rocephin started pending culture results. Has an external catheter in place, not a rowland as previously stated on notes. Cefdinir continued at this time for ramos-sens E coli Will finish the course of antibiotic for a total of 7 to 10 days (4) Low urine output: Plan: Resolved. (5) SARAN (obstructive sleep apnea): Plan: chronic, stable. Continue CPAP HS (6) DM type 2 (diabetes mellitus, type 2): Plan: HbA1c is 6.6 Hold metformin while inpatient ISS per protocol BSG currently at goal. (7) Hypothyroid: Plan: TSH is 6.026 Will continue current dose of levothyroxine at this time. Patient stated her spasms got worse when it was increased last year To follow up PCP for monitoring and management DVT ppx - lovenox sq Full Code Dispo-uncertain, need pain to be more controlled and for her to be closer to ambulating independently again. Son was at bedside this evening. All questions were answered and he was updated on the plan. Admission and Anticipated Discharge Date Admission Date: August 03, 2022 Subjective 08/08/2022 The patient was seen and examined in medical telemetry unit She has been complaining of pain in the right hip but today seems to be a little better She is strongly advised to come out of bed and participate in physical therapy Denies any other symptoms Review of Systems Review of Systems: All systems reviewed and are unremarkable except as noted below Physical Exam Physical Exam: Lying in bed comfortably Constitutional: well developed, well nourished and + obese; not ill appearing Eyes: PERRL, conjunctivae normal, anicteric sclerae ENMT: external ear and nose normal, oropharynx normal Neck: trachea midline, no thyromegaly Respiratory: no respiratory distress Auscultation: lungs clear to auscultation bilaterally Cardiovascular: Rate/Rhythm: regular rate and regular rhythm; not tachycardic Heart Sounds: normal S1 and normal S2; no murmur Extremities: no edema Gastrointestinal (Abdomen): Inspection/Auscultation: normal bowel sounds; abdomen not distended Percussion/Palpation: abdomen soft; abdomen nontender Musculoskeletal: Severe osteoarthritic changes involving the extremities. Right hip movement his pain, right knee movement is painful too Neurologic: normal touch/pain/proprioception; no focal motor deficits Psychiatric: A+Ox3, euthymic affect Results & Data Results & Data Vital Signs (Past 12 Hours) Vital Signs Temp Pulse Resp BP Pulse Ox O2 Del Method 08/08/22 12:31 Room Air 08/08/22 11:23 36.5 C 68 16 126/70 97 Room Air 08/08/22 08:05 36.5 C 63 18 143/73 H 93 Room Air Medications Administered Current Inpatient Medications Acetaminophen (Acetaminophen 325 Mg Tab) 975 mg PO TID [facility] Stop: 09/01/22 13:59 Last Admin: 08/08/22 14:19 Dose: 975 mg Al Hydrox/Mg Hydrox/Simethicone (Aluminum/Magnesium/Simeth (Maalox Max) 30 Ml Udc) 15 ml PO DAILY PRN PRN Reason: INDIGESTION/UPSET STOMACH Stop: 09/01/22 00:30 Artificial Tears (Artificial Tears) 2 drops OP PRN PRN PRN Reason: Dry Eyes Stop: 09/01/22 01:10 Ascorbic Acid (Ascorbic Acid 500 Mg Tab) 500 mg PO DAILY [facility] Stop: 09/01/22 08:59 Last Admin: 08/08/22 08:40 Dose: 500 mg Aspirin (Aspirin 81 Mg Ectab) 81 mg PO DAILY [facility] Stop: 09/01/22 08:59 Last Admin: 08/08/22 08:40 Dose: 81 mg Calcium Carbonate (Calcium Carbonate 500 Mg Chewable Tab) 1,000 mg PO DAILY PRN PRN Reason: INDIGESTION/HEARTBURN/UPSET STOMACH Stop: 09/01/22 01:00 Cefdinir (Cefdinir 300 Mg Cap) 300 mg PO BID [facility] Stop: 08/10/22 20:59 Last Admin: 08/08/22 08:40 Dose: 300 mg Dextrose (Dextrose 50% 50 Ml Syringe) 25 - 50 ml IV UD PRN; Protocol PRN Reason: Hypoglycemia Protocol Stop: 09/01/22 00:30 Diazepam (Diazepam 5 Mg Tablet) 5 mg PO BID [facility] Stop: 09/05/22 20:59 Last Admin: 08/08/22 08:48 Dose: 5 mg Duloxetine HCl (Duloxetine Hcl 20 Mg Cap) 40 mg PO QAM [facility] Stop: 09/01/22 08:59 Last Admin: 08/08/22 10:00 Dose: 40 mg Enoxaparin Sodium (Enoxaparin Inj 40 Mg/0.4 Ml Syr) 40 mg SQ HS [facility] Stop: 09/01/22 00:30 Last Admin: 08/07/22 21:13 Dose: 40 mg Furosemide (Furosemide 40 Mg Tab) 40 mg PO QAM [facility] Stop: 09/01/22 08:59 Last Admin: 08/08/22 08:41 Dose: 40 mg Glucagon (Glucagon For Inj 1 Mg Vial) 1 mg SQ UD PRN; Protocol PRN Reason: Hypoglycemia Protocol Stop: 09/01/22 00:30 Glucosamine Sulfate (Glucosamine Sulfate 500 Mg Cap) 1,000 mg PO BIDM [facility] Stop: 09/01/22 07:59 Last Admin: 08/08/22 08:37 Dose: 1,000 mg Glucose (Glucose 10 Tab/Tube) 4 - 8 tab PO UD PRN; Protocol PRN Reason: Hypoglycemia Treatment Stop: 09/01/22 00:30 Glucose (Glucose 40% Gel 15 Gm Tube) 15 - 30 gm PO UD PRN; Protocol PRN Reason: Hypoglycemia Protocol Stop: 09/01/22 00:30 Ibuprofen (Ibuprofen 800 Mg Tab) 800 mg PO TID [facility] Stop: 09/04/22 20:59 Last Admin: 08/08/22 13:09 Dose: 800 mg Insulin Aspart (Insulin Aspart Per Unit Charge) 0 units SC ACHS [facility] Stop: 09/01/22 07:29 Last Admin: 08/08/22 12:44 Dose: Not Given Ipratropium [place] (Ipratropium [place] Hfa Inhaler) 2 puffs INH TID PRN PRN Reason: Wheezing Stop: 09/01/22 00:30 Levothyroxine Sodium (Levothyroxine Sodium 75 Mcg Tablet) 75 mcg PO DAILYBB [facility] Stop: 09/01/22 06:29 Last Admin: 08/08/22 06:27 Dose: 75 mcg Losartan Potassium (Losartan Potassium 50 Mg Tab) 50 mg PO DAILY [facility] Stop: 09/01/22 08:59 Last Admin: 08/08/22 08:41 Dose: 50 mg Magnesium Oxide (Magnesium Oxide 400 Mg Tab) 400 mg PO BID [facility] Stop: 09/01/22 08:59 Last Admin: 08/08/22 08:40 Dose: 400 mg Miscellaneous (Carbohydrates For Hypoglycemia ) 15 - 30 gm PO UD PRN PRN Reason: Hypoglycemia Protocol Stop: 09/01/22 00:30 Miscellaneous (Remove Lidoderm Patch) 1 each N/A DAILY@2100 [facility] Stop: 09/01/22 20:59 Last Admin: 08/07/22 21:14 Dose: 1 each Multivitamins (Multivitamin Tab) 1 tab PO DAILY [facility] Stop: 09/01/22 08:59 Last Admin: 08/08/22 08:39 Dose: 1 tab Nifedipine (Nifedipine Extended Rel 30 Mg Tabcr) 30 mg PO DAILYBB [facility] Stop: 09/01/22 06:29 Last Admin: 08/08/22 06:27 Dose: 30 mg Ondansetron HCl (Ondansetron Inj 2 Mg/Ml 2 Ml Vial) 4 mg IV Q6H PRN PRN Reason: Nausea Stop: 09/01/22 00:30 Polyethylene Glycol (Polyethylene (Miralax) 17 Gm Pack) 17 gm PO DAILY PRN PRN Reason: Constipation Stop: 09/01/22 00:30 Polyethylene Glycol (Polyethylene (Miralax) 17 Gm Pack) 17 gm PO DAILY [facility] Stop: 09/04/22 08:59 Last Admin: 08/08/22 08:37 Dose: 17 gm Potassium Chloride (Potassium Chloride Crtab 20 Meq Tabcr) 20 meq PO DAILY [facility] Stop: 09/01/22 08:59 Last Admin: 08/08/22 08:38 Dose: 20 meq Rosuvastatin Calcium (Rosuvastatin Calcium 20 Mg Tab) 20 mg PO DAILY [facility] Stop: 09/01/22 08:59 Last Admin: 08/08/22 08:40 Dose: 20 mg Tramadol HCl (Tramadol Hcl 50 Mg Tablet) 100 mg PO Q6H PRN PRN Reason: severe pain 6+ Stop: 09/06/22 15:44 Last Admin: 08/08/22 13:15 Dose: 100 mg Vitamin D (Cholecalciferol 1,000 Units 25 Mcg Tab) 1,000 units PO DAILY [facility] Stop: 09/01/22 08:59 Last Admin: 08/08/22 08:40 Dose: 1,000 units
[2022-08-08] MEDS: ENOXAPARIN INJ 40 MG/0.4 ML SYR SQ SCH (20:12)
[2022-08-09] MEDS: LEVOTHYROXINE SODIUM 75 MCG TABLET PO SCH (06:21)
[2022-08-09] MEDS: traMADol HCL 50 MG TABLET PO PRN ×3 (06:21→18:15)
[2022-08-09] MEDS: NIFEdipine EXTENDED REL 30 MG TABCR PO SCH (06:21)
[2022-08-09] MEDS: POLYETHYLENE (MIRALAX) 17 GM PACK PO SCH (08:40)
[2022-08-09] MEDS: ACETAMINOPHEN 325 MG TAB PO SCH ×3 (08:41→20:44)
[2022-08-09] MEDS: CEFDINIR 300 MG CAP PO SCH ×2 (08:41→20:44)
[2022-08-09] MEDS: ROSUVASTATIN CALCIUM 20 MG TAB PO SCH (08:41)
[2022-08-09] MEDS: MULTIVITAMIN TAB PO SCH (08:41)
[2022-08-09] MEDS: POTASSIUM CHLORIDE CRTAB 20 MEQ TABCR PO SCH (08:41)
[2022-08-09] MEDS: IBUPROFEN 800 MG TAB PO SCH ×3 (08:41→20:44)
[2022-08-09] MEDS: MAGNESIUM OXIDE 400 MG TAB PO SCH ×2 (08:42→20:44)
[2022-08-09] MEDS: LOSARTAN POTASSIUM 50 MG TAB PO SCH (08:42)
[2022-08-09] MEDS: GLUCOSAMINE SULFATE 500 MG CAP PO SCH ×2 (08:42→18:11)
[2022-08-09] MEDS: FUROSEMIDE 40 MG TAB PO SCH (08:42)
[2022-08-09] MEDS: diazePAM 5 MG TABLET PO SCH ×2 (08:42→20:44)
[2022-08-09] MEDS: CHOLECALCIFEROL 1,000 UNITS 25 MCG TAB PO SCH (08:42)
[2022-08-09] MEDS: ASPIRIN 81 MG ECTAB PO SCH (08:42)
[2022-08-09] MEDS: DULoxetine HCL 20 MG CAP PO SCH (08:42)
[2022-08-09] MEDS: ASCORBIC ACID 500 MG TAB PO SCH (08:42)
[2022-08-09] MEDS: INSULIN ASPART PER UNIT CHARGE SC SCH ×4 (08:52→20:35)
--- NOTE | 2022-08-09 16:47 | Hospitalist Progress Note ---
Date of Service August 09, 2022 Assessment & Plan (1) Osteoarthritis of right hip: Plan: 2/2 acute OA flare. Hip hip CT femoral x-ray did not show any acute fractures but noted severe arthritic change of the right hip Optimize pain control Continue baclofen twice daily as needed Continue tylenol 975mg TID Lidocaine patch-->will exchange for trolamine topical lotion.Trolamine not working well 08/05--Start trial Motrin 800mg TID scheduled and valium 2mg PO BID scheduled (for spasms) Hold oxycodone and baclofen at this time. Continue duloxetine Cont PT/OT PCP to arrange for motorized wheel chair for her Currently not able to sit up in bed or chair 2/2 severe pain. Interventions such as injections and/or surgery not desired by patient at this time. Clinically much better today and will continue current management Strongly advised to participate in physical therapy Remains stable and continues to have minimal pain-was advised to take pain medications prior to starting physical therapy (2) HTN (hypertension): Plan: Chronic, controlled. Continue losartan per home regimen. Per H/P, report of coreg discontinued due to bradycardia Blood pressure is controlled (3) Urinary tract infection: Plan: Rocephin started pending culture results. Has an external catheter in place, not a rowland as previously stated on notes. Cefdinir continued at this time for ramos-sens E coli Will finish the course of antibiotic for a total of 7 to 10 day Continue current antibiotic (4) Low urine output: Plan: Resolved. (5) SARAN (obstructive sleep apnea): Plan: chronic, stable. Continue CPAP HS (6) DM type 2 (diabetes mellitus, type 2): Plan: HbA1c is 6.6 Hold metformin while inpatient ISS per protocol BSG currently at goal. (7) Hypothyroid: Plan: TSH is 6.026 Will continue current dose of levothyroxine at this time. Patient stated her spasms got worse when it was increased last year To follow up PCP for monitoring and management DVT ppx - lovenox sq Full Code Dispo-uncertain, need pain to be more controlled and for her to be closer to ambulating independently again. Son was at bedside this evening. All questions were answered and he was updated on the plan. Admission and Anticipated Discharge Date Admission Date: August 03, 2022 Subjective 08/08/2022 The patient was seen and examined in medical telemetry unit She has been complaining of pain in the right hip but today seems to be a little better She is strongly advised to come out of bed and participate in physical therapy Denies any other symptoms 08/09/2022 The patient was seen and examined in medical telemetry unit She has been much better today Complain right foot pain Has been getting physical therapy and awaiting placement Review of Systems Review of Systems: All systems reviewed and are unremarkable except as noted below Physical Exam Physical Exam: Lying in bed comfortably Constitutional: well developed, well nourished and + obese; not ill appearing Eyes: PERRL, conjunctivae normal, anicteric sclerae ENMT: external ear and nose normal, oropharynx normal Neck: trachea midline, no thyromegaly Respiratory: no respiratory distress Auscultation: lungs clear to ausculta tion bilaterally Cardiovascular: Rate/Rhythm: regular rate and regular rhythm; not tachycardic Heart Sounds: normal S1 and normal S2; no murmur Extremities: no edema Gastrointestinal (Abdomen): Inspection/Auscultation: normal bowel sounds; abdomen not distended Percussion/Palpation: abdomen soft; abdomen nontender Neurologic: normal touch/pain/proprioception; no focal motor deficits Psychiatric: A+Ox3, euthymic affect Results & Data Results & Data Vital Signs (Past 12 Hours) Vital Signs Temp Pulse Resp BP Pulse Ox O2 Del Method 08/09/22 14:37 36.4 C L 80 16 127/74 97 Room Air 08/09/22 07:30 CPAP 08/09/22 07:05 36.4 C L 61 12 128/61 95 Room Air
[2022-08-09] MEDS: ENOXAPARIN INJ 40 MG/0.4 ML SYR SQ SCH (20:44)
[2022-08-10] MEDS: traMADol HCL 50 MG TABLET PO PRN (04:30)
[2022-08-10] MEDS: NIFEdipine EXTENDED REL 30 MG TABCR PO SCH (05:37)
[2022-08-10] MEDS: LEVOTHYROXINE SODIUM 75 MCG TABLET PO SCH (05:37)
[2022-08-10] MEDS: ACETAMINOPHEN 325 MG TAB PO SCH ×2 (08:18→13:00)
[2022-08-10] MEDS: POTASSIUM CHLORIDE CRTAB 20 MEQ TABCR PO SCH (08:18)
[2022-08-10] MEDS: diazePAM 5 MG TABLET PO SCH (08:18)
[2022-08-10] MEDS: POLYETHYLENE (MIRALAX) 17 GM PACK PO SCH (08:18)
[2022-08-10] MEDS: ROSUVASTATIN CALCIUM 20 MG TAB PO SCH (08:19)
[2022-08-10] MEDS: MULTIVITAMIN TAB PO SCH (08:19)
[2022-08-10] MEDS: LOSARTAN POTASSIUM 50 MG TAB PO SCH (08:20)
[2022-08-10] MEDS: ASPIRIN 81 MG ECTAB PO SCH (08:20)
[2022-08-10] MEDS: CHOLECALCIFEROL 1,000 UNITS 25 MCG TAB PO SCH (08:20)
[2022-08-10] MEDS: FUROSEMIDE 40 MG TAB PO SCH (08:20)
[2022-08-10] MEDS: DULoxetine HCL 20 MG CAP PO SCH (08:20)
[2022-08-10] MEDS: CEFDINIR 300 MG CAP PO SCH (08:20)
[2022-08-10] MEDS: IBUPROFEN 800 MG TAB PO SCH ×2 (08:20→13:00)
[2022-08-10] MEDS: MAGNESIUM OXIDE 400 MG TAB PO SCH (08:20)
[2022-08-10] MEDS: ASCORBIC ACID 500 MG TAB PO SCH (08:21)
[2022-08-10] MEDS: GLUCOSAMINE SULFATE 500 MG CAP PO SCH (08:21)
[2022-08-10] MEDS: INSULIN ASPART PER UNIT CHARGE SC SCH ×2 (08:58→12:58)
--- NOTE | 2022-08-10 16:02 | Hospitalist Progress Note ---
Date of Service August 10, 2022 Assessment & Plan (1) Osteoarthritis of right hip: Plan: 2/2 acute OA flare. Hip hip CT femoral x-ray did not show any acute fractures but noted severe arthritic change of the right hip Optimize pain control Continue baclofen twice daily as needed Continue tylenol 975mg TID Lidocaine patch-->will exchange for trolamine topical lotion.Trolamine not working well 08/05--Start trial Motrin 800mg TID scheduled and valium 2mg PO BID scheduled (for spasms) Hold oxycodone and baclofen at this time. Continue duloxetine Cont PT/OT-has been tolerating well PCP to arrange for motorized wheel chair for her Currently not able to sit up in bed or chair 2/2 severe pain. Interventions such as injections and/or surgery not desired by patient at this time. Has been tolerating physical therapy well with minimal pain Denies any other significant symptoms She has been accepted to [facility] and will be transferred to the facility this afternoon (2) HTN (hypertension): Plan: Chronic, controlled. Continue losartan per home regimen. Per H/P, report of coreg discontinued due to bradycardia Blood pressure is controlled-remained stable (3) Urinary tract infection: Plan: Rocephin started pending culture results. Has an external catheter in place, not a rowland as previously stated on notes. Cefdinir continued at this time for ramos-sens E coli Will finish the course of antibiotic for a total of 7 to 10 day Continue current antibiotic -we will finish the course on discharge (4) Low urine output: Plan: Resolved. Advised to drink more fluid (5) SARAN (obstructive sleep apnea): Plan: chronic, stable. Continue CPAP HS (6) DM type 2 (diabetes mellitus, type 2): Plan: HbA1c is 6.6 Hold metformin while inpatient ISS per protocol BSG currently at goal. (7) Hypothyroid: Plan: TSH is 6.026 Will continue current dose of levothyroxine at this time. Patient stated her spasms got worse when it was increased last year To follow up PCP for monitoring and management DVT ppx - lovenox sq Full Code Dispo-uncertain, need pain to be more controlled and for her to be closer to ambulating independently again. Son was at bedside this evening. All questions were answered and he was updated on the plan. Will be discharged this afternoon Admission and Anticipated Discharge Date Admission Date: August 03, 2022 Subjective 08/08/2022 The patient was seen and examined in medical telemetry unit She has been complaining of pain in the right hip but today seems to be a little better She is strongly advised to come out of bed and participate in physical therapy Denies any other symptoms 08/09/2022 The patient was seen and examined in medical telemetry unit She has been much better today Complain right foot pain Has been getting physical therapy and awaiting placement 08/10/2022 The patient was seen and examined in medical floor She has been stable and still complains to have right hip pain with ambulation Does not have any more pain in the right foot Has been accepted to [facility] and will be transferred there around 5 PM today Review of Systems Review of Systems: All systems reviewed and are unremarkable except as noted below Physical Exam Physical Exam: Lying in bed comfortably Constitutional: well developed, well nourished and + obese; not ill appearing Eyes: PERRL, conjunctivae normal, anicteric sclerae ENMT: external ear and nose normal, oropharynx normal Neck: trachea midline, no thyromegaly Respiratory: no respiratory distress Auscultation: lungs clear to auscultation bilaterally Cardiovascular: Rate/Rhythm: regular rate and regular rhythm; not tachycardic Heart Sounds: normal S1 and normal S2; no murmur Extremities: no edema Gastrointestinal (Abdomen): Inspection/Auscultation: normal bowel sounds; abdomen not distended Percussion/Palpation: abdomen soft; abdomen nontender Musculoskeletal: Has pain with movements of the right hip and right ankle but without any acute arthritis Neurologic: normal touch/pain/proprioception; no focal motor deficits Psychiatric: A+Ox3, euthymic affect Lymphatic: no cervical or axillary lymphadenopathy Results & Data Results & Data Vital Signs (Past 12 Hours) Vital Signs Temp Pulse Resp BP BP Pulse Ox O2 Del Method 08/10/22 15:15 36.5 C 90 17 148/75 H 94 Room Air 08/10/22 08:53 Room Air 08/10/22 08:02 36.6 C 62 18 151/74 H 96 BiPAP Medications Administered Current Inpatient Medications Acetaminophen (Acetaminophen 325 Mg Tab) 975 mg PO TID JACINTO Stop: 09/01/22 13:59 Last Admin: 08/10/22 13:00 Dose: 975 mg Al Hydrox/Mg Hydrox/Simethicone (Aluminum/Magnesium/Simeth (Maalox Max) 30 Ml Udc) 15 ml PO DAILY PRN PRN Reason: INDIGESTION/UPSET STOMACH Stop: 09/01/22 00:30 Artificial Tears (Artificial Tears) 2 drops OP PRN PRN PRN Reason: Dry Eyes Stop: 09/01/22 01:10 Ascorbic Acid (Ascorbic Acid 500 Mg Tab) 500 mg PO DAILY [facility] Stop: 09/01/22 08:59 Last Admin: 08/10/22 08:21 Dose: 500 mg Aspirin (Aspirin 81 Mg Ectab) 81 mg PO DAILY [facility] Stop: 09/01/22 08:59 Last Admin: 08/10/22 08:20 Dose: 81 mg Calcium Carbonate (Calcium Carbonate 500 Mg Chewable Tab) 1,000 mg PO DAILY PRN PRN Reason: INDIGESTION/HEARTBURN/UPSET STOMACH Stop: 09/01/22 01:00 Cefdinir (Cefdinir 300 Mg Cap) 300 mg PO BID [facility] Stop: 08/10/22 20:59 Last Admin: 08/10/22 08:20 Dose: 300 mg Dextrose (Dextrose 50% 50 Ml Syringe) 25 - 50 ml IV UD PRN; Protocol PRN Reason: Hypoglycemia Protocol Stop: 09/01/22 00:30 Diazepam (Diazepam 5 Mg Tablet) 5 mg PO BID [facility] Stop: 09/05/22 20:59 Last Admin: 08/10/22 08:18 Dose: 5 mg Duloxetine HCl (Duloxetine Hcl 20 Mg Cap) 40 mg PO QAM [facility] Stop: 09/01/22 08:59 Last Admin: 08/10/22 08:20 Dose: 40 mg Enoxaparin Sodium (Enoxaparin Inj 40 Mg/0.4 Ml Syr) 40 mg SQ HS [facility] Stop: 09/01/22 00:30 Last Admin: 08/09/22 20:44 Dose: 40 mg Furosemide (Furosemide 40 Mg Tab) 40 mg PO QAM [facility] Stop: 09/01/22 08:59 Last Admin: 08/10/22 08:20 Dose: 40 mg Glucagon (Glucagon For Inj 1 Mg Vial) 1 mg SQ UD PRN; Protocol PRN Reason: Hypoglycemia Protocol Stop: 09/01/22 00:30 Glucosamine Sulfate (Glucosamine Sulfate 500 Mg Cap) 1,000 mg PO BIDM [facility] Stop: 09/01/22 07:59 Last Admin: 08/10/22 08:21 Dose: 1,000 mg Glucose (Glucose 10 Tab/Tube) 4 - 8 tab PO UD PRN; Protocol PRN Reason: Hypoglycemia Treatment Stop: 09/01/22 00:30 Glucose (Glucose 40% Gel 15 Gm Tube) 15 - 30 gm PO UD PRN; Protocol PRN Reason: Hypoglycemia Protocol Stop: 09/01/22 00:30 Ibuprofen (Ibuprofen 800 Mg Tab) 800 mg PO TID [facility] Stop: 09/04/22 20:59 Last Admin: 08/10/22 13:00 Dose: 800 mg Insulin Aspart (Insulin Aspart Per Unit Charge) 0 units SC ACHS [facility] Stop: 09/01/22 07:29 Last Admin: 08/10/22 12:58 Dose: 4 units Ipratropium [place] (Ipratropium [place] Hfa Inhaler) 2 puffs INH TID PRN PRN Reason: Wheezing Stop: 09/01/22 00:30 Levothyroxine Sodium (Levothyroxine Sodium 75 Mcg Tablet) 75 mcg PO DAILYBB [facility] Stop: 09/01/22 06:29 Last Admin: 08/10/22 05:37 Dose: 75 mcg Losartan Potassium (Losartan Potassium 50 Mg Tab) 50 mg PO DAILY [facility] Stop: 09/01/22 08:59 Last Admin: 08/10/22 08:20 Dose: 50 mg Magnesium Oxide (Magnesium Oxide 400 Mg Tab) 400 mg PO BID [facility] Stop: 09/01/22 08:59 Last Admin: 08/10/22 08:20 Dose: 400 mg Miscellaneous (Carbohydrates For Hypoglycemia ) 15 - 30 gm PO UD PRN PRN Reason: Hypoglycemia Protocol Stop: 09/01/22 00:30 Miscellaneous (Remove Lidoderm Patch) 1 each N/A DAILY@2100 [facility] Stop: 09/01/22 20:59 Last Admin: 08/09/22 20:44 Dose: 1 each Multivitamins (Multivitamin Tab) 1 tab PO DAILY [facility] Stop: 09/01/22 08:59 Last Admin: 08/10/22 08:19 Dose: 1 tab Nifedipine (Nifedipine Extended Rel 30 Mg Tabcr) 30 mg PO DAILYBB [facility] Stop: 09/01/22 06:29 Last Admin: 08/10/22 05:37 Dose: 30 mg Ondansetron HCl (Ondansetron Inj 2 Mg/Ml 2 Ml Vial) 4 mg IV Q6H PRN PRN Reason: Nausea Stop: 09/01/22 00:30 Polyethylene Glycol (Polyethylene (Miralax) 17 Gm Pack) 17 gm PO DAILY PRN PRN Reason: Constipation Stop: 09/01/22 00:30 Polyethylene Glycol (Polyethylene (Miralax) 17 Gm Pack) 17 gm PO DAILY [facility] Stop: 09/04/22 08:59 Last Admin: 08/10/22 08:18 Dose: 17 gm Potassium Chloride (Potassium Chloride Crtab 20 Meq Tabcr) 20 meq PO DAILY [facility] Stop: 09/01/22 08:59 Last Admin: 08/10/22 08:18 Dose: 20 meq Rosuvastatin Calcium (Rosuvastatin Calcium 20 Mg Tab) 20 mg PO DAILY [facility] Stop: 09/01/22 08:59 Last Admin: 08/10/22 08:19 Dose: 20 mg Tramadol HCl (Tramadol Hcl 50 Mg Tablet) 100 mg PO Q6H PRN PRN Reason: severe pain 6+ Stop: 09/06/22 15:44 Last Admin: 08/10/22 04:30 Dose: 100 mg Vitamin D (Cholecalciferol 1,000 Units 25 Mcg Tab) 1,000 units PO DAILY [facility] Stop: 09/01/22 08:59 Last Admin: 08/10/22 08:20 Dose: 1,000 units
--- NOTE | 2022-08-10 18:18 | Discharge Summary ---
Date of Service August 10, 2022 Admission HPI Per Admitting Provider DICTATED BY:Narayan White MD DATE OF ADMISSION: 08/01/2022. CHIEF COMPLAINT: Severe right hip pain. HISTORY OF PRESENT ILLNESS: This is an 87-year-old female with past medical history significant for type 2 diabetes, hypothyroidism, hyperlipidemia, obstructive sleep apnea, on CPAP at bedtime with 2 liters oxygen, pulmonary hypertension, chronic diastolic congestive heart failure, venous insufficiency, hypertension, diverticulosis of colon, cervical spinal degenerative arthritis, lichen planus, spasm of the muscles, leg swelling, osteoarthritis of both knees, physical deconditioning, urinary frequency, history of breast cancer, status post right lumpectomy in 2013, sicca syndrome, migraine headaches. The patient lives with her son, mostly bed bound, can transfer to the commode and back to the bed. Comes with severe right hip pain. Son says that he was trying to clean her up, and when he was pulling her up, she had severe pain in the right hip and she slid down to the floor, that is the reason she was brought in here. Imaging studies showed arthritis, no fractures. Currently, after pain medications, she is feeling better. Denies any other complaints. She has some on and off runny nose, on and off cough, on and off sore throat. Denies any fevers, no headache, no blurred visions, no earaches, no chest pain, no shortness of breath. Appetite is okay. No nausea, no abdominal pain. Normal bowel and bladder movements. She says micturates a lot. Recently also her home health nurse noticed her heart rate was lowest in 30s. So they stopped the Coreg, which she was taking at 6.5 mg b.i.d. Next at home checked the EKG after stopping the Coreg, her EKG looked okay as per son. She is currently off of the Coreg Admission Exam Per Admitting Provider GENERAL: The patient is of moderate build, not in acute distress. VITAL SIGNS: Temperature 36.7, pulse 86, respiratory rate 18, blood pressure 170/99, oxygen 97% on room air. HEENT: Pupils equal, round, and reactive to light. Oral mucosa moist. NECK: No JVD, no neck masses. CARDIOVASCULAR: S1 and S2 heard. Regular rate and rhythm. No murmur, no gallop. RESPIRATORY SYSTEM: Normal AP diameter. No accessory muscle use. No wheezing, no crackles. ABDOMEN: Soft, bowel sounds present, nontender, no distention. CENTRAL NERVOUS SYSTEM: Alert and oriented. Speech is clear. No facial droop. Obeys simple commands. Moves extremities. EXTREMITIES: No edema, no erythema seen. Principal Diagnosis Chronic right hip pain Right hip arthritis Discharge Exam Lying in bed comfortably Constitutional well developed, well nourished and + obese; not ill appearing Eyes PERRL, conjunctivae normal, anicteric sclerae ENMT external ear and nose normal, oropharynx normal Neck trachea midline, no thyromegaly Respiratory no respiratory distress Auscultation: lungs clear to auscultation bilaterally Cardiovascular Rate/Rhythm: regular rate and regular rhythm; not tachycardic Heart Sounds: normal S1 and normal S2; no murmur Extremities: no edema Gastrointestinal (Abdomen) Inspection/Auscultation: normal bowel sounds; abdomen not distended Percussion/Palpation: abdomen soft; abdomen nontender Neurologic normal touch/pain/proprioception; no focal motor deficits Psychiatric A+Ox3, euthymic affect Lymphatic no cervical or axillary lymphadenopathy Discharge Data Allergies Allergy/AdvReac Type Severity Reaction Status Date / Time phenobarbital Allergy Intermediate ITCHY RASH Verified 03/31/22 21:32 scopolamine Allergy Intermediate RASH Verified 03/31/22 21:32 simvastatin Allergy Intermediate muscle Verified 03/31/22 21:32 cramps aspirin AdvReac Intermediate Abdominal Verified 03/31/22 21:32 Pain atropine AdvReac Intermediate ITCHING Verified 03/31/22 21:32 codeine AdvReac Intermediate HYPERTENSIO Verified 03/31/22 21:32 N doxycycline AdvReac Intermediate NAUSEA/VOMI Verified 03/31/22 21:32 TING. hyoscyamine AdvReac Intermediate ITCHING Verified 03/31/22 21:32 lactose AdvReac Intermediate Gastrointestinal Verified 03/31/22 21:32 Upset minocycline AdvReac Intermediate NAUSEA AND Verified 03/31/22 21:32 VOMITING morphine AdvReac Intermediate NAUSEA/VOMI Verified 03/31/22 21:32 TING Fish Containing Products AdvReac Unknown Unknown Verified 08/06/22 14:03 Pork/Porcine Containing AdvReac Unknown spiritual Verified 04/01/22 04:49 Products preference shellfish derived AdvReac Unknown spiritual Verified 03/31/22 21:32 preference Consultations 08/01/22 19:20 ED Decision to Admit Stat 08/03/22 10:52 Consult Pain Management Routine 08/04/22 19:43 Consult Orthopedic Surgery Routine Ordered Studies 08/01/22 18:03 CT hip RT wo con Stat Hospital Course (1) Osteoarthritis of right hip: 2/2 acute OA flare. Hip hip CT femoral x-ray did not show any acute fractures but noted severe arthritic change of the right hip Optimize pain control Continue baclofen twice daily as needed Continue tylenol 975mg TID Lidocaine patch-->will exchange for trolamine topical lotion.Trolamine not working well 08/05--Start trial Motrin 800mg TID scheduled and valium 2mg PO BID scheduled ( for spasms) Hold oxycodone and baclofen at this time. Continue duloxetine Cont PT/OT-has been tolerating well PCP to arrange for motorized wheel chair for her Currently not able to sit up in bed or chair 2/2 severe pain. Interventions such as injections and/or surgery not desired by patient at this time. Has been tolerating physical therapy well with minimal pain Denies any other significant symptoms She has been accepted to [facility] and will be transferred to the facility this afternoon (2) HTN (hypertension): Chronic, controlled. Continue losartan per home regimen. Per H/P, report of coreg discontinued due to bradycardia Blood pressure is controlled-remained stable (3) Urinary tract infection: Rocephin started pending culture results. Has an external catheter in place, not a rowland as previously stated on notes. Cefdinir continued at this time for ramos-sens E coli Will finish the course of antibiotic for a total of 7 to 10 day Continue current antibiotic -we will finish the course on discharge (4) Low urine output: Resolved. Advised to drink more fluid (5) SARAN (obstructive sleep apnea): chronic, stable. Continue CPAP HS (6) DM type 2 (diabetes mellitus, type 2): HbA1c is 6.6 Hold metformin while inpatient ISS per protocol BSG currently at goal. (7) Hypothyroid: TSH is 6.026 Will continue current dose of levothyroxine at this time. Patient stated her spasms got worse when it was increased last year To follow up PCP for monitoring and management DVT ppx - lovenox sq Full Code Dispo-uncertain, need pain to be more controlled and for her to be closer to ambulating independently again. Son was at bedside this evening. All questions were answered and he was updated on the plan. Will be discharged this afternoon Total Time Total Time Spent Total Time Spent (In Minutes): 35 minutes Discharge Plan Discharge Items Patient Disposition: Transfer Care Home Fac Reason For Visit: RIGHT HIP PAIN Discharge Diagnosis: Chronic right hip pain Right hip arthritis Condition on Discharge: Good Activity: Resume your previous activity Non-emergency contact: Primary Care Provider and Pain Management Call non-emergency contact if: you have any medication questions and your symptoms worsen Follow-up/Referrals: Collins Delatorre, DO [Primary Care Provider] - Diet: Carb Consistent or DM2 and Heart Healthy Addtl Attending Provider Instructions: Mrs Morgan Kelly came to the hospital due to worsening right hip pain after slipping at home. You were evaluated and found to have severe right hip arthritis. No fractures were seen. Please ensure follow up with your Pain management doctor and your Primary Doctor as we discussed. It was a pleasure taking care of you. Please take precautions to avoid falls Take medications as advised Try to take less of narcotic pain medications and diazepam should be tapered off. Pending Studies at Discharge: No Stand-Alone Forms: My [employer], Smoking Cessation Skilled Items Patient informed of condition?: Yes DNR: No Discharge Level of Care: Skilled Communicable Disease: No Discharge Prognosis: Stable Lines: None Urinary Catheter: No Medications and DC Order Prescriptions: New diazepam 5 mg Tablet 2.5 mg PO BID Qty: 10 0RF ibuprofen 800 mg Tablet 800 mg PO TID PRN (Reason: Pain (Scale Score 4-6)) Qty: 30 0RF tramadol 50 mg Tablet 100 mg PO Q6H PRN (Reason: Pain (Scale Score 7-10)) 5 Days Qty: 20 0RF Continued carvedilol 25 mg tablet 0 mg PO BID Rx Instructions: pt hasn't taken in two weeks due to low heart rate; normal dose 6.25 mg bid multivitamin Tablet 1 tab PO DAILY nifedipine 30 mg Tablet Extended Release 24hr 30 mg PO DAILYBB furosemide [Lasix] 40 mg Tablet 40 mg PO QAM metformin 500 mg Tablet 500 mg PO BID omega-3 fatty acids 1,000 mg Capsule 1,000 mg PO DAILY aspirin 81 mg Tablet,Delayed Release (Dr/Ec) 81 mg PO DAILY acetaminophen [Tylenol Extra Strength] 500 mg Tablet 500 mg PO TID levothyroxine 75 mcg Tablet 75 mcg PO DAILYBB potassium chloride 20 mEq Tablet,Er Particles/Crystals 20 meq PO DAILY ascorbic acid (vitamin C) [Vitamin C] 500 mg Tablet 500 mg PO DAILY magnesium oxide 500 mg Tablet 500 mg PO BID Debrox 6.5 % Drops 0 drp otic (ear) DIRECTED PRN (Reason: WAX BUILD UP) Rx Instructions: FILL EAR CANAL, PLUG WITH COTTON BALL, REMOVE AFTER 15-20 MINS. calcium carbonate 500 mg calcium (1,250 mg) Tablet,Chewable 1,000 mg PO DIRECTED PRN (Reason: INDIGESTION/HEARTBURN/UPSET STOMACH) fluticasone propionate 50 mcg/actuation [place],Suspension 2 spray INTRANASAL BID Rx Instructions: administer into each nostril vitamin E 268 mg (400 unit) Capsule 536 mg PO DAILY alum-mag hydroxide-simeth 400-400-40 mg/5 mL Suspension 15 ml PO DAILY PRN (Reason: INDIGESTION/UPSET STOMACH) carboxymethylcellulose sodium [Refresh Liquigel] 1 % Drops, Liquid Gel 2 drp OPHTHALMIC (EYE) DIRECTED PRN (Reason: Dry Eyes) cholecalciferol (vitamin D3) [Vitamin D3] 25 mcg (1,000 unit) Capsule 25 mcg PO DAILY rosuvastatin 20 mg Tablet 20 mg PO DAILY duloxetine [Cymbalta] 20 mg Capsule,Delayed Release(Dr/Ec) 40 mg PO QAM Atrovent HFA 17 mcg/actuation Hfa Aerosol Inhaler 2 puff INHALATION TID PRN (Reason: Wheezing) Azo Bladder Control 300 mg Capsule 1 cap PO BID baclofen 5 mg Tablet 5 mg PO BID PRN (Reason: MUSCLE SPASMS) lidocaine HCl [Aspercreme (lidocaine HCl)] 4 % Liquid Roll-On 1 ea TOPICAL TID PRN (Reason: Pain) glucosamine sulfate 1,000 mg Tablet 1,000 mg PO BID Rx Instructions: administer with meals Collagen Ultra 1 cap PO DAILY losartan 50 mg tablet 50 mg PO DAILY Qty: 30 0RF Discharge Orders: Discharge Order (Routine); Ordered 08/10/22 Ordered By: Natalia Kang/Other Patient Handouts: A1C, Managing Type 2 Diabetes Admission Data Admit Date/Time: 08/03/22 10:52 Attending Provider: Natalia Barbosa Admit Provider: Narayan White Primary Care Provider: Collins Delatorre Other Providers: [place],[facility] ; Mark Garcia [facility] ; Narayan White ; Sebastian Montoya ; Collins Moe ; Betina Duffy Other Interventions: Discharge Summary Assessment (RN) Last Done: 08/10/22 17:39
== END 2022-08-10 17:39 | DRG 554 ==
LOC: 2W 16:56 → ED 16:56 → 2W 23:28 → SUATTDRO 08-03 10:52 → 3N 08-08 17:18

== ENCOUNTER 2023-07-06 17:08 | Inpatient (IN) ==
[2023-07-06] MEDS ORDERED: SODIUM CHLORIDE 0.9% 500 ML IV SCH (17:30)
[2023-07-06 18:05] LABS: Basophils # (auto) 0.06 K/uL (0.00-0.20); Basophils % (auto) 0.6 %; Eosinophils # (auto) 0.07 K/uL (0.00-0.50); Eosinophils % (auto) 0.8 %; Hematocrit (blood only) 35.8 % (37.0-47.0); Hemoglobin 11.3 g/dl (12.0-16.0); Immature Granulocytes # (auto) 0.09 K/uL (0.01-0.20); Lymphocytes # (auto) 1.79 K/uL (1.20-3.40); Lymphocytes % (auto) 19.4 %; Mean Corpuscular Hemoglobin 27.1 pg (25.0-34.0); Mean Corpuscular Hgb Conc 31.6 g/dL (32.0-36.0); Mean Corpuscular Volume 85.9 fL (80.0-100.0); Mean Platelet Volume 8.5 fL (9.4-12.4); Monocytes # (auto) 0.89 K/uL (0.11-0.59); Monocytes % (auto) 9.6 %; Neutrophils # (auto) 6.35 K/uL (1.40-6.50); Neutrophils % (auto) 68.6 %; Nucleated RBC # (auto) 0.02 K/uL (0.00-0.12); Nucleated RBC % (auto) 0.2 %; Platelet Count 579 K/uL (130-400); RDW Coefficient of Variation 16.3 % (11.5-14.5); RDW Standard Deviation 50.8 fL (36.4-46.3); Red Blood Count 4.17 M/uL (4.20-5.40); White Blood Count 9.25 K/ul (4.8-10.8)
[2023-07-06 18:15] LABS: Alanine Aminotransferase 18 U/L (7-52); Albumin Level 3.3 gm/dl (3.4-5.0); Alkaline Phosphatase 103 U/L (34-104); Anion Gap 9 (3-11); Aspartate Aminotransferase 21 U/L (13-39); BUN Creatinine Ratio 26.7 (10-20); Bilirubin Direct 0.1 mg/dl (0-0.2); Bilirubin,Total 0.4 mg/dl (0.2-1.0); Blood Urea Nitrogen 16 mg/dl (6-23); Calcium 9.4 mg/dl (8.6-10.3); Carbon Dioxide 25 mmol/L (21-32); Chloride 99 mmol/L (98-107); Creatine Kinase 172 U/L (26-192); Est GFR (African American) 93.7 ml/min; Est GFR (Non-African American) 80.8 ml/min; Glucose 176 mg/dl (70-99(Fasting)); Magnesium 2.2 mg/dl (1.7-2.4); Potassium 4.8 mmol/L (3.5-5.1); Sodium 133 mmol/L (136-145); Total Protein 7.3 gm/dl (6.0-8.3)
[2023-07-06 18:19] LABS: Troponin I High Sensitivity 8.7 pg/ml (0-14)
--- NOTE | 2023-07-06 18:42 | CT Scan Report ---
CT head/brain wo con CLINICAL HISTORY: ams Technique: Contiguous axial CT images of the head were acquired from the base of the skull to the andie jeff without intravenous contrast administration. Images were viewed in brain[facility]. Automated dose lowering techniques and/or adjustment according to patient size were utilized for this exam. Comparison: Comparison is made to CT head 03/31/2022 Findings: Areas of decreased attenuation are present in the periventricular and subcortical white matter bilate rally consistent with small vessel ischemic disease. Generalized cerebral atrophy with commensurate e nlargement of the ventricles, sulci, and cisterns is also present. There is no acute intracranial hem orrhage or evidence of acute territorial infarction. No shift of the midline structures, mass effect, or extra-axial abnormalities are shown. Atherosclerotic calcifications are present in the intracran ial segments of the internal carotid arteries. Imaged portions of the paranasal sinuses and mastoid air cells are clear. The orbits appear normal. There are no acute fractures of the calvaria or scalp swelling. Impression: No acute intracranial hemorrhage, no evidence of acute territorial infarction or other acute intracra nial disease process. ACT 112: Negative or not required by law. Electronically signed by: Jerry Boykin M.D. 07/06/2023 6:41 PM
[2023-07-06] MEDS: CEFEPIME 2,000 MG/20 ML VIAL IV STA (18:46)
--- NOTE | 2023-07-06 19:14 | XRay Report ---
XR femur RT 2V routine, XR tibia fibula RT 2V, XR tibia fibula LT 2V, XR femur LT 2V routine, XR foot RT min 3V routine, XR foot LT min 3V routine CLINICAL HISTORY: wounds TECHNIQUE: 2 radiographic views of the bilateral femurs, 2 views of the bilateral tibia and fibula, a nd 2 views of the left foot and one view of the right foot were obtained. Comparison: Comparison is made to CT right hip 08/01/2022 FINDINGS: There is no evidence of an acute fracture. Extensive degenerative changes are seen with [id number] morphology of the bilateral hip and knee joints and degenerative changes of the bones of the foot as well. There is prominent soft tissue swelling bilaterally with irregular appearance however no riley kidneys emphysema is seen. No definite bony erosions are seen to suggest osteomyelitis. IMPRESSION: Extensive soft tissue swelling compatible with cellulitis of the bilateral lower extremities. No radi ographic evidence of osteomyelitis or subcutaneous emphysema. Bones are demineralized and there are e xtensive degenerative changes. ACT 112: Negative or not required by law. Electronically signed by: Jerry Boykin M.D. 07/06/2023 7:12 PM
--- NOTE | 2023-07-06 19:17 | XRay Report ---
XR chest 1V portable CLINICAL HISTORY: Sepsis TECHNIQUE: Single frontal radiograph of the chest was obtained. Comparison: Comparison is made to chest radiograph 04/06/2022 FINDINGS: No lines and tubes are seen. The cardiomediastinal silhouette is normal. The lungs are clear. No evid ence of pleural effusion or pneumothorax. IMPRESSION: No acute chest disease. ACT 112: Negative or not required by law. Electronically signed by: Jerry Boykin M.D. 07/06/2023 7:16 PM
[2023-07-06] MEDS: ONDANSETRON INJ 2 MG/ML 2 ML VIAL ONE (19:46)
[2023-07-06] MEDS: ONDANSETRON INJ 2 MG/ML 2 ML VIAL IV STA (19:46)
[2023-07-06] MEDS ORDERED: VANCOMYCIN CONSULT ACTIVE PRN (19:50)
[2023-07-06] MEDS: VANCOMYCIN HCL 1,750 MG in SODIUM CHLORIDE 0.9% 500 ML IV ONE (20:30)
[2023-07-06 20:31] LABS: INR 1.1 (0.9-1.1); Partial Thromboplastin Ratio 1.4; Partial Thromboplastin Time 39 Seconds (21-31); Prothrombin Time 12.4 Seconds (9.0-12.0)
--- NOTE | 2023-07-06 21:37 | Emergency Department Note ---
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 response. Spoke with Dr. Jean on-call orthopedics who states that he feels that this patient should be managed at a tertiary care center and that he recommends transfer. He states that this patient needs multiple services possibly including plastics and long care follow-up that we would not be able to provide here. 1747: Spoke with Dr. Hayes general surgery about the patient's condition and he also recommends that the patient be transferred to a tertiary care center. He states would not have services to offer the patient here at this facility. Spoke with the patient's son who called back . He states that the patient has not gotten out of bed for the last 2 years except occasionally to use the restroom but has been more bedbound lately. He states that today he started noticing the warmth and maggots coming out of her wounds. He states he usually tries to keep her wounds clean with lotion. 1909: Vital signs stable on home supplemental oxygen 4 L. Labs are within normal limits with the exception of a lactic acid of 2.1. Imaging reviewed by me shows no subcutaneous emphysema. Discussed the x-ray findings with Dr. Boykin radiology who confirms there is no subcutaneous emphysema. 2020: Office of aging is here evaluating the patient according to Charline manager case management. Spoke with [facility] who states they will call me back when they determine which service the patient to go to. 2049: Spoke with general surgery at [facility] Dr. Ferreira who was who the transfer center connected me with. He states he is not sure if there is any need for any acute intervention at his facility and he states he would not be admitting the patient if the patient will be transferred down to admit to medicine. Transfer center states that there are no beds available at their facility and they will try to connect with medicine if need be. 2131: Vital signs stable. I had the racing secretary and handicapper page [facility] back and they stated that the medicine team down there wanted the patient reevaluated by general surgery to see if a transfer is truly necessary or if the patient could be managed at our facility. 2153: General surgery evaluated patient and stated that they would not be able to help the patient here. They recommended seeing orthopedics to help the patient at this facility or podiatry could. Called podiatry Dr. Lan on [phone]. He states he is out of town currently and cannot be reached to help evaluate or operate on this patient. 2199: Called Dr. Jean back again at [phone] and he again states that the patient should be "transferred 1000%". 2205: Spoke with [facility] Dr. Martinez hospitalist who stated she would admit the patient to their service. Unfortunately they do not have any beds and therefore the patient will need to be admitted to this facility until a bed is available at [place]. 2222: Spoke with Dr. [facility] hospitalist who will evaluate the patient to admit her here until a bed becomes available at [place]. Impression & Plan Cellulitis, Infestation by maggots, Neglected elder Discharge Plan Visit Data Chief Complaint: Infection, Wound Stated Complaint: WOUND ON LEGS ED Provider: Corby Jo Discharge Problem: Cellulitis, Infestation by maggots, Neglected elder Patient Disposition: Being Evaluated by Hospitalist Forms Stand Alone Forms: My [facility] Prescriptions Prescriptions: No Action nifedipine 30 mg Tablet Extended Release 24hr 30 mg PO DAILYBB furosemide [Lasix] 40 mg Tablet 40 mg PO QAM metformin 500 mg Tablet 500 mg PO BID omega-3 fatty acids 1,000 mg Capsule 1,000 mg PO DAILY acetaminophen [Tylenol Extra Strength] 500 mg Tablet 500 mg PO Q8H PRN (Reason: Pain) levothyroxine 75 mcg Tablet 75 mcg PO DAILYBB potassium chloride 20 mEq Tablet,Er Particles/Crystals 20 meq PO DAILY fluticasone propionate 50 mcg/actuation [place],Suspension 2 spray INTRANASAL BID Rx Instructions: administer into each nostril vitamin E 268 mg (400 unit) Capsule 268 mg PO DAILY cholecalciferol (vitamin D3) [Vitamin D3] 25 mcg (1,000 unit) Capsule 25 mcg PO DAILY rosuvastatin 20 mg Tablet 20 mg PO DAILY duloxetine [Cymbalta] 20 mg Capsule,Delayed Release(Dr/Ec) 40 mg PO QAM Atrovent HFA 17 mcg/actuation Hfa Aerosol Inhaler 2 puff INHALATION TID PRN (Reason: Wheezing) Azo Bladder Control 300 mg Capsule 1 cap PO BID baclofen 5 mg Tablet 5 mg PO BID PRN (Reason: MUSCLE SPASMS) glucosamine sulfate 1,000 mg Tablet 1,000 mg PO BID Rx Instructions: administer with meals losartan 50 mg tablet 50 mg PO DAILY Qty: 30 0RF ascorbic acid (vitamin C) [Vitamin C With Rosette Hips] 500 mg Tablet 1,000 mg PO QAM aspirin 81 mg Tablet,Chewable 81 mg PO DAILY magnesium 250 mg Tablet 250 mg PO BID ipratropium bromide 42 mcg (0.06 %) [place],Non-Aerosol 2 spray INTRANASAL QID PRN (Reason: RHINITIS) Rx Instructions: administer into each nostril Sentry Senior 0.4 mg-300 mcg- 250 mcg Tablet 1 tab PO DAILY pregabalin 75 mg Capsule 75 mg PO BID Referrals Referrals: Collins Delatorre DO [Primary Care Provider] - Discharge Problem: Cellulitis Qualifiers: Site of cellulitis: extremity Site of cellulitis of extremity: lower extremity Laterality: unspecified laterality Qualified Code(s): L03.119 - Cellulitis of unspecified part of limb Neglected elder Qualifiers: Encounter type: initial encounter Qualified Code(s): T74.01XA - Adult neglect or abandonment, confirmed, initial encounter
--- NOTE | 2023-07-06 22:15 | Surgery Consultation ---
Date of Consultation July 06, 2023 Assessment & Plan (1) Wound of lower extremity: At the request of the emergency room physician I evaluated the patient in room B5 in the emergency department The patient was examined and she is noted to have extensive lower extremity wounds as described in the physical exam section of this document I discussed with the treating emergency room physician that the nature of these wounds are out of the scope of what general surgery would offer and presented 3 recommendations to the emergency room physician: 1. Request orthopedic evaluation 2. Request podiatry evaluation 3. If orthopedic or podiatry evaluation are unavailable would recommend transfer patient to facility where such services are available Please contact general surgery if any issues arise that we can be of assistance with. History of Present Illness Reason for Consultation: Lower extremity wounds History of Present Illness This is an 88-year-old female who was most recently admitted to [facility] from 08/02/2022 through 08/10/2022. She was admitted largely due to intractable pain from osteoarthritis. The patient was seen by physical and Occupational Therapy and was treated with analgesics. She was ultimately discharged to the [facility] from [facility]. The patient was sent to [facility] by EMS secondary to worsening lower extremity wounds. The patient is unsure of how long she has had these wounds. She denies any fevers, shakes, or chills. She denies any abdominal pain. The patient does note pain in her hips bilaterally secondary to arthritis. She denies any falls or trauma. The patient notes that she is largely bedbound but at times is able to transfer from bed to a commode. Since arrival to the hospital the patient has had labs and imaging which independent reviewed. A chest x-ray showed no evidence of pneumonia. The patient has had x-rays of her lower extremitiesshe has had bilateral femur and femur x-rays, bilateral tib/fib x-rays, bilateral feet x-rays; all of these lower extremity x-rays showed soft tissue swelling and findings consistent with cellulitis and no evidence of subcutaneous emphysema or osteomyelitis. A CT scan of the head showed no evidence of acute stroke or acute intracranial hemorrhage. CBC revealed white blood cell count was normal. Her hemoglobin and hematocrit 11.3 and 35.8. Platelet count was 579,000. Coagulation studies showed an INR of 1.1. Chemistry profile showed sodium was 133 with a normal potassium. BUN and creatinine were both normal. Her lactic acid had a slight elevation at 2.2. There is no elevation of LFTs. Procalcitonin level is nonelevated. At the time of my interview the patient was resting comfortably in bed and she is no distress. Allergies Allergy/AdvReac Type Severity Reaction Status Date / Time phenobarbital Allergy Intermediate ITCHY RASH Verified 07/06/23 19:06 scopolamine Allergy Intermediate RASH Verified 07/06/23 19:06 simvastatin Allergy Intermediate muscle Verified 07/06/23 19:06 cramps aspirin AdvReac Intermediate Abdominal Verified 07/06/23 19:06 Pain atropine AdvReac Intermediate ITCHING Verified 07/06/23 19:06 codeine AdvReac Intermediate HYPERTENSIO Verified 07/06/23 19:06 N doxycycline AdvReac Intermediate NAUSEA/VOMI Verified 07/06/23 19:06 TING. hyoscyamine AdvReac Intermediate ITCHING Verified 07/06/23 19:06 lactose AdvReac Intermediate Gastrointestinal Verified 07/06/23 19:06 Upset minocycline AdvReac Intermediate NAUSEA AND Verified 07/06/23 19:06 VOMITING morphine AdvReac Intermediate NAUSEA/VOMI Verified 07/06/23 19:06 TING Fish Containing Products AdvReac Unknown Unknown Verified 07/06/23 19:06 Pork/Porcine Containing AdvReac Unknown spiritual Verified 07/06/23 19:06 Products preference shellfish derived AdvReac Unknown spiritual Verified 07/06/23 19:06 preference Home Medications Medication Instructions Recorded Confirmed Type acetaminophen 500 mg tablet 500 mg PO Q8H PRN Pain 03/31/22 07/06/23 History (Tylenol Extra Strength) baclofen 5 mg tablet 5 mg PO BID PRN MUSCLE SPASMS 03/31/22 07/06/23 History cholecalciferol (vitamin D3) 25 25 mcg PO DAILY 03/31/22 07/06/23 History mcg (1,000 unit) capsule (Vitamin D3) duloxetine 20 mg capsule,delayed 40 mg PO QAM 03/31/22 07/06/23 History release (Cymbalta) fluticasone propionate 50 2 spray intranasal BID 03/31/22 07/06/23 History mcg/actuation nasal spray,suspension furosemide 40 mg tablet (Lasix) 40 mg PO QAM 03/31/22 07/06/23 History glucosamine sulfate 1,000 mg tablet 1,000 mg PO BID 03/31/22 07/06/23 History ipratropium bromide 17 2 puff inhalation TID PRN Wheezing 03/31/22 07/06/23 History mcg/actuation HFA aerosol inhaler (Atrovent HFA) levothyroxine 75 mcg tablet 75 mcg PO DAILYBB 03/31/22 07/06/23 History metformin 500 mg tablet 500 mg PO BID 03/31/22 07/06/23 History nifedipine 30 mg tablet,extended 30 mg PO DAILYBB 03/31/22 07/06/23 History release 24 hr omega-3 fatty acids 1,000 mg 1,000 mg PO DAILY 03/31/22 07/06/23 History capsule potassium chloride 20 mEq 20 meq PO DAILY 03/31/22 07/06/23 History tablet,extended release(part/cryst) pumpkin seed extract-soy germ 300 1 cap PO BID 03/31/22 07/06/23 History mg capsule (Azo Bladder Control) rosuvastatin 20 mg tablet 20 mg PO DAILY 03/31/22 07/06/23 History vitamin E 268 mg (400 unit) capsule 268 mg PO DAILY 03/31/22 07/06/23 History losartan 50 mg tablet 50 mg PO DAILY #30 tabs 04/07/22 07/06/23 Rx ascorbic acid (vitamin C) 500 mg 1,000 mg PO QAM 07/06/23 07/06/23 History tablet (Vitamin C With Rosette Hips) aspirin 81 mg chewable tablet 81 mg PO DAILY 07/06/23 07/06/23 History ipratropium bromide 42 mcg (0.06 2 spray intranasal QID PRN RHINITIS 07/06/23 07/06/23 History %) nasal spray magnesium 250 mg tablet 250 mg PO BID 07/06/23 07/06/23 History xrwgxwth-vbh-njwjj acid 0.4 1 tab PO DAILY 07/06/23 07/06/23 History mg-lycopene 300 mcg-lutein 250 mcg tablet (Tuan Bloom) pregabalin 75 mg capsule 75 mg PO BID 07/06/23 07/06/23 History Patient History Medical History Migraine headache Diabetes mellitus Breast cancer Hypothyroidism Hypertension Sleep apnea Depression Surgical History H/O rotator cuff surgery History of lumpectomy of left breast Hx of cataract surgery H/O: hysterectomy Family History Other No pertinent family history Social History Smoking Status: Unknown if ever smoked Second Hand Exposure: No; Do You Dip or Chew Tobacco: No; Hx Alcohol Use: No Hx Substance Use: No Preferred Language: Nepalese Communication Ability: Effective Paper Sorter And Counter Required: No Beliefs That Will Affect Care: Cultural Cultural Beliefs: no pork Current Living Situation: Family Current Living Situation Comment: Pt lives with son Feels Safe at Home: No Is there a partner from a previous relationship who is making you feel unsafe now?: No Assistive Devices: Bedside Commode, CPAP, Oxygen - at Night and Wheelchair Review of Systems Constitutional: no fever and no chills Respiratory: no cough and no dyspnea Cardiovascular: no chest pain Gastrointestinal: no abdominal pain Genitourinary: no dysuria Musculoskeletal: + back pain and + joint pain Integumentary: as per Subjective / HPI Neurologic: + generalized weakness Physical Exam Physical Exam: The patient was examined at bedside. The patient had some blistering wounds of varying stages of the lower extremities that extended from approximately one third of the way up the tibial shaft bilaterally to her feet. There are various excoriations and areas of weeping wounds on her feet. I cannot palpate pedal pulses in her feet. I cannot appreciate any crepitus in the soft tissue. I did not see any eschars. The wounds of her lower extremity are malodorous. I do not appreciate any wounds other than some skin excoriations on her posterior thighs. The patient's buttock/sacrum was examined and I not appreciate any sacral ulcers. Constitutional: + obese and + disheveled; no acute distr ess Eyes: no conjunctival abnormality ENMT: Ears: no hearing impairment and no external ear abnormality Mouth: no oropharynx abnormality Neck: trachea midline Respiratory: normal respiratory effort; no respiratory distress and no labored breathing Cardiovascular: Rate/Rhythm: regular rate and regular rhythm Gastrointestinal (Abdomen): Soft and nontender Musculoskeletal: See above comments Skin: See above comment Neurologic: moves all extremities Results & Data Vital Signs (Past 12 Hours) Vital Signs Temp Pulse Pulse Resp BP BP Pulse Ox 07/06/23 20:39 74 21 183/84 H 100 07/06/23 19:42 72 17 174/74 H 97 07/06/23 19:09 66 07/06/23 17:57 100 07/06/23 17:57 36.8 C 77 23 201/89 H 100 O2 Del Method O2 Flow Rate 07/06/23 20:39 Nasal Cannula 4 07/06/23 19:42 Nasal Cannula 4 07/06/23 19:09 07/06/23 17:57 Nasal Cannula 4 07/06/23 17:57 Nasal Cannula 4 PG Care Time/CCT Total # of Minutes Spent Total Time Spent with Patient: Total time spent is greater than 50% in coordination of care (as documented) at patient's floor/unit and/or counseling patient: Coding Level of Care Code 71566 INT INP/OBS CARE 3/75MIN Diagnoses Wound of lower extremity S81.809A
[2023-07-06] MEDS: LOSARTAN POTASSIUM 25 MG TAB PO STA (22:52)
[2023-07-06 23:08] LABS: Thyroid Stimulating Hormone 9.563 uIu/ml (0.300-4.500)
--- NOTE | 2023-07-06 23:10 | History & Physical Report ---
Date of Service July 06, 2023 Assessment & Plan (1) Wound of lower extremity: Plan: Infected bilateral lower extremity wounds Underlying venous stasis No overt sepsis for now chronic diastolic heart failure (EF 60%, TTE 2019 ), patient euvolemic to dry hypertension, elevated secondary to discomfort hyperlipidemia, on statin Rx SARAN (CPAP noncompliance)/nocturnal hypoxemia/pulmonary hypertension DM2 on oral medications, well-controlled as of recent hemoglobin A1c of 6.22 July 2022 right breast cancer status post surgery chronic anemia, hemoglobin at baseline physical deconditioning/functional disability past tobacco abuse Medical telemetry given BP elevation Analgesia, titrate home BP meds CS, Doxycycline, Zosyn [facility] transfer once bed available. (Patient kindly accepted for transfer by Dr. Sharma of [facility] hospitalist service. Transfer paperwork completed at the ER.) Basal bolus insulin, ISS BG goal 1 10-1 40, carb count coverage, update hemoglobin A1c PT OT eval at [facility] once medically stable Will likely need placement after [facility] discharge DVT prophylaxis. Arixtra (patient cannot take pork containing products like heparin due to spiritual preference) Full code Patient requesting family to be given periodic updates regarding care. Mr. Guerrero Mora (son), contact #[phone]. Miss. Eliza Mora (daughter), contact #[phone]. Text document was generated using CRAZE voice recognition software. It may contain grammatical or spelling errors. Kindly contact undersigned for clarification of any documentation item in question. History of Present Illness Chief Complaint: Infected leg wounds Primary Care Provider: Mynor Leahy PA-C History obtained from patient and records. Medical history significant for chronic diastolic heart failure (EF 60%, TTE 2019 ), hypertension, hyperlipidemia, SARAN (CPAP noncompliance)/nocturnal hypoxemia/pulmonary hypertension, DM2 on oral medications, right breast cancer status post surgery, LE venous stasis dermatitis, chronic anemia (baseline hemoglobin 10-11), physical deconditioning as per records, past tobacco abuse. Last confinement July 2022 for right hip pain attributed to OA flare. Patient has not been able to get out of bed since COVID-19 illness from 2 years ago. Son is primary caregiver at home. Refused SNF placement as per outpatient PCP notes. Worsening bilateral leg wound infection noted in the last couple of weeks. Open wounds with bone exposure with note of maggot infestation. No fever, no chills. Patient denies chest pain, SOB. Achy headache symptoms with transient achy abdominal discomfort. Patient brought to the ER for evaluation. IV cefepime administered at the ER for bilateral leg infection. [facility] specialists (Orthopedics, Podiatry, and General Surgery) recommended [facility] transfer as per ER provider. Patient accepted for transfer by [facility] hospitalist service pending bed availability. SBP 200s upon arrival at the ER. 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 hyoscyamine AdvReac Intermediate ITCHING Verified 07/06/23 19:06 lactose AdvReac Intermediate Gastrointestinal Verified 07/06/23 19:06 Upset minocycline AdvReac Intermediate NAUSEA AND Verified 07/06/23 19:06 VOMITING morphine AdvReac Intermediate NAUSEA/VOMI Verified 07/06/23 19:06 TING Fish Containing Products AdvReac Unknown Unknown Verified 07/06/23 19:06 Pork/Porcine Containing AdvReac Unknown spiritual Verified 07/06/23 19:06 Products preference Home Medications Medication Instructions Recorded Confirmed Type acetaminophen 500 mg tablet 500 mg PO Q8H PRN Pain 03/31/22 07/06/23 History (Tylenol Extra Strength) baclofen 5 mg tablet 5 mg PO BID PRN MUSCLE SPASMS 03/31/22 07/06/23 History cholecalciferol (vitamin D3) 25 25 mcg PO DAILY 03/31/22 07/06/23 History mcg (1,000 unit) capsule (Vitamin D3) duloxetine 20 mg capsule,delayed 40 mg PO QAM 03/31/22 07/06/23 History release (Cymbalta) fluticasone propionate 50 2 spray intranasal BID 03/31/22 07/06/23 History mcg/actuation nasal spray,suspension furosemide 40 mg tablet (Lasix) 40 mg PO QAM 03/31/22 07/06/23 History glucosamine sulfate 1,000 mg tablet 1,000 mg PO BID 03/31/22 07/06/23 History ipratropium bromide 17 2 puff inhalation TID PRN Wheezing 03/31/22 07/06/23 History mcg/actuation HFA aerosol inhaler (Atrovent HFA) levothyroxine 75 mcg tablet 75 mcg PO DAILYBB 03/31/22 07/06/23 History metformin 500 mg tablet 500 mg PO BID 03/31/22 07/06/23 History nifedipine 30 mg tablet,extended 30 mg PO DAILYBB 03/31/22 07/06/23 History release 24 hr omega-3 fatty acids 1,000 mg 1,000 mg PO DAILY 03/31/22 07/06/23 History capsule potassium chloride 20 mEq 20 meq PO DAILY 03/31/22 07/06/23 History tablet,extended release(part/cryst) pumpkin seed extract-soy germ 300 1 cap PO BID 03/31/22 07/06/23 History mg capsule (Azo Bladder Control) rosuvastatin 20 mg tablet 20 mg PO DAILY 03/31/22 07/06/23 History vitamin E 268 mg (400 unit) capsule 268 mg PO DAILY 03/31/22 07/06/23 History losartan 50 mg tablet 50 mg PO DAILY #30 tabs 04/07/22 07/06/23 Rx ascorbic acid (vitamin C) 500 mg 1,000 mg PO QAM 07/06/23 07/06/23 History tablet (Vitamin C With Rosette Hips) aspirin 81 mg chewable tablet 81 mg PO DAILY 07/06/23 07/06/23 History ipratropium bromide 42 mcg (0.06 2 spray intranasal QID PRN RHINITIS 07/06/23 07/06/23 History %) nasal spray magnesium 250 mg tablet 250 mg PO BID 07/06/23 07/06/23 History kjwablro-cdu-qswed acid 0.4 1 tab PO DAILY 03/20/24 03/20/24 History mg-lycopene 300 mcg-lutein 250 mcg tablet (Tuan Bloom) pregabalin 75 mg capsule 75 mg PO BID 07/06/23 07/06/23 History Past Med/Surg History Medical History Migraine headache Diabetes mellitus Breast cancer Hypothyroidism Hypertension Sleep apnea Depression Surgical History H/O rotator cuff surgery History of lumpectomy of left breast Hx of cataract surgery H/O: hysterectomy Family History Other No pertinent family history Social History Smoking Status: Never smoker Second Hand Exposure: No; Do You Dip or Chew Tobacco: No; Hx Alcohol Use: No Hx Substance Use: No Preferred Language: Irish Communication Ability: Effective Building Surveyor Required: No Beliefs That Will Affect Care: None Current Living Situation: Family Current Living Situation Comment: Pt lives with son Feels Safe at Home: No Is there a partner from a previous relationship who is making you feel unsafe now?: No Any Concerns about Your Family Situation: Yes Safety Concerns: Afraid for Self Assistive Devices: Bedside Commode, CPAP, Oxygen - at Night and Wheelchair Review of Systems Review of Systems: As per HPI, all other systems reviewed and negative Physical Exam Physical Exam: GENERAL: Slightly uncomfortable, obese, unkempt, no respiratory distress SKIN: Pallor, warm HEENT: Pale palpebral conjunctivae, no ptosis, dry buccal mucosa NECK : Supple, no tenderness CHEST : Decreased breath sounds, no tenderness HEART : RRR, no obvious murmurs ABDOMEN: Some distention, nontender EXTREMITIES : Bilateral LE venous stasis with blistering and ulcerated wounds with drainage, bone exposure noted, bilateral LE tenderness NEUROLOGIC : Coherent, no facial asymmetry, no other gross focality Results & Data Results & Data Vital Signs (Past 12 Hours) Vital Signs Temp Pulse Pulse Resp BP BP Pulse Ox 07/06/23 23:00 77 07/06/23 22:18 75 14 186/76 H 98 07/06/23 20:39 74 21 183/84 H 100 07/06/23 19:42 72 17 174/74 H 97 07/06/23 19:09 66 07/06/23 17:57 100 07/06/23 17:57 36.8 C 77 23 201/89 H 100 O2 Del Method O2 Flow Rate 07/06/23 23:00 07/06/23 22:18 Nasal Cannula 4 07/06/23 20:39 Nasal Cannula 4 07/06/23 19:42 Nasal Cannula 4 07/06/23 19:09 07/06/23 17:57 Nasal Cannula 4 07/06/23 17:57 Nasal Cannula 4 Laboratory Results Laboratory Results WBC 9.25 K/ul (4.8-10.8) 07/06/23 17:28 RBC 4.17 M/uL (4.20-5.40) L 07/06/23 17:28 Hgb 11.3 g/dl (12.0-16.0) L 07/06/23 17:28 Hct 35.8 % (37.0-47.0) L 07/06/23 17:28 MCV 85.9 fL (80.0-100.0) 07/06/23 17:28 MCH 27.1 pg (25.0-34.0) 07/06/23 17:28 MCHC 31.6 g/dL (32.0-36.0) L 07/06/23 17:28 RDW Std Deviation 50.8 fL (36.4-46.3) H 07/06/23 17:28 RDW Coeff of Sergio 16.3 % (11.5-14.5) H 07/06/23 17:28 Plt Count 579 K/uL (130-400) H 07/06/23 17:28 MPV 8.5 fL (9.4-12.4) L 07/06/23 17:28 Immature Gran % (Auto) 1.0 % 07/06/23 17:28 Neut % (Auto) 68.6 % 07/06/23 17:28 Lymph % (Auto) 19.4 % 07/06/23 17:28 Antelope % (Auto) 9.6 % 07/06/23 17:28 Eos % (Auto) 0.8 % 07/06/23 17:28 Baso % (Auto) 0.6 % 07/06/23 17:28 Neut # (Auto) 6.35 K/uL (1.40-6.50) 07/06/23 17: Lymph # (Auto) 1.79 K/uL (1.20-3.40) 07/06/23 17: Antelope # (Auto) 0.89 K/uL (0.11-0.59) H 07/06/23: Eos # (Auto) 0.07 K/uL (0.00-0.50) 07/06/23: Baso # (Auto) 0.06 K/uL (0.00-0.20) 07/06/23: Immature Gran # (Auto) 0.09 K/uL (0.01-0.20) 07/06/23: Absolute Nucleated RBC 0.02 K/uL (0.00-0.12) 07/06/23: Nucleated RBC % (auto) 0.2 % 07/06/23: PT 12.4 Seconds (9.0-12.0) H 07/06/23 19: INR 1.1 (0.9-1.1) 07/06/23 19: APTT 39 Seconds (21-31) H 07/06/23 19: PTT Ratio 1.4 07/06/23 19: Sodium 133 mmol/L (136-145) L 07/06/23: Potassium 4.8 mmol/L (3.5-5.1) 07/06/23: Chloride 99 mmol/L (98-107) 07/06/23: Carbon Dioxide 25 mmol/L (21-32) 07/06/23: Anion Gap 9 (3-11) 07/06/23: BUN 16 mg/dl (6-23) 07/06/23: Creatinine 0.60 mg/dl (0.6-1.2) 07/06/23: Est Cr Clr Drug Dosing Not Reportable 07/06/23: Est GFR ( Amer) 93.7 ml/min 07/06/23 17: Est GFR (Non-Af Amer) 80.8 ml/min 07/06/23 17: BUN/Creatinine Ratio 26.7 (10-20) H 07/06/23 17:28 Glucose 176 mg/dl (70-99(Fasting)) H 07/06/23 17:28 Lactate 2.2 mmol/L (0.4-2.0) H* 07/06/23 19:26 Calcium 9.4 mg/dl (8.6-10.3) 07/06/23 17:28 Magnesium 2.2 mg/dl (1.7-2.4) 07/06/23 17:28 Total Bilirubin 0.4 mg/dl (0.2-1.0) 07/06/23 17:28 Direct Bilirubin 0.1 mg/dl (0-0.2) 07/06/23 17:28 AST 21 U/L (13-39) 07/06/23 17:28 ALT 18 U/L (7-52) 07/06/23 17:28 Alkaline Phosphatase 103 U/L (34-104) 07/06/23 17:28 Total Creatine Kinase 172 U/L (26-192) 07/06/23 17:28 Troponin I High Sens 8.7 pg/ml (0-14) 07/06/23 17:28 Total Protein 7.3 gm/dl (6.0-8.3) 07/06/23 17:28 Albumin 3.3 gm/dl (3.4-5.0) L 07/06/23 17:28 Procalcitonin 0.18 ng/ml (0-0.5) 07/06/23 17:28 TSH 9.563 uIu/ml (0.300-4.500) H 07/06/23 19:25 Impressions Chest X-Ray 07/06/23 17:17 XR chest 1V portable CLINICAL HISTORY: Sepsis TECHNIQUE: Single frontal radiograph of the chest was obtained. Comparison: Comparison is made to chest radiograph 04/06/2022 FINDINGS: No lines and tubes are seen. The cardiomediastinal silhouette is normal. The lungs are clear. No evidence of pleural effusion or pneumothorax. IMPRESSION: No acute chest disease. ACT 112: Negative or not required by law. Electronically signed by: Jerry Boykin M.D. 07/06/2023 7:16 PM Femur X-Ray 07/06/23 17:23 XR femur RT 2V routine, XR tibia fibula RT 2V, XR tibia fibula LT 2V, XR femur LT 2V routine, XR foot RT min 3V routine, XR foot LT min 3V routine CLINICAL HISTORY: wounds TECHNIQUE: 2 radiographic views of the bilateral femurs, 2 views of the bilateral tibia and fibula, and 2 views of the left foot and one view of the right foot were obtained. Comparison: Comparison is made to CT right hip 08/01/2022 FINDINGS: There is no evidence of an acute fracture. Extensive degenerative changes are seen with [id number]-gh-[id number] morphology of the bilateral hip and knee joints and degenerative changes of the bones of the foot as well. There is prominent soft tissue swelling bilaterally with irregular appearance however no riley kidneys emphysema is seen. No definite bony erosions are seen to suggest osteomyelitis. IMPRESSION: Extensive soft tissue swelling compatible with cellulitis of the bilateral lower extremities. No radiographic evidence of osteomyelitis or subcutaneous emphysema. Bones are demineralized and there are extensive degenerative changes. ACT 112: Negative or not required by law. Electronically signed by: Jerry Boykin M.D. 07/06/2023 7:12 PM Tibia/Fibula X-Ray 07/06/23 17:23 XR femur RT 2V routine, XR tibia fibula RT 2V, XR tibia fibula LT 2V, XR femur LT 2V routine, XR foot RT min 3V routine, XR foot LT min 3V routine CLINICAL HISTORY: wounds TECHNIQUE: 2 radiographic views of the bilateral femurs, 2 views of the bilateral tibia and fibula, and 2 views of the left foot and one view of the right foot were obtained. Comparison: Comparison is made to CT right hip 08/01/2022 FINDINGS: There is no evidence of an acute fracture. Extensive degenerative changes are seen with tlme-cc-[id number] morphology of the bilateral hip and knee joints and degenerative changes of the bones of the foot as well. There is prominent soft tissue swelling bilaterally with irregular appearance however no riley kidneys emphysema is seen. No definite bony erosions are seen to suggest osteomyelitis. IMPRESSION: Extensive soft tissue swelling compatible with cellulitis of the bilateral lower extremities. No radiographic evidence of osteomyelitis or subcutaneous emphysema . Bones are demineralized and there are extensive degenerative changes. ACT 112: Negative or not required by law. Electronically signed by: Jerry Boykin M.D. 07/06/2023 7:12 PM Foot X-Ray 07/06/23 17:24 XR femur RT 2V routine, XR tibia fibula RT 2V, XR tibia fibula LT 2V, XR femur LT 2V routine, XR foot RT min 3V routine, XR foot LT min 3V routine CLINICAL HISTORY: wounds TECHNIQUE: 2 radiographic views of the bilateral femurs, 2 views of the bilateral tibia and fibula, and 2 views of the left foot and one view of the right foot were obtained. Comparison: Comparison is made to CT right hip 08/01/2022 FINDINGS: There is no evidence of an acute fracture. Extensive degenerative changes are seen with [id number]-ph-[id number] morphology of the bilateral hip and knee joints and degenerative changes of the bones of the foot as well. There is prominent soft tissue swelling bilaterally with irregular appearance however no riley kidneys emphysema is seen. No definite bony erosions are seen to suggest osteomyelitis. IMPRESSION: Extensive soft tissue swelling compatible with cellulitis of the bilateral lower extremities. No radiographic evidence of osteomyelitis or subcutaneous emphysema. Bones are demineralized and there are extensive degenerative changes. ACT 112: Negative or not required by law. Electronically signed by: Jerry Boykin M.D. 07/06/2023 7:[address] 07/06/23 17:52 CT head/brain wo con CLINICAL HISTORY: ams Technique: Contiguous axial CT images of the head were acquired from the base of the skull to the vertex without intravenous contrast administration. Images were viewed in brain, subdural and bone windows. Automated dose lowering techniques and/or adjustment according to patient size were utilized for this exam. Comparison: Comparison is made to CT head 03/31/2022 Findings: Areas of decreased attenuation are present in the periventricular and subcortical white matter bilaterally consistent with small vessel ischemic disease. Generalized cerebral atrophy with commensurate enlargement of the ventricles, sulci, and cisterns is also present. There is no acute intracranial hemorrhage or evidence of acute territorial infarction. No shift of the midline structures, mass effect, or extra-axial abnormalities are shown. Atherosclerotic calcifications are present in the intracranial segments of the internal carotid arteries. Imaged portions of the paranasal sinuses and mastoid air cells are clear. The orbits appear normal. There are no acute fractures of the calvaria or scalp swelling. Impression: No acute intracranial hemorrhage, no evidence of acute territorial infarction or other acute intracranial disease process. ACT 112: Negative or not required by law. Electronically signed by: Jerry Boykin M.D. 07/06/2023 6:[address] head: No acute intracranial hemorrhage, no evidence of acute territorial infarction or other acute intracranial disease process. CT abdomen pelvis: No acute findings in the abdomen or pelvis. Diagnostic Findings EKG as per my interpretation : Rate 115, sinus tachycardia, normal axis, nonspecific T wave abnormalities, multiple artifacts
[2023-07-06] MEDS ORDERED: ACETAMINOPHEN 325 MG TAB PO PRN (23:16)
[2023-07-06] MEDS ORDERED: PROMETHAZINE HCL 6.25 MG in SODIUM CHLORIDE 0.9% 50 ML IV PRN (23:18)
[2023-07-06 23:32] LABS: Lipase 34 U/L (11-82)
[2023-07-06] MEDS: ACETAMINOPHEN 1,000 MG/100 ML VIAL IV STA (23:35)
[2023-07-06] MEDS: SODIUM CHLORIDE 0.9% 1,000 ML IV ONE (23:35)
[2023-07-06] MEDS: OPTIRAY 320 100ml IV ONE (23:56)
[2023-07-07] MEDS ORDERED: BACLOFEN 10 MG TAB PO PRN (00:08)
[2023-07-07] MEDS ORDERED: CARBOHYDRATES FOR HYPOGLYCEMIA PO PRN (00:08)
[2023-07-07] MEDS ORDERED: DEXTROSE 50% 50 ML SYRINGE IV PRN (00:08)
[2023-07-07] MEDS ORDERED: GLUCOSE 10 TAB/TUBE PO PRN (00:08)
[2023-07-07] MEDS ORDERED: GLUCAGON FOR INJ 1 MG VIAL SQ PRN (00:08)
[2023-07-07] MEDS ORDERED: GLUCOSE 40% GEL 15 GM TUBE PO PRN (00:08)
[2023-07-07] MEDS: MoRPHine SULFATE 4 MG/ML 1 ML CARP\\VIAL IV PRN (00:15)
[2023-07-07] MEDS: PIPERACILLIN/TAZOBACTAM 4.5 GM/100 ML BAG IV ONE (00:39)
[2023-07-07] MEDS: INSULIN ASPART PER UNIT CHARGE SC SCH (00:53)
[2023-07-07 01:08] LABS: T4 Free Thyroxine 0.81 ng/dl (0.61-1.60)
--- NOTE | 2023-07-07 01:31 | CT Scan Report ---
Exam(s): CT ABDOMEN + PELVIS With Contrast IV Amt: 90 ml optiray 320 EXAM: CT Abdomen and Pelvis With Intravenous Contrast CLINICAL HISTORY: Reason for exam: abd pain. TECHNIQUE: Axial computed tomography images of the abdomen and pelvis with intravenous contrast. CTDI is 28 mGy and DLP is 1345 mGy-cm. Automated exposure control was utilized for the study. A dose lowering technique was utilized adhering to the principles of ALARA. CONTRAST: Patient received 90 ml optiray 320 of IV contrast COMPARISON: March 31, 2022. FINDINGS: ABDOMEN: Liver: Unremarkable. No mass. Gallbladder and bile ducts: Unremarkable. No calcified stones. No ductal dilation. Pancreas: Unremarkable. No mass. No ductal dilation. Spleen: Unremarkable. No splenomegaly. Adrenals: Unremarkable. No mass. Kidneys and ureters: Unremarkable. No solid mass. No hydronephrosis. Stomach and bowel: Extensive diverticulosis without diverticulitis. No obstruction. PELVIS: Appendix: No findings to suggest acute appendicitis. Bladder: Unremarkable. No mass. Reproductive: Hysterectomy. ABDOMEN and PELVIS: Intraperitoneal space: Unremarkable. No free air. No significant fluid collection. Bones/joints: No acute findings. Soft tissues: Unremarkable. Vasculature: Unremarkable. No abdominal aortic aneurysm. Lymph nodes: Unremarkable. No enlarged lymph nodes. IMPRESSION: No acute findings in the abdomen or pelvis. Electronically signed by: Guerrero Torres MD 07/07/23 01:31 AM
[2023-07-07] MEDS: PREGABALIN 75 MG CAP PO SCH (02:10)
[2023-07-07 06:13] LABS: Appearance Urine Cloudy (Clear); Bacteria Urine Automated 3+ (Negative); Bilirubin Urine Negative (Negative); Blood Urine Negative (Negative); Color Urine Dark Yellow; Epithelial Cell Urine Auto >30 /lpf (0-5); Glucose Urine UA Negative (Negative); Ketones Urine Trace (Negative); Leukocyte Esterase Urine Negative (Negative); Nitrite Urine Positive (Negative); Protein Urine Trace (Negative); Specific Gravity Urine > 1.045 (1.000-1.030); Urobilinogen Urine Negative (Negative)
[2023-07-07] MEDS: PIPERACILLIN/TAZOBACTAM 4.5 GM in DEXTROSE 5% MINI-B 100 ML IV SCH (06:29)
[2023-07-07] MEDS: oxyCODONE HCL IR 5 MG TAB (IMMEDIATE RELEASE) PO PRN (06:29)
[2023-07-07] MEDS: NIFEdipine EXTENDED REL 30 MG TABCR PO SCH (06:30)
[2023-07-07] MEDS: LEVOTHYROXINE SODIUM 75 MCG TABLET PO SCH (06:30)
[2023-07-07 06:31] LABS: Basophils # (auto) 0.03 K/uL (0.00-0.20); Basophils % (auto) 0.2 %; Hematocrit (blood only) 32.2 % (37.0-47.0); Immature Granulocytes # (auto) 0.09 K/uL (0.01-0.20); Immature Granulocytes % (auto) 0.7 %; Lymphocytes # (auto) 1.38 K/uL (1.20-3.40); Mean Corpuscular Hemoglobin 26.7 pg (25.0-34.0); Mean Corpuscular Hgb Conc 31.1 g/dL (32.0-36.0); Mean Corpuscular Volume 85.9 fL (80.0-100.0); Mean Platelet Volume 8.5 fL (9.4-12.4); Monocytes # (auto) 1.26 K/uL (0.11-0.59); Monocytes % (auto) 9.2 %; Neutrophils % (auto) 79.9 %; Platelet Count 522 K/uL (130-400); RDW Coefficient of Variation 16.4 % (11.5-14.5); RDW Standard Deviation 51.2 fL (36.4-46.3); Red Blood Count 3.75 M/uL (4.20-5.40); White Blood Count 13.76 K/ul (4.8-10.8)
[2023-07-07 06:52] LABS: BUN Creatinine Ratio 29.8 (10-20); Creatinine Clr Calc Pharmacy 77.2 ml/min; Est GFR (African American) 95.3 ml/min; Est GFR (Non-African American) 82.2 ml/min; Potassium 4.7 mmol/L (3.5-5.1)
[2023-07-07 06:52] LABS: Calcium Oxalate Crystals Urine Present (None Prsent)
[2023-07-07 07:36] LABS: Estimated Average Glucose 189 mg/dl; Hemoglobin A1C 8.2 % (4.5-5.6)
[2023-07-07] MEDS: FLUTICASONE PROPIONATE NA SPR 16 GM BTL SCH (08:49)
[2023-07-07] MEDS: FONDAPARINUX 2.5 MG/0.5 ML SYR SQ SCH (08:50)
[2023-07-07] MEDS: DULoxetine HCL 20 MG CAP PO SCH (08:51)
[2023-07-07] MEDS: ASPIRIN 81 MG CHEW PO SCH (08:51)
[2023-07-07] MEDS: DOXYCYCLINE HYCLATE 100 MG CAP PO SCH (08:51)
[2023-07-07] MEDS: CEROVITE ADV FORMULA TAB PO SCH (08:52)
[2023-07-07] MEDS: ROSUVASTATIN CALCIUM 20 MG TAB PO SCH (08:52)
[2023-07-07] MEDS: LOSARTAN POTASSIUM 50 MG TAB PO SCH (08:52)
[2023-07-07 09:35] LABS: A calco-baum cmplx NotReported Not Detected (NotDetected); Bact fragilis Not Reported Not Detected (NotDetected); Blood Culture Id Panel See PCR Comment (NotDetected); C auris Not Reported Not Detected (NotDetected); Calbicans Not Reported Not Detected (NotDetected); Candida glabrata Not Reported Not Detected (NotDetected); Candida krusei Not Reported Not Detected (NotDetected); Cneoformans/gatti Not Reported Not Detected (NotDetected); Cparapsilosis Not Reported Not Detected (NotDetected); E cloacae compx Not Reported Not Detected (NotDetected); Efaecalis Not Reported DETECTED (NotDetected); Efaecium Not Reported Not Detected (NotDetected); Enterobacterales Not Reported Not Detected (NotDetected); Escherichia coli Not Reported Not Detected (NotDetected); H influenzae Not Reported Not Detected (NotDetected); K aerogenes Not Reported Not Detected (NotDetected); Koxytoca Not Reported Not Detected (NotDetected); Kpneumoniae grp Not Reported Not Detected (NotDetected); Lmonocyt Not Reported Not Detected (NotDetected); N meningitidis Not Reported Not Detected (NotDetected); P aeruginosa Not Reported Not Detected (NotDetected); Proteus spp Not Reported Not Detected (NotDetected); Salmonella spp Not Reported Not Detected (NotDetected); Smarcescens Not Reported Not Detected (NotDetected); Staph lugdunensis Not Reported Not Detected (NotDetected); Staph spp. Not Reported DETECTED (NotDetected); Staphaureus Not Reported Not Detected (NotDetected); Staphepi Not Reported DETECTED (NotDetected); Stenmaltophilia Not Reported Not Detected (NotDetected); Strep agal(GrpB) Not Reported Not Detected (NotDetected); Strep pneum Not Reported Not Detected (NotDetected); Strep pyog (GrpA) Not Reported Not Detected (NotDetected); Strep spp Not Reported Not Detected (NotDetected); VanAB Resistant Gene VRE Not Detected (NotDetected)
[2023-07-07 09:53] LABS: Enterococcus faecalis DETECTED (NotDetected); Staphylococcus spp. DETECTED (NotDetected); mecAC Resistant Gene DETECTED (NotDetected)
[2023-07-07 09:54] LABS: Staphylococcus epidermidis DETECTED (NotDetected)
[2023-07-07] MEDS ORDERED: MoRPHine SULFATE 4 MG/ML 1 ML CARP\\VIAL IV PRN (10:42)
--- NOTE | 2023-07-07 12:25 | Hospitalist Progress Note ---
Date of Service July 07, 2023 Assessment & Plan (1) Wound of lower extremity: Plan: Sepsis--POA Gram-positive bacteremia Possible Sources:Infected extensive b/l lower extremity wounds/Cellulitis, UTI, bacteremia Chronic venous stasis Lactic acidosis Stage IV decubiti Ankle/heel -POA --Tibia/Fibula X ray:Extensive soft tissue swelling compatible with cellulitis of the bilateral lower extremities. No radiographic evidence of osteomyelitis or subcutaneous emphysema. Bones are demineralized and there are extensive degenerative changes. --Femur X ray:Extensive soft tissue swelling compatible with cellulitis of the bilateral lower extremities. No radiographic evidence of osteomyelitis or subcutaneous emphysema. Bones are demineralized and there are extensive degenerative changes. --Blood Culture: Growing gram-positive cocci in clusters, gram-positive cocci in chains, gram-positive bacilli -- Will need repeat blood cultures, echo and ID evaluation when appropriate --Urine culture pending --Wound culture pending --Continue daptomycin, Zosyn --Hold statin while on daptomycin --Continue IV fluids --Appreciate surgery input --Cautious use of pain medications, minimize use for excess sedation --Continue wound care --Waiting to be transferred to tertiary care facility Chronic thrombocytosis Platelet count increased likely reactive secondary to infection Needs further workup as outpatient Abnormal thyroid function test H/O hypothyroidism TSH elevated, normal free T4 Continue levothyroxine Will need repeat thyroid function test as outpatient Chronic diastolic heart failure ? Chronic oxygen dependency EF 60%, TTE 2019 per record Hold Lasix in setting of sepsis Monitor volume status closely Resume diuretics as able Hypertension Continue nifedipine, losartan Monitor BP Hyperlipidemia Hold statin while on Dapto SARAN CPAP noncompliance Nocturnal hypoxemia Pulmonary hypertension Continue supplemental oxygen as needed DM II Hold oral medications Last HbA1C 6.22 July 2022 Continue insulin while hospitalized Monitor BGs Right breast cancer S/P surgery Chronic anemia Hb at baseline Monitor Physical deconditioning/functional disability Past tobacco abuse PT/OT as able DVT Px: Arixtra (patient cannot take pork containing products like heparin due to spiritual preference) Code Status Full code Disposition [facility] when bed [facility] available Admission and Anticipated Discharge Date Admission Date: July 06, 2023 Subjective Patient is seen and examined at bedside Drowsy during my encounter secondary to IV pain medications Complained of bilateral leg pain to RN this morning Unable to obtain much history Waiting [facility] bed at [facility] Review of Systems Review of Systems: Other Physical Exam Physical Exam: Physical Exam: Vitals signs as noted above General Appearance: Moderately built, no apparent distress, elderly, ill- appearing, drowsy Head: normocephalic, Atraumatic Eyes: normal inspection, EOMI Neck: supple, Trachea midline Respiratory/Chest: Normal breath sounds, CTA, No accessory muscle use Cardiovascular: S1, S2, No murmur Abdomen/GI:Soft, Non tender, Bowel sounds present Extremities/Musculoskeletal:normal inspection, Chronic venous stasis, + extensive bilateral lower extremity wounds, tender Neurologic/Psych: Drowsy during my encounter, complete neurological exam could not be performed Skin: normal color, warm Results & Data Results & Data Vital Signs (Past 12 Hours) Vital Signs Temp Pulse Pulse Resp BP BP Pulse Ox 07/07/23 07:48 65 07/07/23 05:53 61 19 127/92 97 07/07/23 03:01 70 07/07/23 02:41 36.8 C 62 20 156/84 H 98 07/07/23 02:00 20 156/84 H 97 07/07/23 01:49 70 22 186/84 H 100 07/07/23 01:32 65 30 H 98 07/07/23 01:01 07/07/23 00:30 69 19 115/84 97 Pulse Ox O2 Del Method O2 Del Method O2 Flow Rate 07/07/23 07:48 07/07/23 05:53 Nasal Cannula 6 07/07/23 03:01 07/07/23 02:41 Nasal Cannula 6 07/07/23 02:00 Nasal Cannula 6 07/07/23 01:49 Nasal Cannula 6 07/07/23 01:32 Nasal Cannula 6 07/07/23 01:01 100 Room Air 07/07/23 00:30 Nasal Cannula 6 Laboratory Results Short CBC 07/06/23 07/07/23 Range/Units 17:28 05:55 WBC 9.25 13.76 H (4.8-10.8) K/ul Hgb 11.3 L 10.0 L (12.0-16.0) g/dl Hct 35.8 L 32.2 L (37.0-47.0) % Plt Count 579 H 522 H (130-400) K/uL BMP 07/06/23 07/07/23 17:28 05:55 Sodium 133 L 133 L Potassium 4.8 4.7 Chloride 99 101 Carbon Dioxide 25 22 BUN 16 17 Creatinine 0.60 0.57 L Glucose 176 H 116 H Calcium 9.4 9.0 Cardiac Enzymes 07/06/23 Range/Units 17:28 Total Creatine Kinase 172 (26-192) U/L Liver Function 07/06/23 Range/Units 17:28 Total Bilirubin 0.4 (0.2-1.0) mg/dl Direct Bilirubin 0.1 (0-0.2) mg/dl AST 21 (13-39) U/L ALT 18 (7-52) U/L Alkaline Phosphatase 103 (34-104) U/L Albumin 3.3 L (3.4-5.0) gm/dl Urine 07/07/23 Range/Units 05:24 Urine Color Dark Yellow Urine Appearance Cloudy A (Clear) Urine pH 5.0 (4.5-7.5) Ur Specific [place] > 1.045 H (1.000-1.030) Urine Protein Trace H (Negative) Urine Glucose (UA) Negative (Negative)
--- OUTSIDE RECORDS SUMMARY | 2023-07-07 12:36 | External Medical Summary | Summary of Care ---
Author Name Unknown Organization [facility] Address [address] [place] [address] Phone [phone] Care Team Providers Care Foil Spinner Name Role Phone Mynor Leahy PA-C Primary Care Provider Reason for Visit * Reason Onset Date Comments [facility]: Maintenance 07/04/2023 Encounter Details Date Type Department Care Team (Late st Contact Info) Description 07/04/2023 Telephone [facility] [address] [facility] [place] [address] Candi Trevino RN [address] [place] [address] [facility]: Maintenance Allergies Active Allergy Reactions Criticality Noted Date Comments Aspirin Abdominal pain 11/09/2001 Atropine 09/14/2022 Reported to hospital staff Codeine Hypertension 09/28/2010 Phenobarbital-Belladonna Alk Itching,Rash 08/28/2010 Doxycycline Hyclate Nausea/vomiting 02/11/2012 Hyoscyamine Itching 09/14/2022 Lactose Intolerance (Gi) 09/28/2010 Minocycline Nausea/vomiting 02/11/2012 Morphine And Related Nausea/vomiting 10/12/2002 oxycontin makes pt.sick Pork-Derived Products 09/14/2022 Spiritual preference Scopolamine Itching,Rash 09/14/2022 Shellfish-Derived Products 10/27/2017 Spiritual preference Simvastatin Muscle pain Medium 07/13/2010 documented as of this encounter (statuses as of 07/04/2023) Medications Medication Sig Dispensed Refills Start Date End Date Status MAALOX MAX 400-400-40 MG/5ML PO SUSP Take 15 mL by mouth in the morning. 0 12/11/2008 Active TUMS 500 MG PO CHEW Take 2 Tablets by mouth as needed. 0 12/11/2008 Active oxygen GASIndications:Pulmo nary HTN (HCC) 1 LPM bled through BIPAP during hours of sleep 1 Each 0 02/04/2017 Active Lancet Devices ([employer] LANCING DEV) MISC Test as directed 1 Each 0 06/16/2017 Active Aspercreme Lidocaine 4 % External Liquid (Lidocaine HCl) Apply topically to affected area 3 times a day as needed . Apply to painful joints 0 Active Diclofenac Sodium 1 % External Cream Apply topically to affected area 4 times a day as needed. Apply to R knee 0 Active DIURETIC TITRATION PLANIndications:Franky gomez hypertensive heart disease with diastolic CHF, NYHA class 2 ([facility]) If no improvement on day 3, contact heart failure managing provider - PCP, GAH, or cardiology. 1 Each 0 05/03/2022 Active Aspirin 81 MG Oral Tablet Chewable Take 1 Tablet by mouth in the morning. 0 Active AZO Bladder Control/Go-Less Oral CapsuleIndications:H TN, goal below 150/90 Take 1 Capsule by mouth in the morning and 1 Capsule before bedtime. 60 Capsule 11 09/16/2022 Active Glucosamine Sulfate 1000 MG Oral Tablet (Glucosamine Relief) TAKE 1 TABLET BY MOUTH IN THE MORNING AND AT BEDTIME 60 Tablet 5 09/16/2022 Active Multivitamin Adult Oral Tablet Take 1 Tablet by mouth in the morning. 30 Tablet 09/16/2022 Active Napanoch-3 Fish Oil 1000 MG Oral Capsule (Napanoch-3)Indications :Dyslipidemia, goal to be determined Take 1 Capsule by mouth in the morning. 30 Capsule 09/16/2022 Active Vitamin C 500 MG Oral Tablet (Ascorbic Acid) Take 2 Tablets by mouth in the morning. 60 Tablet 11 09/16/2022 Active Vitamin D 25 MCG (1000 UT) Oral Tablet Take 1 Tablet by mouth in the morning. 30 Tablet 09/16/2022 Active Vitamin E 400 UNIT Oral Capsule (Aquasol E) Take 1 Capsule by mouth in the morning. 30 Capsule 11 09/16/2022 Active Ipratropium [place] 0.06 % Nasal Solution (Atrovent)Indication s:Seasonal allergic rhinitis due to pollen Administer 2 Sprays into each nostril 4 times a day as needed for Rhinitis. 15 mL 5 09/20/2022 Active Rosuvastatin Calcium 20 MG Oral Tablet (Crestor)Indications :Dyslipidemia, goal LDL below 100 TAKE 1 TABLET BY MOUTH AT BEDTIME 30 Tablet 11 11/16/2022 Active metFORMIN HCl 500 MG Oral Tablet (Glucophage)Indicati ons:Type 2 diabetes mellitus with hemoglobin A1c goal of less than 7.0% (HCC) TAKE ONE TABLET BY MOUTH TWICE DAILY 60 Tablet 11/16/2022 Active OneTouch Verio In Vitro Strip (Glucose Blood)Indications:Ty pe 2 diabetes mellitus with hemoglobin A1c goal of less than 8.0% (HCC) TEST 4 TIMES DAILY 100 Strip 3 01/12/2023 Active OneTouch Delica Plus [id number] TEST UP TO 4 TIMES DAILY NEEDED 100 Each 3 01/12/2023 Active Ipratropium [place] HFA 17 MCG/ACT Inhalation Aerosol Solution (Atrovent HFA) INHALE 2 PUFFS 3 TIMES DAILY IF NEEDED FOR WHEEZING 12.9 g 3 01/12/2023 Active Furosemide 40 MG Oral Tablet (Lasix)Indications:B ilateral leg edema TAKE 1 TABLET BY MOUTH ONCE DAILY IN THE MORNING 30 Tablet 11 02/09/2023 Active Pregabalin 75 MG Oral Capsule (Lyrica) TAKE 1 CAPSULE BY MOUTH IN THE MORNING AND AT BEDTIME 60 Capsule 5 03/08/2023 Active Magnesium 250 MG Oral Tablet Take 1 Tablet by mouth in the morning and 1 Tablet before bedtime. 60 Tablet 5 03/08/2023 Active Refresh Liquigel 1 % Ophthalmic Gel (Carboxymethylcellul ose Sodium) INSTILL 2 DROPS INTO BOTH EYES TWICE DAILY NEEDED FOR DRY EYES 15 mL 3 04/12/2023 Active DULoxetine HCl 20 MG Oral Capsule Delayed Release Particles (Cymbalta)Indication s:Spinal stenosis of lumbar region without neurogenic claudication TAKE 2 CAPSULES BY MOUTH ONCE DAILY IN THE MORNING 60 Capsule 5 04/12/2023 Active Levothyroxine Sodium 75 MCG Oral Tablet (Levoxyl)Indications :Acquired hypothyroidism TAKE 1 TABLET BY MOUTH ONCE DAILY IN THE MORNING AT LEAST 30 MINUTES PRIOR TO BREAKFAST OR OTHER MEDS 30 Tablet 5 04/12/2023 Active Potassium Chloride Elisabeth ER 20 MEQ Oral Tablet Extended ReleaseIndications:H TN, goal below 140/90 TAKE 1 TABLET BY MOUTH ONCE DAILY IN THE MORNING 30 Tablet 5 04/12/2023 Active Losartan Potassium 50 MG Oral Tablet (Cozaar)Indications: HTN, goal below 150/90 TAKE 1 TABLET BY MOUTH ONCE DAILY IN THE MORNING 30 Tablet 11 05/04/2023 Active traMADol HCl 50 MG Oral Tablet (Ultram) Take 1 Tablet by mouth every 8 hours as needed (breakthrough pain). 30 Tablet 0 06/16/2023 Active NIFEdipine ER 30 MG Oral Tablet Extended Release 24 Hour (Adalat CC)Indications:HTN, goal below 140/90 TAKE 1 TABLET BY MOUTH ONCE DAILY IN THE MORNING ON AN EMPTY STOMACH 30 Tablet 5 06/29/2023 Active Baclofen 10 MG Oral Tablet (Lioresal)Indication s:Spasm of muscle TAKE 1 TABLET BY MOUTH TWICE DAILY NEEDED FOR MUSCLE SPASMS 60 Tablet 3 06/29/2023 Active Fluticasone Propionate 50 MCG/ACT Nasal Suspension (Flonase)Indications :Chronic rhinitis INSTILL 2 SPRAYS INTO EACH NOSTRIL TWICE DAILY 48 g 3 06/29/2023 Active Acetaminophen 500 MG Oral Tablet (Tylenol) TAKE 2 TABLETS BY MOUTH EVERY 8 HOURS NEEDED FOR MILD OR MODERATE PAIN 90 Tablet 3 2023 Active documented as of this encounter (statuses as of 07/04/2023) Active Problems Problem Noted Date Diagnosed Date Cerebral atrophy 11/04/2022 DDD (degenerative disc disease), lumbar 11/05/19 23 Primary osteoarthritis of both knees 05/03/2022 Chronic diastolic congestive heart failure 04/30 Last Assessment & Plan: "RED FLAG" HF Symptoms: o Leg Swelling (Examples: "I can't wear certain socks or shoes", "My pants feel tight") Medication Regimen: o Beta Lucinda Therapy: No beta-lucinda secondary to Unknown o YAO Inhibitor/ARB Therapy: Losartan o Diuretic therapy: Lasix Self - Management Plan o Double dose of Furosemide for 3 days Exacerbation Plan o Anticipated IV Lasix dose: 80 mg Additional Comments: o Patient reports doing well and has not required DTP recently. Urinary frequency 03/09/2022 Spasm of muscle 10/06/2021 Last Assessment & Plan: Given low dose baclofen (verified with [facility] MTM that has best side effect profile and lowest fall risk. Advised pt to use only with severe back spasm. Advised caution that can cause sedation. Benign hypertensive heart di sease with diastolic CHF, NYHA class 2 08/13/2021 At high risk for falls 08/13/2021 Physical deconditioning 08/13/2021 Spinal stenosis of lumbar re gion without neurogenic claudication 03/12/2019 Last Assessment & Plan: Chronic pain with radicular pain in the legs as well as MSK pain in different areas. -Requested follow up with Palliative Medicine to discuss pain control. History of breast cancer 05/31/2017 SARAN (obstructive sleep apnea) 10/04/2016 Overview: Significant hypoxemia Titration pending [facility] Last Assessment & Plan: Reports compliance with CPAP Nocturnal hypoxemia 10/04/2016 Pulmonary HTN 09/16/2016 Venous insufficiency 02/21/2016 Last Assessment & Plan: Suspect this is significant cause of foot swelling. She cannot wear compression stockings--cannot get them on. Advised to elevate legs when sitting. Allergic rhinitis 01/08/2016 Last Assessment & Plan: Taking Flonase but reports that she is still having issues with rhinorrhea/congeston. -Will add ipratropium nasal spray as needed. Type 2 diabetes mellitus wit h hemoglobin A1c goal of less than 8.0% 04/11/2010 Overview: ICD-10 update of inactive term Last Assessment & Plan: "RED FLAG" Diabetic symptoms: o Other: Unknown at this time Goal HgbA1c o <8 Diabetic Complications o NONE KNOWN Medication Regimen o Metformin DM Secondary Prevention o YAO Inhibitor / ARB o Moderate-High Intensity Statin Additional Comments o Stable on metformin Dyslipidemia, goal LDL below 100 04/11/2010 DIVERTICULOSIS OF COLON 08/20/2002 Acquired hypothyroidism 03/02/2002 CERVICAL spinal degenerative arthritis 2 documented as of this encounter (statuses as of 07/04/2023) Resolved Problems Problem Noted Date Diagnosed Date Resolved Date Depression, unspecified 04/30/2022 03/0 09/2022 Leg swelling 10/06/2021 11/04/2022 History of pleural effusion 10/06/2021 01/12/2022 Last Assessment & Plan: Unknown etiology. Was followed by cardiology Echo 10/30/19 without effusion EF 60-64% Migraine without aura and wi th status migrainosus, not intractable 06/15/2019 04/30/2022 Gastroesophageal reflux dise ase without esophagitis 06/15/2019 11/22/2019 Stasis dermatitis, acute 02/21/201610/2016 Hx of lichen planus 01/13/2015 07/24/19 17 HTN, goal below 150/90 07/29/201408/13 DCIS (ductal carcinoma in situ) 07/23/2013 12/13/2017 DCIS (ductal carcinoma in situ) of breast 02/12/2013 03/14/2013 Overview: RIGHT breast biopsy 02/07/13 Atypical chest pain 02/05/2013 07/24/19 17 PPD positive 09/30/2010 01/14/2020 Overview: TB Quantiferon test is positive Pericardial effusion 09/28/2010 013 Overview: Resolved on TTE done 03/30/12 Acute pericarditis 09/28/2010 3 Overview: Resolved on TTE 03/30/12 Migraine 09/04/2010 06/15/2019 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 Alopecia 11/09/2001 07/23/2016 HTN, goal below 140/90 11/09/200107/29 GENERAL OSTEOARTHROSIS 07/23 DIVERTICULITIS OF COLON 08/2002 documented as of this encounter (statuses as of 07/04/2023) Immunizations Name Administration Dates Next Due COVID-19 mRNA, LNP-s, No Pre serve, 2-Dose Series ([employer]) 04/28/2021,07/09/2020,06/18/2020 H1N1 2008 Influenza, IM 04/29/2009 Pneumococcal Conjugate Vacc, 13 Valent (Prevnar) 02/13/2015 Season Influenza, Quad, PF, Adjuvanted, 65+ Yrs, IM (FLUAD) 02/06/2020 Seasonal Influenza, PF, 6 M & above, IM , (FluLaval or Fluzone) 01/09/2019,02/06/2018,01/17/2017 Seasonal Influenza, Quadriva lent Hd (Fluzone Hd) 01/28/2022,12/30/2020 Seasonal Influenza, Quadriva lent, No Preserve, IM 01/08/2016 Seasonal Influenza, Split, I IV3, With Preserve, Inj 12/30/2014,12/30/2014,12/30/2014,2013,01/17/2013,01/05/2012,01/05/2011,0 01/08/2010,01/24/2009,02/15/2008, 007,03/08/2006 TD - Tetanus/Diptheria (ADULT) 12/15/2007 TDAP (age 10 and older)(Boostrix) 04/02/2013 Varicella Zoster Vaccine (Adult) 07/10/2008 documented as of this encounter Social History Tobacco Use Types Packs/Day Years Used Date Smoking Tobacco: Never Smokeless Tobacco: Never Alcohol Use Standard Drinks/Week Comments No 0 (1 standard drink = 0.6 oz pur e alcohol) PHQ-2 Answer Date Recorded PHQ Adult Total Score 0 02/04/2022 Hunger Vital Sign Answer Date Recorded Within the past 12 months, y ou worried that your food would run out before you got the money to buy more. Never true 02/05/20 22 Within the past 12 months, t he food you bought just didn't last and you didn't have money to get more. Never true 02/04/2022 Sex and Gender Information Value Date Recorded Sex Assigned at Female 02/16/2019 2:05 PM EDT Gender Identity Female 02/16/2019 2:05 PM EDT Sexual Orientation Straight 02/16/2019 2: 05 PM EDT Job Start Date Occupation Industry Not on file Not on file Not on file documented as of this encounter Miscellaneous Notes * Telephone Encounter - Candi Trevino RN - 07/04/2023 10:15 AM EDT Received call back from son Dennis - he reports that he called for an ambulance this morning and they are on their way to take Ivis to the hospital. He reports that her leg pain became so severe with pain and he went to move it and states it has several wounds and looks like it has worms in it. He is working on clearing out a path for the EMS crew now. Will alert intake to add to hospital list for f/u documented in this encounter Plan of Treatment Upcoming Encounters Date Type Department Care Team (Late st Contact Info) Description 11/01/2023 2:00 PM EDT Home Visit Care at Home [address] [facility] [place] [address] Eliza Hernandez PA-C [address] [facility] [place] [id number] Health Maintenance Due Date Last Done Comments Zoster Vaccines (2 of 3) 09/04/2008 07/10/2008 DXA Scan 07/18/2021 07/18/2018, 03, 03/16/2011, Additional history exists Albumin/Creatinine Ratio 10/07/2021 021, 10/04/2019, 11/09/2018, Additional history exists Diabetic Foot Exam 12/30/2021 12/30/2020, 1 , 03/12/2019, Additional history exists Diabetic Eye Exam 05/12/2022 05/12/2021, , 10/15/2019, Additional history exists COVID-19 Vaccine ( season) 2022 04/28/2021, 04/28/2021, 07/09/2020, Additional history exists Influenza Vaccine (FLU shot) (#1) 2022 01/28/2022, 01/28/2022, 12/30/2020, Additional history exists HbA1c 01/27/2023 07/28/2022, 01/16, 01/27/2021, Additional history exists TSH 01/28/2023 01/28/2022, 01/16, 12/30/2020, Additional history exists Depression Screening 02/04/2023 02/04/2022 DTaP,Tdap,and Td Vaccines (2 - Td or Tdap) 04/02/2023 04/02/2013, 12/15/2007 B-12 07/29/2023 07/28/2022, 01/16, 10/07/2020, Additional history exists Pneumococcal Vaccine: 65+ Years Completed 02/13/2015, 02/24/2001 GARDASIL-HPV IMMUNIZATION SERIES Aged Out No longer eligible based on patient's age to complete this topic Hepatitis B Aged Out No longer eligi ble based on patient's age to complete this topic MENINGOCOCCAL (MENACTRA/MENVEO) Aged Out No longer eligible based on patient's age to complete this topic documented as of this encounter Medical Devices Not on filedocumented as of this encounter Advance Directives Latest Code Status on File Code Status Date Activated Date Inactivated Comments Full Code 09/28/2010 10:57 PM 10/02/2010 7:55 PM This order reflects the patients wishes and were consensually agreed upon. Question Answer Comments Discussion of Advance Directives occurred with: Patient Does the patient have a Living Will? No Does the patient have Health Care Power of Longwall Machine Operator Helper? No Care Teams Foil Spinner Relationship Specialty Start Date End Date Mynor Leahy PA-C [address] [place] [address] PCP - [facility] 09/30/22 documented as of this encounter
--- OUTSIDE RECORDS SUMMARY | 2023-07-07 12:36 | External Medical Summary | Summary of Care ---
Author Name Unknown Organization [facility] Address [address] [place] [address] Phone [phone] Care Team Providers Care Service Team Leader Name Role Phone Savanah Leahy PA-C Primary Care Provider + [phone] Reason for Visit * Reason Comments eRx-Medication Refill Encounter Details Date Type Department Care Team (Late st Contact Info) Description 06/29/2023 Refill [facility], [place] [address] [place] [address] Eliud Pepper H, DO [address] [place] [id number] Allergies Active Allergy Reactions Criticality Noted Date [...] as of this encounter (statuses as of 2023) Medications Medication Sig Dispensed Refills Start Date End Date Status MAALOX MAX 400-400-40 MG/5ML PO SUSP Take 15 mL by mouth in the morning. 0 12/11/2008 Active TUMS 500 MG PO CHEW Take 2 Tablets by mouth as needed. 0 12/11/2008 Active oxygen GASIndications:Pulmo nary HTN (HCC) 1 LPM bled through BIPAP during hours of sleep 1 Each 0 02/04/2017 Active Lancet Devices (ONETOUCH DELICA LANCING DEV) MISC Test as directed 1 [...] disease with diastolic CHF, NYHA class 2 (HCC) If no improvement on day 3, contact heart failure managing provider - PCP, GAH, or cardiology. 1 Each 0 05/03/2022 Active Aspirin 81 MG Oral Tablet Chewable Take 1 Tablet by mouth in the morning. 0 Active AZO Bladder Control/Go-Less Oral CapsuleIndications:H TN, goal below 150/90 Take 1 Capsule by mouth in the morning and 1 Capsule before bedtime. 60 Capsule 09/16/2022 Active Glucosamine Sulfate 1000 MG Oral Tablet (Glucosamine Relief) TAKE 1 TABLET BY MOUTH IN THE MORNING AND AT BEDTIME 60 Tablet 09/16/2022 Active Multivitamin Adult Oral Tablet Take 1 Tablet by mouth in the morning. 30 Tablet 09/16/2022 Active Marshall-3 Fish Oil 1000 MG Oral Capsule (Marshall-3)Indications :Dyslipidemia, goal to be determined Take 1 Capsule by mouth in the morning. 30 Capsule 09/16/2022 Active Vitamin C 500 MG Oral Tablet (Ascorbic Acid) Take 2 Tablets by mouth in the morning. 60 Tablet 09/16/2022 Active Vitamin D 25 MCG (1000 UT) Oral Tablet Take 1 Tablet by mouth in the morning. 30 Tablet 09/16/2022 Active Vitamin E 400 UNIT Oral Capsule (Aquasol E) Take 1 Capsule by mouth in the morning. 30 Capsule 11 09/16/2022 Active Ipratropium [place] 0.06 % Nasal Solution (Atrovent)Indication s:Seasonal allergic [...] Strip 3 01/12/2023 Active OneTouch Delica Plus [id number] TEST UP TO 4 TIMES DAILY NEEDED 100 Each 3 01/12/2023 Active Ipratropium [place] HFA 17 MCG/ACT Inhalation Aerosol Solution (Atrovent [...] as of this encounter (statuses as of 2023) Active Problems Problem Noted Date Diagnosed Date [...] Plan: Given low dose baclofen (verified with [facility] MTM that has best side effect [...] apnea) 10/04/2016 Overview: Significant hypoxemia Titration pending [facility] Last Assessment & Plan: Reports compliance [...] as of this encounter (statuses as of 2023) Resolved Problems Problem Noted Date Diagnosed Date [...] repeat CT study 11/24 Statin intolerance 01/01/2008 7 Other allergic rhinitis 08/27/2005/10/2016 Overview: ICD-10 update of inactive term OSTEOPENIA 08/27/2005 01/17/2017 ADVANCE DIRECTIVE INFORMATION 02/22/2005 07/23/2016 Overview: No, Advance Directive brochure given to patient. 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 Alopecia 11/09/2001 07/23/2016 HTN, goal below 140/90 11/09/200107/29 GENERAL OSTEOARTHROSIS 07/23 DIVERTICULITIS OF COLON 08/2002 documented as of this encounter (statuses as of 2023) Immunizations Name Administration Dates Next Due COVID-19 mRNA, LNP-s, No Pre serve, 2-Dose Series ([employer]) 04/28/2021,07/09/2020,06/18/2020 H1N1 2009 Influenza, IM 04/29/2009 Pneumococcal Conjugate Vacc, 13 [...] encounter Miscellaneous Notes * Telephone Encounter - Savanah Leahy PA-C - 2023 10:14 AM EDTSigned Prescriptions: Disp Refills Acetaminophen 500 MG Oral Tablet (Tylenol) 90 Tab*3 Sig: TAKE 2 TABLETS BY MOUTH EVERY 8 HOURS NEEDED FOR MILD OR MODERATE PAIN Authorizing Provider: SAVANAH LEAHY * Telephone Encounter - Collins Delatorre DO - 06/29/2023 12:11 PM EDTPending Prescriptions: Disp Refills Acetaminophen 500 MG Oral Tablet [Pharmacy*90 Tab*3 Sig: TAKE 2 TABLETS BY MOUTH EVERY 8 HOURS NEEDED FOR MILD OR MODERATE PAIN * Telephone Encounter - Haydee Sol LPN - 06/29/2023 11:51 AM EDT Did you pend patient's preferred pharmacy and medication before forwarding?yes Pharmacy: [place] [address] [address] [facility] Pending Prescriptions: Disp Refills Acetaminophen 500 MG Oral Tablet (Tylenol*90 Tab*3 Sig: TAKE 2 TABLETS BY MOUTH EVERY 8 HOURS NEEDED FOR MILD OR MODERATE PAIN Last Visit: Visit date not found (in office), 10/06/2021 (telemedicine) Next Visit: Visit date not found If no future appointments scheduled, and last appointment is greater than a year ago, please schedule patient for a follow-up appointment Last date the medication was ordered: 05/03/23 Is this request for a controlled substance?No Urine Drug Screen:No results found. However, due to the size of the patient record, not all encounters were searched. Please check Results Review for a complete set of results. Patient Phone Numbers Labs: Lab Results Component Value Date/Time CREAT 0.6 07/28/2022 12:00 PM CREAT 0.9 11/22/2019 12:47 PM POTASSIUM 4.9 07/28/2022 12:00 PM POTASSIUM 4.6 11/22/2019 12:47 PM TSH 3.10 01/28/2022 04:15 PM TSH 4.32 (H) 11/22/2019 12:47 PM LDLCALC 61 11/22/2019 12:47 PM LDLDIRECT 47 01/28/2022 04:15 PM LDLDIRECT NOT APPLICABLE 11/22/2019 12:47 PM LDLDIRECT 78 05/31/2017 02:29 PM ALT 14 07/28/2022 12:00 PM ALT 23 03/12/2019 12:31 PM HGBA1C 6.5 (H) 07/28/2022 12:00 PM HGBA1C 7.0 (H) 11/22/2019 12:47 PM * Telephone Encounter - Renetta Neff [facility] - 06/29/2023 11:34 AM EDT Pending Prescriptions: Disp Refills Acetaminophen 500 MG Oral Tablet [Pharmacy*90 Tab*3 Sig: TAKE 2 TABLETS BY MOUTH EVERY 8 HOURS NEEDED FOR MILD OR MODERATE PAIN documented in this encounter Plan of Treatment Upcoming Encounters Date Type Department Care Team (Late st Contact Info) Description 11/01/2023 2:00 PM EDT Home Visit Care at Home [address] [place] [address] Eliza Hernandez PA-C [address] [place], [place] [id number] Health Maintenance Due Date Last Done Comments Zoster Vaccines (2 of 3) 09/04/2008 07/10/2008 DXA Scan 07/18/2021 07/18/2018, 06/18, 03/16/2011, Additional history exists Albumin/Creatinine Ratio 10/07/20212 021, 10/04/2019, 11/09/2018, Additional history exists Diabetic [...] the patient have Health Care Power of Chemistry Lab Instructor? No Care Teams Service Team Leader Relationship Specialty Start Date End Date Savanah Leahy PA-C [address] [place] [address] [place] [address] PCP - General [facility] 09/30/22 documented as of this encounter
--- OUTSIDE RECORDS SUMMARY | 2023-07-07 12:36 | External Medical Summary | Summary of Care ---
Author Name Unknown Organization [facility] Address [address] [place] [address] Phone [phone] Care Team Providers Care Mill Dresser Name Role Phone Mynor Leahy PA-C Primary Care Provider [phone] Reason for Visit * Reason Onset Date Comments [facility]: Maintenance 07/04/2023 Encounter Details Date Type Department Care Team (Late st Contact Info) Description 07/04/2023 Telephone [facility], [facility] [address] [facility] [place] [address] Candi Trevino RN [address] [place] [address] [facility]: Maintenance Allergies Active Allergy [...] 1 Each 0 02/04/2017 Active Lancet Devices (Toppr DELLegalZoom LANCING DEV) MISC Test as directed 1 [...] disease with diastolic CHF, NYHA class 2 ([facility]) If no improvement on [...] in the morning. 30 Tablet 09/16/2022 Active Rico-3 Fish Oil 1000 MG Oral Capsule (Rico-3)Indications :Dyslipidemia, goal to be determined Take 1 [...] morning. 30 Capsule 11 09/16/2022 Active Ipratropium [place] 0.06 % Nasal Solution (Atrovent)Indication s:Seasonal allergic [...] Strip 3 01/12/2023 Active OneTouch Delica Plus [id number] TEST UP TO 4 TIMES DAILY NEEDED 100 Each 3 01/12/2023 Active Ipratropium [place] HFA 17 MCG/ACT Inhalation Aerosol Solution (Atrovent [...] Plan: Given low dose baclofen (verified with [facility] MTM that has best side effect profile [...] apnea) 10/04/2016 Overview: Significant hypoxemia Titration pending [facility] Last Assessment & Plan: Reports compliance [...] mRNA, LNP-s, No Pre serve, 2-Dose Series ([employer]) 04/28/2021,07/09/2020,06/18/2020 H1N1 2008 Influenza, IM 04/29/2009 Pneumococcal [...] Encounter - Candi Trevino RN - 07/04/2023 10:12 AM EDT Telephone call to pt/son to set up next RNCM visit. No answer. LMOM to return call to [facility] and number was provided. documented in this encounter Plan of Treatment Upcoming Encounters Date Type Department Care Team (Late st Contact Info) Description 11/01/2023 2:00 PM EDT Home Visit Care at Home [address] [facility] [place] [address] Eliza Hernandez PA-C [address] [place] [address] Health Maintenance Due Date Last Done Comments Zoster Vaccines (2 of 3) 09/04/2008 07/10/2008 DXA Scan 07/18/2021 07/18/2018, 06/18, 03/16/2011, Additional history exists Albumin/Creatinine Ratio 10/07/2021 [...] the patient have Health Care Power of Combined Rail Operator? No Care Teams Mill Dresser Relationship Specialty Start Date End Date Mynor Leahy PA-C [address] [place] [address] PCP - General [facility] 09/30/22 documented as of this encounter
--- OUTSIDE RECORDS SUMMARY | 2023-07-07 12:37 | External Medical Summary | Summary of Care ---
Author Name Unknown Organization [facility] Address [address] [place] [address] Phone [phone] Care Team Providers Care Cfa Name Role Phone Mynor Leahy PA-C Primary Care Provider [phone] Reason for Visit * Reason Comments eRx-Medication Refill Encounter Details Date Type Department Care Team (Late st Contact Info) Description 05/03/2023 Refill [facility], [place] [address] [place] [address] Eliud Pepper H, DO [address] [place] [phone] Allergies Active Allergy Reactions Criticality Noted Date [...] as of this encounter (statuses as of 05/04/2023) Medications Medication Sig Dispensed Refills Start Date [...] before bedtime. 60 Capsule 11 09/16/2022 Active Fluticasone Propionate 50 MCG/ACT Nasal Suspension (Flonase)Indications :Chronic rhinitis ADMINISTER 2 SPRAYS INTO EACH NOSTRIL TWICE DAILY 48 g 3 09/16/2022 Active Glucosamine Sulfate 1000 MG Oral Tablet (Glucosamine Relief) TAKE 1 TABLET BY MOUTH IN THE MORNING AND AT BEDTIME 60 Tablet 5 09/16/2022 Active Multivitamin Adult Oral Tablet Take 1 Tablet by mouth in the morning. 30 Tablet 11 09/16/2022 Active [place]-3 Fish Oil 1000 MG Oral Capsule (Auburn-3)Indications :Dyslipidemia, goal to be determined Take 1 Capsule by mouth in the morning. 30 Capsule 11 09/16/2022 Active Vitamin C 500 MG Oral Tablet (Ascorbic Acid) Take 2 Tablets by mouth in the morning. 60 Tablet 11 09/16/2022 Active Vitamin D 25 MCG (1000 UT) Oral Tablet Take 1 Tablet by mouth in the morning. 30 Tablet 11 09/16/2022 Active Vitamin E 400 UNIT Oral Capsule (Aquasol E) Take 1 Capsule by mouth in the morning. 30 Capsule 09/16/2022 Active Ipratropium [place] 0.06 % Nasal Solution (Atrovent)Indication s:Seasonal allergic [...] Strip 3 01/12/2023 Active OneTouch Delica Plus [id number] TEST UP TO 4 TIMES DAILY NEEDED 100 Each 3 01/12/2023 Active Ipratropium [place] HFA 17 MCG/ACT Inhalation Aerosol Solution (Atrovent HFA) INHALE 2 PUFFS 3 TIMES DAILY IF NEEDED FOR WHEEZING 12.9 g 3 01/12/2023 Active Baclofen 10 MG Oral Tablet (Lioresal)Indication s:Spasm of muscle TAKE 1 TABLET BY MOUTH TWICE DAILY NEEDED FOR MUSCLE SPASMS 60 Tablet 3 01/11/2023 Active Furosemide 40 MG Oral Tablet (Lasix)Indications:B [...] before bedtime. 60 Tablet 5 03/08/2023 Active traMADol HCl 50 MG Oral Tablet (Ultram) Take 1 Tablet by mouth every 8 hours as needed (breakthrough pain). 30 Tablet 0 03/23/2023 Active Refresh Liquigel 1 % Ophthalmic Gel [...] THE MORNING 30 Tablet 11 05/04/2023 Active documented as of this encounter (statuses as of 05/04/2023) Active Problems Problem Noted Date Diagnosed Date [...] Plan: Given low dose baclofen (verified with [facility] MTM that has best side effect [...] as of this encounter (statuses as of 05/04/2023) Resolved Problems Problem Noted Date Diagnosed Date [...] Statin intolerance 01/01/2008 7 Other allergic rhinitis 08/27/200510/2016 Overview: ICD-10 [...] as of this encounter (statuses as of 05/04/2023) Immunizations Name Administration Dates Next Due COVID-19 mRNA, LNP-s, No Pre serve, 2-Dose Series ([employer]) 04/28/2021,07/09/2020,06/18/2020 H1N1 2009 Influenza, IM 04/29/2009 Pneumococcal [...] encounter Miscellaneous Notes * Telephone Encounter - Leanne Cabral LPN - 05/04/2023 4:44 PM ESTRefused Prescriptions: Disp Refills Acetaminophen 500 MG Oral Tablet (Tylenol) 90 Tab*3 Sig: TAKE 2TABLETS BY MOUTH EVERY 8 HOURS NEEDED FOR MILD OR MODERATE PAINRefused By: LEANNE CABRAL for Refusal: Course of treatment complete * Telephone Encounter - Haydee Sol LPN - 05/04/2023 11:06 AM EST Did you pend patient's preferred pharmacy and medication before forwarding?yes Pharmacy: [facility] [place] [address] [address] [facility] Pending Prescriptions: Disp Refills Acetaminophen 500 MG [...] appointment Last date the medication was ordered: 01/11/22 Is this request for a controlled substance?No [...] PM * Telephone Encounter - Renetta Neff RPh - 05/04/2023 8:21 AM EST Pending Prescriptions: Disp Refills Acetaminophen 500 MG Oral Tablet [Pharmacy*90 Tab*3 Sig: TAKE 2TABLETS BY MOUTH EVERY 8 HOURS NEEDED FOR MILD OR MODERATE PAIN documented in this encounter Plan of Treatment Upcoming Encounters Date Type Department Care Team (Late st Contact Info) Description 11/01/2023 2:00 PM EDT Home Visit Care at Home [address] [place] [address] Eliza Hernandez [facility]-C [address] [facility] [place] [address] Health Maintenance Due Date Last Done Comments Hepatitis B (1 of 3 - Risk 3-dose series) 1994 Zoster Vaccines (2 of 3) 09/04/2008 07/10/2008 DXA Scan 07/18/2021 07/18/2018, 06/18, 03/16/2011, Additional history exists Albumin/Creatinine Ratio 10/07/2021 021, 10/04/2019, 11/09/2018, Additional history exists Diabetic Foot Exam 12/30/2021 12/30/2020, 1 , 03/12/2019, Additional history exists Diabetic Eye Exam 05/12/2022 05/12/2021, , 10/06/2019, Additional history exists COVID-19 Vaccine ( season) [...] the patient have Health Care Power of Manager Convention? No Care Teams Cfa Relationship Specialty Start Date End Date Mynor Leahy PA-C [address] [facility] [place] [address] PCP - General [facility] 09/30/22 documented as of this encounter
--- OUTSIDE RECORDS SUMMARY | 2023-07-07 12:37 | External Medical Summary | Summary of Care ---
Author Name Unknown Organization [facility] Address [address] [place] [address] Phone [phone] Care Team Providers Care Nutrition Services Associate Name Role Phone Savanah Leahy PA-C Primary Care Provider Reason for Visit * Reason Comments eRx-Medication Refill Encounter Details Date Type Department Care Team (Late st Contact Info) Description 06/29/2023 Refill [facility], [place] [address] [facility] [place] [address] Deonna Miller CRNP [address] [facility] [place] [address] Spasm of muscle Allergies Active Allergy Reactions Criticality Noted Date [...] as of this encounter (statuses as of 06/29/2023) Medications Medication Sig Dispensed Refills Start Date End Date Status MAALOX MAX 400-400-40 MG/5ML PO SUSP Take 15 mL by mouth in the morning. 0 9 Active TUMS 500 MG PO CHEW Take 2 Tablets by mouth as needed. 0 9 Active oxygen GASIndications:Pulm onary HTN (HCC) 1 LPM bled through BIPAP during hours of sleep 1 Each 0 7 Active Lancet Devices ([employer] DELCriterion Security LANCING DEV) MISC Test as directed 1 Each 0 8 Active Aspercreme Lidocaine 4 % External Liquid (Lidocaine HCl) Apply topically to affected area 3 times a day as needed . Apply to painful joints 0 Active Diclofenac Sodium 1 % External Cream Apply topically to affected area 4 times a day as needed. 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 1 Each 0 3 Active Aspirin 81 MG Oral Tablet Chewable Take 1 Tablet by mouth in the morning. 0 Active AZO Bladder Control/Go-Less Oral CapsuleIndications: HTN, goal below 150/90 Take 1 Capsule by mouth in the morning and 1 Capsule before bedtime. 60 Capsule 11 3 Active Glucosamine Sulfate 1000 MG Oral Tablet (Glucosamine Relief) TAKE 1 TABLET BY MOUTH IN THE MORNING AND AT BEDTIME 60 Tablet 5 3 Active Multivitamin Adult Oral Tablet Take 1 Tablet by mouth in the morning. 30 Tablet 11 3 Active Richmond-3 Fish Oil 1000 MG Oral Capsule ([place]-3)Indication s:Dyslipidemia, goal to be determined Take 1 Capsule by mouth in the morning. 30 Capsule 3 Active Vitamin C 500 MG Oral Tablet (Ascorbic Acid) Take 2 Tablets by mouth in the morning. 60 Tablet 11 3 Active Vitamin D 25 MCG (1000 UT) Oral Tablet Take 1 Tablet by mouth in the morning. 30 Tablet 3 Active Vitamin E 400 UNIT Oral Capsule (Aquasol E) Take 1 Capsule by mouth in the morning. 30 Capsule 11 3 Active Ipratropium [place] 0.06 % Nasal Solution (Atrovent)Indicatio ns:Seasonal allergic rhinitis due to pollen Administer 2 Sprays into each nostril 4 times a day as needed for Rhinitis. 15 mL 5 3 Active Rosuvastatin Calcium 20 MG Oral Tablet (Crestor)Indication s:Dyslipidemia, goal LDL below 100 TAKE 1 TABLET BY MOUTH AT BEDTIME 30 Tablet 11 3 Active metFORMIN HCl 500 MG Oral Tablet (Glucophage)Indicat ions:Type 2 diabetes mellitus with hemoglobin A1c goal of less than 7.0% (HCC) TAKE ONE TABLET BY MOUTH TWICE DAILY 60 Tablet 3 Active OneTouch Verio In Vitro Strip (Glucose Blood)Indications:T ype 2 diabetes mellitus with hemoglobin A1c goal of less than 8.0% (HCC) TEST 4 TIMES DAILY 100 Strip 3 3 Active OneTouch Delica Plus [id number] TEST UP TO 4 TIMES DAILY NEEDED 100 Each 3 3 Active Ipratropium [place] HFA 17 MCG/ACT Inhalation Aerosol Solution (Atrovent HFA) INHALE 2 PUFFS 3 TIMES DAILY IF NEEDED FOR WHEEZING 12.9 g 3 3 Active Furosemide 40 MG Oral Tablet (Lasix)Indications: Bilateral leg edema TAKE 1 TABLET BY MOUTH ONCE DAILY IN THE MORNING 30 Tablet 11 3 Active Pregabalin 75 MG Oral Capsule (Lyrica) TAKE 1 CAPSULE BY MOUTH IN THE MORNING AND AT BEDTIME 60 Capsule 5 3 Active Magnesium 250 MG Oral Tablet Take 1 Tablet by mouth in the morning and 1 Tablet before bedtime. 60 Tablet 5 3 Active Refresh Liquigel 1 % Ophthalmic Gel (Carboxymethylcellu lose Sodium) INSTILL 2 DROPS INTO BOTH EYES TWICE DAILY NEEDED FOR DRY EYES 15 mL 3 3 Active DULoxetine HCl 20 MG Oral Capsule Delayed Release Particles (Cymbalta)Indicatio ns:Spinal stenosis of lumbar region without neurogenic claudication TAKE 2 CAPSULES BY MOUTH ONCE DAILY IN THE MORNING 60 Capsule 5 3 Active Levothyroxine Sodium 75 MCG Oral Tablet (Levoxyl)Indication s:Acquired hypothyroidism TAKE 1 TABLET BY MOUTH ONCE DAILY IN THE MORNING AT LEAST 30 MINUTES PRIOR TO BREAKFAST OR OTHER MEDS 30 Tablet 5 3 Active Potassium Chloride Elisabeth ER 20 MEQ Oral Tablet Extended ReleaseIndications: HTN, goal below 140/90 TAKE 1 TABLET BY MOUTH ONCE DAILY IN THE MORNING 30 Tablet 5 3 Active Losartan Potassium 50 MG Oral Tablet (Cozaar)Indications :HTN, goal below 150/90 TAKE 1 TABLET BY MOUTH ONCE DAILY IN THE MORNING 30 Tablet 11 4 Active traMADol HCl 50 MG Oral Tablet (Ultram) Take 1 Tablet by mouth every 8 hours as needed (breakthrough pain). 30 Tablet 0 4 Active NIFEdipine ER 30 MG Oral Tablet Extended Release 24 Hour (Adalat CC)Indications:HTN, goal below 140/90 TAKE 1 TABLET BY MOUTH ONCE DAILY IN THE MORNING ON AN EMPTY STOMACH 30 Tablet 5 4 Active Baclofen 10 MG Oral Tablet (Lioresal)Indicatio ns:Spasm of muscle TAKE 1 TABLET BY MOUTH TWICE DAILY NEEDED FOR MUSCLE SPASMS 60 Tablet 3 4 Active Fluticasone Propionate 50 MCG/ACT Nasal Suspension (Flonase)Indication s:Chronic rhinitis INSTILL 2 SPRAYS INTO EACH NOSTRIL TWICE DAILY 48 g 3 4 Active Baclofen 10 MG Oral Tablet (Lioresal)Indicatio ns:Spasm of muscle TAKE 1 TABLET BY MOUTH TWICE DAILY NEEDED FOR MUSCLE SPASMS 60 Tablet 3 3 06/29/19 24 Discontinued documented as of this encounter (statuses as of 06/29/2023) Active Problems Problem Noted Date Diagnosed Date [...] Plan: Given low dose baclofen (verified with [facility] MTM that has best side effect [...] apnea) 10/04/2016 Overview: Significant hypoxemia Titration pending [facility] Last Assessment & Plan: Reports compliance [...] as of this encounter (statuses as of 06/29/2023) Resolved Problems Problem Noted Date Diagnosed Date [...] Statin intolerance 01/01/2008 7 Other allergic rhinitis 08/27/2005 040 10/2016 Overview: ICD-10 update of inactive term OSTEOPENIA 08/27/2005 01/17/2017 ADVANCE DIRECTIVE INFORMATION 02/22/2005 07/23/2016 Overview: No, Advance Directive brochure given to patient. 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 Alopecia 11/09/2001 07/23/2016 HTN, goal below 140/90 11/09/200107/29 GENERAL OSTEOARTHROSIS 07/23 DIVERTICULITIS OF COLON 08/2002 documented as of this encounter (statuses as of 06/29/2023) Immunizations Name Administration Dates Next Due COVID-19 [...] Telephone Encounter - Savanah Leahy PA-C - 06/29/2023 11:55 AM EDTSigned Prescriptions: Disp Refills Baclofen 10 MG Oral Tablet (Lioresal) 60 Tab*3 Sig: TAKE 1 TABLET BY MOUTH TWICE DAILY NEEDED FOR MUSCLE SPASMS Authorizing Provider: SAVANAH LEAHY * Telephone Encounter - Haydee Sol LPN - 06/29/2023 11:39 AM EDT Did you pend patient's preferred pharmacy and medication before forwarding?yes Pharmacy: [facility] [address] Pending Prescriptions: Disp Refills Baclofen 10 MG Oral Tablet (Lioresal) [Ph*60 Tab*3 Sig: TAKE 1 TABLET BY MOUTH TWICE DAILY NEEDED FOR MUSCLE SPASMS Last Visit: Visit date not found (in office), 10/06/2021 (telemedicine) Next Visit: Visit date not found If no future appointments scheduled, and last appointment is greater than a year ago, please schedule patient for a follow-up appointment Last date the medication was ordered: 01/11/23 Is this request for a controlled substance?No [...] PM * Telephone Encounter - Renetta Neff [facility] - 06/29/2023 11:12 AM EDT Pending Prescriptions: Disp Refills Baclofen 10 MG Oral Tablet [Pharmacy Med N*60 Tab*3 Sig: TAKE 1TABLET BY MOUTH TWICE DAILY NEEDED FOR MUSCLE SPASMS documented in this encounter Plan of Treatment Upcoming Encounters Date Type Department Care Team (Late st Contact Info) Description 11/01/2023 2:00 PM EDT [facility] [address] [facility] [place] [place] [id number] Eliza Hernandez PA-C [address] [place] [address] Health Maintenance Due Date Last Done Comments Zoster Vaccines (2 of 3) 09/04/2008 07/10/2008 DXA Scan 07/18/2021 07/18/2018, 06/18, 03/16/2011, Additional history exists Albumin/Creatinine Ratio 10/07/2021 021, 10/04/2019, 11/09/2018, Additional history exists Diabetic Foot Exam 12/30/2021 12/30/2020, 1 , 03/12/2019, Additional history exists Diabetic Eye Exam 05/12/2022 05/12/2021, , 10/15/2019, Additional history exists COVID-19 Vaccine ( - season) 2022 04/28/2021, 04/28/2021, 07/09/2020, Additional history [...] Not on filedocumented as of this encounter Visit Diagnoses Diagnosis Spasm of muscle documented in this encounter Advance Directives Latest Code Status on File Code Status Date Activated Date Inactivated Comments Full Code 09/28/2010 10:57 PM 10/02/2010 7:55 PM This order reflects the patients wishes and were consensually agreed upon. Question Answer Comments Discussion of Advance Directives occurred with: Patient Does the patient have a Living Will? No Does the patient have Health Care Power of 7Th Grade Social Studies Teacher? No Care Teams Nutrition Services Associate Relationship Specialty Start Date End Date Savanah Leahy PA-C [address] [facility] [place] [address] PCP - General [facility] 09/30/22 documented as of this encounter
--- OUTSIDE RECORDS SUMMARY | 2023-07-07 12:37 | External Medical Summary | Summary of Care ---
Author Name Unknown Organization [facility] Address [address] [place] [address] Phone [phone] Care Team Providers Care Web Mobile Designer Name Role Phone Savanah Leahy PA-C Primary Care Provider Reason for Visit * Reason Onset Date Comments Medication Refill 05/26/2023 Re: Tramadol H CI 50MG Oral Tablet Encounter Details Date Type Department Care Team (Late st Contact Info) Description 05/26/2023 Refill [facility], [place] [address] [place] [address] Savanah Leahy PA-C [address] [place] [address] Allergies Active Allergy Reactions Criticality Noted Date [...] as of this encounter (statuses as of 05/27/2023) Medications Medication Sig Dispensed Refills Start Date End Date Status MAALOX MAX 400-400-40 MG/5ML PO SUSP Take 15 mL by mouth in the morning. 0 12/11/2008 Active TUMS 500 MG PO CHEW Take 2 Tablets by mouth as needed. 0 12/11/2008 Active oxygen GASIndications:Pulm onary HTN (HCC) 1 LPM bled through BIPAP during hours of sleep 1 Each 0 02/04/2017 Active Lancet Devices ([employer] DELSolvonics LANCING DEV) MISC Test as directed 1 [...] 50 MCG/ACT Nasal Suspension (Flonase)Indication s:Chronic rhinitis ADMINISTER 2 SPRAYS INTO EACH NOSTRIL TWICE DAILY 48 g 3 09/16/2022 Active Glucosamine Sulfate 1000 MG Oral Tablet (Glucosamine Relief) TAKE 1 TABLET BY MOUTH IN THE MORNING AND AT BEDTIME 60 Tablet 5 09/16/2022 Active Multivitamin Adult Oral Tablet Take 1 Tablet by mouth in the morning. 30 Tablet 11 09/16/2022 Active Phyllis-3 Fish Oil 1000 MG Oral Capsule (Phyllis-3)Indication s:Dyslipidemia, goal to be determined Take 1 [...] the morning. 30 Capsule 09/16/2022 Active Ipratropium [place] 0.06 % Nasal Solution (Atrovent)Indicatio ns:Seasonal allergic rhinitis due to pollen Administer 2 Sprays into each nostril 4 times a day as needed for Rhinitis. 15 mL 09/20/2022 Active Rosuvastatin Calcium 20 MG Oral Tablet (Crestor)Indication s:Dyslipidemia, goal LDL below 100 TAKE 1 TABLET BY MOUTH AT BEDTIME 30 Tablet 11/16/2022 Active metFORMIN HCl 500 MG Oral Tablet (Glucophage)Indicat ions:Type 2 diabetes mellitus with hemoglobin A1c goal of less than 7.0% (HCC) TAKE ONE TABLET BY MOUTH TWICE DAILY 60 Tablet 11/16/2022 Active OneTouch Verio In Vitro Strip (Glucose Blood)Indications:T ype 2 diabetes mellitus with hemoglobin A1c goal of less than 8.0% (HCC) TEST 4 TIMES DAILY 100 Strip 01/12/2023 Active OneTouch Delica Plus [id number] TEST UP TO 4 TIMES DAILY NEEDED 100 Each 01/12/2023 Active Ipratropium [place] HFA 17 MCG/ACT Inhalation Aerosol Solution (Atrovent HFA) INHALE 2 PUFFS 3 TIMES DAILY IF NEEDED FOR WHEEZING 12.9 g 01/12/2023 Active Baclofen 10 MG Oral Tablet (Lioresal)Indicatio ns:Spasm of muscle TAKE 1 TABLET BY MOUTH TWICE DAILY NEEDED FOR MUSCLE SPASMS 60 Tablet 01/11/2023 Active Furosemide 40 MG Oral Tablet (Lasix)Indications: Bilateral leg edema TAKE 1 TABLET BY MOUTH ONCE DAILY IN THE MORNING 30 Tablet 02/09/2023 Active Pregabalin 75 MG Oral Capsule (Lyrica) TAKE 1 CAPSULE BY MOUTH IN THE MORNING AND AT BEDTIME 60 Capsule 03/08/2023 Active Magnesium 250 MG Oral Tablet [...] THE MORNING 30 Tablet 11 05/04/2023 Active NIFEdipine ER 30 MG Oral Tablet Extended Release 24 Hour (Adalat CC)Indications:HTN, goal below 140/90 TAKE 1 TABLET BY MOUTH ONCE DAILY IN THE MORNING ON AN EMPTY STOMACH, 30 Tablet 1 05/04/2023 Active traMADol HCl 50 MG Oral Tablet (Ultram) Take 1 Tablet by mouth every 8 hours as needed (breakthrough pain). 30 Tablet 0 05/27/2023 Active traMADol HCl 50 MG Oral Tablet (Ultram) Take 1 Tablet by mouth every 8 hours as needed (breakthrough pain). 30 Tablet 0 03/23/2023 4 Discontinu ed(Refill) documented as of this encounter (statuses as of 05/27/2023) Active Problems Problem Noted Date Diagnosed Date [...] Plan: Given low dose baclofen (verified with [facility] MTM that has best side effect profile [...] apnea) 10/04/2016 Overview: Significant hypoxemia Titration pending [facility] Last Assessment & Plan: Reports compliance [...] as of this encounter (statuses as of 05/27/2023) Resolved Problems Problem Noted Date Diagnosed Date [...] mm, repeat CT study 11/24 Statin intolerance 01/01/200805/18/ 7 Other allergic rhinitis 08/27/2005 0410/2016 Overview: ICD-10 update of inactive term OSTEOPENIA 08/27/2005 01/17/2017 ADVANCE DIRECTIVE INFORMATION 02/22/2005 07/23/2016 Overview: No, Advance Directive brochure given to patient. 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 Alopecia 11/09/2001 07/23/2016 HTN, goal below 140/90 11/09/200107/29 GENERAL OSTEOARTHROSIS 07/23 DIVERTICULITIS OF COLON 08/2002 documented as of this encounter (statuses as of 05/27/2023) Immunizations Name Administration Dates Next Due COVID-19 mRNA, LNP-s, No Pre serve, 2-Dose Series ([employer]) 04/28/2021,07/09/2020,06/18/2020 H1N1 2009 Influenza, IM 04/29/2009 Pneumococcal [...] Telephone Encounter - Savanah Leahy PA-C - 05/27/2023 2:34 PM ESTSigned Prescriptions: Disp Refills traMADol HCl 50 MG Oral Tablet (Ultram) 30 Tab*0 Sig: Take 1 Tablet by mouth every 8 hours as needed (breakthrough pain). Authorizing Provider: SAVANAH LEAHY * Telephone Encounter - Jojo Disla OSA - 05/26/2023 4:18 PM EST Please authorize with refills, as appropriate. Thank you, SARAN Azul documented in this encounter Plan of Treatment Upcoming Encounters Date Type Department Care Team (Late st Contact Info) Description 11/01/2023 2:00 PM EDT Home Visit Care at Home [address] [facility] [place] [address] Eliza Hernandez PA-C [address] [facility] [place] [address] Health Maintenance Due Date Last Done Comments [...] the patient have Health Care Power of Mathematical Scientist? No Care Teams Web Mobile Designer Relationship Specialty Start Date End Date Savanah Leahy PA-C [address] [place] [address] PCP - General [facility] 09/30/22 documented as of this encounter
--- OUTSIDE RECORDS SUMMARY | 2023-07-07 12:37 | External Medical Summary | Summary of Care ---
Author Name Unknown Organization [facility] Address [address] [place] [address] Phone [phone] Care Team Providers Care Soft Mud Molder Name Role Phone Savanah Leahy PA-C Primary Care Provider [phone] Reason for Visit * Reason Comments eRx-Medication Refill Encounter Details Date Type Department Care Team (Late st Contact Info) Description 06/29/2023 Refill [facility], [facility] [address] [place] [address] Eliud Pepper H, DO [address] [place] [id number] HTN, goal below 140/90; Chronic rhinitis Allergies Active Allergy Reactions Criticality Noted Date [...] 1 Each 0 7 Active Lancet Devices (AppNeta DELSabrix LANCING DEV) MISC Test as directed 1 [...] the morning. 30 Tablet 11 3 Active Olmito-3 Fish Oil 1000 MG Oral Capsule (Olmito-3)Indication s:Dyslipidemia, goal to be determined Take 1 Capsule by mouth in the morning. 30 Capsule 11 3 Active Vitamin C 500 MG Oral [...] morning. 30 Capsule 11 3 Active Ipratropium [place] 0.06 % Nasal Solution (Atrovent)Indicatio ns:Seasonal allergic rhinitis due to pollen Administer 2 Sprays into each nostril 4 times a day as needed for Rhinitis. 15 mL 5 3 Active Rosuvastatin Calcium 20 MG Oral Tablet (Crestor)Indication s:Dyslipidemia, goal LDL below 100 TAKE 1 TABLET BY MOUTH AT BEDTIME 30 Tablet 3 Active metFORMIN HCl 500 MG Oral [...] Strip 3 3 Active OneTouch Delica Plus [id number] TEST UP TO 4 TIMES DAILY NEEDED 100 Each 3 3 Active Ipratropium [place] HFA 17 MCG/ACT Inhalation Aerosol Solution (Atrovent [...] EMPTY STOMACH 30 Tablet 5 4 Active Fluticasone Propionate 50 MCG/ACT Nasal Suspension (Flonase)Indication s:Chronic rhinitis INSTILL 2 SPRAYS INTO EACH NOSTRIL TWICE DAILY 48 g 3 4 Active Fluticasone Propionate 50 MCG/ACT Nasal Suspension (Flonase)Indication s:Chronic rhinitis ADMINISTER 2 SPRAYS INTO EACH NOSTRIL TWICE DAILY 48 g 3 3 06/29/19 24 Discontinued Baclofen 10 MG Oral Tablet (Lioresal)Indicatio ns:Spasm of muscle TAKE 1 TABLET BY MOUTH TWICE DAILY NEEDED FOR MUSCLE SPASMS 60 Tablet 3 3 06/29/19 24 Discontinued NIFEdipine ER 30 MG Oral Tablet Extended Release 24 Hour (Adalat CC)Indications:HTN, goal below 140/90 TAKE 1 TABLET BY MOUTH ONCE DAILY IN THE MORNING ON AN EMPTY STOMACH, 30 Tablet 1 4 06/29/19 24 Discontinued documented as of this [...] Plan: Given low dose baclofen (verified with [facility] MTM that has best side effect profile [...] mRNA, LNP-s, No Pre serve, 2-Dose Series ([employer]) 04/28/2021,07/09/2020,06/18/2020 H1N1 2009 Influenza, IM 04/29/2009 Pneumococcal [...] Encounter - Savanah Leahy PA-C - 06/29/2023 11:54 AM EDTSigned Prescriptions: Disp Refills NIFEdipine ER 30 MG Oral Tablet Extended R*30 Tab*5 Sig: TAKE 1 TABLET BY MOUTH ONCE DAILY IN THE MORNING ON AN EMPTY STOMACH Authorizing Provider: SAVANAH LEAHY Fluticasone Propionate 50 MCG/ACT Nasal Taylor*48 g 3 Sig: INSTILL 2 SPRAYS INTO EACH NOSTRIL TWICE DAILY Authorizing Provider: SAVANAH LEAHY * Telephone Encounter - Haydee Sol LPN - 06/29/2023 11:36 AM EDT Did you pend patient's preferred pharmacy and medication before forwarding?yes Pharmacy: [facility] [place] [id number] [facility] Pending Prescriptions: Disp Refills NIFEdipine ER 30 MG Oral Tablet Extended *30 Tab*1 Sig: TAKE 1 TABLET BY MOUTH ONCE DAILY IN THE MORNING ON AN EMPTY STOMACH Fluticasone Propionate 50 MCG/ACT Nasal S*48 g 3 Sig: INSTILL 2 SPRAYS INTO EACH NOSTRIL TWICE DAILY Last Visit: Visit date not found (in office), 10/06/2021 (telemedicine) Next Visit: Visit date not found If no future appointments scheduled, and last appointment is greater than a year ago, please schedule patient for a follow-up appointment Last date the medication was ordered: 05/04/23 Is this request for a controlled substance?No [...] PM * Telephone Encounter - Renetta Neff [facility] - 06/29/2023 11:12 AM EDT Pending Prescriptions: Disp Refills NIFEdipine ER 30 MG Oral Tablet Extended R*30 Tab*1 Sig: TAKE 1TABLET BY MOUTH ONCE DAILY IN THE MORNING ON AN EMPTY STOMACH, Fluticasone Propionate 50 MCG/ACT Nasal Taylor*48 g 3 Sig: INSTILL 2 SPRAYS INTO EACH NOSTRIL TWICE DAILY documented in this encounter Plan of Treatment Upcoming Encounters Date Type Department Care Team (Late st Contact Info) Description 11/01/2023 2:00 PM EDT Home Visit [facility] at Home [address], [place] [phone] Eliza Hernandez PA-C [address], [place] [phone] Health Maintenance Due Date Last Done Comments [...] as of this encounter Visit Diagnoses Diagnosis HTN, goal below 140/90 Unspecified essential hypertension Chronic rhinitis documented in this encounter Advance Directives Latest Code Status on File Code Status Date Activated Date Inactivated Comments Full Code 09/28/2010 10:57 PM 10/02/2010 7:55 PM This order reflects the patients wishes and were consensually agreed upon. Question Answer Comments Discussion of Advance Directives occurred with: Patient Does the patient have a Living Will? No Does the patient have Health Care Power of Food Beverage Supervisor? No Care Teams Soft Mud Molder Relationship Specialty Start Date End Date Savanah Leahy PA-C [address] [phone] PCP - General [facility] 09/30/22 documented as of this encounter
--- OUTSIDE RECORDS SUMMARY | 2023-07-07 12:37 | External Medical Summary | Summary of Care ---
Author Name Unknown Organization [facility] Address [address] [place] [address] Phone [phone] Care Team Providers Care Legal Secretary Receptionist Name Role Phone Savanah Leahy PA-C Primary Care Provider Reason for Visit * Reason Onset Date Comments Medication Refill 06/16/2023 Re: Tramadol H CL 50MG Tablet Encounter Details Date Type Department Care Team (Late st Contact Info) Description 06/16/2023 Refill [facility], [facility] [address] [place] [address] Savanah Leahy PA-C [address] [place] [address] Allergies Active Allergy Reactions Criticality Noted Date [...] as of this encounter (statuses as of 06/16/2023) Medications Medication Sig Dispensed Refills Start Date End Date Status MAALOX MAX 400-400-40 MG/5ML PO SUSP Take 15 mL by mouth in the morning. 0 12/11/2008 Active TUMS 500 MG PO CHEW Take 2 Tablets by mouth as needed. 0 12/11/2008 Active oxygen GASIndications:Pulm onary HTN (HCC) 1 LPM bled through BIPAP during hours of sleep 1 Each 0 02/04/2017 Active Lancet Devices (Tower59 [email or web address] LANCING DEV) MISC Test as directed 1 [...] the morning. 30 Tablet 11 09/16/2022 Active [place]-3 Fish Oil 1000 MG Oral Capsule ([place]-3)Indication s:Dyslipidemia, goal to be determined Take 1 [...] the morning. 30 Capsule 09/16/2022 Active Ipratropium [place] 0.06 % Nasal Solution (Atrovent)Indicatio ns:Seasonal allergic [...] 100 Strip 01/12/2023 Active OneTouch Delica Plus [id number] TEST UP TO 4 TIMES DAILY NEEDED 100 Each 01/12/2023 Active Ipratropium [place] HFA 17 MCG/ACT Inhalation Aerosol Solution (Atrovent [...] (breakthrough pain). 30 Tablet 0 06/16/2023 Active traMADol HCl 50 MG Oral Tablet (Ultram) Take 1 Tablet by mouth every 8 hours as needed (breakthrough pain). 30 Tablet 0 05/27/2023 4 Discontinu ed(Refill) documented as of this encounter (statuses as of 06/16/2023) Active Problems Problem Noted Date Diagnosed Date [...] Plan: Given low dose baclofen (verified with [facility] MTM that has best side effect [...] apnea) 10/04/2016 Overview: Significant hypoxemia Titration pending [facility] Last Assessment & Plan: Reports [...] as of this encounter (statuses as of 06/16/2023) Resolved Problems Problem Noted Date Diagnosed Date [...] intolerance 01/01/2008 7 Other allergic rhinitis 08/27/2005 04/0 10/2016 Overview: ICD-10 update of inactive term OSTEOPENIA 08/27/2005 01/17/2017 ADVANCE DIRECTIVE INFORMATION 02/22/2005 07/23/2016 Overview: No, Advance Directive brochure given to patient. 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 Alopecia 11/09/2001 07/23/2016 HTN, goal below 140/90 11/09/200107/29 GENERAL OSTEOARTHROSIS 07/23 DIVERTICULITIS OF COLON 08/2002 documented as of this encounter (statuses as of 06/16/2023) Immunizations Name Administration Dates Next Due COVID-19 mRNA, LNP-s, No Pre serve, 2-Dose Series ([employer]) 04/28/2021,07/09/2020,06/18/2020 H1N1 2009 Influenza, IM 04/29/2009 Pneumococcal [...] Telephone Encounter - Savanah Leahy PA-C - 06/16/2023 4:40 PM ESTSigned Prescriptions: Disp Refills traMADol HCl 50 MG Oral Tablet (Ultram) 30 Tab*0 Sig: Take 1 Tablet by mouth every 8 hours as needed (breakthrough pain). Authorizing Provider: SAVANAH LEAHY * Telephone Encounter - Jojo Disla OSA - 06/16/2023 1:45 PM EST Please authorize with refills, as appropriate. Thank you, SARAN Azul documented in this encounter Plan of Treatment Upcoming Encounters Date Type Department Care Team (Late st Contact Info) Description 11/01/2023 2:00 PM EDT Home Visit Care at Home [address] [facility] [place] [address] Eliza Hernandez PA-C [address] [facility] [place] [address] Health Maintenance Due Date Last Done Comments [...] the patient have Health Care Power of Product Strategy Director? No Care Teams Legal Secretary Receptionist Relationship Specialty Start Date End Date Savanah Leahy PA-C [address] [place] [address] PCP - General [facility] 09/30/22 documented as of this encounter
--- OUTSIDE RECORDS SUMMARY | 2023-07-07 12:38 | External Medical Summary | Summary of Care ---
Author Name Unknown Organization [facility] Address [address] [place] [address] Phone [phone] Care Team Providers Care Research Center Partner Name Role Phone Savanah Leahy PA-C Primary Care Provider [phone] Reason for Visit * Reason Onset Date Comments Medication Refill 03/08/2023 Re: Nifedipine ER 30MG Tablet Encounter Details Date Type Department Care Team (Late st Contact Info) Description 03/08/2023 Refill [facility] [place] [address] [place], [place] [phone] Refugio Collins MD [address] [place], [place] [phone] HTN, goal below 140/90 Allergies Active Allergy Reactions Criticality Noted Date [...] as of this encounter (statuses as of 03/09/2023) Medications Medication Sig Dispensed Refills Start Date End Date Status MAALOX MAX 400-400-40 MG/5ML PO SUSP Take 15 mL by mouth in the morning. 0 12/11/2008 Active TUMS 500 MG PO CHEW Take 2 Tablets by mouth as needed. 0 12/11/2008 Active oxygen GASIndications:Pulm onary HTN (HCC) 1 LPM bled through BIPAP during hours of sleep 1 Each 0 02/04/2017 Active Lancet Devices (Return Path DELSETVI LANCING DEV) MISC Test as directed 1 [...] or cardiology. 1 Each 0 05/03/2022 Active Losartan Potassium 50 MG Oral Tablet (Cozaar)Indications :HTN, goal below 150/90 Take 1 Tablet by mouth in the morning. 90 Tablet 3 06/03/2022 Active Aspirin 81 MG Oral Tablet Chewable Take 1 Tablet by mouth in the morning. 0 Active AZO Bladder Control/Go-Less Oral CapsuleIndications: HTN, goal below 150/90 Take 1 Capsule by mouth in the morning and 1 Capsule before bedtime. 60 Capsule 11 09/16/2022 Active Carboxymethylcellul ose Sodium 1 % Ophthalmic Gel (Refresh Liquigel) Instill 2 Drops into both eyes 2 times a day as needed for Dry eyes. 15 mL 3 09/16/2022 Active Fluticasone Propionate 50 MCG/ACT Nasal [...] in the morning. 30 Tablet 09/16/2022 Active [place]-3 Fish Oil 1000 MG Oral Capsule ([place]-3)Indication s:Dyslipidemia, goal to be determined Take 1 [...] in the morning. 30 Capsule 09/16/2022 Active Levothyroxine Sodium 75 MCG Oral Tablet (Levoxyl)Indication s:Acquired hypothyroidism TAKE 1 TABLET BY MOUTH ONCE DAILY IN THE MORNING AT LEAST 30 MINUTES PRIOR TO BREAKFAST OR OTHER MEDS 30 Tablet 09/23/2022 Active Potassium Chloride Elisabeth ER 20 MEQ Oral Tablet Extended ReleaseIndications: HTN, goal below 140/90 TAKE 1 TABLET BY MOUTH ONCE DAILY IN THE MORNING 30 Tablet 09/23/2022 Active DULoxetine HCl 20 MG Oral Capsule Delayed Release Particles (Cymbalta)Indicatio ns:Spinal stenosis of lumbar region without neurogenic claudication TAKE 2 CAPSULES BY MOUTH ONCE DAILY IN THE MORNING 60 Capsule 09/23/2022 Active Ipratropium [place] 0.06 % Nasal Solution (Atrovent)Indicatio ns:Seasonal allergic [...] Strip 3 01/12/2023 Active OneTouch Delica Plus [id number] TEST UP TO 4 TIMES DAILY NEEDED 100 Each 3 01/12/2023 Active Ipratropium [place] HFA 17 MCG/ACT Inhalation Aerosol Solution (Atrovent HFA) INHALE 2 PUFFS 3 TIMES DAILY IF NEEDED FOR WHEEZING 12.9 g 3 01/12/2023 Active traMADol HCl 100 MG Oral Tablet Take 1 Tablet by mouth every 8 hours as needed for Pain, Breakthrough. 30 Tablet 1 01/12/2023 Active Baclofen 10 MG Oral Tablet [...] AT BEDTIME 60 Capsule 5 03/08/2023 Active NIFEdipine ER 30 MG Oral Tablet Extended Release 24 Hour (Adalat CC)Indications:HTN, goal below 140/90 TAKE 1 TABLET BY MOUTH ONCE DAILY IN THE MORNING ON AN EMPTY STOMACH, 30 Tablet 1 03/08/2023 Active NIFEdipine ER 30 MG Oral Tablet Extended Release 24 Hour (Adalat CC)Indications:HTN, goal below 140/90 TAKE 1 TABLET BY MOUTH ONCE DAILY IN THE MORNING ON AN EMPTY STOMACH, 30 Tablet 1 01/11/2023 3 Discontinu ed(Refill) documented as of this encounter (statuses as of 03/09/2023) Active Problems Problem Noted Date Diagnosed Date [...] Plan: Given low dose baclofen (verified with [facility] MTM that has best side [...] apnea) 10/04/2016 Overview: Significant hypoxemia Titration pending [facility] Last Assessment & Plan: Reports compliance [...] as of this encounter (statuses as of 03/09/2023) Resolved Problems Problem Noted Date Diagnosed Date [...] as of this encounter (statuses as of 03/09/2023) Immunizations Name Administration Dates Next Due COVID-19 mRNA, LNP-s, No Pre serve, 2-Dose Series (Pfizer) 04/28/2021,07/09/2020,06/18/2020 H1N1 2009 Influenza, IM 04/29/2009 Pneumococcal Conjugate Vacc, 13 Valent (Prevnar) 02/13/2015 SEASONAL INFLUENZA, PF, 6 M & Above, IM , (FLULAVAL or FLUZONE) 01/09/2019,02/06/2018,01/17/2017 Season Influenza, Quad, PF, Adjuvanted, 65+ Yrs, IM (FLUAD) 02/06/2020 Seasonal Influenza, Quadriva lent Hd (Fluzone Hd) [...] Telephone Encounter - Savanah Leahy PA-C - 03/08/2023 11:24 PM EST * Telephone Encounter - Savanah Leahy PA-C - 03/08/2023 11:24 PM ESTSigned Prescriptions: Disp Refills NIFEdipine ER 30 MG Oral Tablet Extended R*30 Tab*1 Sig: TAKE 1 TABLET BY MOUTH ONCE DAILY IN THE MORNING ON AN EMPTY STOMACH, Authorizing Provider: SAVANAH LEAHY * Telephone Encounter - Refugio Collins MD - 03/08/2023 3:19 PM EST Pending Prescriptions: Disp Refills NIFEdipine ER 30 MG Oral Tablet Extended R*30 Tab*1 Sig: TAKE 1 TABLET BY MOUTH ONCE DAILY IN THE MORNING ON AN EMPTY STOMACH, * Telephone Encounter - Sachin Koch OSA - 03/08/2023 2:55 PM EST Please authorize with refills, as appropriate. Thank you, SARAN Carl documented in this encounter Plan of Treatment Upcoming Encounters Date Type Department Care Team (Late st Contact Info) Description 03/15/2023 2:30 PM EST Home Visit [facility] [address] [address] Candi Trevino, RN [address] [place] [address] Health Maintenance Due Date Last Done Comments [...] HTN, goal below 140/90 Unspecified essential hypertension documented in this encounter Advance Directives Latest Code Status on File Code Status Date Activated Date Inactivated Comments Full Code 09/28/2010 10:57 PM 10/02/2010 7:55 PM This order reflects the patients wishes and were consensually agreed upon. Question Answer Comments Discussion of Advance Directives occurred with: Patient Does the patient have a Living Will? No Does the patient have Health Care Power of Distribution A Class Lineman? No Care Teams Research Center Partner Relationship Specialty Start Date End Date Savanah Leahy PA-C [address] [place] [address] PCP - General [facility] 09/30/22 documented as of this encounter
--- OUTSIDE RECORDS SUMMARY | 2023-07-07 12:38 | External Medical Summary | Summary of Care ---
Author Name Unknown Organization [facility] Address [address] [place] [address] Phone [phone] Care Team Providers Care Delicatessen Clerk Name Role Phone Savanah Leahy PA-C Primary Care Provider [phone] Reason for Visit * Reason Onset Date Comments Medication Refill 03/08/2023 Re: Magnesium Tab 250MG 100 Encounter Details Date Type Department Care Team (Late st Contact Info) Description 03/08/2023 Refill [facility] [place] [address] [place], [place] [phone] Refugio Collins MD [address] [place] [address] Allergies Active Allergy Reactions Criticality Noted Date [...] 1 Each 0 02/04/2017 Active Lancet Devices (Viropro DELDatometry LANCING DEV) MISC Test as directed 1 [...] in the morning. 30 Tablet 09/16/2022 Active [place]-3 Fish Oil 1000 MG Oral Capsule ([place]-3)Indication s:Dyslipidemia, goal to be determined Take 1 [...] THE MORNING 60 Capsule 09/23/2022 Active Ipratropium [place] 0.06 % Nasal Solution (Atrovent)Indicatio ns:Seasonal allergic [...] Strip 3 01/12/2023 Active OneTouch Delica Plus [id number] TEST UP TO 4 TIMES DAILY NEEDED 100 Each 3 01/12/2023 Active Ipratropium [place] HFA 17 MCG/ACT Inhalation Aerosol Solution (Atrovent [...] before bedtime. 60 Tablet 5 03/08/2023 Active Magnesium 250 MG Oral Tablet Take 1 Tablet by mouth in the morning and 1 Tablet before bedtime. 60 Tablet 5 09/23/2022 3 Discontinu ed(Refill) NIFEdipine ER 30 MG Oral Tablet Extended [...] Plan: Given low dose baclofen (verified with [facility] MTM that has best side effect [...] apnea) 10/04/2016 Overview: Significant hypoxemia Titration pending [facility] Last Assessment & Plan: Reports compliance [...] mRNA, LNP-s, No Pre serve, 2-Dose Series ([employer]) 04/28/2021,07/09/2020,06/18/2020 H1N1 2009 Influenza, IM 04/29/2009 Pneumococcal [...] 03/08/2023 11:24 PM ESTSigned Prescriptions: Disp Refills Magnesium 250 MG Oral Tablet 60 Tab*5 Sig: Take 1 Tablet by mouth in the morning and 1 Tablet before bedtime. Authorizing Provider: SAVANAH LEAHY * Telephone Encounter - Refugio Collins MD - 03/08/2023 3:19 PM EST Pending Prescriptions: Disp Refills Magnesium 250 MG Oral Tablet 60 Tab*5 Sig: Take 1 Tablet by mouth in the morning and 1 Tablet before bedtime. * Telephone Encounter - Sachin Koch OSA - 03/08/2023 3:14 PM EST Please authorize with refills, as appropriate. Thank you, SARAN Carl documented in this encounter Plan of Treatment Upcoming Encounters Date Type Department Care Team (Late st Contact Info) Description 03/15/2023 2:30 PM EST Home Visit [facility] [address] [address] Candi Trevino RN [address] [place] [address] Health Maintenance Due Date Last Done Comments [...] the patient have Health Care Power of Kick Press Setter? No Care Teams Delicatessen Clerk Relationship Specialty Start Date End Date Savanah Leahy PA-C [address] [facility] [place] [address] PCP - General [facility] 09/30/22 documented as of this encounter
--- OUTSIDE RECORDS SUMMARY | 2023-07-07 12:38 | External Medical Summary | Summary of Care ---
Author Name Unknown Organization [facility] Address [address] [place] [address] Phone [phone] Care Team Providers Care Billing Machine Operator Name Role Phone Savanah Leahy PA-C Primary Care Provider + [phone] Reason for Visit * Reason Comments eRx-Medication Refill Encounter Details Date Type Department Care Team (Late st Contact Info) Description 04/06/2023 Refill [facility], [facility] [address] [place] [address] Eliud Pepper H, DO [address] [facility] [address] Allergies Active Allergy Reactions Criticality Noted Date [...] as of this encounter (statuses as of 04/12/2023) Medications Medication Sig Dispensed Refills Start Date End Date Status MAALOX MAX 400-400-40 MG/5ML PO SUSP Take 15 mL by mouth in the morning. 0 9 Active TUMS 500 MG PO CHEW Take 2 Tablets by mouth as needed. 0 9 Active oxygen GASIndications:Pul monary HTN (HCC) 1 LPM bled through BIPAP during hours of sleep 1 Each 0 7 Active Lancet Devices (AdAltaTOUCH DELICA LANCING DEV) MISC Test as directed 1 Each 0 8 Active Aspercreme Lidocaine 4 % External Liquid (Lidocaine HCl) Apply topically to affected area 3 times a day as needed . Apply to painful joints 0 Active Diclofenac Sodium 1 % External Cream Apply topically to affected area 4 times a day as needed. 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 1 Each 0 3 Active Losartan Potassium 50 MG Oral Tablet (Cozaar)Indication s:HTN, goal below 150/90 Take 1 Tablet by mouth in the morning. 90 Tablet 3 3 Active Aspirin 81 MG Oral Tablet Chewable Take 1 Tablet by mouth in the morning. 0 Active AZO Bladder Control/Go-Less Oral CapsuleIndications :HTN, goal below 150/90 Take 1 Capsule by mouth in the morning and 1 Capsule before bedtime. 60 Capsule 11 3 Active Fluticasone Propionate 50 MCG/ACT Nasal Suspension (Flonase)Indicatio ns:Chronic rhinitis ADMINISTER 2 SPRAYS INTO EACH NOSTRIL TWICE DAILY 48 g 3 3 Active Glucosamine Sulfate 1000 MG Oral Tablet (Glucosamine Relief) TAKE 1 TABLET BY MOUTH IN THE MORNING AND AT BEDTIME 60 Tablet 5 3 Active Multivitamin Adult Oral Tablet Take 1 Tablet by mouth in the morning. 30 Tablet 11 3 Active Norvell-3 Fish Oil 1000 MG Oral Capsule (Norvell-3)Indicatio ns:Dyslipidemia, goal to be determined Take 1 Capsule by mouth in the morning. 30 Capsule 3 Active Vitamin C 500 MG Oral Tablet (Ascorbic Acid) Take 2 Tablets by mouth in the morning. 60 Tablet 3 Active Vitamin D 25 MCG (1000 UT) Oral Tablet Take 1 Tablet by mouth in the morning. 30 Tablet 3 Active Vitamin E 400 UNIT Oral Capsule (Aquasol E) Take 1 Capsule by mouth in the morning. 30 Capsule 3 Active Ipratropium [place] 0.06 % Nasal Solution (Atrovent)Indicati ons:Seasonal allergic rhinitis due to pollen Administer 2 Sprays into each nostril 4 times a day as needed for Rhinitis. 15 mL 5 3 Active Rosuvastatin Calcium 20 MG Oral Tablet (Crestor)Indicatio ns:Dyslipidemia, goal LDL below 100 TAKE 1 TABLET BY MOUTH AT BEDTIME 30 Tablet 11 3 Active metFORMIN HCl 500 MG Oral Tablet (Glucophage)Indica tions:Type 2 diabetes mellitus with hemoglobin A1c goal of less than 7.0% (HCC) TAKE ONE TABLET BY MOUTH TWICE DAILY 60 Tablet 3 Active OneTouch Verio In Vitro Strip (Glucose Blood)Indications: Type 2 diabetes mellitus with hemoglobin A1c goal of less than 8.0% (HCC) TEST 4 TIMES DAILY 100 Strip 3 3 Active OneTouch Delica Plus [id number] TEST UP TO 4 TIMES DAILY NEEDED 100 Each 3 3 Active Ipratropium [place] HFA 17 MCG/ACT Inhalation Aerosol Solution (Atrovent HFA) INHALE 2 PUFFS 3 TIMES DAILY IF NEEDED FOR WHEEZING 12.9 g 3 3 Active Baclofen 10 MG Oral Tablet (Lioresal)Indicati ons:Spasm of muscle TAKE 1 TABLET BY MOUTH TWICE DAILY NEEDED FOR MUSCLE SPASMS 60 Tablet 3 3 Active Furosemide 40 MG Oral Tablet (Lasix)Indications :Bilateral leg edema TAKE 1 TABLET BY MOUTH ONCE DAILY IN THE MORNING 30 Tablet 11 3 Active Pregabalin 75 MG Oral Capsule (Lyrica) TAKE 1 CAPSULE BY MOUTH IN THE MORNING AND AT BEDTIME 60 Capsule 5 3 Active NIFEdipine ER 30 MG Oral Tablet Extended Release 24 Hour (Adalat CC)Indications:HTN , goal below 140/90 TAKE 1 TABLET BY MOUTH ONCE DAILY IN THE MORNING ON AN EMPTY STOMACH, 30 Tablet 1 3 Active Magnesium 250 MG Oral Tablet Take 1 Tablet by mouth in the morning and 1 Tablet before bedtime. 60 Tablet 5 3 Active traMADol HCl 50 MG Oral Tablet (Ultram) Take 1 Tablet by mouth every 8 hours as needed (breakthrough pain). 30 Tablet 0 3 Active Refresh Liquigel 1 % Ophthalmic Gel (Carboxymethylcell ulose Sodium) INSTILL 2 DROPS INTO BOTH EYES TWICE DAILY NEEDED FOR DRY EYES 15 mL 3 3 Active Carboxymethylcellu lose Sodium 1 % Ophthalmic Gel (Refresh Liquigel) Instill 2 Drops into both eyes 2 times a day as needed for Dry eyes. 15 mL 3 3 023 Discontinued Levothyroxine Sodium 75 MCG Oral Tablet (Levoxyl)Indicatio ns:Acquired hypothyroidism TAKE 1 TABLET BY MOUTH ONCE DAILY IN THE MORNING AT LEAST 30 MINUTES PRIOR TO BREAKFAST OR OTHER MEDS 30 Tablet 5 3 023 Discontinued(Re fill) Potassium Chloride Elisabeth ER 20 MEQ Oral Tablet Extended ReleaseIndications :HTN, goal below 140/90 TAKE 1 TABLET BY MOUTH ONCE DAILY IN THE MORNING 30 Tablet 5 3 023 Discontinued(Re fill) DULoxetine HCl 20 MG Oral Capsule Delayed Release Particles (Cymbalta)Indicati ons:Spinal stenosis of lumbar region without neurogenic claudication TAKE 2 CAPSULES BY MOUTH ONCE DAILY IN THE MORNING 60 Capsule 5 3 023 Discontinued(Re fill) documented as of this encounter (statuses as of 04/12/2023) Active Problems Problem Noted Date Diagnosed Date [...] Plan: Given low dose baclofen (verified with [facility] MTM that has best side effect [...] apnea) 10/04/2016 Overview: Significant hypoxemia Titration pending [facility] Last Assessment & Plan: Reports compliance with [...] as of this encounter (statuses as of 04/12/2023) Resolved Problems Problem Noted Date Diagnosed Date [...] as of this encounter (statuses as of 04/12/2023) Immunizations Name Administration Dates Next Due COVID-19 mRNA, LNP-s, No Pre serve, 2-Dose Series ([employer]) 04/28/2021,07/09/2020,06/18/2020 H1N1 2009 Influenza, IM 04/29/2009 Pneumococcal [...] Telephone Encounter - Savanah Leahy PA-C - 04/12/2023 11:36 AM ESTSigned Prescriptions: Disp Refills Refresh Liquigel 1 % Ophthalmic Gel (Carbo*15 mL 3 Sig: INSTILL 2 DROPS INTO BOTH EYES TWICE DAILY NEEDED FOR DRY EYESAuthorizing Provider: SAVANAH LEAHY------- * Telephone Encounter - Leanne Petty LPN - 04/08/2023 4:00 PM ESTPending Prescriptions: Disp Refills Refresh Liquigel 1 % Ophthalmic Gel (Carbo*15 mL 3 Sig: INSTILL 2 DROPS INTO BOTH EYES TWICE DAILY NEEDED FOR DRY EYES * Telephone Encounter - Leanne Petty LPN - 04/08/2023 3:58 PM EST Did you pend patient's preferred pharmacy and medication before forwarding?yes Pharmacy: [facility] [place] [address] [address] [facility] Pending Prescriptions: Disp Refills Refresh Liquigel 1 % Ophthalmic Gel (Carb*15 mL 3 Sig: INSTILL 2 DROPS INTO BOTH EYES TWICE DAILY NEEDED FOR DRY EYES Last Visit: Visit date not found (in office), 09/20/2022 (telemedicine) Next Visit: Visit date not found If no future appointments scheduled, and last appointment is greater than a year ago, please schedule patient for a follow-up appointment Last date the medication was ordered: 09/16/22 Is this request for a controlled substance?No [...] 11/22/2019 12:47 PM * Telephone Encounter - Suzanna Martinez [facility] - 04/06/2023 3:37 PM EST Pending Prescriptions: Disp Refills Refresh Liquigel 1 % Ophthalmic Gel [Pharm*15 mL 3 Sig: INSTILL2 DROPS INTO BOTH EYES TWICE DAILY NEEDED FOR DRY EYES documented in this encounter Plan of Treatment Health Maintenance Due Date Last Done Comments [...] the patient have Health Care Power of Bilingual Trainer? No Care Teams Billing Machine Operator Relationship Specialty Start Date End Date Savanah Leahy PA-C [address] [place] [address] PCP - General [facility] 09/30/22 documented as of this encounter
--- OUTSIDE RECORDS SUMMARY | 2023-07-07 12:38 | External Medical Summary | Summary of Care ---
Author Name Unknown Organization [facility] Address [address] [place] [address] Phone [phone] Care Team Providers Care Balance Engineer Name Role Phone Savanah Leahy PA-C Primary Care Provider Reason for Visit * Reason Onset Date Comments Medication Refill 04/12/2023 Encounter Details Date Type Department Care Team (Late st Contact Info) Description 04/12/2023 Refill [facility], [facility] [address] [place] [address] Savanah Leahy PA-C [address] [place] [address] Spinal stenosis of lumbar region without neurogenic claudication; Acquired hypothyroidism; HTN, goal below 140/90 Allergies Active Allergy [...] 1 Each 0 02/04/2017 Active Lancet Devices (Mingleverse LANCING DEV) MISC Test as directed 1 [...] the morning. 30 Tablet 11 09/16/2022 Active [place]-3 Fish Oil 1000 MG Oral Capsule ([place]-3)Indication s:Dyslipidemia, goal to be determined Take 1 [...] morning. 30 Capsule 11 09/16/2022 Active Ipratropium [place] 0.06 % Nasal Solution (Atrovent)Indicatio ns:Seasonal allergic [...] TABLET BY MOUTH TWICE DAILY 60 Tablet 11 11/16/2022 Active OneTouch Verio In Vitro Strip (Glucose Blood)Indications:T ype 2 diabetes mellitus with hemoglobin A1c goal of less than 8.0% (HCC) TEST 4 TIMES DAILY 100 Strip 3 01/12/2023 Active OneTouch Delica Plus [id number] TEST UP TO 4 TIMES DAILY NEEDED 100 Each 3 01/12/2023 Active Ipratropium [place] HFA 17 MCG/ACT Inhalation Aerosol Solution (Atrovent [...] EMPTY STOMACH, 30 Tablet 1 03/08/2023 Active Magnesium 250 MG Oral Tablet Take 1 Tablet by mouth in the morning and 1 Tablet before bedtime. 60 Tablet 5 03/08/2023 Active traMADol HCl 50 MG Oral Tablet (Ultram) Take 1 Tablet by mouth every 8 hours as needed (breakthrough pain). 30 Tablet 0 03/23/2023 Active DULoxetine HCl 20 MG Oral Capsule [...] THE MORNING 30 Tablet 5 04/12/2023 Active Levothyroxine Sodium 75 MCG Oral Tablet (Levoxyl)Indication s:Acquired hypothyroidism TAKE 1 TABLET BY MOUTH ONCE DAILY IN THE MORNING AT LEAST 30 MINUTES PRIOR TO BREAKFAST OR OTHER MEDS 30 Tablet 5 09/23/2022 3 Discontinu ed(Refill) Potassium Chloride Elisabeth ER 20 MEQ Oral Tablet Extended ReleaseIndications: HTN, goal below 140/90 TAKE 1 TABLET BY MOUTH ONCE DAILY IN THE MORNING 30 Tablet 5 09/23/2022 3 Discontinu ed(Refill) DULoxetine HCl 20 MG Oral Capsule Delayed Release Particles (Cymbalta)Indicatio ns:Spinal stenosis of lumbar region without neurogenic claudication TAKE 2 CAPSULES BY MOUTH ONCE DAILY IN THE MORNING 60 Capsule 5 09/23/2022 3 Discontinu ed(Refill) documented as of this encounter (statuses as of 04/12/2023) Active Problems Problem Noted Date Diagnosed Date Cerebral atrophy 11/04/2022 DDD (degenerative disc disease), lumbar 11/05/19 Primary osteoarthritis of both knees 05/03/2022 Chronic [...] Plan: Given low dose baclofen (verified with 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 Pericardial effusion 09/28/201009/29/ 013 Overview: Resolved on TTE done 03/30/12 [...] mRNA, LNP-s, No Pre serve, 2-Dose Series ([employer]) 04/28/2021,07/09/2020,06/18/2020 H1N1 2009 Influenza, IM 04/29/2009 Pneumococcal [...] 04/12/2023 11:36 AM ESTSigned Prescriptions: Disp Refills DULoxetine HCl 20 MG Oral Capsule Delayed *60 Cap*5 Sig: TAKE 2 CAPSULES BY MOUTH ONCE DAILY IN THE MORNINGAuthorizing Provider: SAVANAH LEAHY Levothyroxine Sodium 75 MCG Oral Tablet (L*30 Tab*5 Sig: TAKE 1 TABLET BY MOUTH ONCE DAILY IN THE MORNING AT LEAST 30 MINUTES PRIOR TO BREAKFAST OR OTHER MEDSAuthorizing Provider: SAVANAH LEAHY Potassium ChlorideCrys ER 20 MEQ Oral Tab*30 Tab*5 Sig: TAKE 1 TABLET BY MOUTH ONCE DAILY IN THE MORNINGAuthorizing Provider: SAVANAH LEAHY * Telephone Encounter - Diana Yang, swim instructor - 04/12/2023 10:39 AM EST Did you pend patient's preferred pharmacy and medication before forwarding?yes Pharmacy: [facility] [address] Pending Prescriptions: Disp Refills DULoxetine HCl 20 MG Oral Capsule Delayed*60 Cap*5 Sig: TAKE 2 CAPSULES BY MOUTH ONCE DAILY IN THE MORNING Levothyroxine Sodium 75 MCG Oral Tablet (*30 Tab*5 Sig: TAKE 1 TABLET BY MOUTH ONCE DAILY IN THE MORNING AT LEAST 30 MINUTES PRIOR TO BREAKFAST OR OTHER MEDS Potassium Chloride Elisabeth ER 20 MEQ Oral Ta*30 Tab*5 Sig: TAKE 1 TABLET BY MOUTH ONCE DAILY IN THE MORNING Last Visit: Visit date not found (in office), 10/06/2021 (telemedicine) Next Visit: Visit date not found If no future appointments scheduled, and last appointment is greater than a year ago, please schedule patient for a follow-up appointment Last date the medication was ordered: 09/23/2022 Is this request for a controlled substance?No [...] PM HGBA1C 7.0 (H) 11/22/2019 12:47 PM documented in this encounter Plan of Treatment [...] as of this encounter Visit Diagnoses Diagnosis Spinal stenosis of lumbar region without neurogenic claudication Spinal stenosis, lumbar region, without neurogenic claudication Acquired hypothyroidism Unspecified hypothyroidism HTN, goal below 140/90 Unspecified essential hypertension [...] the patient have Health Care Power of Hvac Mechanical Engineer? No Care Teams Balance Engineer Relationship Specialty Start Date End Date Savanah Leahy PA-C [address] [facility] [place] [address] PCP - General [facility] 09/30/22 documented as of this encounter
--- OUTSIDE RECORDS SUMMARY | 2023-07-07 12:38 | External Medical Summary | Summary of Care ---
Author Name Unknown Organization [facility] Address [address] [place] [address] Phone [phone] Care Team Providers Care Director Security Risk Management Name Role Phone Mynor Leahy PA-C Primary Care Provider [phone] Reason for Visit * Reason Onset Date Comments Medication Refill 03/08/2023 Re: Nifedipine ER 30MG Tablet Encounter Details Date Type Department Care Team (Late st Contact Info) Description 03/08/2023 Telephone [facility] [address] [place] [address] Refugio [place] MD [address] [place] [address] Medication Refill (Re: Nifedipine ER 30MG ... Allergies Active Allergy Reactions Criticality Noted Date [...] as of this encounter (statuses as of 03/08/2023) Medications Medication Sig Dispensed Refills Start Date End Date Status MAALOX MAX 400-400-40 MG/5ML PO SUSP Take 15 mL by mouth in the morning. 0 12/11/2008 Active TUMS 500 MG PO CHEW Take 2 Tablets by mouth as needed. 0 12/11/2008 Active oxygen GASIndications:Pulmo nary HTN (HCC) 1 LPM bled through BIPAP during hours of sleep 1 Each 0 02/04/2017 Active Lancet Devices ([employer]Commerce DELYecuris LANCING DEV) MISC Test as directed 1 [...] with diastolic CHF, NYHA class 2 ([facility]) If no improvement on day 3, contact heart failure managing provider - PCP, [facility], or cardiology. 1 Each 0 05/03/2022 Active Losartan Potassium 50 MG Oral Tablet (Cozaar)Indications: HTN, goal below 150/90 Take 1 Tablet by mouth in the morning. 90 Tablet 3 06/03/2022 Active Aspirin 81 MG Oral Tablet Chewable Take 1 Tablet by mouth in the morning. 0 Active AZO Bladder Control/Go-Less Oral CapsuleIndications:H TN, goal below 150/90 Take 1 Capsule by mouth in the morning and 1 Capsule before bedtime. 60 Capsule 11 09/16/2022 Active Carboxymethylcellulo se Sodium 1 % Ophthalmic Gel (Refresh Liquigel) [...] in the morning. 30 Tablet 09/16/2022 Active [place]-3 Fish Oil 1000 MG Oral Capsule ([place]-3)Indications :Dyslipidemia, goal to be determined Take 1 [...] THE MORNING 60 Capsule 09/23/2022 Active Ipratropium [place] 0.06 % Nasal Solution (Atrovent)Indication s:Seasonal allergic rhinitis due to pollen Administer 2 Sprays into each nostril 4 times a day as needed for Rhinitis. 15 mL 09/20/2022 Active Magnesium 250 MG Oral Tablet Take 1 Tablet by mouth in the morning and 1 Tablet before bedtime. 60 Tablet 09/23/2022 Active Rosuvastatin Calcium 20 MG Oral Tablet [...] hemoglobin A1c goal of less than 8.0% ([facility]) TEST 4 TIMES DAILY 100 Strip 3 01/12/2023 Active OneTouch Delica Plus [id number] TEST UP TO 4 TIMES DAILY NEEDED 100 Each 3 01/12/2023 Active Ipratropium [place] HFA 17 MCG/ACT Inhalation Aerosol Solution (Atrovent HFA) INHALE 2 PUFFS 3 TIMES DAILY IF NEEDED FOR WHEEZING 12.9 g 3 01/12/2023 Active traMADol HCl 100 MG Oral Tablet Take 1 Tablet by mouth every 8 hours as needed for Pain, Breakthrough. 30 Tablet 1 01/12/2023 Active NIFEdipine ER 30 MG Oral Tablet Extended Release 24 Hour (Adalat CC)Indications:HTN, goal below 140/90 TAKE 1 TABLET BY MOUTH ONCE DAILY IN THE MORNING ON AN EMPTY STOMACH, 30 Tablet 1 01/11/2023 Active Baclofen 10 MG Oral Tablet (Lioresal)Indication [...] AT BEDTIME 60 Capsule 5 03/08/2023 Active documented as of this encounter (statuses as of 03/08/2023) Active Problems Problem Noted Date Diagnosed Date [...] Plan: Given low dose baclofen (verified with [facility] MTM that has best side effect profile [...] apnea) 10/04/2016 Overview: Significant hypoxemia Titration pending [facility] Last Assessment & Plan: Reports compliance with [...] Regimen o Metformin DM Secondary Prevention o YOA Inhibitor / ARB o Moderate-High Intensity Statin Additional Comments o Stable on metformin Dyslipidemia, goal LDL below 100 04/11/2010 DIVERTICULOSIS OF COLON 08/20/2002 Acquired hypothyroidism 03/02/2002 CERVICAL spinal degenerative arthritis 2 documented as of this encounter (statuses as of 03/08/2023) Resolved Problems Problem Noted Date Diagnosed Date [...] as of this encounter (statuses as of 03/08/2023) Immunizations Name Administration Dates Next Due COVID-19 mRNA, LNP-s, No Pre serve, 2-Dose Series ([employer]) 04/28/2021,07/09/2020,06/18/2020 H1N1 2009 Influenza, IM 04/29/2009 Pneumococcal [...] money to buy more. Never true 02/05/20 Within the past 12 months, t he [...] on file documented as of this encounter Plan of Treatment Upcoming Encounters Date Type Department Care Team (Late st Contact Info) Description 03/15/2023 2:30 PM EST [facility] [address] [place] [address] Candi Trevino RN [address] [place] [address] Health Maintenance Due Date Last Done Comments Hepatitis B (1 of 3 - Risk 3-dose series) 1994 Zoster Vaccines (2 of 3) 09/04/2008 07/10/2008 DXA Scan 07/18/2021 07/18/2018, 06/18, 03/16/2011, Additional history exists Albumin/Creatinine Ratio 10/07/202110/07/2 021, 10/04/2019, 11/09/2018, Additional history exists Diabetic [...] the patient have Health Care Power of Mix House Tender? No Care Teams Director Security Risk Management Relationship Specialty Start Date End Date Mynor Leahy PA-C [address] [facility] [place] [id number] PCP - General [facility] 09/30/22 documented as of this encounter
--- OUTSIDE RECORDS SUMMARY | 2023-07-07 12:38 | External Medical Summary | Summary of Care ---
Author Name Unknown Organization [facility] Address [address] [place] [address] Phone [phone] Care Team Providers Care Patient Clerical Assistant Name Role Phone Mynor Leahy PA-C Primary Care Provider [phone] Encounter Details Date Type Department Care Team Description 10/28/2022 Telephone [facility], [facility] [address] [facility] [place] [id number] [facility], Nurse [facility] [address] [place] [id number] Allergies Active Allergy Reactions Severity Noted Date Comments Aspirin Abdominal pain 11/09/2001 [...] as of this encounter (statuses as of 01/27/2023) Medications Medication Sig Dispensed Refills Start Date [...] the morning. 30 Tablet 11 09/16/2022 Active Dickinson-3 Fish Oil 1000 MG Oral Capsule (Dickinson-3)Indications :Dyslipidemia, goal to be determined Take 1 Capsule by mouth in the morning. 30 Capsule 09/16/2022 Active Pregabalin 75 MG Oral Capsule (Lyrica) Take 1 Capsule by mouth in the morning and 1 Capsule before bedtime. 60 Capsule 09/16/2022 Active Vitamin C 500 MG [...] THE MORNING 60 Capsule 09/23/2022 Active Ipratropium [place] 0.06 % Nasal Solution (Atrovent)Indication s:Seasonal allergic rhinitis due to pollen Administer 2 Sprays into each nostril 4 times a day as needed for Rhinitis. 15 mL 09/20/2022 Active Magnesium 250 MG Oral Tablet Take 1 Tablet by mouth in the morning and 1 Tablet before bedtime. 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 MTM that has best side effect profile and lowest fall risk. Advised pt to use only with severe back spasm. Advised caution that can cause sedation. 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 -Requested follow up with Palliative Medicine to discuss pain control. History of breast cancer 05/31/2017 SARAN (obstructive sleep apnea) 10/04/2016 Overview: Significant hypoxemia Titration pending [facility] Last Assessment & Plan: Reports [...] spray as needed. Type 2 diabetes mellitus with hemoglobin A1c [...] on metformin Dyslipidemia, goal LDL below 100 010 DIVERTICULOSIS OF COLON 08/20/2002 Acquired hypothyroidism 03/02/2002 CERVICAL spinal degenerative arthritis 0 11/13/2001 documented as of this encounter (statuses as of 01/27/2023) Resolved Problems Problem Noted Date Resolved Date Depression, unspecified 04/30/2022 06/22/19 23 Leg swelling 10/06/2021 11/04/2022 History of pleural effusion 10/06/202112/18 Last Assessment & Plan: Unknown etiology. Was followed by cardiology Echo 10/30/19 without effusion EF 60-64% Migraine without aura and wi th status migrainosus, not intractable 06/15/2019 04/30/2022 Gastroesophageal reflux disease without esophagi tis 06/15/2019 11/22/2019 Stasis dermatitis, acute 02/21/2016 017 Hx of lichen planus 01/13/2015 07/23/2016 HTN, goal below 150/90 07/29/2014 2 DCIS (ductal carcinoma in situ) 07/23/2013 12/13/2017 DCIS (ductal carcinoma in situ) of breast 201203/14/2013 Overview: RIGHT breast biopsy 02/07/13 Atypical chest pain 02/05/2013 07/23/2016 PPD positive 09/30/2010 01/14/2020 Overview: TB Quantiferon test is positive Pericardial effusion 09/28/2010 09/29/2012 Overview: Resolved on TTE done 03/30/12 Acute pericarditis 09/28/2010 09/29/2012 Overview: Resolved on TTE 03/30/12 Migraine 09/04/2010 06/15/2019 Sicca syndrome 09/18/2009 04/30/2022 Overview: Eye pain Sensorineural hearing loss 07/21/200901/09 ADRENAL MASS 07/10/2008 01/17/2017 Overview: left 10 mm, repeat CT study 11/24 Statin intolerance 01/01/2008 05/18/2016 Other allergic rhinitis 08/27/2005 07/24/19 17 Overview: ICD-10 update of inactive term OSTEOPENIA 08/27/2005 01/17/2017 ADVANCE DIRECTIVE INFORMATION 02/22/2005 Overview: No, Advance Directive brochure given to patient. CERVICAL DISC DISPLACMNT 11/05/2003 017 Lichen planus 05/23/2002 11/04/2022 BACKACHE NOS 02/01/2002 07/23/2016 DISACCHARIDASE DEF-MALAB 11/20/2001 018 Alopecia 11/09/2001 07/23/2016 HTN, goal below 140/90 11/09/2001 5 GENERAL OSTEOARTHROSIS 7 DIVERTICULITIS OF COLON 08/21/19 03 documented as of this encounter (statuses as of 01/27/2023) Immunizations Name Administration Dates Next Due COVID-19 mRNA, LNP-s, No Pre serve, 2-Dose Series (Information Assurance) 04/28/2021,07/09/2020,06/18/2020 H1N1 2009 Influenza, IM 04/29/2009 Pneumococcal [...] drink = 0.6 oz pur e alcohol) Food Insecurity Answer Date Recorded Within the past 12 months, y ou worried that your food would run out before you got money to buy more. Never true 02/04/2022 Within the past 12 months, t he food you bought just didn't last and you didn't have money to get more. Never true 02/04/2022 Sex Assigned at Date Recorded Female 02/16/2019 2:05 PM E DT Job Start Date Occupation Industry Not on file Not on file Not on file documented as of this encounter Plan of Treatment Upcoming Encounters Date Type Specialty Care Team Description 02/01/2023 [facility] Candi Trevino RN [address] [place] [id number] Health Maintenance Due Date Last Done Comments Zoster Vaccines (2 of 3) 09/04/2008 07/10/2008 DXA Scan 07/18/2021 07/18/2018, 06/18, 03/16/2011, Additional history exists Albumin/Creatinine Ratio 10/07/2021 021, 10/04/2019, 11/09/2018, Additional history exists Diabetic Foot Exam 12/30/2021 12/30/2020, 1 , 03/12/2019, Additional history exists DIABETES-EYE EXAM 05/12/2022 05/12/2021, , 10/06/2019, Additional history exists [...] the patient have Health Care Power of Golf Club Maker? No Care Teams Patient Clerical Assistant Relationship Specialty Start Date End Date Mynor Leahy PA-C [address] [place] [address] PCP - General [facility] 09/30/22 documented as of this encounter
--- OUTSIDE RECORDS SUMMARY | 2023-07-07 12:38 | External Medical Summary | Summary of Care ---
Author Name Unknown Organization [facility] Address [address] [place] [address] Phone [phone] Care Team Providers Care Hebrew Cantor Name Role Phone Savanah Leahy PA-C Primary Care Provider [phone] Reason for Visit * Reason Onset Date Comments Medication Refill 05/04/2023 Re: Nifedipine ER 30 MG Tablet Encounter Details Date Type Department Care Team (Late st Contact Info) Description 05/04/2023 [facility]ill [facility], [facility] [address] [place] [address] Savanah Leahy PA-C [address] [place] [address] HTN, goal below 140/90 Allergies Active Allergy [...] 1 Each 0 02/04/2017 Active Lancet Devices ([employer] LANCING DEV) MISC Test as directed 1 [...] the morning. 30 Tablet 11 09/16/2022 Active [place]-3 Fish Oil 1000 MG Oral Capsule ([place]-3)Indication s:Dyslipidemia, goal to be determined Take 1 [...] the morning. 30 Capsule 09/16/2022 Active Ipratropium [place] 0.06 % Nasal Solution (Atrovent)Indicatio ns:Seasonal allergic [...] Strip 3 01/12/2023 Active OneTouch Delica Plus [id number] TEST UP TO 4 TIMES DAILY NEEDED 100 Each 3 01/12/2023 Active Ipratropium [place] HFA 17 MCG/ACT Inhalation Aerosol Solution (Atrovent [...] THE MORNING 30 Tablet 5 04/12/2023 Active NIFEdipine ER 30 MG Oral Tablet Extended Release 24 Hour (Adalat CC)Indications:HTN, goal below 140/90 TAKE 1 TABLET BY MOUTH ONCE DAILY IN THE MORNING ON AN EMPTY STOMACH, 30 Tablet 1 05/04/2023 Active NIFEdipine ER 30 MG Oral Tablet Extended Release 24 Hour (Adalat CC)Indications:HTN, goal below 140/90 TAKE 1 TABLET BY MOUTH ONCE DAILY IN THE MORNING ON AN EMPTY STOMACH, 30 Tablet 1 03/08/2023 4 Discontinu ed(Refill) documented as of this [...] Plan: Given low dose baclofen (verified with [facility] MTM that has best side [...] apnea) 10/04/2016 Overview: Significant hypoxemia Titration pending [facility] Last Assessment & Plan: Reports [...] mRNA, LNP-s, No Pre serve, 2-Dose Series ([place]) 04/28/2021,07/09/2020,06/18/2020 H1N1 2009 Influenza, IM 04/29/2009 Pneumococcal [...] Telephone Encounter - Savanah Leahy PA-C - 05/04/2023 8:35 AM ESTSigned Prescriptions: Disp Refills NIFEdipine ER 30 MG Oral Tablet Extended R*30 Tab*1 Sig: TAKE 1 TABLET BY MOUTH ONCE DAILY IN THE MORNING ON AN EMPTY STOMACH, Authorizing Provider: SAVANAH LEAHY * Telephone Encounter - Jojo Disla OSA - 05/04/2023 8:32 AM EST Please authorize with refills, as appropriate. Thank you, SARAN Azul documented in this encounter Plan of Treatment Upcoming Encounters Date Type Department Care Team (Late st Contact Info) Description 11/01/2023 2:00 PM EDT [facility] [address] [place] [address] Eliza Hernandez PA-C [address] [place] [address] Health Maintenance Due Date Last [...] the patient have Health Care Power of Rehabilitation Teacher? No Care Teams Hebrew Cantor Relationship Specialty Start Date End Date Savanah Leahy PA-C [address] [facility] [place] [address] PCP - General [facility] 09/30/22 documented as of this encounter
--- OUTSIDE RECORDS SUMMARY | 2023-07-07 12:38 | External Medical Summary | Summary of Care ---
Author Name Unknown Organization [facility] Address [address] [place] [address] Phone [phone] Care Team Providers Care Patient Access Associate Name Role Phone Mynor Leahy PA-C Primary Care Provider Reason for Visit * Reason Comments [facility]: Maintenance Encounter Details Date Type Department Care Team Description 02/01/2023 [facility] [address] [facility] [place] [address] Candi [facility]ino RN [address] [facility] [place] [address] Allergies Active Allergy Reactions Severity Noted Date [...] as of this encounter (statuses as of 02/01/2023) Medications Medication Sig Dispensed Refills Start Date End Date Status MAALOX MAX 400-400-40 MG/5ML PO SUSP Take 15 mL by mouth in the morning. 0 12/11/2008 Active TUMS 500 MG PO CHEW Take 2 Tablets by mouth as needed. 0 12/11/2008 Active oxygen GASIndications:Pulm onary HTN (HCC) 1 LPM bled through BIPAP during hours of sleep 1 Each 0 02/04/2017 Active Lancet Devices ([facility] Home[facility] DELICA LANCING DEV) MISC Test as directed [...] the morning. 30 Tablet 11 09/16/2022 Active [place]-3 Fish Oil 1000 MG Oral Capsule ([place]-3)Indication s:Dyslipidemia, goal to be determined Take 1 [...] THE MORNING 60 Capsule 09/23/2022 Active Ipratropium [place] 0.06 % Nasal Solution (Atrovent)Indicatio ns:Seasonal allergic [...] hemoglobin A1c goal of less than 8.0% ([facility]) TEST 4 TIMES DAILY 100 Strip 3 01/12/2023 Active OneTouch Delica Plus [id number] TEST UP TO 4 TIMES DAILY NEEDED 100 Each 3 01/12/2023 Active Ipratropium [place] HFA 17 MCG/ACT Inhalation Aerosol Solution (Atrovent HFA) INHALE 2 PUFFS 3 TIMES DAILY IF NEEDED FOR WHEEZING 12.9 g 3 01/12/2023 Active traMADol HCl 100 MG Oral Tablet Take 1 Tablet by mouth every 8 hours as needed for Pain, Breakthrough. 30 Tablet 1 01/12/2023 Active Furosemide 40 MG Oral Tablet (Lasix)Indications: Bilateral leg edema TAKE 1 TABLET BY MOUTH ONCE DAILY IN THE MORNING 30 Tablet 1 01/11/2023 Active NIFEdipine ER 30 MG Oral Tablet Extended Release 24 Hour (Adalat CC)Indications:HTN, goal below 140/90 TAKE 1 TABLET BY MOUTH ONCE DAILY IN THE MORNING ON AN EMPTY STOMACH, 30 Tablet 1 01/11/2023 Active Baclofen 10 MG Oral Tablet (Lioresal)Indicatio ns:Spasm of muscle TAKE 1 TABLET BY MOUTH TWICE DAILY NEEDED FOR MUSCLE SPASMS 60 Tablet 3 01/11/2023 Active Optifoam 4"X4" Pad Clean wound sites and please clean dressing over the site daily 30 Each 6 11/08/2022 3 Discontinu ed(Medicat ion List Clean Up) documented as of this encounter (statuses as of 02/01/2023) Active Problems Problem Noted Date Cerebral atrophy [...] Plan: Given low dose baclofen (verified with [facility] MTM that has best side effect [...] apnea) 10/04/2016 Overview: Significant hypoxemia Titration pending [facility] Last Assessment & Plan: Reports compliance [...] as of this encounter (statuses as of 02/01/2023) Resolved Problems Problem Noted Date Resolved Date Depression, unspecified 04/30/2022 06/22/19 23 Leg swelling 10/06/2021 11/04/2022 History of pleural effusion 10/06/2021 09/2 10/2021 Last Assessment & Plan: Unknown etiology. Was [...] as of this encounter (statuses as of 02/01/2023) Immunizations Name Administration Dates Next Due COVID-19 mRNA, LNP-s, No Pre serve, 2-Dose Series (Q [place]) 04/28/2021,07/09/2020,06/18/2020 H1N1 2009 Influenza, IM 04/29/2009 Pneumococcal [...] on file documented as of this encounter Last Filed Vital Signs Vital Sign Reading Time Taken Comments Blood Pressure 136/72 02/01/2023 2:02 PM EDT Pulse 76 02/01/2023 2:02 PM EDT Temperature 36.6 C (97.8 F) 02/01/2023 2:02 PM ED T Respiratory Rate 18 02/01/2023 2:02 PM EDT Oxygen Saturation 98% 02/01/2023 2:02 PM EDT Inhaled Oxygen Concentration - - Weight - - Height - - Body Mass Index - - documented in this encounter Progress Notes * Candi Trevino RN - 02/01/2023 12:50 PM EDT [facility] Certified Hearing Instrument Dispenser Visit Date: 02/01/2023 Time: 12:50 PM Name: Ivis Mora : 1935 Current Concerns: Pt seen for return RNCM visit Primary care at home PMHx: Pulmonary HTN, HTN with diastolic CHF, veinous insufficiency, SARAN, Nocturnal hypoxemia, Lichen Planus, DM 2, Sicca Syndrome, Migraines, Lumbar spinal stenosis, nocturnal hypoxia, wears cpap with 2lnc qhs Active with [facility] Palliative Care - Mynor Leahy PA-C [facility] Pt no longer gets out of bed to use the bedside commode Is now incontinent - goes in brief and son provides care Prior wounds are healed over Advised to do ROM exercises to prevent contractures Does not check blood sugar every day States they were having problem with the glucometer and got a new one but couldn't figure out how to use it Offered to help show them how to use it - had difficulty finding it Did find glucometer and showed how to use Pt was able to do it herself BSG 104 during visit Pt reports that increased dose of baclofen does not seem to be helping her pain She does report that she takes the tramadol and it is more effective Physical Exam: BP 136/72 | Pulse 76 | Temp 36.6 C (97.8 F) | Resp 18 | SpO2 98% Pain 5 Physical Exam Constitutional: General: She is not in acute distress. Cardiovascular: Rate and Rhythm: Normal rate and regular rhythm. Pulses: Normal pulses. Heart sounds: Normal heart sounds. Pulmonary: Effort: Pulmonary effort is normal. Breath sounds: Normal breath sounds. Abdominal: General: Bowel sounds are normal. Palpations: Abdomen is soft. Musculoskeletal: Right lower leg: Edema (trace) present. Left lower leg: Edema (trace) present. Skin: General: Skin is warm and dry. Neurological: Mental Status: She is alert and oriented to person, place, and time. Problems/Symptoms: Review of Systems Constitutional: Negative. HENT: Negative. Eyes: Negative. Respiratory: Negative. Cardiovascular: Positive for leg swelling. Gastrointestinal: Negative. Genitourinary: Negative. Musculoskeletal: Positive for arthralgias, gait problem (non-ambulatory) and myalgias. Skin: Negative. Psychiatric/Behavioral: Negative. Medication Reconciliation: (See medication list) Does patient take medications as ordered: Yes Patient Well Being: PHQ2/9: No questionnaires available. No change in living situation Denies falls - now bedbound [facility]-10 Completed this Visit: No. Routine visit and No falls since last visit Advanced Care Planning: No documentation, acp on file. Patient's Goals of Care: Stay in home Walk again No falls Reinforcement/Education: Educated on home safety: Create a fall proof home Clear floors of clutter, loose wires, throw rugs, and cords. Make sure halls, stairways, and entrances are well lit. Install a nightlight in your bedroom, hallway and bathroom. Install grab bars or handrails in the bathroom and on stairs. Use a non-skid tub/shower mat. Avoid climbing on a chair; instead use a step stool with a high handrail. Keep sidewalks and steps in good repair Keep steps and sidewalks free of snow and ice. Using aids to support and prevent falls If you have poor balance or have fallen in the past, consider additional support such as a cane or walker. Use a cane with good support and that is the proper length for you. Use a walker if a cane doesnt provide enough support. Avoid medications that increase the risk of falling by causing dizziness, change in sensation or slowed reflexes. Certain medicines may cause falls - blood pressure pills, heart medicines, water pills, or sleepingpills. Be sure to understand each medicine that you are taking and any side effects that may occur. Improve your balance and flexibility with muscle strengthening exercises. Ask your health care provider for some exercises that will be right for you. Reinforced safety education and fall prevention. and Reinforced medication regimen. Timing., Dosing., and Purspose. Treatment/Plan: Continue meds as prescribed/reviewed Palliative involved for pain management/goals of care [facility] - [phone] (has number for ) To perform PT exercises daily - does not perform regularly KIAH to see about community resources for ramp in/out of home -KIAH assisting pt, son to get ramp [employer] involved and has visited pt Palliative Care referral placed 12/25/21 [facility] Uses Bedside commode - does not ambulate in home Check blood sugar daily and record Elevate LE as much as possible Wear tubigrip to b/l le daily Voltaren gel to R knee 4x/day routinely Use CPAP and o2 2lnc qhs, clean daily APS has been notified in past Home Interventions Provided: Home Intervention: Other; Eval Reinforced current Plan of Care, including self-management and medication regimen Patient's 'Red Flags': Increased edema More unsteady/weak Blood sugar <70 or >300 Patient Needs to Remember: Call [facility] at with any new or worsening health concerns or problems, red flag symptoms. Referrals Needed: Other none Follow Up: Is there cellular connectivity/connectivity in the home? Yes Does the patient have internet in the home? Yes Patient encouraged to call the intake phone number for all urgent but not emergent issues. Is the patient new to [facility] within the last 30 days? No, Assess appropriateness for upcoming telehealth visits. Cancel telehealth visits & schedule home visit with care steam hoist operator(s)as indicated. Provider is in agreement with Plan of Care: Yes Scheduled to follow up with patient in 5-6 weeks. Candi Trevino RN 02/01/2023 12:50 PM documented in this encounter Plan of Treatment Upcoming Encounters Date Type Specialty Care Team Description 03/15/2023 Home Visit [facility] Candi Trevino RN [address] [place] [address] Health Maintenance Due Date Last Done Comments [...] the patient have Health Care Power of Computer Architect? No Care Teams Patient Access Associate Relationship Specialty Start Date End Date Mynor Leahy PA-C [address] [place] [address] PCP - General [facility] 09/30/22 documented as of this encounter
--- OUTSIDE RECORDS SUMMARY | 2023-07-07 12:38 | External Medical Summary | Summary of Care ---
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 0 9 Active TUMS 500 MG PO CHEW Take 2 Tablets by mouth as needed. 0 9 Active oxygen GASIndications:Pulm onary HTN (HCC) 1 LPM bled through BIPAP during hours of sleep 1 Each 0 7 Active Lancet Devices ([employer] DELICA LANCING DEV) MISC Test as directed [...] before bedtime. 60 Capsule 11 3 Active Carboxymethylcellul ose Sodium 1 % Ophthalmic Gel (Refresh Liquigel) Instill 2 Drops into both eyes 2 times a day as needed for Dry eyes. 15 mL 3 3 Active Fluticasone Propionate 50 MCG/ACT Nasal Suspension (Flonase)Indication s:Chronic rhinitis ADMINISTER 2 SPRAYS INTO EACH NOSTRIL TWICE DAILY 48 g 3 3 Active Glucosamine Sulfate 1000 MG Oral Tablet (Glucosamine Relief) TAKE 1 TABLET BY MOUTH IN THE MORNING AND AT BEDTIME 60 Tablet 3 Active Multivitamin Adult Oral Tablet Take 1 Tablet by mouth in the morning. 30 Tablet 3 Active Melvern-3 Fish Oil 1000 MG Oral Capsule (Mel[place]-3)Indication s:Dyslipidemia, goal to be determined Take 1 [...] in the morning. 30 Capsule 3 Active Levothyroxine Sodium 75 MCG Oral Tablet (Levoxyl)Indication s:Acquired hypothyroidism TAKE 1 TABLET BY MOUTH ONCE DAILY IN THE MORNING AT LEAST 30 MINUTES PRIOR TO BREAKFAST OR OTHER MEDS 30 Tablet 3 Active Potassium Chloride Elisabeth ER 20 MEQ Oral Tablet Extended ReleaseIndications: HTN, goal below 140/90 TAKE 1 TABLET BY MOUTH ONCE DAILY IN THE MORNING 30 Tablet 3 Active DULoxetine HCl 20 MG Oral Capsule Delayed Release Particles (Cymbalta)Indicatio ns:Spinal stenosis of lumbar region without neurogenic claudication TAKE 2 CAPSULES BY MOUTH ONCE DAILY IN THE MORNING 60 Capsule 3 Active Ipratropium [place] 0.06 % Nasal Solution (Atrovent)Indicatio ns:Seasonal allergic rhinitis due to pollen Administer 2 Sprays into each nostril 4 times a day as needed for Rhinitis. 15 mL 3 Active Rosuvastatin Calcium 20 MG Oral [...] hemoglobin A1c goal of less than 8.0% ([facility]) TEST 4 TIMES DAILY 100 Strip 3 3 Active OneTouch Delica Plus [id number] TEST UP TO 4 TIMES DAILY NEEDED 100 Each 3 3 Active Ipratropium [place] HFA 17 MCG/ACT Inhalation Aerosol Solution (Atrovent HFA) INHALE 2 PUFFS 3 TIMES DAILY IF NEEDED FOR WHEEZING 12.9 g 3 3 Active Baclofen 10 MG Oral Tablet (Lioresal)Indicatio [...] (breakthrough pain). 30 Tablet 0 3 Active traMADol HCl 100 MG Oral Tablet Take 1 Tablet by mouth every 8 hours as needed for Pain, Breakthrough. 30 Tablet 1 3 03/23/20 23 Discontinued documented as of this encounter (statuses as of 03/24/2023) Active Problems Problem Noted Date Diagnosed Date [...] Given low dose baclofen (verified with [facility] MTM that has best side effect [...] apnea) 10/04/2016 Overview: Significant hypoxemia Titration pending [facility] Last Assessment & Plan: Reports compliance [...] as of this encounter (statuses as of 03/24/2023) Resolved Problems Problem Noted Date Diagnosed Date [...] as of this encounter (statuses as of 03/24/2023) Immunizations Name Administration Dates Next Due COVID-19 mRNA, LNP-s, No Pre serve, 2-Dose Series ([employer]) 04/28/2021,07/09/2020,06/18/2020 H1N1 2009 Influenza, IM 04/29/2009 Pneumococcal [...] on file documented as of this encounter Progress Notes * Mynor Leahy PA-C - 03/15/2023 1:47 PM EST [facility] Progress Note Date: 03/15/2023 Time: 2:00 Name: Ivis Mora : 1935 Purpose of Visit: Symptom management, Advance care planning, and Discuss goals of care Location: Home Individual(s) present: Patient and Son(s) Coordination of Care: [facility] ASSESSMENT/PLAN: (Z51.5) Palliative care encounter (primary encounter diagnosis) (Z71.89) Advanced care planning/counseling discussion (R53.81) Physical deconditioning Plan: again recommended snf placement for care needs, patient declines Son continues to assist with care needs No skin breakdown reported (I11.0, I50.30) Benign hypertensive heart disease with diastolic CHF, NYHA class 2 (HCC) Plan: stable (M17.0) Primary osteoarthritis of both knees Plan: continue aspercreme Tramadol prn will decrease from 100mg to 50mg (G47.33) SARAN (obstructive sleep apnea) Plan: has not been using cpap, reviewed importance of compliance (M62.838) Spasm of muscle Plan: can use baclofen prn, has not been using as recommended Continue to follow for palliative. Will schedule return in 2 to 3 months, or sooner if indicated. Advance care planning/Goals of Care: See documentation in Advance Care Planning module and ACP note. SUBJECTIVE: Family present: yes, reviewed Patient is 87 year old female with hypertensive heart disease with diastolic CHF, pulmonary HTN, dyslipidemia, SARAN (wears CPAP with O2), type 2 dM, venous insufficiency, chronic knee pain, and lumbarspinal stenosis. [facility] 03/31/22-04/05/22 for fall at home, weakness, and covid 19. [facility] 08/03/22-08/10/22 s/p fall, severe hip pain discharged to [facility]hab and [facility]22 Patient currently lives in single story home with her son as her primary caregiver. Mobility significantly limited. Essentially bedbound at this time. Currently wearing incontinence products and son helps with hygiene needs. Previous wounds have healed at this time. Patient and son deny any further skin breakdown. Has ongoing discomfort in hips and knees. Spends all day lying in bed. Describes pain as aching and spasms. Has tramadol and baclofen available. Reports using these regularly, but has difficulty finding during visit. She is eventually able to locate meds, and based on refill date and meds remainaing has been using less than one of each per day. Patient currently of sound mind and able to make her own decisions. Adamantly refuses SNF. Previous report made to adult protective services. All meds prepacked from pharmacy. Suspect some compliance issues at times. Has CPAP at bedside, but admits she has not used in a while. 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 Acquired hypothyroidism E03.9 DIVERTICULOSIS OF COLON K57.30 Type 2 diabetes mellitus with hemoglobin A1c goal of less than 8.0% ([facility]) E11.9 Dyslipidemia, goal LDL below 100 E78.5 Allergic rhinitis J30.9 Venous insufficiency I87.2 Pulmonary HTN ([facility]) I27.20 SARAN (obstructive sleep apnea) G47.33 Nocturnal hypoxemia G47.34 History of breast cancer Z85.3 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.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, NYHA class 2 ([facility]) I11.0, I50.30 At high risk for falls Z91.81 Physical deconditioning R53.81 Spasm of muscle M62.838 Urinary frequency R35.0 Chronic diastolic congestive heart failure ([facility]) I50.32 Primary osteoarthritis of both knees M17.0 Cerebral atrophy ([facility]) G31.9 DDD (degenerative disc disease), lumbar M51.36 Current Outpatient Medications Medication Sig Dispense Refill MAALOX MAX 400-400-40 MG/5ML PO SUSP Take 15 mL by mouth in the morning. 0 TUMS 500 MG PO CHEW Take 2 Tablets by mouth as needed. 0 oxygen GAS 1 LPM bled through BIPAP during hours of sleep 1 Each 0 Lancet Devices ([employer] DELICA LANCING DEV) MISC Test as directed 1 Each 0 Aspercreme Lidocaine 4 % External Liquid (Lidocaine HCl) Apply topically to affected area 3 times aday as needed . Apply to painful joints Diclofenac Sodium 1 % External Cream Apply topically to affected area 4 times a day as needed. Apply to R knee DIURETIC TITRATION PLAN If no improvement on day 3, contact heart failure managing provider - PCP, [facility], or cardiology. 1 Each 0 Losartan Potassium 50 MG Oral Tablet (Cozaar) Take 1 Tablet by mouth in the morning. 90 Tablet 3 Aspirin 81 MG Oral Tablet Chewable Take 1 Tablet by mouth in the morning. AZO Bladder Control/Go-Less Oral Capsule Take 1 Capsule by mouth in the morning and 1 Capsule before bedtime. 60 Capsule 11 Carboxymethylcellulose Sodium 1 % Ophthalmic Gel (Refresh Liquigel) Instill 2 Drops into both eyes 2 times a day as needed for Dry eyes. 15 mL 3 Fluticasone Propionate 50 MCG/ACT Nasal Suspension (Flonase) ADMINISTER 2 SPRAYS INTO EACH NOSTRIL TWICE DAILY 48 g 3 Glucosamine Sulfate 1000 MG Oral Tablet (Glucosamine Relief) TAKE 1 TABLET BY MOUTH IN THE MORNING AND AT BEDTIME 60 Tablet 5 Multivitamin Adult Oral Tablet Take 1 Tablet by mouth in the morning. 30 Tablet 11 Melvern-3 Fish Oil 1000 MG Oral Capsule (Melvern-3) Take 1 Capsule by mouth in the morning. 30 Capsule 11 Vitamin C 500 MG Oral Tablet (Ascorbic Acid) Take 2 Tablets by mouth in the morning. 60 Tablet 11 Vitamin D 25 MCG (1000 UT) Oral Tablet Take 1 Tablet by mouth in the morning. 30 Tablet 11 Vitamin E 400 UNIT Oral Capsule (Aquasol E) Take 1 Capsule by mouth in the morning. 30 Capsule 11 Levothyroxine Sodium 75 MCG Oral Tablet (Levoxyl) TAKE 1 TABLET BY MOUTH ONCE DAILY IN THE MORNING AT LEAST 30 MINUTES PRIOR TO BREAKFAST OR OTHER MEDS 30 Tablet 5 Potassium Chloride Elisabeth ER 20 MEQ Oral Tablet Extended Release TAKE 1 TABLET BY MOUTH ONCE DAILY INTHE MORNING 30 Tablet 5 DULoxetine HCl 20 MG Oral Capsule Delayed Release Particles (Cymbalta) TAKE 2 CAPSULES BY MOUTH ONCE DAILY IN THE MORNING 60 Capsule 5 Ipratropium [place] 0.06 % Nasal Solution (Atrovent) Administer 2 Sprays into each nostril 4 times a day as needed for Rhinitis. 15 mL 5 Rosuvastatin Calcium 20 MG Oral Tablet (Crestor) TAKE 1 TABLET BY MOUTH AT BEDTIME 30 Tablet 11 metFORMIN HCl 500 MG Oral Tablet (Glucophage) TAKE ONE TABLET BY MOUTH TWICE DAILY 60 Tablet 11 OneTouch Verio In Vitro Strip (Glucose Blood) TEST 4 TIMES DAILY 100 Strip 3 OneTouch Delica Plus [id number] TEST UP TO 4 TIMES DAILY NEEDED 100 Each 3 Ipratropium [place] HFA 17 MCG/ACT Inhalation Aerosol Solution (Atrovent HFA) INHALE 2 PUFFS 3 TIMES DAILY IF NEEDED FOR WHEEZING 12.9 g 3 traMADol HCl 100 MG Oral Tablet Take 1 Tablet by mouth every 8 hours as needed for Pain, Breakthrough. 30 Tablet 1 Baclofen 10 MG Oral Tablet (Lioresal) TAKE 1 TABLET BY MOUTH TWICE DAILY NEEDED FOR MUSCLE SPASMS 60 Tablet 3 Furosemide 40 MG Oral Tablet (Lasix) TAKE 1 TABLET BY MOUTH ONCE DAILY IN THE MORNING 30 Tablet 11 Pregabalin 75 MG Oral Capsule (Lyrica) TAKE 1 CAPSULE BY MOUTH IN THE MORNING AND AT BEDTIME 60 Capsule 5 NIFEdipine ER 30 MG Oral Tablet Extended Release 24 Hour (Adalat CC) TAKE 1 TABLET BY MOUTH ONCE DAILY IN THE MORNING ON AN EMPTY STOMACH, 30 Tablet 1 Magnesium 250 MG Oral Tablet Take 1 Tablet by mouth in the morning and 1 Tablet before bedtime. 60 Tablet 5 No current facility-administered medications for this visit. Physical Exam: BP Readings from Last 3 Encounters: 02/01/23 136/72 11/11/22 116/68 11/03/22 118/60 { Wt Readings from Last 3 Encounters: 04/13/22 93.4 kg (206 lb) 01/28/21 107.5 kg (237 lb) 01/27/21 107.8 kg (237 lb 9.6 oz) Vital signs: not currently . General: alert, no distress, and obese Neuro: alert & oriented x 3 with fluent speech Heart: regular rate & rhythm and no murmur Lungs: no chest wall tenderness, lungs clear to auscultation See top of note for assessment/plan Scheduled appointments in the next 60 days: Future Appointments-next 60 days Date/Time Provider Specialty Dept Phone 03/15/2023 2:30 PM Mynor Leahy PA-C [facility] [phone] [facility], [address] [place] [address] documented in this encounter Plan of Treatment [...] as of this encounter Visit Diagnoses Diagnosis Palliative care encounter- Primary Encounter for palliative care Advanced care planning/counseling discussion Other specified counseling 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 No Care Teams Lithographic Press Operator Apprentice Relationship Specialty Start Date End Date Mynor Leahy PA-C [address] [place] [address] PCP - [facility] 09/30/22 documented as of this encounter
--- OUTSIDE RECORDS SUMMARY | 2023-07-07 12:38 | External Medical Summary | Summary of Care ---
Author Name Unknown Organization [facility] Address [address] [place] [address] Phone [phone] Care Team Providers Care Copper Flotation Operator Name Role Phone Savanah Leahy PA-C Primary Care Provider [phone] Reason for Visit * Reason Comments eRx-Medication Refill Encounter Details Date Type Department Care Team (Late st Contact Info) Description 05/03/2023 Refill [facility], [place] [address] [facility] [place] [address] [place] Delatorre, DO [address] [place] [address] HTN, goal below 150/90 Allergies Active Allergy Reactions Criticality Noted Date [...] 1 Each 0 7 Active Lancet Devices ([employer] DELBDA LANCING DEV) MISC Test as directed 1 [...] the morning. 30 Tablet 11 3 Active [place]-3 Fish Oil 1000 MG Oral Capsule ([place]-3)Indication s:Dyslipidemia, goal to be determined Take 1 Capsule by mouth in the morning. 30 Capsule 11 3 Active Vitamin C 500 MG Oral Tablet (Ascorbic Acid) Take 2 Tablets by mouth in the morning. 60 Tablet 11 202 3 Active Vitamin D 25 MCG (1000 UT) Oral Tablet Take 1 Tablet by mouth in the morning. 30 Tablet 3 Active Vitamin E 400 UNIT Oral Capsule (Aquasol E) Take 1 Capsule by mouth in the morning. 30 Capsule 3 Active Ipratropium [place] 0.06 % Nasal Solution (Atrovent)Indicatio ns:Seasonal allergic [...] Strip 3 3 Active OneTouch Delica Plus [id number] TEST UP TO 4 TIMES DAILY NEEDED 100 Each 3 3 Active Ipratropium [place] HFA 17 MCG/ACT Inhalation Aerosol Solution (Atrovent [...] THE MORNING AND AT BEDTIME 60 Capsule 3 Active Magnesium 250 MG Oral Tablet [...] THE MORNING 30 Tablet 11 4 Active Losartan Potassium 50 MG Oral Tablet (Cozaar)Indications :HTN, goal below 150/90 Take 1 Tablet by mouth in the morning. 90 Tablet 3 3 05/04/19 24 Discontinued documented as of this encounter [...] Plan: Given low dose baclofen (verified with [facility] MTM that has best side effect [...] Overview: Significant hypoxemia Titration pending [facility] Last Assessment & Plan: Reports [...] mRNA, LNP-s, No Pre serve, 2-Dose Series ([employer]) 04/28/2021,07/09/2020,06/18/2020 H1N1 2009 Influenza, IM 04/29/2009 Pneumococcal [...] Encounter - Savanah Leahy PA-C - 05/04/2023 9:38 AM ESTSigned Prescriptions: Disp Refills Losartan Potassium 50 MG Oral Tablet (Coza*30 Tab*11 Sig: TAKE 1 TABLET BY MOUTH ONCE DAILY IN THE MORNING Authorizing Provider: SAVANAH LEAHY * Telephone Encounter - [place] Delatorre DO - 05/04/2023 9:03 AM ESTPending Prescriptions: Disp Refills Losartan Potassium 50 MG Oral Tablet [Phar*30 Tab*11 Sig: TAKE 1 TABLET BY MOUTH ONCE DAILY IN THE MORNING * Telephone Encounter - Haydee Sol LPN - 05/04/2023 8:29 AM EST Did you pend patient's preferred pharmacy and medication before forwarding?yes Pharmacy: [facility] [place] [id number] [facility] Pending Prescriptions: Disp Refills Losartan Potassium 50 MG Oral Tablet (Coz*30 Tab*11 Sig: TAKE 1 TABLET BY MOUTH ONCE DAILY IN THE MORNING Last Visit: Visit date not found (in office), 10/06/2021 (telemedicine) Next Visit: Visit date not found If no future appointments scheduled, and last appointment is greater than a year ago, please schedule patient for a follow-up appointment Last date the medication was ordered: 06/03/22 Is this request for a controlled substance?No [...] PM * Telephone Encounter - Renetta Neff [facility] - 05/04/2023 8:21 AM EST Pending Prescriptions: Disp Refills Losartan Potassium 50 MG Oral Tablet [Phar*30 Tab*11 Sig: TAKE 1 TABLET BY MOUTH ONCE DAILY IN THE MORNING documented in this encounter Plan of Treatment Upcoming Encounters Date Type Department Care Team (Late st Contact Info) Description 11/01/2023 2:00 PM EDT [facility] [address] [place] [address] Eliza Hernandez PA-C [address] [place] [address] Health Maintenance Due Date Last [...] encounter Visit Diagnoses Diagnosis HTN, goal below 150/90 documented in this encounter Advance Directives Latest Code Status on File Code Status Date Activated Date Inactivated Comments Full Code 09/28/2010 10:57 PM 10/02/2010 7:55 PM This order reflects the patients wishes and were consensually agreed upon. Question Answer Comments Discussion of Advance Directives occurred with: Patient Does the patient have a Living Will? No Does the patient have Health Care Power of Lens Grinder And Polisher? No Care Teams Copper Flotation Operator Relationship Specialty Start Date End Date Savanah Leahy PA-C [address] [place] [address] PCP - General [facility] 09/30/22 documented as of this encounter
--- OUTSIDE RECORDS SUMMARY | 2023-07-07 12:39 | External Medical Summary | Summary of Care ---
Author Name Unknown Organization [facility] Address [address] [place] [address] Phone [phone] Care Team Providers Care Evaluation Manager Name Role Phone Mynor Leahy PA-C Primary Care Provider Reason for Visit * Reason Onset Date Comments [facility]: Maintenance 01/03/2023 Encounter Details Date Type Department Care Team Description 01/03/2023 Telephone [facility], [facility] [address] [facility] [address] Candi Trevino RN [address] [facility] [place] [address] [facility]: Maintenance Allergies Active Allergy Reactions Severity Noted Date [...] as of this encounter (statuses as of 01/22/2023) Medications Medication Sig Dispensed Refills Start Date End Date Status MAALOX MAX 400-400-40 MG/5ML PO SUSP Take 15 mL by mouth in the morning. 0 12/11/2008 Active TUMS 500 MG PO CHEW Take 2 Tablets by mouth as needed. 0 12/11/2008 Active oxygen GASIndications:Pulmo nary HTN (HCC) 1 LPM bled through BIPAP during hours of sleep 1 Each 0 02/04/2017 Active Lancet Devices ([employer] LANCING DEV) MISC Test as directed 1 [...] in the morning. 30 Tablet 09/16/2022 Active [place]-3 Fish Oil 1000 MG Oral Capsule ([place]-3)Indications :Dyslipidemia, goal to be determined Take 1 [...] THE MORNING 60 Capsule 09/23/2022 Active Ipratropium [place] 0.06 % Nasal Solution (Atrovent)Indication s:Seasonal allergic rhinitis due to pollen Administer 2 Sprays into each nostril 4 times a day as needed for Rhinitis. 15 mL 09/20/2022 Active Magnesium 250 MG Oral Tablet Take 1 Tablet by mouth in the morning and 1 Tablet before bedtime. 60 Tablet 09/23/2022 Active Optifoam 4"X4" Pad Clean wound sites and please clean dressing over the site daily 30 Each 11/08/2022 Active Rosuvastatin Calcium 20 MG Oral Tablet (Crestor)Indications :Dyslipidemia, goal LDL below 100 TAKE 1 TABLET BY MOUTH AT BEDTIME 30 Tablet 11/16/2022 Active metFORMIN HCl 500 MG Oral Tablet (Glucophage)Indicati ons:Type 2 diabetes mellitus with hemoglobin A1c goal of less than 7.0% ([facility]) TAKE ONE TABLET BY MOUTH TWICE DAILY 60 Tablet 11 11/16/2022 Active documented as of this encounter (statuses as of 01/22/2023) Active Problems Problem Noted Date Cerebral atrophy [...] Plan: Given low dose baclofen (verified with [facility] MTM that has best side [...] apnea) 10/04/2016 Overview: Significant hypoxemia Titration pending [facility] Last Assessment & Plan: Reports [...] as of this encounter (statuses as of 01/22/2023) Resolved Problems Problem Noted Date Resolved Date [...] as of this encounter (statuses as of 01/22/2023) Immunizations Name Administration Dates Next Due COVID-19 [...] Telephone Encounter - Candi Trevino RN - 01/03/2023 10:08 AM EDT Please schedule a provider visit with Mynor Leahy, floyd PA-C - pt is primary care at home.She would like to further discuss her pain and spasms. Can be telemed if in person is not available. Thank you! documented in this encounter Plan of Treatment Upcoming Encounters Date Type Specialty Care Team Description 02/01/2023 Home Visit [facility] Candi Trevino, RN [address] [place] [id number] Health Maintenance Due Date Last Done Comments [...] the patient have Health Care Power of Cd Mixer? No Care Teams Evaluation Manager Relationship Specialty Start Date End Date Mynor Leahy PA-C [address] [place] [address] PCP - General [facility] 09/30/22 documented as of this encounter
--- OUTSIDE RECORDS SUMMARY | 2023-07-07 12:39 | External Medical Summary | Summary of Care ---
Author Name Unknown Organization [facility] Address [address] [place] [address] Phone [phone] Care Team Providers Care Dietary Assistant Name Role Phone Mynor Leahy PA-C Primary Care Provider Reason for Visit * Reason Onset Date Comments Medication Refill 01/11/2023 Encounter Details Date Type Department Care Team Description 01/11/2023 Refill [facility] [place] [address] [place] [id number] Mynor Leahy PA-C [address] [place] [id number] Bilateral leg edema; HTN, goal below 140/90 Allergies Active Allergy Reactions Severity Noted Date [...] as of this encounter (statuses as of 01/11/2023) Medications Medication Sig Dispensed Refills Start Date End Date Status MAALOX MAX 400-400-40 MG/5ML PO SUSP Take 15 mL by mouth in the morning. 0 12/11/2008 Active TUMS 500 MG PO CHEW Take 2 Tablets by mouth as needed. 0 12/11/2008 Active oxygen GASIndications:Pulm onary HTN (FORM[facility]LY [facility]) 1 LPM bled through BIPAP during hours of sleep 1 Each 0 02/04/2017 Active Lancet Devices ([place] [employer] LANCING DEV) MISC Test as directed 1 Each 0 06/16/2017 Active Aspercreme Lidocaine 4 % External Liquid (Lidocaine HCl) Apply topically to affected area 3 times a day as needed . Apply to painful joints 0 Active [employer] Lancets 33G TEST UP TO 4 TIMES DAILY NEEDED. E 11.9 100 Each 3 12/22/2021 Active Peeractive Verio In Vitro Strip (Glucose Blood)Indications:T ype 2 diabetes mellitus with hemoglobin A1c goal of less than 8.0% ([facility]) Tests four times daily E11.9 Hgba1c 7.1 02/2019 100 Strip 3 12/22/2021 Active Ipratropium Modale HFA 17 MCG/ACT Inhalation Aerosol Solution (Atrovent HFA) inhale 2 puffs by mouth three times daily if needed for wheezing 38.7 g 3 12/22/2021 Active Diclofenac Sodium 1 % External Cream Apply topically to affected area 4 times a day as needed. 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 60 Capsule 09/16/2022 Active Carboxymethylcellul ose Sodium 1 % Ophthalmic Gel (Refresh Liquigel) Instill 2 Drops into both eyes 2 times a day as needed for Dry eyes. 15 mL 09/16/2022 Active Fluticasone Propionate 50 MCG/ACT Nasal Suspension (Flonase)Indication s:Chronic rhinitis ADMINISTER 2 SPRAYS INTO EACH NOSTRIL TWICE DAILY 48 g 09/16/2022 Active Glucosamine Sulfate 1000 MG Oral Tablet (Glucosamine Relief) TAKE 1 TABLET BY MOUTH IN THE MORNING AND AT BEDTIME 60 Tablet 09/16/2022 Active Multivitamin Adult Oral Tablet Take 1 Tablet by mouth in the morning. 30 Tablet 09/16/2022 Active [place]-3 Fish Oil 1000 MG Oral Capsule ([place]-3)Indication s:Dyslipidemia, goal to be determined Take 1 [...] THE MORNING 60 Capsule 09/23/2022 Active Ipratropium [place]ale 0.06 % Nasal Solution (Atrovent)Indicatio ns:Seasonal allergic rhinitis due to pollen Administer 2 Sprays into each nostril 4 times a day as needed for Rhinitis. 15 mL 5 09/20/2022 Active Magnesium 250 MG Oral Tablet Take 1 Tablet by mouth in the morning and 1 Tablet before bedtime. 60 Tablet 5 09/23/2022 Active traMADol HCl 100 MG Oral Tablet Take 1 Tablet by mouth every 8 hours as needed for Pain, Breakthrough. 30 Tablet 1 10/07/2022 Active Optifoam 4"X4" Pad Clean wound sites and please clean dressing over the site daily 30 Each 6 11/08/2022 Active Rosuvastatin Calcium 20 MG Oral Tablet (Crestor)Indication s:Dyslipidemia, goal LDL below 100 TAKE 1 TABLET BY MOUTH AT BEDTIME 30 Tablet 11 11/16/2022 Active metFORMIN HCl 500 MG Oral Tablet (Glucophage)Indicat ions:Type 2 diabetes mellitus with hemoglobin A1c goal of less than 7.0% (HCC) TAKE ONE TABLET BY MOUTH TWICE DAILY 60 Tablet 11 11/16/2022 Active Baclofen 5 MG Oral Tablet (Lioresal)Indicatio ns:Spasm of muscle TAKE 1 TABLET BY MOUTH TWICE DAILY NEEDED FOR MUSCLE SPASMS 30 Tablet 2 11/16/2022 Active Furosemide 40 MG Oral Tablet (Lasix)Indications: Bilateral leg edema TAKE 1 TABLET BY MOUTH ONCE DAILY IN THE MORNING 30 Tablet 1 01/11/2023 Active NIFEdipine ER 30 MG Oral Tablet Extended Release 24 Hour (Adalat CC)Indications:HTN, goal below 140/90 TAKE 1 TABLET BY MOUTH ONCE DAILY IN THE MORNING ON AN EMPTY STOMACH, 30 Tablet 1 01/11/2023 Active Furosemide 40 MG Oral Tablet (Lasix)Indications: Bilateral leg edema TAKE 1 TABLET BY MOUTH ONCE DAILY IN THE MORNING 30 Tablet 1 11/08/2022 3 Discontinu ed(Refill) NIFEdipine ER 30 MG Oral Tablet Extended Release 24 Hour (Adalat CC)Indications:HTN, goal below 140/90 TAKE 1 TABLET BY MOUTH ONCE DAILY IN THE MORNING ON AN EMPTY STOMACH 30 Tablet 1 11/08/2022 3 Discontinu ed(Refill) documented as of this encounter (statuses as of 01/11/2023) Active Problems Problem Noted Date Cerebral atrophy [...] Plan: Given low dose baclofen (verified with [facility] that has best side [...] apnea) 10/04/2016 Overview: Significant hypoxemia Titration pending [facility] Last Assessment & Plan: Reports [...] as of this encounter (statuses as of 01/11/2023) Resolved Problems Problem Noted Date Resolved Date [...] as of this encounter (statuses as of 01/11/2023) Immunizations Name Administration Dates Next Due COVID-19 mRNA, LNP-s, No Pre serve, 2-Dose Series ([place]) 04/28/2021,07/09/2020,06/18/2020 H1N1 2009 Influenza, IM 04/29/2009 Pneumococcal Conjugate Vacc, 13 Valent (Prevnar) 02/13/2015 Season Influenza, Quad, PF, Adjuvanted, 65+ Yrs, IM (FLUAD) 02/06/2020 Seasonal Influenza, PF, 6 mo ns & Above, IM , (Flulaval) 01/09/2019,02/06/2018,01/17/2017 Seasonal Influenza, Quadriva lent Hd (Fluzone [...] encounter Miscellaneous Notes * Telephone Encounter - Danna Spaulding [facility] - 01/11/2023 10:46 AM EDT Signed Prescriptions: Disp Refills Furosemide 40 MG Oral Tablet (Lasix) 30 Tab*1 Sig: TAKE 1 TABLET BY MOUTH ONCE DAILY IN THE MORNING Authorizing Provider: MARY KAY GOTTI Ordering User: DANNA SPAULDING NIFEdipine ER 30 MG Oral Tablet Extended R*30 Tab*1 Sig: TAKE 1 TABLET BY MOUTH ONCE DAILY IN THE MORNING ON AN EMPTY STOMACH, Authorizing Provider: MRAY KAY RENTERIA Ordering User: DANNA SPAULDING * Telephone Encounter - Dyana Blank CPhT - 01/11/2023 10:24 AM EDT Pt is out. Did you pend patient's preferred pharmacy and medication before forwarding?yes Pharmacy: [facility] [address] Pending Prescriptions: Disp Refills Furosemide 40 MG Oral Tablet (Lasix) 30 Tab*1 Sig: TAKE 1 TABLET BY MOUTH ONCE DAILY IN THE MORNING NIFEdipine ER 30 MG Oral Tablet Extended *30 Tab*1 Sig: TAKE 1 TABLET BY MOUTH ONCE DAILY IN THE MORNING ON AN EMPTY STOMACH, Last Visit: Visit date not found (in office), 10/06/2021 (telemedicine) Next Visit: 01/11/2023 If no future appointments scheduled, and last appointment is greater than a year ago, please schedule patient for a follow-up appointment Last date the medication was ordered: 11/08/22 Is this request for a controlled substance?No [...] Encounters Date Type Specialty Care Team Description 01/11/2023 Home Visit [facility] Mynor Leahy PA-C [address] [place] [id number] 02/01/2023 Home Visit [facility] Candi Trevino RN [address] [place] [id number] Health Maintenance Due Date Last Done Comments Zoster Vaccines (2 of 3) 09/04/2008 07/10/2008 COVID-19 Vaccine (4 - Pfizer series) 06/23/2021 04/28/2021, 04/28/2021, 07/09/2020, Additional history exists DXA Scan 07/18/2021 07/18/2018, 06/18, 03/16/2011, Additional history exists Albumin/Creatinine Ratio 10/07/202110/07/2 021, 10/04/2019, 11/09/2018, Additional history exists Diabetic Foot Exam 12/30/2021 12/30/2020, 1 , 03/12/2019, Additional history exists DIABETES-EYE EXAM 05/12/2022 05/12/2021, , 10/06/2019, Additional history exists Influenza Vaccine (FLU shot) [...] as of this encounter Visit Diagnoses Diagnosis Bilateral leg edema Edema HTN, goal below 140/90 Unspecified essential hypertension [...] patient have Health Care Power of Manager Pathology? No Care Teams Dietary Assistant Relationship Specialty Start Date End Date Mynor Leahy PA-C [address] [place] [id number] PCP - [facility] 09/30/22 documented as of this encounter
--- OUTSIDE RECORDS SUMMARY | 2023-07-07 12:39 | External Medical Summary | Summary of Care ---
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 0 9 Active TUMS 500 MG PO CHEW Take 2 Tablets by mouth as needed. 0 9 Active oxygen GASIndications:Pul monary HTN (HCC) 1 LPM bled through BIPAP during hours of sleep 1 Each 0 7 Active Lancet Devices ([employer] DELNanoD[employer] LANCING DEV) MISC Test as directed 1 [...] with diastolic CHF, NYHA class 2 ([facility]) If no improvement on day 3, contact [...] before bedtime. 60 Capsule 11 3 Active Carboxymethylcellu lose Sodium 1 % [...] in the morning. 30 Tablet 3 Active [place]-3 Fish Oil 1000 MG Oral Capsule ([place]-3)Indicatio ns:Dyslipidemia, goal to be determined Take 1 Capsule by mouth in the morning. 30 Capsule 3 Active Pregabalin 75 MG Oral Capsule (Lyrica) Take 1 Capsule by mouth in the morning and 1 Capsule before bedtime. 60 Capsule 3 Active Vitamin C 500 MG [...] Active Levothyroxine Sodium 75 MCG Oral Tablet (Levoxyl)Indicatio [...] THE MORNING 60 Capsule 3 Active Ipratropium [place] 0.06 % Nasal Solution (Atrovent)Indicati ons:Seasonal allergic rhinitis due to pollen Administer 2 Sprays into each nostril 4 times a day as needed for Rhinitis. 15 mL 3 Active Magnesium 250 MG Oral Tablet Take 1 Tablet by mouth in the morning and 1 Tablet before bedtime. 60 Tablet 3 Active Optifoam 4"X4" Pad Clean wound sites and please clean dressing over the site daily 30 Each 6 3 Active Rosuvastatin Calcium 20 MG Oral Tablet (Crestor)Fredricktio ns:Dyslipidemia, goal LDL below 100 TAKE 1 TABLET BY MOUTH AT BEDTIME 30 Tablet 11 3 Active metFORMIN HCl 500 MG Oral Tablet (Glucophage)Indica tions:Type 2 diabetes mellitus with hemoglobin A1c goal of less than 7.0% (HCC) TAKE ONE TABLET BY MOUTH TWICE DAILY 60 Tablet 11 3 Active Furosemide 40 MG Oral Tablet (Lasix)Indications :Bilateral leg edema TAKE 1 TABLET BY MOUTH ONCE DAILY IN THE MORNING 30 Tablet 1 3 Active NIFEdipine ER 30 MG Oral Tablet Extended Release 24 Hour (Adalat CC)Indications:HTN , goal below 140/90 TAKE 1 TABLET BY MOUTH ONCE DAILY IN THE MORNING ON AN EMPTY STOMACH, 30 Tablet 1 3 Active Baclofen 10 MG Oral Tablet (Lioresal)Indicati ons:Spasm of muscle TAKE 1 TABLET BY MOUTH TWICE DAILY NEEDED FOR MUSCLE SPASMS 60 Tablet 3 3 Active OneTouch Delica Lancets 33G TEST UP TO 4 TIMES DAILY NEEDED. E 11.9 100 Each 3 2 023 Discontinued OneTouch Verio In Vitro Strip (Glucose Blood)Indications: Type 2 diabetes mellitus with hemoglobin A1c goal of less than 8.0% (HCC) Tests four times daily E11.9 Hgba1c 7.1 02/2019 100 Strip 3 2 023 Discontinued Ipratropium [place] HFA 17 MCG/ACT Inhalation Aerosol Solution (Atrovent HFA) inhale 2 puffs by mouth three times daily if needed for wheezing 38.7 g 3 2 023 Discontinued traMADol HCl 100 MG Oral Tablet Take 1 Tablet by mouth every 8 hours as needed for Pain, Breakthrough. 30 Tablet 1 3 023 Discontinued(Re fill) Baclofen 5 MG Oral Tablet (Lioresal)Indicati ons:Spasm of muscle TAKE 1 TABLET BY MOUTH TWICE DAILY NEEDED FOR MUSCLE SPASMS 30 Tablet 2 3 023 Discontinued(Re fill) documented as of this encounter (statuses as of 01/13/2023) Active Problems Problem Noted Date Cerebral atrophy [...] Plan: Given low dose baclofen (verified with [facility] that has best side effect [...] apnea) 10/04/2016 Overview: Significant hypoxemia Titration pending [facility] Last Assessment & Plan: Reports compliance with [...] as of this encounter (statuses as of 01/13/2023) Resolved Problems Problem Noted Date Resolved Date [...] as of this encounter (statuses as of 01/13/2023) Immunizations Name Administration Dates Next Due COVID-19 mRNA, LNP-s, No Pre serve, 2-Dose Series (Squrl) 04/28/2021,07/09/2020,06/18/2020 H1N1 2009 Influenza, IM 04/29/2009 Pneumococcal [...] Progress Notes * Mynor Leahy PA-C - 01/11/2023 9:30 PM EDT [facility] Progress Note Date: 01/11/2023 Time: 2:00 Name: Ivis Mora : 1935 Purpose of Visit: Symptom management, Advance care planning, and Discuss goals of care Location: Home Individual(s) present: Patient and Son(s) Coordination of Care: Primary Care ASSESSMENT/PLAN: (Z51.5) Palliative care encounter (primary encounter diagnosis) (Z71.89) Advanced care planning/counseling discussion Plan: mostly bedbound at this time Again discussed SNF placement, patient continues to refuse Continue to monitor closely for skin breakdown (I11.0, I50.30) Benign hypertensive heart disease with diastolic CHF, NYHA class 2 (HCC) Plan: stable Continue lasix, losartan, nifedipine (Z91.81) At high risk for falls (R53.81) Physical deconditioning Plan: bedbound, occasionally transferring to bedside commode (M17.0) Primary osteoarthritis of both knees (M62.838) Spasm of muscle Plan: increased baclofen to 10mg bid prn Can use apap 1000mg tid Tramadol prn Continue to use heating pad and salonpas prn Continue to follow for palliative. Will schedule [...] insufficiency, chronic knee pain, and lumbarspinal stenosis. [facility] 03/31/22-04/05/22 for fall at home, weakness, and covid 19. [facility] 08/03/22-08/10/22 s/p fall, severe hip pain discharged to [facility] for rehab and [facility] 09/03/22 Patient currently lives in single story home with her son as her primary caregiver. Mobility significantly limited. Essentially bedbound at this time. Limited transfers at this time. Currently wearing incontinence products and son helps with hygiene needs. Previous wounds have healed at this time. Patient and son deny any further skin breakdown. She continues to report discomfort in hips and legs. Spasms at times in lower back and legs. Using occasional apap, baclofen and tramadol. Based on pill count, only using tramadol about once every other day. Son is primary caregiver but is also limited by mobility issues. Discussed again with patient that she will likely require fci for care needs in the future. She did not have a good experience with last SNF stay and would like to avoid as long as possible. Patient currently of sound mind and able to make her own decisions. Previous report made to adult protective services. Using CPAP with o2 at night. Reports compliance with medications. All meds prepacked from pharmacy. 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 Acquired hypothyroidism E03.9 DIVERTICULOSIS OF COLON K57.30 Type 2 diabetes mellitus with hemoglobin A1c goal of less than 8.0% ([facility]) E11.9 Dyslipidemia, goal LDL below 100 E78.5 Allergic rhinitis J30.9 Venous insufficiency I87.2 Pulmonary HTN ([facility]) I27.20 SARAN (obstructive sleep apnea) G47.33 Nocturnal hypoxemia G47.34 History of breast cancer Z85.3 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.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, NYHA class 2 ([facility]) I11.0, I50.30 At high risk for falls Z91.81 Physical deconditioning R53.81 Spasm of muscle M62.838 Urinary frequency R35.0 Chronic diastolic congestive heart failure ([facility]) I50.32 Primary osteoarthritis of both knees M17.0 Cerebral atrophy ([facility]) G31.9 DDD (degenerative disc disease), lumbar M51.36 Current Outpatient Medications Medication Sig Dispense Refill Baclofen 10 MG Oral Tablet (Lioresal) TAKE 1 TABLET BY MOUTH TWICE DAILY NEEDED FOR MUSCLE SPASMS 60 Tablet 3 MAALOX MAX 400-400-40 MG/5ML PO SUSP Take 15 mL by mouth in the morning. 0 TUMS 500 MG PO CHEW Take 2 Tablets by mouth as needed. 0 oxygen GAS 1 LPM bled through BIPAP during hours of sleep 1 Each 0 Lancet Devices (T[employer]Up[employer] DELICA LANCING DEV) MISC Test as directed 1 Each 0 Aspercreme Lidocaine 4 % External Liquid (Lidocaine HCl) Apply topically to affected area 3 times aday as needed . Apply to painful joints OneTouch [employer] Lancets 33G TEST UP TO 4 TIMES DAILY NEEDED. E 11.9 100 Each 3 [employer] RadioTouch Verio In Vitro Strip (Glucose Blood) Tests four times daily E11.9 Hgba1c 7.1 02/2019 100 Strip 3 Ipratropium [place] HFA 17 MCG/ACT Inhalation Aerosol Solution (Atrovent HFA) inhale 2 puffs by mouth three times daily if needed for wheezing 38.7 g 3 Diclofenac Sodium 1 % External Cream Apply [...] mouth in the morning. 30 Tablet 11 [place]-3 Fish Oil 1000 MG Oral Capsule ([place]-3) Take 1 Capsule by mouth in the morning. 30 Capsule 11 Pregabalin 75 MG Oral Capsule (Lyrica) Take 1 Capsule by mouth in the morning and 1 Capsule before bedtime. 60 Capsule 11 Vitamin C 500 MG Oral [...] IN THE MORNING 60 Capsule 5 Ipratropium [place] 0.06 % Nasal Solution (Atrovent) Administer 2 Sprays into each nostril 4 times a day as needed for Rhinitis. 15 mL 5 Magnesium 250 MG Oral Tablet Take 1 Tablet by mouth in the morning and 1 Tablet before bedtime. 60 Tablet 5 traMADol HCl 100 MG Oral Tablet Take 1 Tablet by mouth every 8 hours as needed for Pain, Breakthrough. 30 Tablet 1 Optifoam 4"X4" Pad Clean wound sites and please clean dressing over the site daily 30 Each 6 Rosuvastatin Calcium 20 MG Oral Tablet (Crestor) TAKE 1 TABLET BY MOUTH AT BEDTIME 30 Tablet 11 metFORMIN HCl 500 MG Oral Tablet (Glucophage) TAKE ONE TABLET BY MOUTH TWICE DAILY 60 Tablet 11 Furosemide 40 MG Oral Tablet (Lasix) TAKE 1 TABLET BY MOUTH ONCE DAILY IN THE MORNING 30 Tablet 1 NIFEdipine ER 30 MG Oral Tablet Extended Release 24 Hour (Adalat CC) TAKE 1 TABLET BY MOUTH ONCE DAILY IN THE MORNING ON AN EMPTY STOMACH, 30 Tablet 1 No current facility-administered medications for this visit. Physical Exam: BP Readings from Last 3 Encounters: 11/11/22 116/68 11/03/22 118/60 09/30/22 112/66 { Wt Readings from Last 3 Encounters: 04/13/22 93.4 kg (206 lb) 01/28/21 107.5 kg (237 lb) 01/27/21 107.8 kg (237 lb 9.6 oz) Vital signs: not currently . General: alert, no distress, ill looking, and obese Neuro: alert & oriented x 3 with fluent speech Ext: Normal extremities without edema Recent Results: None new See top of note for assessment/plan Scheduled appointments in the next 60 days: Future Appointments-next 60 days Date/Time Provider Specialty Dept Phone 02/01/2023 2:30 PM [facility] [phone] CALEB Patel [address] [place] [address] documented in this encounter Miscellaneous Notes * ACP (Advance Care Planning) - Mynor Leahy PA-C - 01/13/2023 9:32 AM EDT Patient-centered Communication 01/11/2023 The patient/surrogate voluntarily agreed to participate in advance care planning discussion. They were advised that this is a separate service which may incur out of pocket cost in the form of copayment and/or deductibles. Location: Home Individual(s) present for conversation: Patient and Son(s) Decisions Synopsis [employer] Most Recent Value Past ~10 years 07/27/2022 17:06 Decisions CPR decision: Patient chooses CPR 07/27/2022 Patient chooses CPR Intubation/Mechanical Ventilation decision: Patient chooses Intubation/mechanical ventilation 07/27/2022 Patient chooses Intubation/mechanical ventilation Non-invasive ventilation or BIPAP decision: Patient chooses non-invasive ventilation. Select interventions below 07/27/2022 Patient chooses non-invasive ventilation. Select interventions below Non-Invasive Ventilation Interventions: Oxygen only;CPAP;BIPAP;NIV 07/27/2022 Oxygen only;CPAP;BIPAP;NIV Antibiotic therapy decision: Patient chooses Antibiotic therapy 07/27/2022 Patient chooses Antibiotic therapy Artificial nutrition decision: Declines Artificial nutrition 07/27/2022 Declines Artificial nutrition IV hydration decision: Patient chooses IV hydration 07/27/2022 Patient chooses IV hydration Chemotherapy decision: Patient chooses Chemotherapy 11/12/2021 Radiation therapy decision: Patient chooses Radiation therapy 11/12/2021 Surgical procedure(s) decision: Patient chooses Surgical procedure 11/12/2021 Blood transfusion decision: Patient chooses Blood transfusion 07/27/2022 Patient chooses Blood transfusion Lab draw decision: Patient chooses Lab draws 07/27/2022 Patient chooses Lab draws Transport decision: Patient chooses Transport 11/12/2021 Dialysis decision: Undecided about Dialysis 07/27/2022 Undecided about Dialysis Additional Comments Synopsis [employer] Most Recent Value Past ~10 years 10/10/2022 09:22 Additional Comments Additional Comments: Full code. Ok with hospital if needed. 10/10/2022 Full code. Ok with hospital if needed. Discerning What Matters Most to the Patient: Synopsis [employer] Most Recent Value Past ~10 years 01/13/2023 09:31 Discerning What Matters Most to the Patient In their own words, patient's UNDERSTANDING of their illness is: "my knees are bad and I have trouble getting around" 06/22/2022 Their current SYMPTOMS include: Pain;Reduced overall well being 01/13/2023 Pain;Reduced overall well being They say their illness has CHANGED THEIR LIFE by: Less enjoyment (quality of life);Feel like a burden to family/loved ones 01/13/2023 Less enjoyment (quality of life);Feel like a burden to family/loved ones The patient thinks COMPLICATIONS in the future may be: More pain 06/22/2022 The patient's HOPES are: Avoid further hospitalization;Avoid the fci 10/10/2022 The patient defines LIVING WELL as: being able to walk and get outside more 06/22/2022 The patient's FEARS/WORRIES about illness are: Going to a fci 01/13/2023 Going to a fci The patient's PRIOR EXPERIENCES: had 2 siblings that in their 40s 06/22/2022 Source: Content from [employer] Aligning Care With What Matters Most: [employer] Most Recent Value Past ~10 years 07/27/2022 17:06 Aligning Care With What Matters Most Interventions/Choices: CPR;Intubation/mechanical ventilation;Non-invasive ventilation or BIPAP;Antibiotic therapy;Artificial nutrition;IV hydration;Blood transfusion;Lab draws;Dialysis 07/27/2022 CPR;Intubation/mechanical ventilation;Non-invasive ventilation or BIPAP;Antibiotic therapy;Artificial nutrition;IV hydration;Blood transfusion;Lab draws;Dialysis Rationale for Decisions Synopsis [employer] Most Recent Value Past ~10 years 07/27/2022 17:06 Intubation/mechanical ventilation Unacceptable outcomes from Intubation/mechanical ventilation treatment are: would not want longer than 2 weeks 07/27/2022 would not want longer than 2 weeks Source: Content from [employer] [facility] 20 minutes spent in direct [id number] discussion today, Mynor Leahy PA-C documented in this encounter Plan of Treatment Upcoming Encounters Date Type Specialty Care Team Description 02/01/2023 Home Visit [facility] Candi Trevino RN [address] [place] [address] Health Maintenance Due Date Last Done Comments [...] Benign hypertensive heart disease with heart failure At high risk for falls Personal history of fall Physical deconditioning Debility, unspecified Primary osteoarthritis of both knees Primary localized osteoarthrosis, lower leg Spasm of muscle documented in this encounter [...] the patient have Health Care Power of Electronics Engineering Technician? No Care Teams Lcsw Relationship Specialty Start Date End Date Mynor Leahy PA-C [address] [facility] [place] [address] PCP - [facility] 09/30/22 documented as of this encounter
[2023-07-07] MEDS: DAPTOmycin 600 MG in SYRINGE 0 ML IV SCH (12:46)
[2023-07-07] MEDS: SODIUM CHLORIDE 0.9% 1,000 ML IV SCH (12:47)
--- NOTE | 2023-07-07 13:55 | Discharge Summary ---
Date of Service July 07, 2023 Admission HPI Per Admitting Provider History obtained from patient and records. Medical history significant for chronic diastolic heart failure (EF 60%, TTE 2019 ), hypertension, hyperlipidemia, SARAN (CPAP noncompliance)/nocturnal hypoxemia/pulmonary hypertension, DM2 on oral medications, right breast cancer status post surgery, LE venous stasis dermatitis, chronic anemia (baseline hemoglobin 10-11), physical deconditioning as per records, past tobacco abuse. Last confinement July 2022 for right hip pain attributed to OA flare. Patient has not been able to get out of bed since COVID-19 illness from 2 years ago. Son is primary caregiver at home. Refused SNF placement as per outpatient PCP notes. Worsening bilateral leg wound infection noted in the last couple of weeks. Open wounds with bone exposure with note of maggot infestation. No fever, no chills. Patient denies chest pain, SOB. Achy headache symptoms with transient achy abdominal discomfort. Patient brought to the ER for evaluation. IV cefepime administered at the ER for bilateral leg infection. [facility] specialists (Orthopedics, Podiatry, and General Surgery) recommended [facility] transfer as per ER provider. Patient accepted for transfer by [facility] hospitalist service pending bed availa bility. SBP 200s upon arrival at the ER. 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 VITAL SIGNS: Temperature 36.7, pulse 86, respiratory rate 18, blood pressure 170/99, oxygen 97% on room air. HEENT: Pupils equal, round, and reactive to light. Oral mucosa moist. NECK: No JVD, no neck masses. CARDIOVASCULAR: S1 and S2 heard. Regular rate and rhythm. No murmur, no gallop. RESPIRATORY SYSTEM: Normal AP diameter. No accessory muscle use. No wheezing, no crackles. ABDOMEN: Soft, bowel sounds present, nontender, no distention. CENTRAL NERVOUS SYSTEM: Alert and oriented. Speech is clear. No facial droop. Obeys simple commands. Moves extremities. EXTREMITIES: No edema, no erythema seen. Principal Diagnosis Extensive Infected bilateral lower extremity wounds/Cellulitis Suspect UTI Possible Sepsis Abnormal Thyroid function test Thrombocytosis Discharge Data Allergies Allergy/AdvReac Type Severity Reaction Status Date / Time phenobarbital Allergy Intermediate ITCHY RASH Verified 07/06/23 19:06 scopolamine Allergy Intermediate RASH Verified 07/06/23 19:06 simvastatin Allergy Intermediate muscle Verified 07/06/23 19:06 cramps aspirin AdvReac Intermediate Abdominal Verified 07/06/23 19:06 Pain atropine AdvReac Intermediate ITCHING Verified 07/06/23 19:06 codeine AdvReac Intermediate HYPERTENSIO Verified 07/06/23 19:06 N doxycycline AdvReac Intermediate NAUSEA/VOMI Verified 07/06/23 19:06 TING. hyoscyamine AdvReac Intermediate ITCHING Verified 07/06/23 19:06 lactose AdvReac Intermediate Gastrointestinal Verified 07/06/23 19:06 Upset minocycline AdvReac Intermediate NAUSEA AND Verified 07/06/23 19:06 VOMITING morphine AdvReac Intermediate NAUSEA/VOMI Verified 07/06/23 19:06 TING Fish Containing Products AdvReac Unknown Unknown Verified 07/06/23 19:06 Pork/Porcine Containing AdvReac Unknown spiritual Verified 07/06/23 19:06 Products preference Procedures Performed Laboratory Results WBC 13.76 K/ul (4.8-10.8) H 07/07/23 05:55 RBC 3.75 M/uL (4.20-5.40) L 07/07/23 05:55 Hgb 10.0 g/dl (12.0-16.0) L 07/07/23 05:55 Hct 32.2 % (37.0-47.0) L 07/07/23 05:55 MCV 85.9 fL (80.0-100.0) 07/07/23 05:55 MCH 26.7 pg (25.0-34.0) 07/07/23 05:55 MCHC 31.1 g/dL (32.0-36.0) L 07/07/23 05:55 RDW Std Deviation 51.2 fL (36.4-46.3) H 07/07/23 05:55 RDW Coeff of Sergio 16.4 % (11.5-14.5) H 07/07/23 05:55 Plt Count 522 K/uL (130-400) H 07/07/23 05:55 MPV 8.5 fL (9.4-12.4) L 07/07/23 05:55 Immature Gran % (Auto) 0.7 % 07/07/23 05:55 Neut % (Auto) 79.9 % 07/07/23 05:55 Lymph % (Auto) 10.0 % 07/07/23 05:55 [place] % (Auto) 9.2 % 07/07/23 05:55 Eos % (Auto) 0.0 % 07/07/23 05:55 Baso % (Auto) 0.2 % 07/07/23 05:55 Neut # (Auto) 11.00 K/uL (1.40-6.50) H 07/07/23 05:55 Lymph # (Auto) 1.38 K/uL (1.20-3.40) 07/07/23 05:55 [place] # (Auto) 1.26 K/uL (0.11-0.59) H 07/07/23 05:55 Eos # (Auto) 0.00 K/uL (0.00-0.50) 07/07/23 05:55 Baso # (Auto) 0.03 K/uL (0.00-0.20) 07/07/23 05:55 Immature Gran # (Auto) 0.09 K/uL (0.01-0.20) 07/07/23 05:55 Absolute Nucleated RBC 0.02 K/uL (0.00-0.12) 07/06/23 17:28 Nucleated RBC % (auto) 0.2 % 07/06/23 17:28 PT 12.4 Seconds (9.0-12.0) H 07/06/23 19:24 INR 1.1 (0.9-1.1) 07/06/23 19:24 APTT 39 Seconds (21-31) H 07/06/23 19:24 PTT Ratio 1.4 07/06/23 19:24 Sodium 133 mmol/L (136-145) L 07/07/23 05:55 Potassium 4.7 mmol/L (3.5-5.1) 07/07/23 05:55 Chloride 101 mmol/L (98-107) 07/07/23 05:55 Carbon Dioxide 22 mmol/L (21-32) 07/07/23 05:55 Anion Gap 10 (3-11) 07/07/23 05:55 BUN 17 mg/dl (6-23) 07/07/23 05:55 Creatinine 0.57 mg/dl (0.6-1.2) L 07/07/23 05:55 Est Cr Clr Drug Dosing 77.2 ml/min 07/07/23 05:55 Est GFR ( Amer) 95.3 ml/min 07/07/23 05:55 Est GFR (Non-Af Amer) 82.2 ml/min 07/07/23 05:55 BUN/Creatinine Ratio 29.8 (10-20) H 07/07/23 05:55 Glucose 116 mg/dl (70-99(Fasting)) H 07/07/23 05:55 POC Glucose 116 mg/dl (70-99) H 07/07/23 12:32 Estimat Average Glucose 189 mg/dl 07/06/23 17:28 Hemoglobin A1c 8.2 % (4.5-5.6) H 07/06/23 17:28 Lactate 3.7 mmol/L (0.4-2.0) H* 07/07/23 10:03 Calcium 9.0 mg/dl (8.6-10.3) 07/07/23 05:55 Magnesium 2.2 mg/dl (1.7-2.4) 07/06/23 17:28 Total Bilirubin 0.4 mg/dl (0.2-1.0) 07/06/23 17:28 Direct Bilirubin 0.1 mg/dl (0-0.2) 07/06/23 17:28 AST 21 U/L (13-39) 07/06/23 17:28 ALT 18 U/L (7-52) 07/06/23 17:28 Alkaline Phosphatase 103 U/L (34-104) 07/06/23 17:28 Total Creatine Kinase 172 U/L (26-192) 07/06/23 17:28 Troponin I High Sens 8.7 pg/ml (0-14) 07/06/23 17:28 Total Protein 7.3 gm/dl (6.0-8.3) 07/06/23 17:28 Albumin 3.3 gm/dl (3.4-5.0) L 07/06/23 17:28 Lipase 34 U/L (11-82) 07/06/23 17:28 Procalcitonin 0.18 ng/ml (0-0.5) 07/06/23 17:28 TSH 9.563 uIu/ml (0.300-4.500) H 07/06/23 19:25 Free T4 0.81 ng/dl (0.61-1.60) 07/06/23 19:25 Urine Color Dark Yellow 07/07/23 05:24 Urine Appearance Cloudy (Clear) A 07/07/23 05:24 Urine pH 5.0 (4.5-7.5) 07/07/23 05:24 Ur Specific [place] > 1.045 (1.000-1.030) H 07/07/23 05:24 Urine Protein Trace (Negative) H 07/07/23 05:24 Urine Glucose (UA) Negative (Negative) 07/07/23 05:24 Urine Ketones Trace (Negative) H 07/07/23 05:24 Urine Blood Negative (Negative) 07/07/23 05:24 Urine Nitrite Positive (Negative) A 07/07/23 05:24 Urine Bilirubin Negative (Negative) 07/07/23 05:24 Urine Urobilinogen Negative (Negative) 07/07/23 05:24 Ur Leukocyte Esterase Negative (Negative) 07/07/23 05:24 Urine WBC (Auto) 1-5 /hpf (0-5) 07/07/23 05:24 Urine RBC (Auto) 5-10 /hpf (0-4) H 07/07/23 05:24 U Hyaline Cast (Auto) 1-5 /lpf (0-5) 07/07/23 05:24 U Epithel Cells (Auto) >30 /lpf (0-5) H 07/07/23 05:24 Urine Bacteria (Auto) 3+ (Negative) H 07/07/23 05:24 Urine Crystals Not Reportable 07/07/23 05:24 Calcium Oxalate Crystal Present (None Prsent) A 07/07/23 05:24 Enterococc faecalis PCR DETECTED (NotDetected) A 07/06/23 17:28 Staphylococcus sp PCR DETECTED (NotDetected) A 07/06/23 17:28 mecA/C-Methicil Resis Gene DETECTED (NotDetected) A 03/20/24 17:28 Staph epidermidis (PCR) DETECTED (NotDetected) A 07/06/23 17:28 Chan/B-Vanco Res Genes VRE Not Detected (NotDetected) 07/06/23 17:28 Bld Cult ID Panel PCR See PCR Comment (NotDetected) 07/06/23 17:28 Impressions Chest X-Ray 07/06/23 17:17 XR chest 1V portable CLINICAL HISTORY: Sepsis TECHNIQUE: Single frontal radiograph of the chest was obtained. Comparison: Comparison is made to chest radiograph 04/06/2022 FINDINGS: No lines and tubes are seen. The cardiomediastinal silhouette is normal. The lungs are clear. No evidence of pleural effusion or pneumothorax. IMPRESSION: No acute chest disease. ACT 112: Negative or not required by law. Electronically signed by: Jerry Boykin M.D. 07/06/2023 7:16 PM Femur X-Ray 07/06/23 17:23 XR femur RT 2V routine, XR tibia fibula RT 2V, XR tibia fibula LT 2V, XR femur LT 2V routine, XR foot RT min 3V routine, XR foot LT min 3V routine CLINICAL HISTORY: wounds TECHNIQUE: 2 radiographic views of the bilateral femurs, 2 views of the bilateral tibia and fibula, and 2 views of the left foot and one view of the right foot were obtained. Comparison: Comparison is made to CT right hip 08/01/2022 FINDINGS: There is no evidence of an acute fracture. Extensive degenerative changes are seen with [id number] morphology of the bilateral hip and knee joints and degenerative changes of the bones of the foot as well. There is prominent soft tissue swelling bilaterally with irregular appearance however no riley kidneys emphysema is seen. No definite bony erosions are seen to suggest osteomyelitis. IMPRESSION: Extensive soft tissue swelling compatible with cellulitis of the bilateral lower extremities. No radiographic evidence of osteomyelitis or subcutaneous emphysema. Bones are demineralized and there are extensive degenerative changes. ACT 112: Negative or not required by law. Electronically signed by: Jerry Boykin M.D. 07/06/2023 7:12 PM Tibia/Fibula X-Ray 07/06/23 17:23 XR femur RT 2V routine, XR tibia fibula RT 2V, XR tibia fibula LT 2V, XR femur LT 2V routine, XR foot RT min 3V routine, XR foot LT min 3V routine CLINICAL HISTORY: wounds TECHNIQUE: 2 radiographic views of the bilateral femurs, 2 views of the bilateral tibia and fibula, and 2 views of the left foot and one view of the right foot were obtained. Comparison: Comparison is made to CT right hip 08/01/2022 FINDINGS: There is no evidence of an acute fracture. Extensive degenerative changes are seen with [id number] morphology of the bilateral hip and knee joints and degenerative changes of the bones of the foot as well. There is prominent soft tissue swelling bilaterally with irregular appearance however no riley kidneys emphysema is seen. No definite bony erosions are seen to suggest osteomyelitis. IMPRESSION: Extensive soft tissue swelling compatible with cellulitis of the bilateral lower extremities. No radiographic evidence of osteomyelitis or subcutaneous emphysema. Bones are demineralized and there are extensive degenerative changes. ACT 112: Negative or not required by law. Electronically signed by: Jerry Boykin M.D. 07/06/2023 7:12 PM Foot X-Ray 07/06/23 17:24 XR femur RT 2V routine, XR tibia fibula RT 2V, XR tibia fibula LT 2V, XR femur LT 2V routine, XR foot RT min 3V routine, XR foot LT min 3V routine CLINICAL HISTORY: wounds TECHNIQUE: 2 radiographic views of the bilateral femurs, 2 views of the bilateral tibia and fibula, and 2 views of the left foot and one view of the right foot were obtained. Comparison: Comparison is made to CT right hip 08/01/2022 FINDINGS: There is no evidence of an acute fracture. Extensive degenerative changes are seen with [id number] morphology of the bilateral hip and knee joints and degenerative changes of the bones of the foot as well. There is prominent soft tissue swelling bilaterally with irregular appearance however no riley kidneys emphysema is seen. No definite bony erosions are seen to suggest osteomyelitis. IMPRESSION: Extensive soft tissue swelling compatible with cellulitis of the bilateral lower extremities. No radiographic evidence of osteomyelitis or subcutaneous emphysema. Bones are demineralized and there are extensive degenerative changes. ACT 112: Negative or not required by law. Electronically signed by: Jerry Boykin M.D. 07/06/2023 7:[address] 07/06/23 17:52 CT head/brain wo con CLINICAL HISTORY: ams Technique: Contiguous axial CT images of the head were acquired from the base of the skull to the vertex without intravenous contrast administration. Images were viewed in brain, subdural and bone windows. Automated dose lowering techniques and/or adjustment according to patient size were utilized for this exam. Comparison: Comparison is made to CT head 03/31/2022 Findings: Areas of decreased attenuation are present in the periventricular and subcortical white matter bilaterally consistent with small vessel ischemic disease. Generalized cerebral atrophy with commensurate enlargement of the ventricles, sulci, and cisterns is also present. There is no acute intracranial hemorrhage or evidence of acute territorial infarction. No shift of the midline structures, mass effect, or extra-axial abnormalities are shown. Atherosclerotic calcifications are present in the intracranial segments of the internal carotid arteries. Imaged portions of the paranasal sinuses and mastoid air cells are clear. The orbits appear normal. There are no acute fractures of the calvaria or scalp swelling. Impression: No acute intracranial hemorrhage, no evidence of acute territorial infarction or other acute intracranial disease process. ACT 112: Negative or not required by law. Electronically signed by: Jerry Boykin M.D. 07/06/2023 6:41 PM Abdomen/Pelvis CT 07/06/23 23:42 Exam(s): CT ABDOMEN + PELVIS With Contrast IV Amt: 90 ml optiray 320 EXAM: CT Abdomen and Pelvis With Intravenous Contrast CLINICAL HISTORY: Reason for exam: abd pain. TECHNIQUE: Axial computed tomography images of the abdomen and pelvis with intravenous contrast. CTDI is 28 mGy and DLP is 1345 mGy-cm. Automated exposure control was utilized for the study. A dose lowering technique was utilized adhering to the principles of ALARA. CONTRAST: Patient received 90 ml optiray 320 of IV contrast COMPARISON: March 31, 2022. FINDINGS: ABDOMEN: Liver: Unremarkable. No mass. Gallbladder and bile ducts: Unremarkable. No calcified stones. No ductal dilation. Pancreas: Unremarkable. No mass. No ductal dilation. Spleen: Unremarkable. No splenomegaly. Adrenals: Unremarkable. No mass. Kidneys and ureters: Unremarkable. No solid mass. No hydronephrosis. Stomach and bowel: Extensive diverticulosis without diverticulitis. No obstruction. PELVIS: Appendix: No findings to suggest acute appendicitis. Bladder: Unremarkable. No mass. Reproductive: Hysterectomy. ABDOMEN and PELVIS: Intraperitoneal space: Unremarkable. No free air. No significant fluid collection. Bones/joints: No acute findings. Soft tissues: Unremarkable. Vasculature: Unremarkable. No abdominal aortic aneurysm. Lymph nodes: Unremarkable. No enlarged lymph nodes. IMPRESSION: No acute findings in the abdomen or pelvis. Electronically signed by: Guerrero Torres MD 07/07/23 01:31 AM Ordered Studies 07/06/23 17:52 CT head/brain wo con Stat 07/06/23 23:42 CT Abd and Pelvis [CT abd pelvis IV con only] Stat Hospital Course (1) Wound of lower extremity: Sepsis--POA Gram-positive bacteremia Possible Sources:Infected extensive b/l lower extremity wounds/Cellulitis, UTI, bacteremia Chronic venous stasis Lactic acidosis Stage IV decubiti Ankle/heel -POA --Tibia/Fibula X ray:Extensive soft tissue swelling compatible with cellulitis of the bilateral lower extremities. No radiographic evidence of osteomyelitis or subcutaneous emphysema. Bones are demineralized and there are extensive degenerative changes. --Femur X ray:Extensive soft tissue swelling compatible with cellulitis of the bilateral lower extremities. No radiographic evidence of osteomyelitis or subcutaneous emphysema. Bones are demineralized and there are extensive degenerative changes. --Blood Culture: Growing gram-positive cocci in clusters, gram-positive cocci in chains, gram-positive bacilli -- Will need repeat blood cultures, echo and ID evaluation when appropriate --Urine culture pending --Wound culture pending --Continue daptomycin, Zosyn --Hold statin while on daptomycin --Continue IV fluids --Appreciate surgery input --Cautious use of pain medications, minimize use for excess sedation --Continue wound care --Waiting to be transferred to tertiary care facility Chronic thrombocytosis Platelet count increased likely reactive secondary to infection Needs further workup as outpatient Abnormal thyroid function test H/O hypothyroidism TSH elevated, normal free T4 Continue levothyroxine Will need repeat thyroid function test as outpatient Chronic diastolic heart failure ? Chronic oxygen dependency EF 60%, TTE 2019 per record Hold Lasix in setting of sepsis Monitor volume status closely Resume diuretics as able Hypertension Continue nifedipine, losartan Monitor BP Hyperlipidemia Hold statin while on Dapto SARAN CPAP noncompliance Nocturnal hypoxemia Pulmonary hypertension Continue supplemental oxygen as needed DM II Hold oral medications Last HbA1C 6.22 July 2022 Continue insulin while hospitalized Monitor BGs Right breast cancer S/P surgery Chronic anemia Hb at baseline Monitor Physical deconditioning/functional disability Past tobacco abuse PT/OT as able DVT Px: Arixtra (patient cannot take pork containing products like heparin due to spiritual preference) Code Status Full code Disposition [facility] when bed is available Total Time Total Time Spent Total Time Spent (In Minutes): 65 minutes Discharge Plan Discharge Items Patient Disposition: Transfer Acute Care Hospital Reason For Visit: HTN URG, INFECTED LEG WOUNDS Discharge Diagnosis: Extensive Infected bilateral lower extremity wounds/Cellulitis Suspect UTI Possible Sepsis Abnormal Thyroid function test Thrombocytosis Activity: As commented below Exercise/Sports: Wait until after follow-up appointment Non-emergency contact: Primary Care Provider Call non-emergency contact if: you have any medication questions, your symptoms worsen, your pain is concerning for you and you have a fever Follow-up/Referrals: Collins Delatorre, [Primary Care Provider] - Diet: Carb Consistent or DM2 and Heart Healthy Addtl Attending Provider Instructions: Follow up with Dr. Sharma of [facility] hospitalist service for further management. -- Please review list below for current inpatient treatments Seek immediate medical attention if your symptoms reoccur or worsen Please take all medications as instructed on discharge list below. Please call if you have any questions or problems. You can reach a [facility] hospitalist on duty at [facility] 24 hours a day by calling [phone] Addtl Website Project Manager Provider Instructions: Date of Service: July 07, 2023 Current Inpatient Medications Acetaminophen (Acetaminophen 325 Mg Tab) 650 mg PO QID PRN PRN Reason: pain/fever Stop: 08/05/23 23:15 Aspirin (Aspirin 81 Mg Chew) 81 mg PO DAILY JACINTO Stop: 08/06/23 08:59 Last Admin: 07/07/23 08:51 Dose: 81 mg Baclofen (Baclofen 10 Mg Tab) 5 mg PO BID PRN PRN Reason: MUSCLE SPASMS Stop: 08/06/23 00:07 Dextrose (Dextrose 50% 50 Ml Syringe) 25 - 50 ml IV UD PRN; Protocol PRN Reason: Hypoglycemia Protocol Stop: 08/06/23 00:07 Duloxetine HCl (Duloxetine Hcl 20 Mg Cap) 40 mg PO QAM JACINTO Stop: 08/06/23 08:59 Last Admin: 07/07/23 08:51 Dose: 40 mg Fluticasone Propionate (Fluticasone Propionate Na Spr 16 Gm Btl) 2 sprays NA BID JACINTO Stop: 08/06/23 08:59 Last Admin: 07/07/23 08:49 Dose: 2 sprays Fondaparinux (Fondaparinux 2.5 Mg/0.5 Ml Syr) 2.5 mg SQ DAILY JACINTO Stop: 08/06/23 08:59 Last Admin: 07/07/23 08:50 Dose: 2.5 mg Glucagon (Glucagon For Inj 1 Mg Vial) 1 mg SQ UD PRN; Protocol PRN Reason: Hypoglycemia Protocol Stop: 08/06/23 00:07 Glucose (Glucose 10 Tab/Tube) 4 - 8 tab PO UD PRN; Protocol PRN Reason: Hypoglycemia Treatment Stop: 08/06/23 00:07 Glucose (Glucose 40% Gel 15 Gm Tube) 15 - 30 gm PO UD PRN; Protocol PRN Reason: Hypoglycemia Protocol Stop: 08/06/23 00:07 Promethazine HCl 6.25 mg/ (Sodium Chloride) 50.25 mls @ 201 mls/hr IV Q6H PRN PRN Reason: Nausea And Vomiting Stop: 08/05/23 23:17 Piperacillin Sod/Tazobactam (Sod 4.5 gm/ Dextrose) 100 mls @ 25 mls/hr IV Q8H JACINTO; Protocol Stop: 07/14/23 05:59 Last Infusion: 07/07/23 10:41 Dose: Infused Daptomycin 600 mg/ Syringe 12 mls @ 6 mls/min IV Q24H JACINTO; Protocol Stop: 07/21/23 12:29 Insulin Aspart (Insulin Aspart Per Unit Charge) 0 units SC ACHS JACINTO Stop: 08/06/23 00:07 Last Admin: 07/07/23 09:53 Dose: 1 units Levothyroxine Sodium (Levothyroxine Sodium 75 Mcg Tablet) 75 mcg PO DAILYBB JACINTO Stop: 08/06/23 06:29 Last Admin: 07/07/23 06:30 Dose: 75 mcg Losartan Potassium (Losartan Potassium 50 Mg Tab) 50 mg PO DAILY JACINTO Stop: 08/06/23 08:59 Last Admin: 07/07/23 08:52 Dose: 50 mg Miscellaneous (Carbohydrates For Hypoglycemia ) 15 - 30 gm PO UD PRN PRN Reason: Hypoglycemia Protocol Stop: 08/06/23 00:07 Morphine Sulfate (Morphine Sulfate 4 Mg/Ml 1 Ml Carp\Vial) 3 mg IV Q4H PRN PRN Reason: Pain Stop: 07/20/23 23:15 Multivitamins/Minerals (Cerovite Adv Formula Tab) 1 tab PO DAILY JACINTO Stop: 08/06/23 08:59 Last Admin: 07/07/23 08:52 Dose: 1 tab Nifedipine (Nifedipine Extended Rel 30 Mg Tabcr) 30 mg PO DAILYBB [facility] Stop: 08/06/23 06:29 Last Admin: 07/07/23 06:30 Dose: 30 mg Oxycodone HCl (Oxycodone Hcl Ir 5 Mg Tab (Immediate Release)) 5 mg PO Q4H PRN PRN Reason: Pain Stop: 07/20/23 23:15 Last Admin: 07/07/23 06:29 Dose: 5 mg Pregabalin (Pregabalin 75 Mg Cap) 75 mg PO BID [facility] Stop: 08/06/23 00:07 Last Admin: 07/07/23 08:50 Dose: 75 mg Rosuvastatin Calcium (Rosuvastatin Calcium 20 Mg Tab) 20 mg PO DAILY [facility] Stop: 08/06/23 08:59 Last Admin: 07/07/23 08:52 Dose: 20 mg Pending Studies at Discharge: Yes Studies:: Blood, wound, urine cultures Stand-Alone Forms: [facility] Skilled Items Patient informed of condition?: Yes DNR: No Discharge Level of Care: Other Communicable Disease: No Discharge Prognosis: Stable Lines: Peripheral IV Urinary Catheter: No Medications and DC Order Prescriptions: Continued nifedipine 30 mg Tablet Extended Release 24hr 30 mg PO DAILYBB furosemide [Lasix] 40 mg Tablet 40 mg PO QAM metformin 500 mg Tablet 500 mg PO BID omega-3 fatty acids 1,000 mg Capsule 1,000 mg PO DAILY acetaminophen [Tylenol Extra Strength] 500 mg Tablet 500 mg PO Q8H PRN (Reason: Pain) levothyroxine 75 mcg Tablet 75 mcg PO DAILYBB potassium chloride 20 mEq Tablet,Er Particles/Crystals 20 meq PO DAILY fluticasone propionate 50 mcg/actuation Dexter,Suspension 2 spray INTRANASAL BID Rx Instructions: administer into each nostril vitamin E 268 mg (400 unit) Capsule 268 mg PO DAILY cholecalciferol (vitamin D3) [Vitamin D3] 25 mcg (1,000 unit) Capsule 25 mcg PO DAILY rosuvastatin 20 mg Tablet 20 mg PO DAILY duloxetine [Cymbalta] 20 mg Capsule,Delayed Release(Dr/Ec) 40 mg PO QAM Atrovent HFA 17 mcg/actuation Hfa Aerosol Inhaler 2 puff INHALATION TID PRN (Reason: Wheezing) Azo Bladder Control 300 mg Capsule 1 cap PO BID baclofen 5 mg Tablet 5 mg PO BID PRN (Reason: MUSCLE SPASMS) glucosamine sulfate 1,000 mg Tablet 1,000 mg PO BID Rx Instructions: administer with meals losartan 50 mg tablet 50 mg PO DAILY Qty: 30 0RF ascorbic acid (vitamin C) [Vitamin C With Rosette Hips] 500 mg Tablet 1,000 mg PO QAM aspirin 81 mg Tablet,Chewable 81 mg PO DAILY magnesium 250 mg Tablet 250 mg PO BID ipratropium bromide 42 mcg (0.06 %) Dexter,Non-Aerosol 2 spray INTRANASAL QID PRN (Reason: RHINITIS) Rx Instructions: administer into each nostril Sentry Senior 0.4 mg-300 mcg- 250 mcg Tablet 1 tab PO DAILY pregabalin 75 mg Capsule 75 mg PO BID Discharge Orders: Discharge Order (Routine); Ordered 07/07/23 Ordered By: Luke Kang/Other Patient Handouts: Nutrition for Wound Healing, Managing Type 2 Diabetes Admission Data Admit Date/Time: 07/06/23 23:14 Attending Provider: Luke Parra Admit Provider: Dennis Jamil Primary Care Provider: Collins Delatorre
--- NOTE | 2023-07-07 14:12 | Communication Note ---
Date of Service: July 07, 2023 Updated patient's son regarding the patient's condition and transfer to [facility] for further care. Agrees with the plan.
[2023-07-07] MEDS: PIPERACILLIN/TAZOBACTAM 4.5 GM/100ML D5W IV ONE (14:33)
--- NOTE | 2023-07-08 12:15 | Electrocardiogram Report ---
Test Reason : Blood Pressure : / mmHG Vent. Rate : 114 BPM Atrial Rate : 105 BPM P-R Int : 144 ms QRS Dur : 064 ms QT Int : 386 ms P-R-T Axes : 061 -10 101 degrees QTc Int : 532 ms Poor data quality, interpretation may be adversely affected probably sinus rhythm Minimal voltage criteria for LVH, may be normal variant Abnormal ECG Confirmed by Codey Carballo ([id number]) on 07/08/2023 12:15:09 PM Referred By: REFERRED SELF Confirmed By:Georgi Carballo
== END 2023-07-07 14:40 | disposition short-term general hospital (02) | DRG 871 ==
LOC: ED 17:08 → EDINP 23:14